=== PATIENT | male | born 1950 ===

== ENCOUNTER 2016-12-30 13:18 | Emergency (ER) | payer MEDICARE, MEDICAID ==
[2016-12-30 13:18] VITALS: BMI 26.6
[2016-12-30 13:24] VITALS: BP 136/63; PULSE 63; RESP 16; TEMP 98; O2SAT 99
--- NOTE | 2016-12-30 14:03 | ED PDOC ---
HPI: General Adult Time Seen by Provider: 12/30/16 13:32 Chief Complaint (Nursing): Abnormal Labs Chief Complaint (Provider): Elevated K History Per: Patient Additional Complaint(s): HPI: This is a 65 y/o male with MHx significant for DM2, HTN, ESRD on M/W/F ESRD , and PVD. Presents to ED without any physical complaints, reports that Dr. Erwin sent him to ED for elevated K ROS: 14 systems reviewed, negative other than HPI MHx: DM2, HTN, ESRD on HD, PVD SHx: R foot small toe amputation, R CEA, cholecystectomy Allergies: NKDA Medications: As per med rec Family Hx: No relevant findings Social Hx: Lives alone with a homemaker, no tobacco, no EtOH Surrogate: Daughters -- Magali [phone], Lisa [phone] Past Medical History Reviewed: Historical Data, Nursing Documentation, Vital Signs Vital Signs: Last Vital Signs Temp 98.0 F 12/30/16 13:23 Pulse 63 12/30/16 13:23 Resp 16 12/30/16 13:23 BP 136/63 12/30/16 13:23 Pulse Ox 99 12/30/16 14:09 - Medical History PMH: Anemia, CHF, Diabetes, HTN, Hypercholesterolemia, Pneumonia, End Stage Renal Disease (M/W/F dialysis), Chronic Kidney Disease (M/W/F dialysis) Denies: Arthritis, COPD, Hypothyroidism, Rheumatoid Arthritis - Surgical History Surgical History: Denies: Appendectomy - Family History Family History: States: Unknown Family Hx - Living Arrangements Living Arrangements: With Family - Social History Current smoker - smoking cessation education provided: No Alcohol: None Drugs: Denies - Home Medications Home Medications: Ambulatory Orders Medication Instructions Recorded Calcitriol [Rocaltrol] 0.25 mcg PO DAILY 12/30/16 Carvedilol [Coreg] 25 mg PO Q12H 12/30/16 Docusate Sodium [Colace] 100 mg PO HS 12/30/16 Folic Acid/Vit B Complex and C 1 tab PO HS 12/30/16 [Cheyenne-Angel Tablet] Glipizide [Glucotrol] 10 mg PO BID 12/30/16 Insulin Detemir [Levemir] 25 unit SC BID 12/30/16 Lactulose [Enulose] 30 ml PO DAILY PRN 12/30/16 Levocetirizine Dihydrochloride 5 mg PO DAILY PRN 12/30/16 [Xyzal] Lipase/Protease/Amylase [Creon Dr 1 cap PO TID 12/30/16 36,000 Units Capsule] Rosuvastatin Calcium [Crestor] 5 mg PO HS 12/30/16 Sevelamer Carbonate [Renvela] 1,600 mg PO TID 12/30/16 amLODIPine [Norvasc] 10 mg PO QPM 12/30/16 cloNIDine [Catapres (RENAL)] 0.2 mg PO TID 12/30/16 - Allergies Allergies/Adverse Reactions: Allergies Allergy/AdvReac Type Severity Reaction Status Date / Time No Known Allergies Allergy Verified 12/02/14 09:17 Review of Systems ROS Statement: Except As Marked, All Systems Reviewed And Found Negative Physical Exam - Reviewed Nursing Documentation Reviewed: Yes Vital Signs Reviewed: Yes - Physical Exam Appears: Positive for: Well, Non-toxic, No Acute Distress Head Exam: Positive for: ATRAUMATIC, NORMAL INSPECTION, NORMOCEPHALIC Skin: Positive for: Normal Color, Warm, DRY Eye Exam: Positive for: EOMI, Normal appearance, PERRL ENT: Positive for: Normal ENT Inspection Neck: Positive for: Normal, Painless ROM Cardiovascular/Chest: Positive for: Regular Rate, Rhythm Respiratory: Positive for: CNT, Normal Breath Sounds Gastrointestinal/Abdominal: Positive for: Normal Exam, Bowel Sounds, Soft Back: Positive for: Normal Inspection Extremity: Positive for: Normal ROM Neurologic/Psych: Positive for: Alert, Oriented - Laboratory Results Result Diagrams: 12/30/16 14:36 12/30/16 14:36 - ECG O2 Sat by Pulse Oximetry: 99 Medical Decision Making Medical Decision Making: IV access established and diagnostics ordered EKG interpreted and cleared by ED MD [place] resulted 5.[address] Erwin, who agreed Pt stable fro discharge at this time. Dialysis as scheduled tomorrow. Kayex to be administered before discharge Disposition - Clinical Impression Clinical Impression: ESRD (end stage renal disease) on dialysis, Hyperkalemia - Patient ED Disposition Is Patient to be Admitted: No - Disposition Disposition: Routine/Home Disposition Time: 17:49 Condition: STABLE Instructions: Hyperkalemia (ED) Forms: [employer] ([place]i)
[2016-12-30 14:42] LABS: BASO # 0.2 K/uL (0.0-0.2); BASO % 1.7 % (0.0-2.0); EOS # 0.2 K/uL (0.0-0.7); EOS % 1.7 % (0.0-4.0); HEMOGLOBIN 13.1 g/dL (12.0-18.0); LYMPH # 1.3 K/uL (1.0-4.3); MEAN CELL VOLUME 88.1 fl (80.0-94.0); MEAN CORPUSCULAR HGB CONC 31.7 g/dL (33.0-37.0); MEAN PLATELET VOLUME 9.9 fl (7.2-11.7); MONO # 0.9 K/uL (0.0-0.8); MONO % 9.5 % (0.0-10.0); NEUT % 73.1 % (50.0-75.0); NRBC % 0.1 % (0.0-0.0); RBC 4.69 Mil/uL (4.40-5.90); RED CELL DISTRIBUTION WIDTH 14.2 % (11.5-14.5); WHITE BLOOD COUNT 9.6 K/uL (4.8-10.8)
[2016-12-30 14:51] LABS: ALB/GLOB RATIO 1.4 (1.0-2.1); ALBUMIN 4.6 g/dL (3.5-5.0); CALCIUM 10.3 mg/dL (8.4-10.2)
[2016-12-30 15:02] LABS: TROPONIN I 0.021 ng/mL (0.00-0.120)
[2016-12-30 15:12] LABS: INR 1.1 (0.9-1.2); PARTIAL THROMBOPLASTIN TIME 31.5 Seconds (25.6-37.1); PROTHROMBIN TIME 11.3 Seconds (9.8-13.1)
--- NOTE | 2016-12-30 15:42 | RAD ---
PROCEDURE: CHEST RADIOGRAPH, 1 VIEW HISTORY: med screening COMPARISON: Chest radiographs 02/24/2016 FINDINGS: LUNGS: Clear. PLEURA: No pneumothorax or pleural fluid seen. CARDIOVASCULAR: Normal. OSSEOUS STRUCTURES: No significant abnormalities. VISUALIZED UPPER ABDOMEN: Normal. OTHER FINDINGS: None. IMPRESSION: No acute cardiopulmonary disease identified or significant interval change compared to 02/24/2016.
[2016-12-30] MEDS ORDERED: Sod Polystyrene Sulf 15 gm/60 ml Oral Susp PO ONE (16:02)
[2016-12-30] MEDS ORDERED: Sod Polystyrene Sulf 15 gm/60 ml Oral Susp ONE (16:29)
--- NOTE | 2016-12-31 07:26 | CARD ---
APPROVED REPORT EKG Measurement Heart [id number] ID [id number] <Conclusion> Sinus bradycardia with 1st degree AV block Otherwise normal ECG
== END 2016-12-30 17:08 | disposition home or self-care (01) ==
LOC: H.ER 13:18
DX: N18.6 End stage renal disease (principal); E87.5 Hyperkalemia; E11.22 Type 2 diabetes mellitus with diabetic chronic kidney disease; Z99.2 Dependence on renal dialysis; Z79.4 Long term (current) use of insulin; I13.2 Hypertensive heart and chronic kidney disease with heart failure and with stage 5 chronic kidney disease, or end stage renal disease

== ENCOUNTER 2017-04-17 22:30 | Inpatient (IN) | payer MEDICARE, MEDICAID ==
[2017-04-17] MEDS ORDERED: Sodium Chloride 0.9% 1,000 ML IV STA (22:39)
[2017-04-17 22:53] VITALS: BMI 22.8
[2017-04-17 22:55] LABS: ABG ALLEN TEST YES; ABG MECHANICAL RATE 12; ARTERIAL BLOOD GAS HCO3 8.9 mmol/L (21-28); ARTERIAL BLOOD GAS MODE A/C; ARTERIAL BLOOD GAS PH 6.82 (7.35-7.45); ARTERIAL BLOOD GAS PO2 109 mm/Hg (80-100); ATERIAL BLOOD GAS PEEP 5
--- NOTE | 2017-04-17 23:00 | ED PDOC ---
HPI: Cardiac Arrest Time Seen by Provider: 04/17/17 22:37 Chief Complaint (Nursing): Cardiac Arrest Chief Complaint (Provider): Cardiac Arrest History Per: Other (ACLS personnel, Friend) Reason For Code Blue: Full Arrest Circumstances: Brought To ED By EMS Arrest Witnessed By: Other (Friend) CPR Initiated Prior To MD Arrival?: Yes Down-Time Before ACLS: Mins (about 25 minutes) Treatment Initiated Prior To MD Arrival: CPR, Other (supraglottic airway, intraosseous line) Medications Given Prior To MD Arrival: Epinephrine (3), Other (Narcan 2 mg) Additional Complaint(s): Patient is a 66 male brought in by ALS for cardiac arrest, with ongoing resuscitation in progress. Patient was reportedly watching TV with a friend when he began complaining of chest pain. 911 was alerted and ACLS initially responded. Patient reportedly walked to the stretcher, but while on the stretcher became unresponsive and went into a cardiac arrest. ALS placed intraosseous line and supraglottic airway, and administered 3 epinephrines and 2 mg Narcan prior to arrival. Patient reported Asystolic in the field originally and went into PEA after ALS personnel initiated CPR. History and ROS unobtainable due to patient's clinical condition. PCP: - Initial Findings Mentation: Unresponsive Respirations: None (Assisted) Pulse: None Rhythm: PEA Past Medical History Reviewed: Historical Data, Nursing Documentation, Vital Signs Vital Signs: Last Vital Signs Temp 33.6 F L 04/18/17 01:27 Pulse 59 L 04/18/17 01:27 Resp 12 04/18/17 01:27 BP 169/127 H 04/18/17 01:27 Pulse Ox 94 L 04/18/17 01:00 - Medical History PMH: Anemia, CHF, Diabetes, HTN, Hypercholesterolemia, Pneumonia, End Stage Renal Disease (M/W/F dialysis), Chronic Kidney Disease (M/W/F dialysis) Denies: Arthritis, COPD, Hypothyroidism, Rheumatoid Arthritis - Surgical History Surgical History: Denies: Appendectomy - Family History Family History: States: Unknown Family Hx - Home Medications Home Medications: Ambulatory Orders Medication Instructions Recorded Calcitriol [Rocaltrol] 0.25 mcg PO DAILY 12/30/16 Carvedilol [Coreg] 25 mg PO Q12H 12/30/16 Docusate Sodium [Colace] 100 mg PO HS 12/30/16 Folic Acid/Vit B Complex and C 1 tab PO HS 12/30/16 [[place]yenne-Angel Tablet] Glipizide [Glucotrol] 10 mg PO BID 12/30/16 Insulin Detemir [Levemir] 25 unit SC BID 12/30/16 Lactulose [Enulose] 30 ml PO DAILY PRN 12/30/16 Levocetirizine Dihydrochloride 5 mg PO DAILY PRN 12/30/16 [Xyzal] Lipase/Protease/Amylase [Creon Dr 1 cap PO TID 12/30/16 36,000 Units Capsule] Rosuvastatin Calcium [Crestor] 5 mg PO HS 12/30/16 Sevelamer Carbonate [Renvela] 1,600 mg PO TID 12/30/16 amLODIPine [Norvasc] 10 mg PO QPM 12/30/16 cloNIDine [Catapres (RENAL)] 0.2 mg PO TID 12/30/16 - Allergies Allergies/Adverse Reactions: Allergies Allergy/AdvReac Type Severity Reaction Status Date / Time No Known Allergies Allergy Verified 04/17/17 22:33 Review of Systems Review Of Systems: ROS cannot be obtained secondary to pt's inabilty to answer questions. Physical Exam - Reviewed Nursing Documentation Reviewed: Yes Vital Signs Reviewed: Yes - Physical Exam Head Exam: Positive for: ATRAUMATIC, NORMOCEPHALIC Skin: Positive for: Dry, Pallor Eye Exam: Positive for: Other (pupils pinpoint and non reactive, no corneal reflexes) Cardiovascular/Chest: Positive for: Other (No audible cardiac or heart sounds). Negative for: Regular Rate, Rhythm Respiratory: Positive for: Other (Intubated, good air entry bilaterally with bag mask ventillation) Gastrointestinal/Abdominal: Positive for: Distended Extremity: Positive for: Other (right transmetatarsal amputation) Neurologic/Psych: Positive for: Other (Unresponsive). Negative for: Alert, Oriented - Laboratory Results Result Diagrams: 04/17/17 23:06 04/17/17 23:06 - Critical Care Total Time (In Min): 60 Medical Decision Making Medical Decision Making: Initial Impression: 66 y/o male with acute cardiac arrest Initial Plan: --ABG Shock Panel --EKG --Alcohol Serum --Labs --Troponin I --ED Urine Dipstick --PTT --Prothrombin Time --Chest X-Ray --Sodium Chloride 0.9% IV 1,000 mls/hr --Blood Culture --Heplock Insertion --Accucheck --Hypothermia Assessment QSHIFT --Mckee [Urinary Catheter Insertion] --Vetilator Settings --Urinalysis Patient given empiric treatment for acute hyperkalemia based on clinical presetation and history of End Stage Renal Disease 22:25 Pulse check, no pulse detected 22:27 Pulse check, no pulse detected Sodium Bicarbonate 44.6 meq IV given 22:31 Pulse check, patient recovered pulse after 2 epinephrine and 1 bicarbonate Accucheck - 147 22:34 Patient received insulin 10 units D50 calcium gluconate 1 amp 22:[address] derangement, case discussed with Dr. Leighton Napier per Dr. Manzanares, patient is not a candidate for code heart ST derangements are due to his significant LVH --Head CT W/O Contrast 23:02 Patient will be admitted to ICU, Dr. Vitale made aware Status post acute cardiopulmonary arrest and respiratory failure --Admit to Hospital Routine 23:12 Spoke with family member of patient, Kaya Aguilar, over the phone regarding the patient's condition She said she will communicate with his two daughters who do not live in the area regarding his condition 23:20 Dr. Schroeder, sider covering for Dr. Erwin, was consulted and will give dialysis orders for fluid removal but advised against any electrolyte arrangement given hypothermia protocol 00:25 Spoke with daughter and next of kin, Magali Lopez, who resides in [place], over the phone. She was updated on her father's critical condition. She provided telephone consent for emergent hemodialysis with Jaja Donaldson RN serving as witness. Scribe Attestation: Documented by Villa Young, acting as a scribe for Dr. Blake Mccrary MD. Provider Scribe Attestation: All medical record entries made by the Scribe were at my direction and personally dictated by me. I have reviewed the chart and agree that the record accurately reflects my personal performance of the history, physical exam, medical decision making, and the department course for this patient. I have also personally directed, reviewed, and agree with the discharge instructions and disposition. Procedures - Time-Out Type of Procedure: Intubation - Central Line Central Line Lumen: triple Central Line Procedure: betadine prep, sterile drapes applied, sterile dressing applied Central Line Postion: femoral (L) Complications: none Central Line Post Position: sutured, good blood return - Intubation Time of Intubation: 22:30 Intubation Method: orotracheal Tube Size (cm): 7.5 Breath Sounds after Intubation: equal Intubation Complications: no complications Post Intubation Xray: Yes Progress/Xray Impression: ET tip is above torsten Disposition - Clinical Impression Clinical Impression: Cardiac arrest, Hyperkalemia, ESRD (end stage renal disease) on dialysis, Flash pulmonary edema - Patient ED Disposition Is Patient to be Admitted: Yes Counseled Patient/Family Regarding: Studies Performed, Diagnosis - Disposition Disposition Time: 23:02 Condition: CRITICAL - Pt Status Changed To: Hospital Disposition Of: Inpatient - Admit Certification Admit to Inpatient:: After my assessment, the patient will require hospitalization for at least two midnights. This is because of the severity of symptoms shown, intensity of services needed, and/or the medical risk in this patient being treated as an outpatient.
[2017-04-17] MEDS ORDERED: Sodium Bicarbonate 7.5% (0.9 MEQ/ML) 50ML INJ IV ONE (23:03)
[2017-04-17 23:10] LABS: BASO # 0.1 K/uL (0.0-0.2); BASO % 1.2 % (0.0-2.0); EOS # 0.1 K/uL (0.0-0.7); EOS % 1.4 % (0.0-4.0); HEMATOCRIT 32.6 % (35.0-51.0); LYMPH # 2.4 K/uL (1.0-4.3); LYMPH % 23.8 % (20.0-40.0); MEAN CORPUSCULAR HEMOGLOBIN 27.5 pg (27.0-31.0); MEAN CORPUSCULAR HGB CONC 29.6 g/dL (33.0-37.0); MONO # 0.9 K/uL (0.0-0.8); NEUT # 6.4 K/uL (1.8-7.0); NEUT % 64.6 % (50.0-75.0); NRBC % 0.1 % (0.0-0.0); PLATELET COUNT 199 K/uL (130-400); RED CELL DISTRIBUTION WIDTH 16.1 % (11.5-14.5); WHITE BLOOD COUNT 9.9 K/uL (4.8-10.8)
[2017-04-17 23:21] LABS: BILIRUBIN,TOTAL 0.2 mg/dl (0.2-1.3); CALCIUM 8.3 mg/dL (8.4-10.2); POTASSIUM 4.1 MMOL/L (3.6-5.0); TOTAL PROTEIN 5.6 G/DL (6.3-8.2)
[2017-04-17 23:23] LABS: RBC URINE 11 /hpf (0-3); URINE BACTERIA MANY (<OCC); URINE BILIRUBIN NEGATIVE (NEGATIVE); URINE BLOOD NEGATIVE (NEGATIVE); URINE COLOR YELLOW (YELLOW); URINE GLUCOSE (UA) 50 mg/dL (Normal); URINE KETONE NEGATIVE (NEGATIVE); URINE LEUKOCYTE ESTERASE NEG Leu/uL (Negative); URINE PROTEIN >=500 mg/dL (NEGATIVE); URINE UROBILINOGEN 0.2-1.0 mg/dL (0.2-1.0); WBC URINE 12 /hpf (0-5)
[2017-04-17 23:24] LABS: ALB/GLOB RATIO 1.2 (1.0-2.1)
[2017-04-17 23:26] LABS: PARTIAL THROMBOPLASTIN TIME 30.7 Seconds (25.6-37.1)
[2017-04-17 23:31] LABS: TROPONIN I 0.037 ng/mL (0.00-0.120)
[2017-04-17] MEDS ORDERED: Glucagon Recombinant 1 mg Inj IM PRN (23:41)
[2017-04-17] MEDS ORDERED: Dextrose 50% SYRINGE Inj (50 ml) IV PRN (23:41)
[2017-04-17] MEDS ORDERED: Cisatracurium Besylate 200 MG in Sodium Chloride 0.9% 500 ML IV SCH ×2 (23:45→23:56)
[2017-04-17] MEDS ORDERED: Propofol 10 mg/ml Inj (100 ml) IV SCH ×2 (23:45)
--- NOTE | 2017-04-18 00:06 | CP.PCM.HP ---
History of Present Illness - History of Present Illness History of Present Illness: CC: Cardiac arrest Much of history from prior admission note or from ER. HPI: This is a 66 y/o male with MHx significant for DM2, HTN, ESRD on M/W/F ESRD , and PVD who is brought in by EMS with cardiac arrest. Patient was brought in with resuscitation in progress. Per report, patient had been watching TV with friend and c/o CP. They called 911, and when the ambulance arrived, [facility], but then became unresponsive and was found to be in cardiac arrest. CPR was initiated, patient received 3 epinephrines, 2 mg narcan. Supraglottic airway and IO line was placed. Here patient received bicarb injection and another epi and there was ROSC. EKG was reviewed by cardiology who indicated no code heart needed. Patient had L femoral central line placed. ROS: Cannot obtain, cardiac arrest MHx: DM2, HTN, ESRD on HD, PVD SHx: R foot small toe amputation, R CEA?, cholecystectomy Allergies: NKDA Medications: As per med rec Family Hx: Cannot obtain Social Hx: Current living situation unknown no tobacco, no EtOH Surrogate: Daughters -- Magali [phone], Lisa [phone] Present on Admission - Present on Admission Any Indicators Present on Admission: No Past Patient History - Past Medical History & Family History Past Medical History?: Yes - Past Social History Smoking Status: Former Smoker - CARDIAC Hx Congestive Heart Failure: Yes Hx Hypercholesterolemia: Yes Hx Hypertension: Yes - PULMONARY Hx Chronic Obstructive Pulmonary Disease (COPD): No Hx Pneumonia: Yes - NEUROLOGICAL Hx Neurological Disorder: No - HEENT Hx HEENT Problems: Yes - RENAL Hx Chronic Kidney Disease: Yes (M/W/F dialysis) Hx Dialysis: Yes - ENDOCRINE/METABOLIC Hx Diabetes Mellitus Type 2: Yes Hx Hypothyroidism: No - HEMATOLOGICAL/ONCOLOGICAL Hx Anemia: Yes - INTEGUMENTARY Hx Dermatological Problems: Yes - MUSCULOSKELETAL/RHEUMATOLOGICAL Hx Arthritis: No Hx Rheumatoid Arthritis: No - GASTROINTESTINAL Hx Gastrointestinal Disorders: No - GENITOURINARY/GYNECOLOGICAL Hx Genitourinary Disorders: Yes - PSYCHIATRIC Hx Substance Use: No - SURGICAL HISTORY Hx Appendectomy: No - ANESTHESIA Hx Anesthesia: Yes Hx Anesthesia Reactions: No Hx Malignant Hyperthermia: No Meds Allergies/Adverse Reactions: Allergies Allergy/AdvReac Type Severity Reaction Status Date / Time No Known Allergies Allergy Verified 04/17/17 22:33 Physical Exam - Constitutional Appears: Chronically Ill Additional comments: sedated - Head Exam Head Exam: ATRAUMATIC, NORMOCEPHALIC - ENT Exam ENT Exam: Mucous Membranes Moist - Respiratory Exam Additional comments: coarse BS on vent - Cardiovascular Exam Cardiovascular Exam: REGULAR RHYTHM, +S1, +S2 - GI/Abdominal Exam GI & Abdominal Exam: Normal Bowel Sounds, Soft Additional comments: distended - Extremities Exam Extremities exam: Positive for: pedal edema Additional comments: LLE intraosseus line - Neurological Exam Additional comments: intubated and sedated - Skin Skin Exam: Dry, Warm Results - Vital Signs Recent Vital Signs: Last Vital Signs Temp 96 F L 04/17/17 23:24 Pulse 64 04/17/17 23:24 Resp 23 04/17/17 23:24 BP 185/81 H 04/17/17 23:24 Pulse Ox 100 04/17/17 23:24 - Labs Result Diagrams: 04/17/17 23:06 04/17/17 23:06 Labs: Laboratory Results - last 24 hr 04/17/17 04/17/17 04/17/17 22:51 23:01 23:01 WBC RBC Hgb Hct MCV MCH MCHC RDW Plt Count MPV Neut % (Auto) Lymph % (Auto) [place] % (Auto) Eos % (Auto) Baso % (Auto) Neut # Lymph # [place] # Eos # Baso # PT INR APTT pCO2 95 H* pO2 109 H HCO3 8.9 L* ABG pH 6.82 L* ABG Total CO2 18.4 L ABG O2 Saturation 95.1 ABG Base Excess -20.3 L Scott Test Yes ABG Potassium 4.2 A-a O2 Difference 485.0 Sodium 142.0 Chloride 92.0 L Glucose 342 H Lactate 12.0 H* Vent Mode A/c Mechanical Rate 12 FiO2 100.0 Tidal Volume 500 PEEP 5 Crit Value Called To Blake reynolds md Crit Value Called By 6070 Crit Value Read Back Y Blood Gas Notified Time 2258 Potassium Carbon Dioxide Anion Gap BUN Creatinine Est GFR ( Amer) Est GFR (Non-Af Amer) Random Glucose Lactic Acid Calcium Total Bilirubin AST ALT Alkaline Phosphatase Troponin I Total Protein Albumin Globulin Albumin/Globulin Ratio Arterial Blood Potassium 4.2 Urine Color Yellow Urine Clarity Cloudy Urine pH 7.0 Ur Specific [place] 1.014 Urine Protein >=500 Urine Glucose (UA) 50 Urine Ketones Negative Urine Blood Negative Urine Nitrate Negative Urine Bilirubin Negative Urine Urobilinogen 0.2-1.0 Ur Leukocyte Esterase Neg Urine RBC (Auto) 11 H Urine Microscopic WBC 12 H Ur Squamous Epith Cells 5 Urine Bacteria Many H Hyaline Casts 6-10 H Urine Yeast (Budding) Rare H Urine Sperm (Auto) Occ Digoxin Urine Opiates Screen Negative Urine Methadone Screen Negative Ur Barbiturates Screen Negative Ur Phencyclidine Scrn Negative Ur Amphetamines Screen Negative U Benzodiazepines Scrn Negative U Oth Cocaine Metabols Negative U Cannabinoids Screen Negative Alcohol, Quantitative 04/17/17 04/17/17 04/17/17 23:06 23:06 23:06 WBC 9.9 RBC 3.51 L Hgb 9.7 L D Hct 32.6 L MCV 93.0 D MCH 27.5 MCHC 29.6 L RDW 16.1 H Plt Count 199 MPV 10.0 Neut % (Auto) 64.6 Lymph % (Auto) 23.8 [place] % (Auto) 9.0 Eos % (Auto) 1.4 Baso % (Auto) 1.2 Neut # 6.4 Lymph # 2.4 [place] # 0.9 H Eos # 0.1 Baso # 0.1 PT INR APTT pCO2 pO2 HCO3 ABG pH ABG Total CO2 ABG O2 Saturation ABG Base Excess Scott Test ABG Potassium A-a O2 Difference Sodium 140 Chloride 106 Glucose Lactate Vent Mode Mechanical Rate FiO2 Tidal Volume PEEP Crit Value Called To Crit Value Called By Crit Value Read Back Blood Gas Notified Time Potassium 4.1 Carbon Dioxide 17 L Anion Gap 21 H BUN 50 H Creatinine 6.7 H Est GFR ( Amer) 10 Est GFR (Non-Af Amer) 8 Random Glucose 241 H Lactic Acid Calcium 8.3 L Total Bilirubin 0.2 AST 28 ALT 41 Alkaline Phosphatase 35 L Troponin I 0.0370 Total Protein 5.6 L Albumin 3.0 L D Globulin 2.6 Albumin/Globulin Ratio 1.2 Arterial Blood Potassium Urine Color Urine Clarity Urine pH Ur Specific [place] Urine Protein Urine Glucose (UA) Urine Ketones Urine Blood Urine Nitrate Urine Bilirubin Urine Urobilinogen Ur Leukocyte Esterase Urine RBC (Auto) Urine Microscopic WBC Ur Squamous Epith Cells Urine Bacteria Hyaline Casts Urine Yeast (Budding) Urine Sperm (Auto) Digoxin < 0.4 L Urine Opiates Screen Urine Methadone Screen Ur Barbiturates Screen Ur Phencyclidine Scrn Ur Amphetamines Screen U Benzodiazepines Scrn U Oth Cocaine Metabols U Cannabinoids Screen Alcohol, Quantitative 12 H 04/17/17 04/17/17 23:06 23:06 WBC RBC Hgb Hct MCV MCH MCHC RDW Plt Count MPV Neut % (Auto) Lymph % (Auto) [place] % (Auto) Eos % (Auto) Baso % (Auto) Neut # Lymph # [place] # Eos # Baso # PT 11.6 INR 1.0 APTT 30.7 pCO2 pO2 HCO3 ABG pH ABG Total CO2 ABG O2 Saturation ABG Base Excess Scott Test ABG Potassium A-a O2 Difference Sodium Chloride Glucose Lactate Vent Mode Mechanical Rate FiO2 Tidal Volume PEEP Crit Value Called To Crit Value Called By Crit Value Read Back Blood Gas Notified Time Potassium Carbon Dioxide Anion Gap BUN Creatinine Est GFR ( Amer) Est GFR (Non-Af Amer) Random Glucose Lactic Acid 8.0 H* Calcium Total Bilirubin AST ALT Alkaline Phosphatase Troponin I Total Protein Albumin Globulin Albumin/Globulin Ratio Arterial Blood Potassium Urine Color Urine Clarity Urine pH Ur Specific [place] Urine Protein Urine Glucose (UA) Urine Ketones Urine Blood Urine Nitrate Urine Bilirubin Urine Urobilinogen Ur Leukocyte Esterase Urine RBC (Auto) Urine Microscopic WBC Ur Squamous Epith Cells Urine Bacteria Hyaline Casts Urine Yeast (Budding) Urine Sperm (Auto) Digoxin Urine Opiates Screen Urine Methadone Screen Ur Barbiturates Screen Ur Phencyclidine Scrn Ur Amphetamines Screen U Benzodiazepines Scrn U Oth Cocaine Metabols U Cannabinoids Screen Alcohol, Quantitative - Imaging and Cardiology Chest x-ray Status: Pending Assessment & Plan (1) Cardiac arrest Assessment and Plan: 66 y/o male with cardiac arrest in setting of ESRD and severe acidosis. -Admit to ICU -Continue vent, set to hyperventilation to improve acidosis, CXR, ABG in AM; Protonix for GI PPx -Continue therapeutic hypothermia per protocol; patient started on propofol for sedation, nimbex as needed for shivering, tylenol for fever, and insulin gtt for elevated ser glucose; if BP low, will start levophed -For ESRD/acidosis, nephrology consulted, plan for dialysis/vol removal; will start bicarb gtt for now for severe acidosis -Repeat CMP, CBC, Mg, Phos, Lact acid in AM -No obvious infection, so no abx at this time -SCDs only for DVT PPx Critical care time spent: 60 minutes Status: Acute
[2017-04-18] MEDS ORDERED: Propofol 10 mg/ml Inj (20 ML) IV ONE (00:33)
[2017-04-18] MEDS: Sodium Bicarbonate 8.4% 150 MEQ in Dextrose 5%/0.9% NS 1,000 ML IV SCH ×2 (00:34→15:00)
[2017-04-18 00:55] LABS: EOSINOPHIL 1 % (0-7); METAMYELOCYTE 2 % (0-0); MYELOCYTE 1 % (0-0); NEUTROPHIL 60 % (42-75); TOTAL CELLS COUNTED 100
[2017-04-18] MEDS ORDERED: Propofol 10 mg/ml 1,000 MG/100 ML VIAL IV ONE (01:00)
--- NOTE | 2017-04-18 01:50 | CT ---
EXAM: CT Head Without Intravenous Contrast CLINICAL HISTORY: 66 years old, male; Signs and symptoms; Coma or unconsciousness; Additional info: Cardiac arrest TECHNIQUE: Axial computed tomography images of the head/brain without intravenous contrast. All CT scans at this facility use one or more dose reduction techniques, viz.: automated exposure control; ma/kV adjustment per patient size (including targeted exams where dose is matched to indication; i.e. head); or iterative reconstruction technique. 316 images are submitted. Coronal and sagittal reformatted images were created and reviewed. COMPARISON: No relevant prior studies available. FINDINGS: Brain: The left eye lens is not well seen. Correlation with patient's ophthalmic history is recommended. Cerebral and cerebellar volume loss. Patchy hypodensity is seen in the periventricular and subcortical white matter. 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 No hemorrhage. Ventricles: Unremarkable. No ventriculomegaly. Bones/joints: Unremarkable. No acute fracture. Soft tissues: Unremarkable. Sinuses: Small air-fluid levels in the maxillary sinuses left more than right and sphenoid sinuses. Mastoid air cells: Unremarkable. No mastoid effusion. IMPRESSION: 1.No evidence of intracranial hemorrhage, midline shift or mass effect is noted.
[2017-04-18 04:27] LABS: ALB/GLOB RATIO 1.4 (1.0-2.1); ALKALINE PHOSPHATASE 65 U/L (38-126); ALT/SGPT 66 U/L (21-72); AST/SGOT 70 U/L (17-59); BILIRUBIN,TOTAL 0.5 mg/dl (0.2-1.3); BLOOD UREA NITROGEN 66 mg/dl (9-20); CALCIUM 10.3 mg/dL (8.4-10.2); CARBON DIOXIDE 24 mmol/L (22-30); CHLORIDE 101 mmol/L (98-107); GFR AFRICAN-AMERICAN 8; GLUCOSE,RANDOM 92 mg/dL (75-110); POTASSIUM 5.2 MMOL/L (3.6-5.0); SODIUM 142 mmol/l (132-148); TOTAL PROTEIN 8.3 G/DL (6.3-8.2)
[2017-04-18] MEDS ORDERED: Chlorhexidine Gluconate 1 APPL/PKT TP ONE (04:30)
[2017-04-18 05:40] LABS: ABG ALLEN TEST YES; ABG MECHANICAL RATE 22; ARTERIAL BLOOD GAS HCO3 26.7 mmol/L (21-28); ARTERIAL BLOOD GAS MODE PRVC/AC; ARTERIAL BLOOD GAS O2 CONTENT 19.1 ML/dL (15-23); ARTERIAL BLOOD GAS PH 7.51 (7.35-7.45); ARTERIAL BLOOD GAS PO2 101 mm/Hg (80-100); ARTERIAL BLOOD HGB O2 SAT 95.6 % (95.0-98.0); CARBOXYHEMOGLOBIN 0 % (0.5-1.5); HHB 4.3 % (0.0-5.0); METHEMOGLOBIN 0.1 % (0.0-3.0)
[2017-04-18] MEDS ORDERED: Enalaprilat 2.5 MG/2 ML IVP ONE (05:42)
[2017-04-18] MEDS ORDERED: Influenza Vaccine 18yr & older 0.5 ML/45 MCG SYR IM ONE (06:52)
[2017-04-18] MEDS ORDERED: Pneumococcal 23-Valent Vaccine IM ONE (06:53)
[2017-04-18 07:05] LABS: BASO % 0.1 % (0.0-2.0); HEMATOCRIT 44.8 % (35.0-51.0); LYMPH # 0.6 K/uL (1.0-4.3); LYMPH % 2.5 % (20.0-40.0); MEAN CORPUSCULAR HGB CONC 32.1 g/dL (33.0-37.0); MEAN PLATELET VOLUME 10.3 fl (7.2-11.7); MONO # 2.3 K/uL (0.0-0.8); MONO % 9.4 % (0.0-10.0); NEUT # 21.6 K/uL (1.8-7.0); RED CELL DISTRIBUTION WIDTH 15.6 % (11.5-14.5)
[2017-04-18 07:06] LABS: MEAN CELL VOLUME 87.1 fl (80.0-94.0); WHITE BLOOD COUNT 24.5 K/uL (4.8-10.8)
--- NOTE | 2017-04-18 07:32 | CARD ---
APPROVED REPORT EKG Measurement Heart [id number] <Conclusion> Sinus rhythm with 1st degree AV block Anterolateral infarct, age undetermined Abnormal ECG
--- NOTE | 2017-04-18 07:32 | CARD ---
APPROVED REPORT EKG Measurement Heart [id number] <Conclusion> Sinus rhythm with 1st degree AV block ST & T wave abnormality, consider inferolateral ischemia Abnormal ECG
[2017-04-18] MEDS ORDERED: Nicardipine HCl 40 MG/200 ML 40 MG/200 ML SOL IV SCH (08:15)
[2017-04-18] MEDS ORDERED: EnalaprilAT 1.25 mg/ml Inj IV ONE (08:45)
--- NOTE | 2017-04-18 08:50 | CP.PCM.CON ---
History of Present Illness - History of Present Illness History of Present Illness: This patient who is 66 years old who presented to the emergency room with gauze and rest and he required to be put on protocol of hyperthermia. And required emergency hemodialysis overnight completed and late in the morning. Patient with history of end stage renal disease and the history from the primary team as follow MHx significant for DM2, HTN, ESRD on M/W/F ESRD, and PVD who is brought in by EMS with cardiac arrest. Patient was brought in with resuscitation in progress. Per report, patient had been watching TV with friend and c/o CP. They called 911, and when the ambulance arrived, patient attempted to walk to [facility], but then became unresponsive and was found to be in cardiac arrest. CPR was initiated, patient received 3 epinephrines, 2 mg narcan. Supraglottic airway and IO line was placed. Here patient received bicarb injection and another epi and there was ROSC. EKG was reviewed by cardiology who indicated no code heart needed. Patient had L femoral central line placed. ROS: Cannot obtain, cardiac arrest MHx: DM2, HTN, ESRD on HD, PVD SHx: R foot small toe amputation, R CEA?, cholecystectomy Allergies: NKDA Medications: As per med rec Family Hx: Cannot obtain Social Hx: Current living situation unknown no tobacco, no EtOH Surrogate: Daughters -- Magali [phone], Lisa [phone] Review of Systems - Review of Systems Systems not reviewed;Unavailable: Intubated - Constitutional Constitutional: As Per HPI - Cardiovascular Cardiovascular: As Per HPI. absent: Leg Edema, Pedal Edema - Gastrointestinal Gastrointestinal: absent: Abdominal Pain, Coffee Ground Emesis - Reproductive: Male Reproductive:Male: As Per HPI - Musculoskeletal Additional comments: intubated - Neurological Neurological: As Per HPI - Endocrine Endocrine: As Per HPI Past Patient History - Past Medical History & Family History Past Medical History?: Yes - Past Social History Smoking Status: Never Smoked - CARDIAC Hx Congestive Heart Failure: Yes Hx Hypercholesterolemia: Yes Hx Hypertension: Yes - PULMONARY Hx Chronic Obstructive Pulmonary Disease (COPD): No Hx Pneumonia: Yes - NEUROLOGICAL Hx Neurological Disorder: No - HEENT Hx HEENT Problems: Yes Hx Cataracts: Yes - RENAL Hx Chronic Kidney Disease: Yes (M/W/F dialysis) - ENDOCRINE/METABOLIC Hx Hypothyroidism: No - HEMATOLOGICAL/ONCOLOGICAL Hx Anemia: Yes - INTEGUMENTARY Hx Dermatological Problems: Yes - MUSCULOSKELETAL/RHEUMATOLOGICAL Hx Arthritis: No Hx Rheumatoid Arthritis: No - GASTROINTESTINAL Hx Gastrointestinal Disorders: No - GENITOURINARY/GYNECOLOGICAL Hx Genitourinary Disorders: Yes - PSYCHIATRIC Hx Substance Use: No - SURGICAL HISTORY Hx Appendectomy: No - ANESTHESIA Hx Anesthesia: Yes Hx Anesthesia Reactions: No Hx Malignant Hyperthermia: No Has any member of the family had a problem w/ anesthesia?: No Meds Allergies/Adverse Reactions: Allergies Allergy/AdvReac Type Severity Reaction Status Date / Time No Known Allergies Allergy Verified 04/17/17 22:33 - Medications Medications: Current Medications Acetaminophen (Tylenol 650 Mg Supp) 650 mg [place] Q6H PRN PRN Reason: Fever >100.4 F Carvedilol (Coreg) 25 mg PO Q12 BARNEY Clonidine HCl (Catapres) 0.2 mg PO BID BARNEY Dextrose (Dextrose 50% Inj) 0 ml IV STAT PRN; Protocol PRN Reason: Hypoglycemia Protocol Dextrose (Glutose 15) 0 gm PO ONCE PRN; Protocol PRN Reason: Hypoglycemia Protocol Enalaprilat (Vasotec Iv) 2.5 mg IV ONCE ONE Stop: 04/18/17 08:46 Glucagon (Glucagen Diagnostic Kit) 0 mg IM STAT PRN; Protocol PRN Reason: Hypoglycemia Protocol Insulin Human Regular 100 (units/ Sodium Chloride) 101 mls @ 2.02 mls/hr IV .Q24H BARNEY; 2 UNITS/HR PRN Reason: Protocol Sodium Bicarbonate 150 meq/ (Dextrose/Sodium Chloride) 1,150 mls @ 75 mls/hr IV .[id number] BARNEY Stop: 04/18/17 23:47 Last Admin: 04/18/17 00:34 Dose: 75 mls/hr Cisatracurium Besylate 200 mg/ (Sodium Chloride) 520 mls @ 31.84 mls/hr IV .[id number] BARNEY PRN Reason: 3 MCG/KG/MIN Last Admin: 04/18/17 00:59 Dose: 31.84 mls/hr Propofol (Diprivan) 1,000 mg in 100 mls @ 2.041 mls/hr IV .Q24H ONE; 5 MCG/KG/ MIN PRN Reason: Protocol Stop: 04/19/17 00:59 Last Admin: 04/18/17 02:10 Dose: 5 mcg/kg/min, 2.041 mls/hr Nicardipine HCl (Cardene 40mg/200ml Premixed) 40 mg in 200 mls @ 25 mls/hr IV .Q8H BARNEY; 5 MG/HR PRN Reason: Protocol Pantoprazole Sodium (Protonix Inj) 40 mg IVP DAILY BARNEY Physical Exam - Constitutional Appears: No Acute Distress Additional comments: completely sedated and intubated - Neck Exam Neck exam: Negative for: Lymphadenopathy - Respiratory Exam Respiratory Exam: Rhonchi. absent: Chest Wall Tenderness - Cardiovascular Exam Cardiovascular Exam: absent: JVD, Rubs - GI/Abdominal Exam GI & Abdominal Exam: Normal Bowel Sounds. absent: Distended, Guarding - Extremities Exam Extremities exam: Negative for: calf tenderness - Back Exam Back exam: absent: CVA tenderness (L), CVA tenderness (R) - Neurological Exam Neurological exam: Altered - Skin Skin Exam: Pallor Results - Vital Signs Recent Vital Signs: Last Vital Signs Temp 88.2 F L 04/18/17 08:00 Pulse 64 04/18/17 08:00 Resp 16 04/18/17 08:00 BP 219/83 H 04/18/17 08:00 Pulse Ox 100 04/18/17 08:00 - Labs Result Diagrams: 04/18/17 04:20 04/18/17 03:46 Labs: Laboratory Results - last 24 hr 04/17/17 04/17/17 04/17/17 22:32 22:51 23:01 WBC RBC Hgb Hct MCV MCH MCHC RDW Plt Count MPV Neut % (Auto) Lymph % (Auto) [place] % (Auto) Eos % (Auto) Baso % (Auto) Neut # Lymph # [place] # Eos # Baso # Neutrophils % (Manual) Band Neutrophils % Lymphocytes % (Manual) Monocytes % (Manual) Eosinophils % (Manual) Metamyelocytes % Myelocytes % Platelet Estimate Anisocytosis (manual) PT INR APTT pCO2 95 H* pO2 109 H HCO3 8.9 L* ABG pH 6.82 L* ABG Total CO2 18.4 L ABG O2 Saturation 95.1 ABG O2 Content ABG Base Excess -20.3 L ABG Hemoglobin ABG Carboxyhemoglobin POC ABG HHb (Measured) ABG Methemoglobin ABG O2 Capacity Scott Test Yes ABG Potassium 4.2 A-a O2 Difference 485.0 Hgb O2 Saturation Sodium 142.0 Chloride 92.0 L Glucose 342 H Lactate 12.0 H* Vent Mode A/c Mechanical Rate 12 FiO2 100.0 Tidal Volume 500 PEEP 5 Crit Value Called To Blake reynolds md Crit Value Called By 6029 Crit Value Read Back Y Blood Gas Notified Time 2254 Potassium Carbon Dioxide Anion Gap BUN Creatinine Est GFR ( Amer) Est GFR (Non-Af Amer) POC Glucose (mg/dL) 147 H Random Glucose Lactic Acid Calcium Magnesium Total Bilirubin AST ALT Alkaline Phosphatase Troponin I Total Protein Albumin Globulin Albumin/Globulin Ratio Arterial Blood Potassium 4.2 Urine Color Urine Clarity Urine pH Ur Specific [place] Urine Protein Urine Glucose (UA) Urine Ketones Urine Blood Urine Nitrate Urine Bilirubin Urine Urobilinogen Ur Leukocyte Esterase Urine RBC (Auto) Urine Microscopic WBC Ur Squamous Epith Cells Urine Bacteria Hyaline Casts Urine Yeast (Budding) Urine Sperm (Auto) Digoxin Urine Opiates Screen Negative Urine Methadone Screen Negative Ur Barbiturates Screen Negative Ur Phencyclidine Scrn Negative Ur Amphetamines Screen Negative U Benzodiazepines Scrn Negative U Oth Cocaine Metabols Negative U Cannabinoids Screen Negative Alcohol, Quantitative 04/17/17 04/17/17 04/17/17 23:01 23:06 23:06 WBC 9.9 RBC 3.51 L Hgb 9.7 L D Hct 32.6 L MCV 93.0 D MCH 27.5 MCHC 29.6 L RDW 16.1 H Plt Count 199 MPV 10.0 Neut % (Auto) 64.6 Lymph % (Auto) 23.8 [place] % (Auto) 9.0 Eos % (Auto) 1.4 Baso % (Auto) 1.2 Neut # 6.4 Lymph # 2.4 [place] # 0.9 H Eos # 0.1 Baso # 0.1 Neutrophils % (Manual) 60 Band Neutrophils % 1 Lymphocytes % (Manual) 30 Monocytes % (Manual) 5 Eosinophils % (Manual) 1 Metamyelocytes % 2 H Myelocytes % 1 H Platelet Estimate Normal Anisocytosis (manual) Slight PT INR APTT pCO2 pO2 HCO3 ABG pH ABG Total CO2 ABG O2 Saturation ABG O2 Content ABG Base Excess ABG Hemoglobin ABG Carboxyhemoglobin POC ABG HHb (Measured) ABG Methemoglobin ABG O2 Capacity Scott Test ABG Potassium A-a O2 Difference Hgb O2 Saturation Sodium 140 Chloride 106 Glucose Lactate Vent Mode Mechanical Rate FiO2 Tidal Volume PEEP Crit Value Called To Crit Value Called By Crit Value Read Back Blood Gas Notified Time Potassium 4.1 Carbon Dioxide 17 L Anion Gap 21 H BUN 50 H Creatinine 6.7 H Est GFR ( Amer) 10 Est GFR (Non-Af Amer) 8 POC Glucose (mg/dL) Random Glucose 241 H Lactic Acid Calcium 8.3 L Magnesium Total Bilirubin 0.2 AST 28 ALT 41 Alkaline Phosphatase 35 L Troponin I 0.0370 Total Protein 5.6 L Albumin 3.0 L D Globulin 2.6 Albumin/Globulin Ratio 1.2 Arterial Blood Potassium Urine Color Yellow Urine Clarity Cloudy Urine pH 7.0 Ur Specific [place] 1.014 Urine Protein >=500 Urine Glucose (UA) 50 Urine Ketones Negative Urine Blood Negative Urine Nitrate Negative Urine Bilirubin Negative Urine Urobilinogen 0.2-1.0 Ur Leukocyte Esterase Neg Urine RBC (Auto) 11 H Urine Microscopic WBC 12 H Ur Squamous Epith Cells 5 Urine Bacteria Many H Hyaline Casts 6-10 H Urine Yeast (Budding) Rare H Urine Sperm (Auto) Occ Digoxin Urine Opiates Screen Urine Methadone Screen Ur Barbiturates Screen Ur Phencyclidine Scrn Ur Amphetamines Screen U Benzodiazepines Scrn U Oth Cocaine Metabols U Cannabinoids Screen Alcohol, Quantitative 12 H 04/17/17 04/17/17 04/17/17 23:06 23:06 23:06 WBC RBC Hgb Hct MCV MCH MCHC RDW Plt Count MPV Neut % (Auto) Lymph % (Auto) [place] % (Auto) Eos % (Auto) Baso % (Auto) Neut # Lymph # [place] # Eos # Baso # Neutrophils % (Manual) Band Neutrophils % Lymphocytes % (Manual) Monocytes % (Manual) Eosinophils % (Manual) Metamyelocytes % Myelocytes % Platelet Estimate Anisocytosis (manual) PT 11.6 INR 1.0 APTT 30.7 pCO2 pO2 HCO3 ABG pH ABG Total CO2 ABG O2 Saturation ABG O2 Content ABG Base Excess ABG Hemoglobin ABG Carboxyhemoglobin POC ABG HHb (Measured) ABG Methemoglobin ABG O2 Capacity Scott Test ABG Potassium A-a O2 Difference Hgb O2 Saturation Sodium Chloride Glucose Lactate Vent Mode Mechanical Rate FiO2 Tidal Volume PEEP Crit Value Called To Crit Value Called By Crit Value Read Back Blood Gas Notified Time Potassium Carbon Dioxide Anion Gap BUN Creatinine Est GFR ( Amer) Est GFR (Non-Af Amer) POC Glucose (mg/dL) Random Glucose Lactic Acid 8.0 H* Calcium Magnesium Total Bilirubin AST ALT Alkaline Phosphatase Troponin I Total Protein Albumin Globulin Albumin/Globulin Ratio Arterial Blood Potassium Urine Color Urine Clarity Urine pH Ur Specific [place] Urine Protein Urine Glucose (UA) Urine Ketones Urine Blood Urine Nitrate Urine Bilirubin Urine Urobilinogen Ur Leukocyte Esterase Urine RBC (Auto) Urine Microscopic WBC Ur Squamous Epith Cells Urine Bacteria Hyaline Casts Urine Yeast (Budding) Urine Sperm (Auto) Digoxin < 0.4 L Urine Opiates Screen Urine Methadone Screen Ur Barbiturates Screen Ur Phencyclidine Scrn Ur Amphetamines Screen U Benzodiazepines Scrn U Oth Cocaine Metabols U Cannabinoids Screen Alcohol, Quantitative 04/18/17 04/18/17 04/18/17 00:50 01:49 02:55 WBC RBC Hgb Hct MCV MCH MCHC RDW Plt Count MPV Neut % (Auto) Lymph % (Auto) [place] % (Auto) Eos % (Auto) Baso % (Auto) Neut # Lymph # [place] # Eos # Baso # Neutrophils % (Manual) Band Neutrophils % Lymphocytes % (Manual) Monocytes % (Manual) Eosinophils % (Manual) Metamyelocytes % Myelocytes % Platelet Estimate Anisocytosis (manual) PT INR APTT pCO2 pO2 HCO3 ABG pH ABG Total CO2 ABG O2 Saturation ABG O2 Content ABG Base Excess ABG Hemoglobin ABG Carboxyhemoglobin POC ABG HHb (Measured) ABG Methemoglobin ABG O2 Capacity Scott Test ABG Potassium A-a O2 Difference Hgb O2 Saturation Sodium Chloride Glucose Lactate Vent Mode Mechanical Rate FiO2 Tidal Volume PEEP Crit Value Called To Crit Value Called By Crit Value Read Back Blood Gas Notified Time Potassium Carbon Dioxide Anion Gap BUN Creatinine Est GFR ( Amer) Est GFR (Non-Af Amer) POC Glucose (mg/dL) 72 74 82 Random Glucose Lactic Acid Calcium Magnesium Total Bilirubin AST ALT Alkaline Phosphatase Troponin I Total Protein Albumin Globulin Albumin/Globulin Ratio Arterial Blood Potassium Urine Color Urine Clarity Urine pH Ur Specific [place] Urine Protein Urine Glucose (UA) Urine Ketones Urine Blood Urine Nitrate Urine Bilirubin Urine Urobilinogen Ur Leukocyte Esterase Urine RBC (Auto) Urine Microscopic WBC Ur Squamous Epith Cells Urine Bacteria Hyaline Casts Urine Yeast (Budding) Urine Sperm (Auto) Digoxin Urine Opiates Screen Urine Methadone Screen Ur Barbiturates Screen Ur Phencyclidine Scrn Ur Amphetamines Screen U Benzodiazepines Scrn U Oth Cocaine Metabols U Cannabinoids Screen Alcohol, Quantitative 04/18/17 04/18/17 04/18/17 03:46 04:05 04:20 WBC 24.5 H D RBC 5.15 Hgb 14.4 D Hct 44.8 MCV 87.1 D MCH 28.0 MCHC 32.1 L RDW 15.6 H Plt Count 186 MPV 10.3 Neut % (Auto) 88.0 H Lymph % (Auto) 2.5 L [place] % (Auto) 9.4 Eos % (Auto) 0.0 Baso % (Auto) 0.1 Neut # 21.6 H Lymph # 0.6 L [place] # 2.3 H Eos # 0.0 Baso # 0.0 Neutrophils % (Manual) Band Neutrophils % Lymphocytes % (Manual) Monocytes % (Manual) Eosinophils % (Manual) Metamyelocytes % Myelocytes % Platelet Estimate Anisocytosis (manual) PT INR APTT pCO2 pO2 HCO3 ABG pH ABG Total CO2 ABG O2 Saturation ABG O2 Content ABG Base Excess ABG Hemoglobin ABG Carboxyhemoglobin POC ABG HHb (Measured) ABG Methemoglobin ABG O2 Capacity Scott Test ABG Potassium A-a O2 Difference Hgb O2 Saturation Sodium 142 Chloride 101 Glucose Lactate Vent Mode Mechanical Rate FiO2 Tidal Volume PEEP Crit Value Called To Crit Value Called By Crit Value Read Back Blood Gas Notified Time Potassium 5.2 H Carbon Dioxide 24 Anion Gap 22 H BUN 66 H Creatinine 8.1 H* D Est GFR ( Amer) 8 Est GFR (Non-Af Amer) 7 POC Glucose (mg/dL) 93 Random Glucose 92 Lactic Acid Calcium 10.3 H Magnesium 2.0 Total Bilirubin 0.5 AST 70 H D ALT 66 Alkaline Phosphatase 65 Troponin I Total Protein 8.3 H Albumin 4.8 Globulin 3.5 Albumin/Globulin Ratio 1.4 Arterial Blood Potassium Urine Color Urine Clarity Urine pH Ur Specific [place] Urine Protein Urine Glucose (UA) Urine Ketones Urine Blood Urine Nitrate Urine Bilirubin Urine Urobilinogen Ur Leukocyte Esterase Urine RBC (Auto) Urine Microscopic WBC Ur Squamous Epith Cells Urine Bacteria Hyaline Casts Urine Yeast (Budding) Urine Sperm (Auto) Digoxin Urine Opiates Screen Urine Methadone Screen Ur Barbiturates Screen Ur Phencyclidine Scrn Ur Amphetamines Screen U Benzodiazepines Scrn U Oth Cocaine Metabols U Cannabinoids Screen Alcohol, Quantitative 04/18/17 04/18/17 04/18/17 05:00 05:06 05:32 WBC RBC Hgb Hct MCV MCH MCHC RDW Plt Count MPV Neut % (Auto) Lymph % (Auto) [place] % (Auto) Eos % (Auto) Baso % (Auto) Neut # Lymph # [place] # Eos # Baso # Neutrophils % (Manual) Band Neutrophils % Lymphocytes % (Manual) Monocytes % (Manual) Eosinophils % (Manual) Metamyelocytes % Myelocytes % Platelet Estimate Anisocytosis (manual) PT INR APTT pCO2 31 L pO2 101 H HCO3 26.7 ABG pH 7.51 H ABG Total CO2 25.7 ABG O2 Saturation 95.7 ABG O2 Content 19.1 ABG Base Excess 2.4 ABG Hemoglobin 14.1 ABG Carboxyhemoglobin 0 L POC ABG HHb (Measured) 4.3 ABG Methemoglobin 0.1 ABG O2 Capacity 20.0 Scott Test Yes ABG Potassium A-a O2 Difference 573.0 Hgb O2 Saturation 95.6 Sodium Chloride Glucose Lactate Vent Mode Prvc/ac Mechanical Rate 22 FiO2 100.0 Tidal Volume 500 PEEP Crit Value Called To Crit Value Called By Crit Value Read Back Blood Gas Notified Time Potassium Carbon Dioxide Anion Gap BUN Creatinine Est GFR ( Amer) Est GFR (Non-Af Amer) POC Glucose (mg/dL) 102 Random Glucose Lactic Acid 2.7 H Calcium Magnesium Total Bilirubin AST ALT Alkaline Phosphatase Troponin I Total Protein Albumin Globulin Albumin/Globulin Ratio Arterial Blood Potassium Urine Color Urine Clarity Urine pH Ur Specific [place] Urine Protein Urine Glucose (UA) Urine Ketones Urine Blood Urine Nitrate Urine Bilirubin Urine Urobilinogen Ur Leukocyte Esterase Urine RBC (Auto) Urine Microscopic WBC Ur Squamous Epith Cells Urine Bacteria Hyaline Casts Urine Yeast (Budding) Urine Sperm (Auto) Digoxin Urine Opiates Screen Urine Methadone Screen Ur Barbiturates Screen Ur Phencyclidine Scrn Ur Amphetamines Screen U Benzodiazepines Scrn U Oth Cocaine Metabols U Cannabinoids Screen Alcohol, Quantitative 04/18/17 04/18/17 06:06 07:01 WBC RBC Hgb Hct MCV MCH MCHC RDW Plt Count MPV Neut % (Auto) Lymph % (Auto) [place] % (Auto) Eos % (Auto) Baso % (Auto) Neut # Lymph # [place] # Eos # Baso # Neutrophils % (Manual) Band Neutrophils % Lymphocytes % (Manual) Monocytes % (Manual) Eosinophils % (Manual) Metamyelocytes % Myelocytes % Platelet Estimate Anisocytosis (manual) PT INR APTT pCO2 pO2 HCO3 ABG pH ABG Total CO2 ABG O2 Saturation ABG O2 Content ABG Base Excess ABG Hemoglobin ABG Carboxyhemoglobin POC ABG HHb (Measured) ABG Methemoglobin ABG O2 Capacity [place] Test ABG Potassium A-a O2 Difference Hgb O2 Saturation Sodium Chloride Glucose Lactate Vent Mode Mechanical Rate FiO2 Tidal Volume PEEP Crit Value Called To Crit Value Called By Crit Value Read Back Blood Gas Notified Time Potassium Carbon Dioxide Anion Gap BUN Creatinine Est GFR ( Amer) Est GFR (Non-Af Amer) POC Glucose (mg/dL) 120 H 121 H Random Glucose Lactic Acid Calcium Magnesium Total Bilirubin AST ALT Alkaline Phosphatase Troponin I Total Protein Albumin Globulin Albumin/Globulin Ratio Arterial Blood Potassium Urine Color Urine Clarity Urine pH Ur Specific [place] Urine Protein Urine Glucose (UA) Urine Ketones Urine Blood Urine Nitrate Urine Bilirubin Urine Urobilinogen Ur Leukocyte Esterase Urine RBC (Auto) Urine Microscopic WBC Ur Squamous Epith Cells Urine Bacteria Hyaline Casts Urine Yeast (Budding) Urine Sperm (Auto) Digoxin Urine Opiates Screen Urine Methadone Screen Ur Barbiturates Screen Ur Phencyclidine Scrn Ur Amphetamines Screen U Benzodiazepines Scrn U Oth Cocaine Metabols U Cannabinoids Screen Alcohol, Quantitative Assessment & Plan (1) Cardiac arrest Status: Acute (2) Flash pulmonary edema Status: Acute (3) ESRD (end stage renal disease) on dialysis Assessment and Plan: End stage renal disease on maintenance hemodialysis admitted with congestive heart failure and pulmonary edema and cardiac arrest patient has been resuscitated intubated and put on hypothermic Protocol. Hemodialysis completed a living the morning. Patient when he needs more dialysis for tomorrow. Blood pressure remained elevated. I ordered a stat Vasotec 2.5 mg IV. Continue monitoring Status: Chronic (4) Acute respiratory failure Status: Acute (5) CHF exacerbation Status: Acute
--- NOTE | 2017-04-18 08:55 | CP.PCM.PN ---
Subjective - Date & Time of Evaluation Date of Evaluation: 04/18/17 Time of Evaluation: 08:30 - Subjective Subjective: Patient seen and examined bedside. Intubated on MV PRVC/AC mode 14/0/500/100 % and sedated , on hypothermia protocol BP uncontrolled 220/77 ABG 31/101/26/7.5 trop 0.264 WBc trending up from 9 K -- 24 K , Hgb 13 lactate 8 BUn/Cr 70/8 CXR shows bilateral hilar infiltrates Objective - Vital Signs/Intake and Output Vital Signs (last 24 hours): Temp Pulse Resp BP Pulse Ox 88.2 F L 64 16 219/83 H 100 04/18/17 08:00 04/18/17 08:00 04/18/17 08:00 04/18/17 08:00 04/18/17 08:00 Intake and Output: 04/18/17 04/18/17 06:59 18:59 Intake Total 375 75 Output Total 150 5 Balance 225 70 - Medications Medications: Current Medications Acetaminophen (Tylenol 650 Mg Supp) 650 mg PA Q6H PRN PRN Reason: Fever >100.4 F Carvedilol (Coreg) 25 mg PO Q12 BARNEY Clonidine HCl (Catapres) 0.2 mg PO BID BARNEY Dextrose (Dextrose 50% Inj) 0 ml IV STAT PRN; Protocol PRN Reason: Hypoglycemia Protocol Dextrose (Glutose 15) 0 gm PO ONCE PRN; Protocol PRN Reason: Hypoglycemia Protocol Glucagon (Glucagen Diagnostic Kit) 0 mg IM STAT PRN; Protocol PRN Reason: Hypoglycemia Protocol Insulin Human Regular 100 (units/ Sodium Chloride) 101 mls @ 2.02 mls/hr IV .Q24H BARNEY; 2 UNITS/HR PRN Reason: Protocol Sodium Bicarbonate 150 meq/ (Dextrose/Sodium Chloride) 1,150 mls @ 75 mls/hr IV .[id number] BARNEY Stop: 04/18/17 23:47 Last Admin: 04/18/17 00:34 Dose: 75 mls/hr Cisatracurium Besylate 200 mg/ (Sodium Chloride) 520 mls @ 31.84 mls/hr IV .[id number] BARNEY PRN Reason: 3 MCG/KG/MIN Last Admin: 04/18/17 00:59 Dose: 31.84 mls/hr Propofol (Diprivan) 1,000 mg in 100 mls @ 2.041 mls/hr IV .Q24H ONE; 5 MCG/KG/ MIN PRN Reason: Protocol Stop: 04/19/17 00:59 Last Admin: 04/18/17 02:10 Dose: 5 mcg/kg/min, 2.041 mls/hr Nicardipine HCl (Cardene 40mg/200ml Premixed) 40 mg in 200 mls @ 25 mls/hr IV .Q8H BARNEY; 5 MG/HR PRN Reason: Protocol Vancomycin HCl 1 gm/ Sodium (Chloride) 250 mls @ 125 mls/hr IVPB TTS BARNEY PRN Reason: Protocol Piperacillin Sod/Tazobactam (Sod 2.25 gm/ Sodium Chloride) 100 mls @ 100 mls/ hr IVPB Q8 BARNEY PRN Reason: Protocol Pantoprazole Sodium (Protonix Inj) 40 mg IVP DAILY BARNEY - Labs Labs: 04/18/17 04:20 04/18/17 03:46 PT 11.6 Seconds (9.8-13.1) 04/17/17 23:06 INR 1.0 (0.9-1.2) 04/17/17 23:06 APTT 30.7 Seconds (25.6-37.1) 04/17/17 23:06 - Constitutional Appears: Other (intubated , sedated on hypothermai protocol) - Head Exam Head Exam: ATRAUMATIC, NORMOCEPHALIC - Eye Exam Eye Exam: PERRL - ENT Exam ENT Exam: Mucous Membranes Dry, Normal Exam - Neck Exam Neck Exam: Normal Inspection - Respiratory Exam Respiratory Exam: Clear to Ausculation Bilateral. absent: Rhonchi, Wheezes - Cardiovascular Exam Cardiovascular Exam: REGULAR RHYTHM, +S1, +S2. absent: JVD - GI/Abdominal Exam GI & Abdominal Exam: Soft, Normal Bowel Sounds. absent: Distended, Guarding, Rebound - Rectal Exam Rectal Exam: Deferred - Extremities Exam Extremities Exam: absent: Pedal Edema - Neurological Exam Additional comments: sedated - Skin Skin Exam: Dry, Warm Assessment and Plan - Assessment and Plan (Free Text) Assessment: 66 y/o male with PMHx significant for DM2, HTN, ESRD on M/W/F ESRD, and PVD brought in by EMS with cardiac arrest. Patient was brought in with resuscitation in progress. Per report, patient had been watching TV with friend and c/o CP. They called 911, and when the ambulance arrived, patient attempted to walk to stretcher, but then became unresponsive and was found to be in cardiac arrest. CPR was initiated, patient received 3 epinephrines, 2 mg narcan. Supraglottic airway and IO line was placed. Here patient received bicarb injection and another epi and there was ROSC. EKG was reviewed by cardiology who indicated no code heart needed. Patient had L femoral central line placed. 1. Cardiac arrest Patient intubated , sedated and on hypothermia protocol follow up hypothermia protocol Check and monitor electrolytes cardiology consulted Trop 0.26 2.ESRD on HD nephrology consulted for HD BVUn/Cr 70/8 3. HTN uncontrolled SBP 220 Started Cardene drip and titrate accordingly 4. DM continue accuchecks and insulin coverage D/c insulin drip since accvuchecks are on the lower side 5.Bilateral Pneumonia most likealy aspiration Started on vanco post HD and Zosyn renal dose Follow up cultures wbc trending up from 9 K -- 24 K 6.DVT prophylaxis SCD ]
[2017-04-18 10:27] LABS: HEMATOCRIT 41.1 % (35.0-51.0); MEAN CELL VOLUME 85.3 fl (80.0-94.0); MEAN CORPUSCULAR HEMOGLOBIN 27.5 pg (27.0-31.0); MEAN CORPUSCULAR HGB CONC 32.3 g/dL (33.0-37.0); RED CELL DISTRIBUTION WIDTH 15.5 % (11.5-14.5); WHITE BLOOD COUNT 24.3 K/uL (4.8-10.8)
[2017-04-18 10:55] LABS: ALB/GLOB RATIO 1.3 (1.0-2.1); BILIRUBIN,TOTAL 0.5 mg/dl (0.2-1.3); CALCIUM 9.8 mg/dL (8.4-10.2); POTASSIUM 4.1 MMOL/L (3.6-5.0); TOTAL PROTEIN 7.7 G/DL (6.3-8.2)
--- NOTE | 2017-04-18 11:40 | RAD ---
PROCEDURE: CHEST RADIOGRAPH, 1 VIEW HISTORY: intubated COMPARISON: 04/17/2017 FINDINGS: LUNGS: Extensive right perihilar infiltrate, slightly improved particularly in the upper lobe. Vague left upper lobe opacity persists unchanged. PLEURA: No pneumothorax or pleural fluid seen. CARDIOVASCULAR: Normal heart size. Endotracheal tube tip approximately 1.3 cm above the tracheal torsten. OSSEOUS STRUCTURES: No significant abnormalities. VISUALIZED UPPER ABDOMEN: Normal. OTHER FINDINGS: None. IMPRESSION: Moderate improvement in right-sided infiltrate. Persistent vague left perihilar infiltrate.
--- NOTE | 2017-04-18 12:49 | RAD ---
HISTORY: arrest COMPARISON: Chest x-ray performed 12/30/16 TECHNIQUE: Chest, one view. FINDINGS: Endotracheal tube terminates approximately 2.5 cm above the torsten. External defibrillator pad projects over the left lower chest/upper abdomen. LUNGS: Pulmonary edema like pattern, right greater than left. PLEURA: No significant pleural effusion identified. No definite pneumothorax . CARDIOVASCULAR: Cardiomegaly. OSSEOUS STRUCTURES: Degenerative changes. VISUALIZED UPPER ABDOMEN: Unremarkable. OTHER FINDINGS: None. IMPRESSION: Moderate pulmonary edema like pattern, right greater than left. Cardiomegaly. Endotracheal tube terminates approximately 2.5 cm above the torsten.
--- NOTE | 2017-04-18 16:51 | CP.PCM.CON ---
History of Present Illness - History of Present Illness History of Present Illness: This 66-year-old hypertensive diabetic man with chronic renal failure requiring hemodialysis for approximately 4 years was brought to the emergency room after collapsing at home. Few months back the patient has undergone extensive cardiac testing in preparation for possible renal transplant and the findings had indicated no critical cardiac disease. The patient had never complained of chest pain are had never suffered a myocardial infarction and there were no symptoms of congestive cardiac failure. He had complained of chest discomfort and by the time ambulance arrived patient had collapse requiring urgent resuscitative efforts. The patient arrived in the emergency room while cardiopulmonary resuscitation was underweight. The patient had received epinephrine but no defibrillated 3 shocks were used. The patient is intubated on a ventilator with 100% FiO2 and his pulse oximetry shows a oxygen saturation of 100%. The patient does not respond to painful stimuli. He has a heart rate of 70 bpm regular and a blood pressure of 170/80 mmHg. He is not on any pressors at this point. The patient urgently underwent hemodialysis immediately following his hospitalization and subsequently now he has been making approximately 30 mL of urine per hour. A Mckee catheter is in place. The patient is afebrile and does not respond to painful stimuli. 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 His pedal pulses were not palpable. His extremities were warm his nailbeds are pink no central or peripheral cyanosis was evident. The apex was not palpable the first heart sounds was normal. the second heart sound was muffled. There was a brief ejection systolic murmur in the aortic area. There were no rales. His electrocardiogram was noted it showed sinus rhythm with nonspecific ST-T changes. Review of his echocardiogram shows mild aortic stenosis with a peak aortic valve gradient of 18 mmHg and a hypertrophied left ventricle with preserved left ventricular systolic function and depressed diastolic compliance. His lab data was noted. Impression: Cardiorespiratory arrest in a patient with chronic renal failure secondary to diabetes and hypertension. Ischemic encephalopathy The patient at this juncture is hemodynamically stable. I will speak with the manager of case management carried out cardiac testing few months back as noted earlier. He is stable from cardiovascular point of view. His prognosis will depend on ischemic brain injury. Past Patient History - Past Medical History & Family History Past Medical History?: Yes - Past Social History Smoking Status: Never Smoked - CARDIAC Hx Congestive Heart Failure: Yes Hx Hypercholesterolemia: Yes Hx Hypertension: Yes - PULMONARY Hx Chronic Obstructive Pulmonary Disease (COPD): No Hx Pneumonia: Yes - NEUROLOGICAL Hx Neurological Disorder: No - HEENT Hx HEENT Problems: Yes Hx Cataracts: Yes - RENAL Hx Chronic Kidney Disease: Yes (M/W/F dialysis) - ENDOCRINE/METABOLIC Hx Hypothyroidism: No - HEMATOLOGICAL/ONCOLOGICAL Hx Anemia: Yes - INTEGUMENTARY Hx Dermatological Problems: Yes - MUSCULOSKELETAL/RHEUMATOLOGICAL Hx Arthritis: No Hx Rheumatoid Arthritis: No - GASTROINTESTINAL Hx Gastrointestinal Disorders: No - GENITOURINARY/GYNECOLOGICAL Hx Genitourinary Disorders: Yes - PSYCHIATRIC Hx Substance Use: No - SURGICAL HISTORY Hx Appendectomy: No - ANESTHESIA Hx Anesthesia: Yes Hx Anesthesia Reactions: No Hx Malignant Hyperthermia: No Has any member of the family had a problem w/ anesthesia?: No Meds Allergies/Adverse Reactions: Allergies Allergy/AdvReac Type Severity Reaction Status Date / Time No Known Allergies Allergy Verified 04/17/17 22:33 - Medications Medications: Current Medications Acetaminophen (Tylenol 650 Mg Supp) 650 mg WA Q6H PRN PRN Reason: Fever >100.4 F Carvedilol (Coreg) 25 mg PO Q12 [facility] Last Admin: 04/18/17 09:09 Dose: Not Given Clonidine HCl (Catapres) 0.2 mg PO BID [facility] Last Admin: 04/18/17 09:08 Dose: Not Given Dextrose (Dextrose 50% Inj) 0 ml IV STAT PRN; Protocol PRN Reason: Hypoglycemia Protocol Dextrose (Glutose 15) 0 gm PO ONCE PRN; Protocol PRN Reason: Hypoglycemia Protocol Glucagon (Glucagen Diagnostic Kit) 0 mg IM STAT PRN; Protocol PRN Reason: Hypoglycemia Protocol Sodium Bicarbonate 150 meq/ (Dextrose/Sodium Chloride) 1,150 mls @ 75 mls/hr IV .[id number] [facility] Stop: 04/18/17 23:47 Last Admin: 04/18/17 15:00 Dose: 75 mls/hr Cisatracurium Besylate 200 mg/ (Sodium Chloride) 520 mls @ 31.84 mls/hr IV .[id number] [facility] PRN Reason: 3 MCG/KG/MIN Last Admin: 04/18/17 00:59 Dose: 31.84 mls/hr Propofol (Diprivan) 1,000 mg in 100 mls @ 2.041 mls/hr IV .Q24H ONE; 5 MCG/KG/ MIN PRN Reason: Protocol Stop: 04/19/17 00:59 Last Admin: 04/18/17 02:10 Dose: 5 mcg/kg/min, 2.041 mls/hr Nicardipine HCl (Cardene 40mg/200ml Premixed) 40 mg in 200 mls @ 25 mls/hr IV .Q8H BARNEY; 5 MG/HR PRN Reason: Protocol Last Admin: 04/18/17 09:06 Dose: 5 mg/hr, 25 mls/hr Vancomycin HCl 1 gm/ Sodium (Chloride) 250 mls @ 125 mls/hr IVPB TTS [facility] PRN Reason: Protocol Piperacillin Sod/Tazobactam (Sod 2.25 gm/ Sodium Chloride) 100 mls @ 100 mls/ hr IVPB Q8 [facility] PRN Reason: Protocol Last Admin: 04/18/17 16:21 Dose: 100 mls/hr Pantoprazole Sodium (Protonix Inj) 40 mg IVP DAILY [facility] Last Admin: 04/18/17 16:13 Dose: Not Given Results - Vital Signs Recent Vital Signs: Last Vital Signs Temp 86.8 F L 04/18/17 16:00 Pulse 57 L 04/18/17 16:00 Resp 16 04/18/17 12:00 BP 154/64 H 04/18/17 16:00 Pulse Ox 100 04/18/17 16:00 - Labs Result Diagrams: 04/19/17 04:30 04/19/17 04:30 Labs: Laboratory Results - last 24 hr 04/17/17 04/17/17 04/17/17 22:32 22:51 23:01 WBC RBC Hgb Hct MCV MCH MCHC RDW Plt Count MPV Neut % (Auto) Lymph % (Auto) [place] % (Auto) Eos % (Auto) Baso % (Auto) Neut # Lymph # [place] # Eos # Baso # Neutrophils % (Manual) Band Neutrophils % Lymphocytes % (Manual) Monocytes % (Manual) Eosinophils % (Manual) Metamyelocytes % Myelocytes % Platelet Estimate Anisocytosis (manual) PT INR APTT pCO2 95 H* pO2 109 H HCO3 8.9 L* ABG pH 6.82 L* ABG Total CO2 18.4 L ABG O2 Saturation 95.1 ABG O2 Content ABG Base Excess -20.3 L ABG Hemoglobin ABG Carboxyhemoglobin POC ABG HHb (Measured) ABG Methemoglobin ABG O2 Capacity Scott Test Yes ABG Potassium 4.2 A-a O2 Difference 485.0 Hgb O2 Saturation Sodium 142.0 Chloride 92.0 L Glucose 342 H Lactate 12.0 H* Vent Mode A/c Mechanical Rate 12 FiO2 100.0 Tidal Volume 500 PEEP 5 Crit Value Called To Blake reynolds md Crit Value Called By 6075 Crit Value Read Back Y Blood Gas Notified Time 2254 Potassium Carbon Dioxide Anion Gap BUN Creatinine Est GFR ( Amer) Est GFR (Non-Af Amer) POC Glucose (mg/dL) 147 H Random Glucose Lactic Acid Calcium Magnesium Total Bilirubin AST ALT Alkaline Phosphatase Troponin I Total Protein Albumin Globulin Albumin/Globulin Ratio Arterial Blood Potassium 4.2 Urine Color Urine Clarity Urine pH Ur Specific [place] Urine Protein Urine Glucose (UA) Urine Ketones Urine Blood Urine Nitrate Urine Bilirubin Urine Urobilinogen Ur Leukocyte Esterase Urine RBC (Auto) Urine Microscopic WBC Ur Squamous Epith Cells Urine Bacteria Hyaline Casts Urine Yeast (Budding) Urine Sperm (Auto) Digoxin Urine Opiates Screen Negative Urine Methadone Screen Negative Ur Barbiturates Screen Negative Ur Phencyclidine Scrn Negative Ur Amphetamines Screen Negative U Benzodiazepines Scrn Negative U Oth Cocaine Metabols Negative U Cannabinoids Screen Negative Alcohol, Quantitative Hep Bs Antigen Hep Bs Antibody Hepatitis C Antibody 04/17/17 04/17/17 04/17/17 23:01 23:06 23:06 WBC 9.9 RBC 3.51 L Hgb 9.7 L D Hct 32.6 L MCV 93.0 D MCH 27.5 MCHC 29.6 L RDW 16.1 H Plt Count 199 MPV 10.0 Neut % (Auto) 64.6 Lymph % (Auto) 23.8 [place] % (Auto) 9.0 Eos % (Auto) 1.4 Baso % (Auto) 1.2 Neut # 6.4 Lymph # 2.4 [place] # 0.9 H Eos # 0.1 Baso # 0.1 Neutrophils % (Manual) 60 Band Neutrophils % 1 Lymphocytes % (Manual) 30 Monocytes % (Manual) 5 Eosinophils % (Manual) 1 Metamyelocytes % 2 H Myelocytes % 1 H Platelet Estimate Normal Anisocytosis (manual) Slight PT INR APTT pCO2 pO2 HCO3 ABG pH ABG Total CO2 ABG O2 Saturation ABG O2 Content ABG Base Excess ABG Hemoglobin ABG Carboxyhemoglobin POC ABG HHb (Measured) ABG Methemoglobin ABG O2 Capacity Scott Test ABG Potassium A-a O2 Difference Hgb O2 Saturation Sodium 140 Chloride 106 Glucose Lactate Vent Mode Mechanical Rate FiO2 Tidal Volume PEEP Crit Value Called To Crit Value Called By Crit Value Read Back Blood Gas Notified Time Potassium 4.1 Carbon Dioxide 17 L Anion Gap 21 H BUN 50 H Creatinine 6.7 H Est GFR ( Amer) 10 Est GFR (Non-Af Amer) 8 POC Glucose (mg/dL) Random Glucose 241 H Lactic Acid Calcium 8.3 L Magnesium Total Bilirubin 0.2 AST 28 ALT 41 Alkaline Phosphatase 35 L Troponin I 0.0370 Total Protein 5.6 L Albumin 3.0 L D Globulin 2.6 Albumin/Globulin Ratio 1.2 Arterial Blood Potassium Urine Color Yellow Urine Clarity Cloudy Urine pH 7.0 Ur Specific [place] 1.014 Urine Protein >=500 Urine Glucose (UA) 50 Urine Ketones Negative Urine Blood Negative Urine Nitrate Negative Urine Bilirubin Negative Urine Urobilinogen 0.2-1.0 Ur Leukocyte Esterase Neg Urine RBC (Auto) 11 H Urine Microscopic WBC 12 H Ur Squamous Epith Cells 5 Urine Bacteria Many H Hyaline Casts 6-10 H Urine Yeast (Budding) Rare H Urine Sperm (Auto) Occ Digoxin Urine Opiates Screen Urine Methadone Screen Ur Barbiturates Screen Ur Phencyclidine Scrn Ur Amphetamines Screen U Benzodiazepines Scrn U Oth Cocaine Metabols U Cannabinoids Screen Alcohol, Quantitative 12 H Hep Bs Antigen Hep Bs Antibody Hepatitis C Antibody 04/17/17 04/17/17 04/17/17 23:06 23:06 23:06 WBC RBC Hgb Hct MCV MCH MCHC RDW Plt Count MPV Neut % (Auto) Lymph % (Auto) [place] % (Auto) Eos % (Auto) Baso % (Auto) Neut # Lymph # [place] # Eos # Baso # Neutrophils % (Manual) Band Neutrophils % Lymphocytes % (Manual) Monocytes % (Manual) Eosinophils % (Manual) Metamyelocytes % Myelocytes % Platelet Estimate Anisocytosis (manual) PT 11.6 INR 1.0 APTT 30.7 pCO2 pO2 HCO3 ABG pH ABG Total CO2 ABG O2 Saturation ABG O2 Content ABG Base Excess ABG Hemoglobin ABG Carboxyhemoglobin POC ABG HHb (Measured) ABG Methemoglobin ABG O2 Capacity Scott Test ABG Potassium A-a O2 Difference Hgb O2 Saturation Sodium Chloride Glucose Lactate Vent Mode Mechanical Rate FiO2 Tidal Volume PEEP Crit Value Called To Crit Value Called By Crit Value Read Back Blood Gas Notified Time Potassium Carbon Dioxide Anion Gap BUN Creatinine Est GFR ( Amer) Est GFR (Non-Af Amer) POC Glucose (mg/dL) Random Glucose Lactic Acid 8.0 H* Calcium Magnesium Total Bilirubin AST ALT Alkaline Phosphatase Troponin I Total Protein Albumin Globulin Albumin/Globulin Ratio Arterial Blood Potassium Urine Color Urine Clarity Urine pH Ur Specific [place] Urine Protein Urine Glucose (UA) Urine Ketones Urine Blood Urine Nitrate Urine Bilirubin Urine Urobilinogen Ur Leukocyte Esterase Urine RBC (Auto) Urine Microscopic WBC Ur Squamous Epith Cells Urine Bacteria Hyaline Casts Urine Yeast (Budding) Urine Sperm (Auto) Digoxin < 0.4 L Urine Opiates Screen Urine Methadone Screen Ur Barbiturates Screen Ur Phencyclidine Scrn Ur Amphetamines Screen U Benzodiazepines Scrn U Oth Cocaine Metabols U Cannabinoids Screen Alcohol, Quantitative Hep Bs Antigen Hep Bs Antibody Hepatitis C Antibody 04/18/17 04/18/17 04/18/17 00:50 01:49 02:55 WBC RBC Hgb Hct MCV MCH MCHC RDW Plt Count MPV Neut % (Auto) Lymph % (Auto) [place] % (Auto) Eos % (Auto) Baso % (Auto) Neut # Lymph # [place] # Eos # Baso # Neutrophils % (Manual) Band Neutrophils % Lymphocytes % (Manual) Monocytes % (Manual) Eosinophils % (Manual) Metamyelocytes % Myelocytes % Platelet Estimate Anisocytosis (manual) PT INR APTT pCO2 pO2 HCO3 ABG pH ABG Total CO2 ABG O2 Saturation ABG O2 Content ABG Base Excess ABG Hemoglobin ABG Carboxyhemoglobin POC ABG HHb (Measured) ABG Methemoglobin ABG O2 Capacity Scott Test ABG Potassium A-a O2 Difference Hgb O2 Saturation Sodium Chloride Glucose Lactate Vent Mode Mechanical Rate FiO2 Tidal Volume PEEP Crit Value Called To Crit Value Called By Crit Value Read Back Blood Gas Notified Time Potassium Carbon Dioxide Anion Gap BUN Creatinine Est GFR ( Amer) Est GFR (Non-Af Amer) POC Glucose (mg/dL) 72 74 82 Random Glucose Lactic Acid Calcium Magnesium Total Bilirubin AST ALT Alkaline Phosphatase Troponin I Total Protein Albumin Globulin Albumin/Globulin Ratio Arterial Blood Potassium Urine Color Urine Clarity Urine pH Ur Specific [place] Urine Protein Urine Glucose (UA) Urine Ketones Urine Blood Urine Nitrate Urine Bilirubin Urine Urobilinogen Ur Leukocyte Esterase Urine RBC (Auto) Urine Microscopic WBC Ur Squamous Epith Cells Urine Bacteria Hyaline Casts Urine Yeast (Budding) Urine Sperm (Auto) Digoxin Urine Opiates Screen Urine Methadone Screen Ur Barbiturates Screen Ur Phencyclidine Scrn Ur Amphetamines Screen U Benzodiazepines Scrn U Oth Cocaine Metabols U Cannabinoids Screen Alcohol, Quantitative Hep Bs Antigen Hep Bs Antibody Hepatitis C Antibody 04/18/17 04/18/17 04/18/17 03:11 03:11 03:46 WBC RBC Hgb Hct MCV MCH MCHC RDW Plt Count MPV Neut % (Auto) Lymph % (Auto) [place] % (Auto) Eos % (Auto) Baso % (Auto) Neut # Lymph # [place] # Eos # Baso # Neutrophils % (Manual) Band Neutrophils % Lymphocytes % (Manual) Monocytes % (Manual) Eosinophils % (Manual) Metamyelocytes % Myelocytes % Platelet Estimate Anisocytosis (manual) PT INR APTT pCO2 pO2 HCO3 ABG pH ABG Total CO2 ABG O2 Saturation ABG O2 Content ABG Base Excess ABG Hemoglobin ABG Carboxyhemoglobin POC ABG HHb (Measured) ABG Methemoglobin ABG O2 Capacity Scott Test ABG Potassium A-a O2 Difference Hgb O2 Saturation Sodium 142 Chloride 101 Glucose Lactate Vent Mode Mechanical Rate FiO2 Tidal Volume PEEP Crit Value Called To Crit Value Called By Crit Value Read Back Blood Gas Notified Time Potassium 5.2 H Carbon Dioxide 24 Anion Gap 22 H BUN 66 H Creatinine 8.1 H* D Est GFR ( Amer) 8 Est GFR (Non-Af Amer) 7 POC Glucose (mg/dL) Random Glucose 92 Lactic Acid Calcium 10.3 H Magnesium 2.0 Total Bilirubin 0.5 AST 70 H D ALT 66 Alkaline Phosphatase 65 Troponin I Total Protein 8.3 H Albumin 4.8 Globulin 3.5 Albumin/Globulin Ratio 1.4 Arterial Blood Potassium Urine Color Urine Clarity Urine pH Ur Specific [place] Urine Protein Urine Glucose (UA) Urine Ketones Urine Blood Urine Nitrate Urine Bilirubin Urine Urobilinogen Ur Leukocyte Esterase Urine RBC (Auto) Urine Microscopic WBC Ur Squamous Epith Cells Urine Bacteria Hyaline Casts Urine Yeast (Budding) Urine Sperm (Auto) Digoxin Urine Opiates Screen Urine Methadone Screen Ur Barbiturates Screen Ur Phencyclidine Scrn Ur Amphetamines Screen U Benzodiazepines Scrn U Oth Cocaine Metabols U Cannabinoids Screen Alcohol, Quantitative Hep Bs Antigen Negative Hep Bs Antibody Positive Hepatitis C Antibody Negative 04/18/17 04/18/17 04/18/17 04:05 04:20 05:00 WBC 24.5 H D RBC 5.15 Hgb 14.4 D Hct 44.8 MCV 87.1 D MCH 28.0 MCHC 32.1 L RDW 15.6 H Plt Count 186 MPV 10.3 Neut % (Auto) 88.0 H Lymph % (Auto) 2.5 L [place] % (Auto) 9.4 Eos % (Auto) 0.0 Baso % (Auto) 0.1 Neut # 21.6 H Lymph # 0.6 L [place] # 2.3 H Eos # 0.0 Baso # 0.0 Neutrophils % (Manual) Band Neutrophils % Lymphocytes % (Manual) Monocytes % (Manual) Eosinophils % (Manual) Metamyelocytes % Myelocytes % Platelet Estimate Anisocytosis (manual) PT INR APTT pCO2 pO2 HCO3 ABG pH ABG Total CO2 ABG O2 Saturation ABG O2 Content ABG Base Excess ABG Hemoglobin ABG Carboxyhemoglobin POC ABG HHb (Measured) ABG Methemoglobin ABG O2 Capacity Scott Test ABG Potassium A-a O2 Difference Hgb O2 Saturation Sodium Chloride Glucose Lactate Vent Mode Mechanical Rate FiO2 Tidal Volume PEEP Crit Value Called To Crit Value Called By Crit Value Read Back Blood Gas Notified Time Potassium Carbon Dioxide Anion Gap BUN Creatinine Est GFR ( Amer) Est GFR (Non-Af Amer) POC Glucose (mg/dL) 93 Random Glucose Lactic Acid 2.7 H Calcium Magnesium Total Bilirubin AST ALT Alkaline Phosphatase Troponin I Total Protein Albumin Globulin Albumin/Globulin Ratio Arterial Blood Potassium Urine Color Urine Clarity Urine pH Ur Specific [place] Urine Protein Urine Glucose (UA) Urine Ketones Urine Blood Urine Nitrate Urine Bilirubin Urine Urobilinogen Ur Leukocyte Esterase Urine RBC (Auto) Urine Microscopic WBC Ur Squamous Epith Cells Urine Bacteria Hyaline Casts Urine Yeast (Budding) Urine Sperm (Auto) Digoxin Urine Opiates Screen Urine Methadone Screen Ur Barbiturates Screen Ur Phencyclidine Scrn Ur Amphetamines Screen U Benzodiazepines Scrn U Oth Cocaine Metabols U Cannabinoids Screen Alcohol, Quantitative Hep Bs Antigen Hep Bs Antibody Hepatitis C Antibody 04/18/17 04/18/17 04/18/17 05:06 05:32 06:06 WBC RBC Hgb Hct MCV MCH MCHC RDW Plt Count MPV Neut % (Auto) Lymph % (Auto) [place] % (Auto) Eos % (Auto) Baso % (Auto) Neut # Lymph # [place] # Eos # Baso # Neutrophils % (Manual) Band Neutrophils % Lymphocytes % (Manual) Monocytes % (Manual) Eosinophils % (Manual) Metamyelocytes % Myelocytes % Platelet Estimate Anisocytosis (manual) PT INR APTT pCO2 31 L pO2 101 H HCO3 26.7 ABG pH 7.51 H ABG Total CO2 25.7 ABG O2 Saturation 95.7 ABG O2 Content 19.1 ABG Base Excess 2.4 ABG Hemoglobin 14.1 ABG Carboxyhemoglobin 0 L POC ABG HHb (Measured) 4.3 ABG Methemoglobin 0.1 ABG O2 Capacity 20.0 Scott Test Yes ABG Potassium A-a O2 Difference 573.0 Hgb O2 Saturation 95.6 Sodium Chloride Glucose Lactate Vent Mode Prvc/ac Mechanical Rate 22 FiO2 100.0 Tidal Volume 500 PEEP Crit Value Called To Crit Value Called By Crit Value Read Back Blood Gas Notified Time Potassium Carbon Dioxide Anion Gap BUN Creatinine Est GFR ( Amer) Est GFR (Non-Af Amer) POC Glucose (mg/dL) 102 120 H Random Glucose Lactic Acid Calcium Magnesium Total Bilirubin AST ALT Alkaline Phosphatase Troponin I Total Protein Albumin Globulin Albumin/Globulin Ratio Arterial Blood Potassium Urine Color Urine Clarity Urine pH Ur Specific [place] Urine Protein Urine Glucose (UA) Urine Ketones Urine Blood Urine Nitrate Urine Bilirubin Urine Urobilinogen Ur Leukocyte Esterase Urine RBC (Auto) Urine Microscopic WBC Ur Squamous Epith Cells Urine Bacteria Hyaline Casts Urine Yeast (Budding) Urine Sperm (Auto) Digoxin Urine Opiates Screen Urine Methadone Screen Ur Barbiturates Screen Ur Phencyclidine Scrn Ur Amphetamines Screen U Benzodiazepines Scrn U Oth Cocaine Metabols U Cannabinoids Screen Alcohol, Quantitative Hep Bs Antigen Hep Bs Antibody Hepatitis C Antibody 04/18/17 04/18/17 04/18/17 07:01 08:15 08:28 WBC RBC Hgb Hct MCV MCH MCHC RDW Plt Count MPV Neut % (Auto) Lymph % (Auto) [place] % (Auto) Eos % (Auto) Baso % (Auto) Neut # Lymph # [place] # Eos # Baso # Neutrophils % (Manual) Band Neutrophils % Lymphocytes % (Manual) Monocytes % (Manual) Eosinophils % (Manual) Metamyelocytes % Myelocytes % Platelet Estimate Anisocytosis (manual) PT INR APTT pCO2 pO2 HCO3 ABG pH ABG Total CO2 ABG O2 Saturation ABG O2 Content ABG Base Excess ABG Hemoglobin ABG Carboxyhemoglobin POC ABG HHb (Measured) ABG Methemoglobin ABG O2 Capacity Scott Test ABG Potassium A-a O2 Difference Hgb O2 Saturation Sodium Chloride Glucose Lactate Vent Mode Mechanical Rate FiO2 Tidal Volume PEEP Crit Value Called To Crit Value Called By Crit Value Read Back Blood Gas Notified Time Potassium Carbon Dioxide Anion Gap BUN Creatinine Est GFR ( Amer) Est GFR (Non-Af Amer) POC Glucose (mg/dL) 121 H 155 H Random Glucose Lactic Acid Calcium Magnesium Total Bilirubin AST ALT Alkaline Phosphatase Troponin I 0.2640 H* Total Protein Albumin Globulin Albumin/Globulin Ratio Arterial Blood Potassium Urine Color Urine Clarity Urine pH Ur Specific [place] Urine Protein Urine Glucose (UA) Urine Ketones Urine Blood Urine Nitrate Urine Bilirubin Urine Urobilinogen Ur Leukocyte Esterase Urine RBC (Auto) Urine Microscopic WBC Ur Squamous Epith Cells Urine Bacteria Hyaline Casts Urine Yeast (Budding) Urine Sperm (Auto) Digoxin Urine Opiates Screen Urine Methadone Screen Ur Barbiturates Screen Ur Phencyclidine Scrn Ur Amphetamines Screen U Benzodiazepines Scrn U Oth Cocaine Metabols U Cannabinoids Screen Alcohol, Quantitative Hep Bs Antigen Hep Bs Antibody Hepatitis C Antibody 04/18/17 04/18/17 04/18/17 10:21 10:21 11:20 WBC 24.3 H RBC 4.82 Hgb 13.2 Hct 41.1 MCV 85.3 MCH 27.5 MCHC 32.3 L RDW 15.5 H Plt Count 242 MPV Neut % (Auto) Lymph % (Auto) [place] % (Auto) Eos % (Auto) Baso % (Auto) Neut # Lymph # [place] # Eos # Baso # Neutrophils % (Manual) Band Neutrophils % Lymphocytes % (Manual) Monocytes % (Manual) Eosinophils % (Manual) Metamyelocytes % Myelocytes % Platelet Estimate Anisocytosis (manual) PT INR APTT pCO2 pO2 HCO3 ABG pH ABG Total CO2 ABG O2 Saturation ABG O2 Content ABG Base Excess ABG Hemoglobin ABG Carboxyhemoglobin POC ABG HHb (Measured) ABG Methemoglobin ABG O2 Capacity Scott Test ABG Potassium A-a O2 Difference Hgb O2 Saturation Sodium 143 Chloride 100 Glucose Lactate Vent Mode Mechanical Rate FiO2 Tidal Volume PEEP Crit Value Called To Crit Value Called By Crit Value Read Back Blood Gas Notified Time Potassium 4.1 Carbon Dioxide 26 Anion Gap 21 H BUN 70 H Creatinine 8.0 H* Est GFR ( Amer) 8 Est GFR (Non-Af Amer) 7 POC Glucose (mg/dL) 196 H Random Glucose 186 H Lactic Acid Calcium 9.8 Magnesium Total Bilirubin 0.5 AST 58 ALT 65 Alkaline Phosphatase 60 Troponin I Total Protein 7.7 Albumin 4.4 Globulin 3.3 Albumin/Globulin Ratio 1.3 Arterial Blood Potassium Urine Color Urine Clarity Urine pH Ur Specific [place] Urine Protein Urine Glucose (UA) Urine Ketones Urine Blood Urine Nitrate Urine Bilirubin Urine Urobilinogen Ur Leukocyte Esterase Urine RBC (Auto) Urine Microscopic WBC Ur Squamous Epith Cells Urine Bacteria Hyaline Casts Urine Yeast (Budding) Urine Sperm (Auto) Digoxin Urine Opiates Screen Urine Methadone Screen Ur Barbiturates Screen Ur Phencyclidine Scrn Ur Amphetamines Screen U Benzodiazepines Scrn U Oth Cocaine Metabols U Cannabinoids Screen Alcohol, Quantitative Hep Bs Antigen Hep Bs Antibody Hepatitis C Antibody 04/18/17 15:55 WBC RBC Hgb Hct MCV MCH MCHC RDW Plt Count MPV Neut % (Auto) Lymph % (Auto) [place] % (Auto) Eos % (Auto) Baso % (Auto) Neut # Lymph # [place] # Eos # Baso # Neutrophils % (Manual) Band Neutrophils % Lymphocytes % (Manual) Monocytes % (Manual) Eosinophils % (Manual) Metamyelocytes % Myelocytes % Platelet Estimate Anisocytosis (manual) PT INR APTT pCO2 pO2 HCO3 ABG pH ABG Total CO2 ABG O2 Saturation ABG O2 Content ABG Base Excess ABG Hemoglobin ABG Carboxyhemoglobin POC ABG HHb (Measured) ABG Methemoglobin ABG O2 Capacity Scott Test ABG Potassium A-a O2 Difference Hgb O2 Saturation Sodium Chloride Glucose Lactate Vent Mode Mechanical Rate FiO2 Tidal Volume PEEP Crit Value Called To Crit Value Called By Crit Value Read Back Blood Gas Notified Time Potassium Carbon Dioxide Anion Gap BUN Creatinine Est GFR ( Amer) Est GFR (Non-Af Amer) POC Glucose (mg/dL) 319 H Random Glucose Lactic Acid Calcium Magnesium Total Bilirubin AST ALT Alkaline Phosphatase Troponin I Total Protein Albumin Globulin Albumin/Globulin Ratio Arterial Blood Potassium Urine Color Urine Clarity Urine pH Ur Specific [place] Urine Protein Urine Glucose (UA) Urine Ketones Urine Blood Urine Nitrate Urine Bilirubin Urine Urobilinogen Ur Leukocyte Esterase Urine RBC (Auto) Urine Microscopic WBC Ur Squamous Epith Cells Urine Bacteria Hyaline Casts Urine Yeast (Budding) Urine Sperm (Auto) Digoxin Urine Opiates Screen Urine Methadone Screen Ur Barbiturates Screen Ur Phencyclidine Scrn Ur Amphetamines Screen U Benzodiazepines Scrn U Oth Cocaine Metabols U Cannabinoids Screen Alcohol, Quantitative Hep Bs Antigen Hep Bs Antibody Hepatitis C Antibody
[2017-04-18 16:56] LABS: HEMATOCRIT 42.8 % (35.0-51.0); MEAN CELL VOLUME 86.3 fl (80.0-94.0); MEAN CORPUSCULAR HEMOGLOBIN 27.1 pg (27.0-31.0); MEAN CORPUSCULAR HGB CONC 31.4 g/dL (33.0-37.0); RED CELL DISTRIBUTION WIDTH 15.5 % (11.5-14.5); WHITE BLOOD COUNT 21.4 K/uL (4.8-10.8)
[2017-04-18] MEDS ORDERED: levETIRAcetam 1,000 MG in Sodium Chloride 0.9% 100 ML IVPB ONE (17:03)
[2017-04-18] MEDS ORDERED: Midazolam HCl 50 MG in Dextrose 5% In Water 90 ML IV ONE (17:30)
[2017-04-18 17:36] LABS: ALB/GLOB RATIO 1.3 (1.0-2.1); CALCIUM 9.4 mg/dL (8.4-10.2)
[2017-04-18 17:41] LABS: BILIRUBIN,TOTAL 0.8 mg/dl (0.2-1.3); POTASSIUM 4.8 MMOL/L (3.6-5.0); TOTAL PROTEIN 7.7 G/DL (6.3-8.2)
[2017-04-18] MEDS ORDERED: Glucagon Recombinant 1 mg Inj IM PRN (18:18)
[2017-04-18] MEDS ORDERED: Dextrose 50% SYRINGE Inj (50 ml) IV PRN (18:18)
[2017-04-18] MEDS ORDERED: Midazolam 50 MG in Dextrose 5% In Water 50 ML IV ONE (19:00)
[2017-04-18 23:10] LABS: HEMATOCRIT 39.6 % (35.0-51.0); MEAN CELL VOLUME 86.2 fl (80.0-94.0); MEAN CORPUSCULAR HEMOGLOBIN 27.1 pg (27.0-31.0); MEAN CORPUSCULAR HGB CONC 31.5 g/dL (33.0-37.0); RED CELL DISTRIBUTION WIDTH 15.5 % (11.5-14.5)
--- NOTE | 2017-04-18 23:11 | PN ---
DATE: 04/18/2017 CRITICAL CARE FOLLOWUP NOTE LOCATION: Patient in ICU, bed 430. TIME SPENT: 35 minutes. SUBJECTIVE: The patient is seen and evaluated at the bedside. Discussed with the family at the bedside. Events since ER noted. Past medical and surgical history noted. 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 head negative for acute event. Started on hypothermia protocol, admitted to ICU. Patient remains intubated on mechanical ventilation, on AC/PRVC, rate 16, tidal volume of 500, FiO2 of 100%, observed rate 16, observed tidal volume 490, saturating 100%, peak airway pressure 21, end-tidal CO2 of 10, sedated and paralyzed. On Nimbex and Diprivan, on hypothermia protocol to maintain temperature between 32 and 34. PHYSICAL EXAMINATION: VITAL SIGNS: Temperature 98.2, heart rate 60, blood pressure 147/60 to 154/64, mean arterial pressure 94, intake 375 mL, output 150, balance 225 mL, weight 150 pounds, status post hemodialysis early this morning, completed for 2 hours, ultrafiltration 2 L. HEAD, EYES, EARS, NOSE AND THROAT: Atraumatic, normocephalic. Mucous membrane moist. Pupils 2 to 3 mm, sluggishly reactive bilaterally. Oral mucosa moist. HEART: Rhythm regular. S1, S2 normal. CHEST: Coarse breath sounds bilaterally. ABDOMEN: Bowel sounds are present. Mildly distended. NG tube in place, connected to intermittent low wall suction. NEUROLOGICAL: Sedated and paralyzed. SKIN: Without rash. EXTREMITIES: Amputated toes, right foot. LABORATORY DATA: WBC 24.3, hemoglobin 13.2, hematocrit 41.1, platelet count 242. PT 11.6, INR 1, PTT 30.7. ABG: pH 7.51, pCO2 of 31, pO2 of 101, oxygen saturation 95.7% on AC/PRVC 22, 500, 100%. SMA-7: Sodium 143, potassium 4.1, chloride 100, CO2 of 26, blood urea nitrogen 70, creatinine 8, random glucose 196, calcium 9.8. Total bilirubin 0.5, AST 58, ALT 65, alkaline phosphatase 60. Troponin 0.2640_, total protein 7.7, albumin 4.4. Urinalysis: Bacteria many. Microscopic: Wbc 12, rbc 11, toxicology screen negative. Serology: Hepatitis B surface antigen negative, hepatitis B surface antibody positive, hepatitis C antibody negative. Microbiology: None reported. IMAGING: Chest x-ray: Post intubation, normal heart size, endotracheal tube approximately 1.3 cm above the torsten. No pneumothorax or pleural effusion. Extensive right perihilar infiltrate, slightly improved particularly in the upper lobe. Vague left upper lobe opacity, persists, unchanged. CT head: No evidence of intracranial hemorrhage, midline shift, or mass effect noted. ASSESSMENT AND PLAN: A 66-year-old male status post cardiac arrest in the setting of end-stage renal disease and severe acidosis. Remains intubated. Continue hyperventilation to improve acidosis. Continue dialysis for renal failure. Remains sedated and on neuromuscular blocking agents to prevent jerky movements. Continue Zosyn, renally adjusted, for suspected aspiration pneumonia. Cardiology evaluation to address the elevated troponin in the setting of cardiac arrest and to rule out ischemic heart disease.ngt to intermittent low wall suction. Npo now. HOB 40 degree up. Monitor urine output, walter in place.Maintain temperature between 32 to 34 degree centigrade. discussed with Jaycob Rae. suspected myoclonic jerks, load with keppra 1000 mg now, 500 mg after dialysis. versed drip to start 2 mg/ hour, titrate to 5 mg per hour as needed.EEG to follow. Prognosis remains guarded. Dani Payan MD [facility]
[2017-04-18 23:25] LABS: CALCIUM 9.2 mg/dL (8.4-10.2); PHOSPHOROUS 6.1 mg/dl (2.5-4.5)
[2017-04-18 23:26] LABS: POTASSIUM 5.3 MMOL/L (3.6-5.0)
[2017-04-18 23:27] LABS: CALCIUM 9.1 mg/dL (8.4-10.2); MAGNESIUM 1.9 MG/DL (1.6-2.3)
[2017-04-18 23:34] LABS: PARTIAL THROMBOPLASTIN TIME 29.2 Seconds (25.6-37.1)
[2017-04-18] MEDS ORDERED: Dextrose 50% SYRINGE Inj (50 ml) IVP ONE (23:38)
[2017-04-18 23:47] LABS: TROPONIN I 0.575 ng/mL (0.00-0.120)
[2017-04-19] MEDS ORDERED: Midazolam HCl 50 MG in Dextrose 5% In Water 90 ML IV ONE (02:51)
[2017-04-19] MEDS: Nicardipine HCl 40 MG/200 ML 40 MG/200 ML SOL IV SCH ×4 (03:42→22:02)
[2017-04-19] MEDS: Dextrose 5%/0.9% NS 1,000 ML IV SCH ×3 (04:09→20:54)
[2017-04-19 05:31] LABS: HEMATOCRIT 37.2 % (35.0-51.0); MEAN CELL VOLUME 86.4 fl (80.0-94.0); MEAN CORPUSCULAR HGB CONC 31.3 g/dL (33.0-37.0); RED CELL DISTRIBUTION WIDTH 15.7 % (11.5-14.5); WHITE BLOOD COUNT 26.2 K/uL (4.8-10.8)
[2017-04-19 05:39] LABS: ABG ALLEN TEST YES; ABG MECHANICAL RATE 16; ARTERIAL BLOOD GAS HCO3 32.2 mmol/L (21-28); ARTERIAL BLOOD GAS MODE A/C; ARTERIAL BLOOD GAS O2 CAPACITY 16.7 mL/dL (16-24); ARTERIAL BLOOD GAS O2 CONTENT 16.1 ML/dL (15-23); ARTERIAL BLOOD GAS PH 7.54 (7.35-7.45); ARTERIAL BLOOD GAS PO2 282 mm/Hg (80-100); ARTERIAL BLOOD HGB O2 SAT 95.7 % (95.0-98.0); ATERIAL BLOOD GAS PEEP 5; CARBOXYHEMOGLOBIN 0 % (0.5-1.5); HHB 3.7 % (0.0-5.0); METHEMOGLOBIN 0.6 % (0.0-3.0)
[2017-04-19 05:54] LABS: ALB/GLOB RATIO 1.2 (1.0-2.1); BILIRUBIN,TOTAL 0.6 mg/dl (0.2-1.3); CALCIUM 8.8 mg/dL (8.4-10.2); POTASSIUM 5.6 MMOL/L (3.6-5.0); TOTAL PROTEIN 6.8 G/DL (6.3-8.2)
[2017-04-19] MEDS ORDERED: Labetalol 5 mg/ml Inj 20ML IVP STA (06:38)
[2017-04-19] MEDS ORDERED: Labetalol 5mg/ml (4ml) ONE (06:52)
[2017-04-19] MEDS ORDERED: Labetalol 5mg/ml (4ml) IVP STA (06:58)
--- NOTE | 2017-04-19 09:53 | RAD ---
PROCEDURE: CHEST RADIOGRAPH, 1 VIEW HISTORY: pneumonia COMPARISON: Portable chest 04/18/2017. FINDINGS: Endotracheal tube is unchanged in position with nasogastric tube now placed coiled at the into the region of the gastric fundus. LUNGS: Diminishing bat wing opacities appreciated compatible with improved CHF. Underlying pneumonia is not excluded the medial lung zones bilaterally nevertheless. PLEURA: No pneumothorax or pleural fluid seen. CARDIOVASCULAR: Stable cardiac silhouette. OSSEOUS STRUCTURES: No significant abnormalities. VISUALIZED UPPER ABDOMEN: Normal. OTHER FINDINGS: None. IMPRESSION: Improved CHF with residual noted as per above. Underlying infiltrates are not excluded the bilateral medial lung zones.
[2017-04-19] MEDS ORDERED: levETIRAcetam 500 MG in Sodium Chloride 0.9% 100 ML IVPB ONE (10:04)
--- NOTE | 2017-04-19 10:59 | CP.PCM.PN ---
Subjective - Date & Time of Evaluation Date of Evaluation: 04/19/17 Time of Evaluation: 10:30 - Subjective Subjective: Pt is intubated, on Vent Febrile Undergoing hemodialysis at present on Versed drip - for myoclonic jerks noted mostly on the left NGT in place- dark brown gastric output Cardene drip running for BP elevation Pronix drip Objective - Vital Signs/Intake and Output Vital Signs (last 24 hours): Temp Pulse Resp BP Pulse Ox 98.3 F 77 13 182/73 H 100 04/19/17 08:00 04/19/17 08:00 04/19/17 08:00 04/19/17 08:00 04/19/17 08:00 Intake and Output: 04/19/17 04/19/17 06:59 18:59 Intake Total 601 75 Output Total 722 50 Balance -121 25 - Medications Medications: Current Medications Acetaminophen (Tylenol 650 Mg Supp) 650 mg OR Q6H PRN PRN Reason: Fever >100.4 F Carvedilol (Coreg) 25 mg PO Q12 BARNEY Last Admin: 04/18/17 21:49 Dose: Not Given Clonidine HCl (Catapres) 0.2 mg PO BID BARNEY Last Admin: 04/18/17 18:29 Dose: Not Given Dextrose (Dextrose 50% Inj) 0 ml IV STAT PRN; Protocol PRN Reason: Hypoglycemia Protocol Dextrose (Glutose 15) 0 gm PO ONCE PRN; Protocol PRN Reason: Hypoglycemia Protocol Dextrose (Dextrose 50% Inj) 0 ml IV STAT PRN; Protocol PRN Reason: Hypoglycemia Protocol Dextrose (Glutose 15) 0 gm PO ONCE PRN; Protocol PRN Reason: Hypoglycemia Protocol Glucagon (Glucagen Diagnostic Kit) 0 mg IM STAT PRN; Protocol PRN Reason: Hypoglycemia Protocol Glucagon (Glucagen Diagnostic Kit) 0 mg IM STAT PRN; Protocol PRN Reason: Hypoglycemia Protocol Cisatracurium Besylate 200 mg/ (Sodium Chloride) 520 mls @ 31.84 mls/hr IV .[id number] BARNEY PRN Reason: 3 MCG/KG/MIN Last Admin: 04/18/17 00:59 Dose: 31.84 mls/hr Nicardipine HCl (Cardene 40mg/200ml Premixed) 40 mg in 200 mls @ 25 mls/hr IV .Q8H BARNEY; 5 MG/HR PRN Reason: Protocol Last Admin: 04/18/17 09:06 Dose: 5 mg/hr, 25 mls/hr Vancomycin HCl 1 gm/ Sodium (Chloride) 250 mls @ 125 mls/hr IVPB TTS BARNEY PRN Reason: Protocol Piperacillin Sod/Tazobactam (Sod 2.25 gm/ Sodium Chloride) 100 mls @ 100 mls/ hr IVPB Q8 BARNEY PRN Reason: Protocol Last Admin: 04/19/17 01:30 Dose: 100 mls/hr Insulin Human Regular 100 (units/ Sodium Chloride) 101 mls @ 2.02 mls/hr IV .Q24H BARNEY; 2 UNITS/HR PRN Reason: Protocol Last Titration: 04/18/17 21:30 Dose: 0 units/hr, 0 mls/hr Nicardipine HCl (Cardene 40mg/200ml Premixed) 40 mg in 200 mls @ 25 mls/hr IV .Q8H BARNEY; 5 MG/HR PRN Reason: Protocol Last Admin: 04/19/17 03:42 Dose: Not Given Pantoprazole Sodium 80 mg/ (Sodium Chloride) 250 mls @ 25 mls/hr IVPB Q10H BARNEY PRN Reason: 8 MG/HR Stop: 04/19/17 19:44 Last Admin: 04/19/17 01:00 Dose: 25 mls/hr Dextrose/Sodium Chloride (Dextrose 5%/0.9% Ns 1000 Ml) 1,000 mls @ 75 mls/hr IV .[id number] BARNEY Stop: 04/20/17 02:18 Last Admin: 04/19/17 04:09 Dose: 75 mls/hr Midazolam HCl 50 mg/ Dextrose 100 mls @ 4 mls/hr IV .Q24H ONE; 2 MG/HR PRN Reason: Protocol Stop: 04/19/17 18:59 Last Titration: 04/19/17 06:22 Dose: 6 mg/hr, 12 mls/hr Levetiracetam 500 mg/ Sodium (Chloride) 105 mls @ 210 mls/hr IVPB ONCE ONE Stop: 04/19/17 10:33 Metoprolol Tartrate (Lopressor) 2.5 mg IVP Q12 BARNEY - Labs Labs: 04/19/17 04:30 04/19/17 04:30 PT 12.6 Seconds (9.8-13.1) 04/19/17 04:30 INR 1.1 (0.9-1.2) 04/19/17 04:30 APTT 29.2 Seconds (25.6-37.1) 04/18/17 23:07 - Constitutional Appears: Other (Pt is intubated on Vent) - Head Exam Head Exam: NORMOCEPHALIC - Eye Exam Pupil Exam: Miosis - ENT Exam ENT Exam: Mucous Membranes Dry, Normal External Ear Exam - Respiratory Exam Respiratory Exam: Rales, Rhonchi Additional comments: Pt is intubated on Vent - Cardiovascular Exam Cardiovascular Exam: REGULAR RHYTHM, +S1, +S2 - GI/Abdominal Exam GI & Abdominal Exam: Distended, Normal Bowel Sounds - Extremities Exam Extremities Exam: Pedal Edema - Neurological Exam Additional comments: unresponsive even to pain noted left sided myoclonic jerks - Skin Skin Exam: Dry, Normal Color, Warm Assessment and Plan - Assessment and Plan (Free Text) Assessment: 66 y/o male with PMHx significant for DM2, HTN, ESRD on M/W/F ESRD, and PVD brought in by EMS with cardiac arrest. Patient was brought in with resuscitation in progress. Per report, patient had been watching TV with friend and c/o CP. They called 911, and when the ambulance arrived, patient attempted to walk to [facility] ([facility]3], but then became unresponsive and was found to be in cardiac arrest. CPR was initiated, patient received 3 epinephrines, 2 mg narcan. Supraglottic airway and IO line placed. In the ED, patient received bicarb injection and another epi . EKG was reviewed by cardiology who indicated no code heart needed. Patient had L femoral central line placed. 1. Cardiac arrest unclear etiology Patient intubated , sedated and was placed on hypothermia protocol Check and monitor electrolytes Cardiology consulted - stable cardiac Neurology consulted: poor prognosis , CT showed watershed infarcts EEG 2. Troponin Elevation mild Trop elevation, unlikely VT prob related to CPR in pt with ESRD Cardio consulted 3.ESRD on HD nephrology consulted for HD 4. Myoclonic Jerks sign of poor prognosis Pt on Versed drip and Keprra Neuro consulted EEG 5. HTN uncontrolled Started Cardene drip now on prn Labetalol 6. DM type II on Insulin continue accuchecks and insulin coverage D/c insulin drip since accuchecks are on the lower side 7.Bilateral Pneumonia most likely aspiration Started on Vanco post HD and Zosyn renal dose Follow up cultures wbc trending up 8.DVT prophylaxis SCD
--- NOTE | 2017-04-19 11:06 | CARD ---
APPROVED REPORT EXAM: Two-dimensional and M-mode echocardiogram with Doppler and color Doppler. Other Information Quality : GoodRhythm : Bradycardia INDICATION ICD: S/P Cardiac Arrest 2D DIMENSIONS IVSd1.23 (0.7-1.1cm)LVDd3.99 (3.9-5.9cm) LVOT Diameter3.55 (1.8-2.4cm)PWd1.11 (0.7-1.1cm) IVSs1.84 (0.8-1.2cm)LVDs2.79 (2.5-4.0cm) FS (%) 29.9 %PWs1.77 (0.8-1.2cm) M-Mode DIMENSIONS Left Atrium (MM)3.68 (2.5-4.0cm)IVSd1.13 (0.7-1.1cm) Aortic Root2.81 (2.2-3.7cm)LVDd4.68 (4.0-5.6cm) Aortic Cusp Exc.1.16 (1.5-2.0cm)PWd1.18 (0.7-1.1cm) IVSs1.34 cmFS (%) 37 % LVDs2.96 (2.0-3.8cm)PWs1.57 cm Aortic Valve AoV Peak Ybtdacsm156.8cm/sAoV VTI54.8cmAO Peak GR.17mmHg LVOT Peak Mdpybdgg86.8cm/sLVOT VTI25.00cmAO Mean GR.10mmHg ASHVIN (VMAX)2.50jg6VXO (VTI)2.50cm2 Mitral Valve MV E Bnblhiql95.9cm/sMV DECEL YQOG732xsYM A Jtnrhqtb71.4cm/s MV LHO417htC/A ratio0.9MVA (PHT)1.97cm2 TDI Lateral E' Peak V4.24cm/sMedial E' Peak V3.83cm/sE/Lateral E'12.7 E/Medial E'14.1 Pulmonary Valve PV Peak Rzieioom899.6cm/s LEFT VENTRICLE The left ventricle is normal size. There is normal left ventricular wall thickness. The left ventricular function is normal. The left ventricular ejection fraction is within the normal range. The Ejection Fraction is 50-55%. There is normal LV segmental wall motion. The left ventricular diastolic function is normal. No left ventricle thrombus noted on this study. There is no mass noted in the left ventricle. RIGHT VENTRICLE The right ventricle is normal size. There is normal right ventricular wall thickness. The right ventricular systolic function is normal. ATRIA The left atrium size is normal. The right atrium size is normal. The interatrial septum is intact with no evidence for an atrial septal defect. AORTIC VALVE The aortic valve is normal in structure. No aortic regurgitation is present. There is mild to moderate valvular aortic stenosis. There is no aortic valvular vegetation. MITRAL VALVE The mitral valve is normal in structure. There is no evidence of mitral valve prolapse. There is no mitral valve stenosis. There is no mitral valve regurgitation noted. TRICUSPID VALVE The tricuspid valve is normal in structure. There is no tricuspid valve regurgitation noted. There is no tricuspid valve prolapse or vegetation. There is no tricuspid valve stenosis. PULMONIC VALVE The pulmonary valve is normal in structure. There is no pulmonic valvular regurgitation. There is no pulmonic valvular stenosis. GREAT VESSELS The aortic root is normal in size. The IVC is normal in size and collapses >50% with inspiration. PERICARDIAL EFFUSION The pericardium appears normal. There is no pleural effusion. <Conclusion> The left ventricle is normal size. The left ventricular function is normal. The left ventricular ejection fraction is within the normal range. The Ejection Fraction is 50-55%. There is mild to moderate valvular aortic stenosis.
[2017-04-19] MEDS: Metoprolol 1 mg/ml Inj IVP SCH ×2 (11:19→21:02)
--- NOTE | 2017-04-19 12:07 | CP.PCM.PN ---
Subjective - Date & Time of Evaluation Date of Evaluation: 04/19/17 Time of Evaluation: 12:05 - Subjective Subjective: Dialysis note He was seen on hemodialysis. Discussed with the spares scheduler on the bedside. Patient is an unresponsive. Intubated Family member at the bedside Objective - Vital Signs/Intake and Output Vital Signs (last 24 hours): Temp Pulse Resp BP Pulse Ox 98.3 F 87 13 185/78 H 100 04/19/17 08:00 04/19/17 11:19 04/19/17 08:00 04/19/17 11:19 04/19/17 08:00 Intake and Output: 04/19/17 04/19/17 06:59 18:59 Intake Total 601 75 Output Total 722 50 Balance -121 25 - Medications Medications: Current Medications Acetaminophen (Tylenol 650 Mg Supp) 650 mg NC Q6H PRN PRN Reason: Fever >100.4 F Carvedilol (Coreg) 25 mg PO Q12 BARNEY Last Admin: 04/19/17 11:31 Dose: Not Given Clonidine HCl (Catapres) 0.2 mg PO BID BARNEY Last Admin: 04/19/17 11:31 Dose: Not Given Dextrose (Dextrose 50% Inj) 0 ml IV STAT PRN; Protocol PRN Reason: Hypoglycemia Protocol Dextrose (Glutose 15) 0 gm PO ONCE PRN; Protocol PRN Reason: Hypoglycemia Protocol Dextrose (Dextrose 50% Inj) 0 ml IV STAT PRN; Protocol PRN Reason: Hypoglycemia Protocol Dextrose (Glutose 15) 0 gm PO ONCE PRN; Protocol PRN Reason: Hypoglycemia Protocol Glucagon (Glucagen Diagnostic Kit) 0 mg IM STAT PRN; Protocol PRN Reason: Hypoglycemia Protocol Glucagon (Glucagen Diagnostic Kit) 0 mg IM STAT PRN; Protocol PRN Reason: Hypoglycemia Protocol Cisatracurium Besylate 200 mg/ (Sodium Chloride) 520 mls @ 31.84 mls/hr IV .[id number] BARNEY PRN Reason: 3 MCG/KG/MIN Last Admin: 04/18/17 00:59 Dose: 31.84 mls/hr Nicardipine HCl (Cardene 40mg/200ml Premixed) 40 mg in 200 mls @ 25 mls/hr IV .Q8H BARNEY; 5 MG/HR PRN Reason: Protocol Last Admin: 04/18/17 09:06 Dose: 5 mg/hr, 25 mls/hr Vancomycin HCl 1 gm/ Sodium (Chloride) 250 mls @ 125 mls/hr IVPB TTS BARNEY PRN Reason: Protocol Last Admin: 04/19/17 10:32 Dose: 125 mls/hr Piperacillin Sod/Tazobactam (Sod 2.25 gm/ Sodium Chloride) 100 mls @ 100 mls/ hr IVPB Q8 BARNEY PRN Reason: Protocol Last Admin: 04/19/17 10:32 Dose: 100 mls/hr Insulin Human Regular 100 (units/ Sodium Chloride) 101 mls @ 2.02 mls/hr IV .Q24H BARNEY; 2 UNITS/HR PRN Reason: Protocol Last Titration: 04/18/17 21:30 Dose: 0 units/hr, 0 mls/hr Nicardipine HCl (Cardene 40mg/200ml Premixed) 40 mg in 200 mls @ 25 mls/hr IV .Q8H BARNEY; 5 MG/HR PRN Reason: Protocol Last Admin: 04/19/17 03:42 Dose: Not Given Pantoprazole Sodium 80 mg/ (Sodium Chloride) 250 mls @ 25 mls/hr IVPB Q10H BARNEY PRN Reason: 8 MG/HR Stop: 04/19/17 19:44 Last Admin: 04/19/17 11:42 Dose: 25 mls/hr Dextrose/Sodium Chloride (Dextrose 5%/0.9% Ns 1000 Ml) 1,000 mls @ 75 mls/hr IV .[id number] BARNEY Stop: 04/20/17 02:18 Last Admin: 04/19/17 04:09 Dose: 75 mls/hr Midazolam HCl 50 mg/ Dextrose 100 mls @ 4 mls/hr IV .Q24H ONE; 2 MG/HR PRN Reason: Protocol Stop: 04/19/17 18:59 Last Titration: 04/19/17 06:22 Dose: 6 mg/hr, 12 mls/hr Metoprolol Tartrate (Lopressor) 2.5 mg IVP Q12 BARNEY Last Admin: 04/19/17 11:19 Dose: 2.5 mg - Labs Labs: 04/19/17 04:30 04/19/17 04:30 PT 12.6 Seconds (9.8-13.1) 04/19/17 04:30 INR 1.1 (0.9-1.2) 04/19/17 04:30 APTT 29.2 Seconds (25.6-37.1) 04/18/17 23:07 - Constitutional Appears: In Acute Distress - Respiratory Exam Respiratory Exam: Rales, Rhonchi. absent: Chest Wall Tenderness - Cardiovascular Exam Cardiovascular Exam: absent: JVD, Rubs - GI/Abdominal Exam GI & Abdominal Exam: Soft, Normal Bowel Sounds - Extremities Exam Extremities Exam: absent: Calf Tenderness - Back Exam Back Exam: absent: CVA tenderness (L), CVA tenderness (R) - Psychiatric Exam Psychiatric exam: Flat Affect - Skin Skin Exam: absent: Cyanosis Assessment and Plan (1) Cardiac arrest Status: Acute (2) Flash pulmonary edema Status: Acute (3) ESRD (end stage renal disease) on dialysis Assessment & Plan: Hemodialysis in progress with ultrafiltration about 3500 mL. Using AV shunt. Sodium bath 138 Potassium bath 2 mEq Bicarbonate 34 Patient is comatose and respiratory failure. Status post cardiac arrest Congestive heart failure. Hypertension on medications. Vital sign noted Reviewed lab. Status: Chronic (4) Acute respiratory failure Status: Acute (5) CHF exacerbation Status: Acute
--- NOTE | 2017-04-19 12:26 | CP.PCM.CON ---
History of Present Illness - History of Present Illness History of Present Illness: Mr. Aguilar is a 66-year-old man with a past medical history of DM2, HTN, ESRD on M/W/F ESRD, and PVD who is brought in by EMS with cardiac arrest. CPR was initiated and the patient received 3 rounds of epinephrines, 2 mg Narcan, and bicarb. He achieved ROSC, but continues to be comatose with left upper extremity and face myoclonic jerking movements that are spontaneous and still unresolved despite Versed drip. Neurology was consulted to assist with the management, care and prognostication. Review of Systems - Review of Systems Systems not reviewed;Unavailable: Altered Mental Status, Intubated Past Patient History - Past Medical History & Family History Past Medical History?: Yes - Past Social History Smoking Status: Never Smoked - CARDIAC Hx Congestive Heart Failure: Yes Hx Hypercholesterolemia: Yes Hx Hypertension: Yes - PULMONARY Hx Chronic Obstructive Pulmonary Disease (COPD): No Hx Pneumonia: Yes - NEUROLOGICAL Hx Neurological Disorder: No - HEENT Hx HEENT Problems: Yes Hx Cataracts: Yes - RENAL Hx Chronic Kidney Disease: Yes (M/W/F dialysis) - ENDOCRINE/METABOLIC Hx Hypothyroidism: No - HEMATOLOGICAL/ONCOLOGICAL Hx Anemia: Yes - INTEGUMENTARY Hx Dermatological Problems: Yes - MUSCULOSKELETAL/RHEUMATOLOGICAL Hx Arthritis: No Hx Rheumatoid Arthritis: No - GASTROINTESTINAL Hx Gastrointestinal Disorders: No - GENITOURINARY/GYNECOLOGICAL Hx Genitourinary Disorders: Yes - PSYCHIATRIC Hx Substance Use: No - SURGICAL HISTORY Hx Appendectomy: No - ANESTHESIA Hx Anesthesia: Yes Hx Anesthesia Reactions: No Hx Malignant Hyperthermia: No Has any member of the family had a problem w/ anesthesia?: No Meds Allergies/Adverse Reactions: Allergies Allergy/AdvReac Type Severity Reaction Status Date / Time No Known Allergies Allergy Verified 04/17/17 22:33 - Medications Medications: Current Medications Acetaminophen (Tylenol 650 Mg Supp) 650 mg DC Q6H PRN PRN Reason: Fever >100.4 F Carvedilol (Coreg) 25 mg PO Q12 [facility] Last Admin: 04/19/17 11:31 Dose: Not Given Clonidine HCl (Catapres) 0.2 mg PO BID [facility] Last Admin: 04/19/17 11:31 Dose: Not Given Dextrose (Dextrose 50% Inj) 0 ml IV STAT PRN; Protocol PRN Reason: Hypoglycemia Protocol Dextrose (Glutose 15) 0 gm PO ONCE PRN; Protocol PRN Reason: Hypoglycemia Protocol Dextrose (Dextrose 50% Inj) 0 ml IV STAT PRN; Protocol PRN Reason: Hypoglycemia Protocol Dextrose (Glutose 15) 0 gm PO ONCE PRN; Protocol PRN Reason: Hypoglycemia Protocol Glucagon (Glucagen Diagnostic Kit) 0 mg IM STAT PRN; Protocol PRN Reason: Hypoglycemia Protocol Glucagon (Glucagen Diagnostic Kit) 0 mg IM STAT PRN; Protocol PRN Reason: Hypoglycemia Protocol Cisatracurium Besylate 200 mg/ (Sodium Chloride) 520 mls @ 31.84 mls/hr IV .[id number] [facility] PRN Reason: 3 MCG/KG/MIN Last Admin: 04/18/17 00:59 Dose: 31.84 mls/hr Nicardipine HCl (Cardene 40mg/200ml Premixed) 40 mg in 200 mls @ 25 mls/hr IV .Q8H [facility]; 5 MG/HR PRN Reason: Protocol Last Admin: 04/18/17 09:06 Dose: 5 mg/hr, 25 mls/hr Vancomycin HCl 1 gm/ Sodium (Chloride) 250 mls @ 125 mls/hr IVPB TTS [facility] PRN Reason: Protocol Last Admin: 04/19/17 10:32 Dose: 125 mls/hr Piperacillin Sod/Tazobactam (Sod 2.25 gm/ Sodium Chloride) 100 mls @ 100 mls/ hr IVPB Q8 [facility] PRN Reason: Protocol Last Admin: 04/19/17 10:32 Dose: 100 mls/hr Insulin Human Regular 100 (units/ Sodium Chloride) 101 mls @ 2.02 mls/hr IV .Q24H [facility]; 2 UNITS/HR PRN Reason: Protocol Last Titration: 04/18/17 21:30 Dose: 0 units/hr, 0 mls/hr Nicardipine HCl (Cardene 40mg/200ml Premixed) 40 mg in 200 mls @ 25 mls/hr IV .Q8H [facility]; 5 MG/HR PRN Reason: Protocol Last Admin: 04/19/17 12:07 Dose: Not Given Pantoprazole Sodium 80 mg/ (Sodium Chloride) 250 mls @ 25 mls/hr IVPB Q10H [facility] PRN Reason: 8 MG/HR Stop: 04/19/17 19:44 Last Admin: 04/19/17 11:42 Dose: 25 mls/hr Dextrose/Sodium Chloride (Dextrose 5%/0.9% Ns 1000 Ml) 1,000 mls @ 75 mls/hr IV .[id number] [facility] Stop: 04/20/17 02:18 Last Admin: 04/19/17 04:09 Dose: 75 mls/hr Midazolam HCl 50 mg/ Dextrose 100 mls @ 4 mls/hr IV .Q24H [facility]; 2 MG/HR PRN Reason: Protocol Stop: 04/19/17 18:59 Last Titration: 04/19/17 06:22 Dose: 6 mg/hr, 12 mls/hr Metoprolol Tartrate (Lopressor) 2.5 mg IVP Q12 [facility] Last Admin: 04/19/17 11:19 Dose: 2.5 mg Physical Exam - Constitutional Appears: Chronically Ill - Head Exam Head Exam: ATRAUMATIC, NORMAL INSPECTION, NORMOCEPHALIC - Eye Exam Pupil Exam: Miosis - ENT Exam ENT Exam: Mucous Membranes Moist, Normal Exam Additional comments: Intubated. - Neck Exam Neck exam: Positive for: Normal Inspection - Respiratory Exam Additional comments: Vent dependent respiratory failure - Cardiovascular Exam Cardiovascular Exam: +S1, +S2 - GI/Abdominal Exam Additional comments: Coffee ground emesis, NGT to suction. - Rectal Exam Rectal Exam: Deferred - Neurological Exam Additional comments: Intubated and sedated. Pupils are meiotic and minimally reactive. Corneal reflex is positive. Gag reflex present. VOR present. Breathing over the ventilator. GCS 4T. Results - Vital Signs Recent Vital Signs: Last Vital Signs Temp 98.3 F 04/19/17 08:00 Pulse 87 04/19/17 11:19 Resp 13 04/19/17 08:00 BP 185/78 H 04/19/17 11:19 Pulse Ox 100 04/19/17 08:00 - Labs Result Diagrams: 04/19/17 04:30 04/19/17 04:30 Labs: Laboratory Results - last 24 hr 04/18/17 04/18/17 04/18/17 03:11 03:11 03:46 WBC RBC Hgb Hct MCV MCH MCHC RDW Plt Count PT INR APTT pCO2 pO2 HCO3 ABG pH ABG Total CO2 ABG O2 Saturation ABG O2 Content ABG Base Excess ABG Hemoglobin ABG Carboxyhemoglobin POC ABG HHb (Measured) ABG Methemoglobin ABG O2 Capacity Scott Test A-a O2 Difference Hgb O2 Saturation Vent Mode Mechanical Rate FiO2 Tidal Volume PEEP Sodium Potassium Chloride Carbon Dioxide Anion Gap BUN Creatinine Est GFR ( Amer) Est GFR (Non-Af Amer) POC Glucose (mg/dL) Random Glucose Calcium Phosphorus Magnesium Total Bilirubin AST ALT Alkaline Phosphatase Troponin I Total Protein Albumin Globulin Albumin/Globulin Ratio Hep Bs Antigen Negative Hep Bs Antibody Positive Hepatitis C Antibody Negative 04/18/17 04/18/17 04/18/17 15:45 15:55 16:50 WBC 21.4 H RBC 4.96 Hgb 13.4 Hct 42.8 MCV 86.3 MCH 27.1 MCHC 31.4 L RDW 15.5 H Plt Count 237 PT INR APTT pCO2 pO2 HCO3 ABG pH ABG Total CO2 ABG O2 Saturation ABG O2 Content ABG Base Excess ABG Hemoglobin ABG Carboxyhemoglobin POC ABG HHb (Measured) ABG Methemoglobin ABG O2 Capacity Scott Test A-a O2 Difference Hgb O2 Saturation Vent Mode Mechanical Rate FiO2 Tidal Volume PEEP Sodium Potassium Chloride Carbon Dioxide Anion Gap BUN Creatinine Est GFR ( Amer) Est GFR (Non-Af Amer) POC Glucose (mg/dL) 319 H Random Glucose Calcium Phosphorus Magnesium Total Bilirubin AST ALT Alkaline Phosphatase Troponin I 0.3600 H* Total Protein Albumin Globulin Albumin/Globulin Ratio Hep Bs Antigen Hep Bs Antibody Hepatitis C Antibody 04/18/17 04/18/17 04/18/17 16:50 17:26 18:42 WBC RBC Hgb Hct MCV MCH MCHC RDW Plt Count PT INR APTT pCO2 pO2 HCO3 ABG pH ABG Total CO2 ABG O2 Saturation ABG O2 Content ABG Base Excess ABG Hemoglobin ABG Carboxyhemoglobin POC ABG HHb (Measured) ABG Methemoglobin ABG O2 Capacity Scott Test A-a O2 Difference Hgb O2 Saturation Vent Mode Mechanical Rate FiO2 Tidal Volume PEEP Sodium 142 Potassium 4.8 Chloride 100 Carbon Dioxide 26 Anion Gap 21 H BUN 74 H Creatinine 7.8 H* Est GFR ( Amer) 8 Est GFR (Non-Af Amer) 7 POC Glucose (mg/dL) 271 H 227 H Random Glucose 256 H Calcium 9.4 Phosphorus Magnesium Total Bilirubin 0.8 AST 67 H ALT 68 Alkaline Phosphatase 52 Troponin I Total Protein 7.7 Albumin 4.3 Globulin 3.4 Albumin/Globulin Ratio 1.3 Hep Bs Antigen Hep Bs Antibody Hepatitis C Antibody 04/18/17 04/18/17 04/18/17 19:44 20:46 21:24 WBC RBC Hgb Hct MCV MCH MCHC RDW Plt Count PT INR APTT pCO2 pO2 HCO3 ABG pH ABG Total CO2 ABG O2 Saturation ABG O2 Content ABG Base Excess ABG Hemoglobin ABG Carboxyhemoglobin POC ABG HHb (Measured) ABG Methemoglobin ABG O2 Capacity Scott Test A-a O2 Difference Hgb O2 Saturation Vent Mode Mechanical Rate FiO2 Tidal Volume PEEP Sodium Potassium Chloride Carbon Dioxide Anion Gap BUN Creatinine Est GFR ( Amer) Est GFR (Non-Af Amer) POC Glucose (mg/dL) 184 H 140 H 94 Random Glucose Calcium Phosphorus Magnesium Total Bilirubin AST ALT Alkaline Phosphatase Troponin I Total Protein Albumin Globulin Albumin/Globulin Ratio Hep Bs Antigen Hep Bs Antibody Hepatitis C Antibody 04/18/17 04/18/17 04/18/17 22:50 23:07 23:07 WBC RBC Hgb Hct MCV MCH MCHC RDW Plt Count PT 11.7 INR 1.0 APTT 29.2 pCO2 pO2 HCO3 ABG pH ABG Total CO2 ABG O2 Saturation ABG O2 Content ABG Base Excess ABG Hemoglobin ABG Carboxyhemoglobin POC ABG HHb (Measured) ABG Methemoglobin ABG O2 Capacity Scott Test A-a O2 Difference Hgb O2 Saturation Vent Mode Mechanical Rate FiO2 Tidal Volume PEEP Sodium 146 Potassium 5.3 H Chloride 101 Carbon Dioxide 30 Anion Gap 20 BUN 77 H Creatinine 8.1 H* Est GFR ( Amer) 8 Est GFR (Non-Af Amer) 7 POC Glucose (mg/dL) 90 Random Glucose 94 Calcium 9.1 Phosphorus Magnesium 1.9 Total Bilirubin AST ALT Alkaline Phosphatase Troponin I Total Protein Albumin Globulin Albumin/Globulin Ratio Hep Bs Antigen Hep Bs Antibody Hepatitis C Antibody 04/18/17 04/18/17 04/18/17 23:07 23:07 23:32 WBC 25.0 H RBC 4.59 Hgb 12.5 Hct 39.6 MCV 86.2 MCH 27.1 MCHC 31.5 L RDW 15.5 H Plt Count 220 PT INR APTT pCO2 pO2 HCO3 ABG pH ABG Total CO2 ABG O2 Saturation ABG O2 Content ABG Base Excess ABG Hemoglobin ABG Carboxyhemoglobin POC ABG HHb (Measured) ABG Methemoglobin ABG O2 Capacity Scott Test A-a O2 Difference Hgb O2 Saturation Vent Mode Mechanical Rate FiO2 Tidal Volume PEEP Sodium Potassium Chloride Carbon Dioxide Anion Gap BUN Creatinine Est GFR ( Amer) Est GFR (Non-Af Amer) POC Glucose (mg/dL) 71 Random Glucose Calcium 9.2 Phosphorus 6.1 H Magnesium Total Bilirubin AST ALT Alkaline Phosphatase Troponin I 0.5750 H* Total Protein Albumin Globulin Albumin/Globulin Ratio Hep Bs Antigen Hep Bs Antibody Hepatitis C Antibody 04/19/17 04/19/17 04/19/17 00:19 01:17 01:52 WBC RBC Hgb Hct MCV MCH MCHC RDW Plt Count PT INR APTT pCO2 pO2 HCO3 ABG pH ABG Total CO2 ABG O2 Saturation ABG O2 Content ABG Base Excess ABG Hemoglobin ABG Carboxyhemoglobin POC ABG HHb (Measured) ABG Methemoglobin ABG O2 Capacity Scott Test A-a O2 Difference Hgb O2 Saturation Vent Mode Mechanical Rate FiO2 Tidal Volume PEEP Sodium Potassium Chloride Carbon Dioxide Anion Gap BUN Creatinine Est GFR ( Amer) Est GFR (Non-Af Amer) POC Glucose (mg/dL) 172 H 143 H 118 H Random Glucose Calcium Phosphorus Magnesium Total Bilirubin AST ALT Alkaline Phosphatase Troponin I Total Protein Albumin Globulin Albumin/Globulin Ratio Hep Bs Antigen Hep Bs Antibody Hepatitis C Antibody 04/19/17 04/19/17 04/19/17 03:21 04:14 04:30 WBC 26.2 H RBC 4.30 L Hgb 11.6 L Hct 37.2 MCV 86.4 MCH 27.0 MCHC 31.3 L RDW 15.7 H Plt Count 199 PT INR APTT pCO2 pO2 HCO3 ABG pH ABG Total CO2 ABG O2 Saturation ABG O2 Content ABG Base Excess ABG Hemoglobin ABG Carboxyhemoglobin POC ABG HHb (Measured) ABG Methemoglobin ABG O2 Capacity Scott Test A-a O2 Difference Hgb O2 Saturation Vent Mode Mechanical Rate FiO2 Tidal Volume PEEP Sodium Potassium Chloride Carbon Dioxide Anion Gap BUN Creatinine Est GFR ( Amer) Est GFR (Non-Af Amer) POC Glucose (mg/dL) 108 106 Random Glucose Calcium Phosphorus Magnesium Total Bilirubin AST ALT Alkaline Phosphatase Troponin I Total Protein Albumin Globulin Albumin/Globulin Ratio Hep Bs Antigen Hep Bs Antibody Hepatitis C Antibody 04/19/17 04/19/17 04/19/17 04:30 04:30 04:52 WBC RBC Hgb Hct MCV MCH MCHC RDW Plt Count PT 12.6 INR 1.1 APTT pCO2 pO2 HCO3 ABG pH ABG Total CO2 ABG O2 Saturation ABG O2 Content ABG Base Excess ABG Hemoglobin ABG Carboxyhemoglobin POC ABG HHb (Measured) ABG Methemoglobin ABG O2 Capacity Scott Test A-a O2 Difference Hgb O2 Saturation Vent Mode Mechanical Rate FiO2 Tidal Volume PEEP Sodium 148 Potassium 5.6 H Chloride 101 Carbon Dioxide 31 H Anion Gap 22 H BUN 79 H Creatinine 8.1 H* Est GFR ( Amer) 8 Est GFR (Non-Af Amer) 7 POC Glucose (mg/dL) 95 Random Glucose 96 Calcium 8.8 Phosphorus Magnesium Total Bilirubin 0.6 AST 53 ALT 60 Alkaline Phosphatase 46 Troponin I Total Protein 6.8 Albumin 3.8 Globulin 3.1 Albumin/Globulin Ratio 1.2 Hep Bs Antigen Hep Bs Antibody Hepatitis C Antibody 04/19/17 04/19/17 04/19/17 05:25 06:11 08:20 WBC RBC Hgb Hct MCV MCH MCHC RDW Plt Count PT INR APTT pCO2 38 pO2 282 H HCO3 32.2 H ABG pH 7.54 H ABG Total CO2 33.7 H ABG O2 Saturation 96.3 ABG O2 Content 16.1 ABG Base Excess 9.3 H ABG Hemoglobin 11.4 L ABG Carboxyhemoglobin 0 L POC ABG HHb (Measured) 3.7 ABG Methemoglobin 0.6 ABG O2 Capacity 16.7 Scott Test Yes A-a O2 Difference 384.0 Hgb O2 Saturation 95.7 Vent Mode A/c Mechanical Rate 16 FiO2 100.0 Tidal Volume 500 PEEP 5 Sodium Potassium Chloride Carbon Dioxide Anion Gap BUN Creatinine Est GFR ( Amer) Est GFR (Non-Af Amer) POC Glucose (mg/dL) 111 H 123 H Random Glucose Calcium Phosphorus Magnesium Total Bilirubin AST ALT Alkaline Phosphatase Troponin I Total Protein Albumin Globulin Albumin/Globulin Ratio Hep Bs Antigen Hep Bs Antibody Hepatitis C Antibody 04/19/17 10:06 WBC RBC Hgb Hct MCV MCH MCHC RDW Plt Count PT INR APTT pCO2 pO2 HCO3 ABG pH ABG Total CO2 ABG O2 Saturation ABG O2 Content ABG Base Excess ABG Hemoglobin ABG Carboxyhemoglobin POC ABG HHb (Measured) ABG Methemoglobin ABG O2 Capacity Scott Test A-a O2 Difference Hgb O2 Saturation Vent Mode Mechanical Rate FiO2 Tidal Volume PEEP Sodium Potassium Chloride Carbon Dioxide Anion Gap BUN Creatinine Est GFR ( Amer) Est GFR (Non-Af Amer) POC Glucose (mg/dL) 128 H Random Glucose Calcium Phosphorus Magnesium Total Bilirubin AST ALT Alkaline Phosphatase Troponin I Total Protein Albumin Globulin Albumin/Globulin Ratio Hep Bs Antigen Hep Bs Antibody Hepatitis C Antibody Assessment & Plan (1) Hypoxic brain injury Assessment and Plan: Considering the history and clinical presentation, the patient has a very poor prognosis. The myoclonic jerks are a poor prognostic sign and he is not responding well to Versed. There are multiple areas of ischemic changes on the CT head consistent with hypoperfusion and watershed infarcts. Along with the multiple medical co-morbidities, the patient has limited treatment options. We can increase the Versed rate to 10 mg/hr, and will follow up on EEG. A repeat CT head is recommended to re-evaluate the degree of hypoperfusion injury. Continue Keppra at 500 mg Q12, or renal dosing per pharmacy. Continue conservative measures and discuss prognosis with family. Thank you for this consultation. Status: Acute Priority: High
--- NOTE | 2017-04-19 12:50 | CP.PCM.PN ---
Subjective - Date & Time of Evaluation Date of Evaluation: 04/19/17 Time of Evaluation: 08:30 - Subjective Subjective: Remains comatose, Vent dependent Sinus rhythm at 64 BPM reg BP 166/70 mm Hg No rales, no gallop Ejection syst murmur in AO area+ Urine out put 30-40 Ml/hr Labs noted Echocardiogram shows preserved LV syst function Mild with peak AV gradient of 18 mm Hg Stable from cardiac point of view ?? Prognosis with coma Objective - Vital Signs/Intake and Output Vital Signs (last 24 hours): Temp Pulse Resp BP Pulse Ox 99.8 F H 79 13 168/65 H 100 04/19/17 12:00 04/19/17 12:00 04/19/17 12:00 04/19/17 12:00 04/19/17 12:00 Intake and Output: 04/19/17 04/19/17 06:59 18:59 Intake Total 601 75 Output Total 722 50 Balance -121 25 - Medications Medications: Current Medications Acetaminophen (Tylenol 650 Mg Supp) 650 mg [place] Q6H PRN PRN Reason: Fever >100.4 F Carvedilol (Coreg) 25 mg PO Q12 [facility] Last Admin: 04/19/17 11:31 Dose: Not Given Clonidine HCl (Catapres) 0.2 mg PO BID [facility] Last Admin: 04/19/17 11:31 Dose: Not Given Dextrose (Dextrose 50% Inj) 0 ml IV STAT PRN; Protocol PRN Reason: Hypoglycemia Protocol Dextrose (Glutose 15) 0 gm PO ONCE PRN; Protocol PRN Reason: Hypoglycemia Protocol Dextrose (Dextrose 50% Inj) 0 ml IV STAT PRN; Protocol PRN Reason: Hypoglycemia Protocol Dextrose (Glutose 15) 0 gm PO ONCE PRN; Protocol PRN Reason: Hypoglycemia Protocol Glucagon (Glucagen Diagnostic Kit) 0 mg IM STAT PRN; Protocol PRN Reason: Hypoglycemia Protocol Glucagon (Glucagen Diagnostic Kit) 0 mg IM STAT PRN; Protocol PRN Reason: Hypoglycemia Protocol Cisatracurium Besylate 200 mg/ (Sodium Chloride) 520 mls @ 31.84 mls/hr IV .[id number] [facility] PRN Reason: 3 MCG/KG/MIN Last Admin: 04/18/17 00:59 Dose: 31.84 mls/hr Nicardipine HCl (Cardene 40mg/200ml Premixed) 40 mg in 200 mls @ 25 mls/hr IV .Q8H [facility]; 5 MG/HR PRN Reason: Protocol Last Admin: 04/18/17 09:06 Dose: 5 mg/hr, 25 mls/hr Vancomycin HCl 1 gm/ Sodium (Chloride) 250 mls @ 125 mls/hr IVPB TTS [facility] PRN Reason: Protocol Last Admin: 04/19/17 10:32 Dose: 125 mls/hr Piperacillin Sod/Tazobactam (Sod 2.25 gm/ Sodium Chloride) 100 mls @ 100 mls/ hr IVPB Q8 [facility] PRN Reason: Protocol Last Admin: 04/19/17 10:32 Dose: 100 mls/hr Insulin Human Regular 100 (units/ Sodium Chloride) 101 mls @ 2.02 mls/hr IV .Q24H [facility]; 2 UNITS/HR PRN Reason: Protocol Last Titration: 04/18/17 21:30 Dose: 0 units/hr, 0 mls/hr Nicardipine HCl (Cardene 40mg/200ml Premixed) 40 mg in 200 mls @ 25 mls/hr IV .Q8H [facility]; 5 MG/HR PRN Reason: Protocol Last Admin: 04/19/17 12:07 Dose: Not Given Pantoprazole Sodium 80 mg/ (Sodium Chloride) 250 mls @ 25 mls/hr IVPB Q10H [facility] PRN Reason: 8 MG/HR Stop: 04/19/17 19:44 Last Admin: 04/19/17 11:42 Dose: 25 mls/hr Dextrose/Sodium Chloride (Dextrose 5%/0.9% Ns 1000 Ml) 1,000 mls @ 75 mls/hr IV .[id number] [facility] Stop: 04/20/17 02:18 Last Admin: 04/19/17 04:09 Dose: 75 mls/hr Midazolam HCl 50 mg/ Dextrose 100 mls @ 4 mls/hr IV .Q24H [facility]; 2 MG/HR PRN Reason: Protocol Stop: 04/19/17 18:59 Last Titration: 04/19/17 06:22 Dose: 6 mg/hr, 12 mls/hr Metoprolol Tartrate (Lopressor) 2.5 mg IVP Q12 [facility] Last Admin: 04/19/17 11:19 Dose: 2.5 mg - Labs Labs: 04/19/17 04:30 04/19/17 04:30 PT 12.6 Seconds (9.8-13.1) 04/19/17 04:30 INR 1.1 (0.9-1.2) 04/19/17 04:30 APTT 29.2 Seconds (25.6-37.1) 04/18/17 23:07
[2017-04-19] MEDS ORDERED: levETIRAcetam 1,000 MG in Sodium Chloride 0.9% 100 ML IVPB ONE (13:40)
--- NOTE | 2017-04-19 14:00 | PQF GENQUE ---
This form is a permanent part of the medical record 04/19/17 Dr. Castañeda, After workup would you please clarify the possible etiology of the cardiac arrest if known. Clarification of your documentation is requested to better reflect the severity of illness and intensity of treatment of your patient. Indicators present [] Specify: [] [] Specify: [] [] Specify: [] [] Specify: [] Location in the medical record that reflects the above clinical findings: [] Treatment Provided: [] PHYSICIAN'S RESPONSE Cardiac Arrest , unclear etiology, to be determined.etiology Based on your medical judgment of the clinical indicators outlined above please clarify the following: [] Practitioner response [] If unable to determine, please check the box, sign and date. Present On Admission (POA) Indicator: [] Present at the time of admission [] Not present at the time of admission [] Clinically Undetermined In responding to this query, please exercise your independent professional judgment. The fact that a question is asked does not imply that any particular answer is desired or expected. Thank you for your clarification on this documentation. If you have any questions please call:[phone] * Thank you, Miri Madrigal RN CDMP MTDD
[2017-04-19] MEDS: Midazolam 5 MG/ML 50 MG in Dextrose 5% In Water 90 ML IV ONE (15:26)
--- NOTE | 2017-04-19 16:57 | CT ---
PROCEDURE: CT HEAD WITHOUT CONTRAST. HISTORY: hypoxic brain injury, watershed strokes COMPARISON: Unenhanced head CT 04/18/2017. TECHNIQUE: Axial computed tomography images were obtained through the head/brain without intravenous contrast. Radiation dose: Total exam DLP = 836.02 MGy-cm. This CT exam was performed using one or more of the following dose reduction techniques: Automated exposure control, adjustment of the mA and/or kV according to patient size, and/or use of iterative reconstruction technique. FINDINGS: HEMORRHAGE: No intracranial hemorrhage. BRAIN: Age-related neuro degenerative changes remain mild and are reiterated the current examination as well as a chronic infarct right parietal lobe. No suspicious interval lucency is appreciate including cortical lizama throughout the cerebrum. VENTRICLES: Unremarkable. No hydrocephalus. CALVARIUM: Unremarkable. PARANASAL SINUSES: Multifocal bilateral ethmoid and sphenoid sinus disease again evident. MASTOID AIR CELLS: Unremarkable as visualized. No inflammatory changes. OTHER FINDINGS: None. IMPRESSION: Age-related neuro degenerative changes are stable as well as small chronic lobar infarction right frontal lobe. No acute interval findings evident at this time. MRI may be useful for follow-up there is no contraindication and if clinically warranted. Otherwise, CT is available.
--- NOTE | 2017-04-19 22:41 | CP.PCM.PCO ---
Physician Communication Note - Physician Communication Note Physician Communication Note: Gm+ve cocci in clusters from Blood Culture of
--- NOTE | 2017-04-19 22:53 | PN ---
DATE: 04/19/2017 CRITICAL CARE PROGRESS NOTE LOCATION: The patient in room 430. TIME SPENT: 45 minutes. SUBJECTIVE: The patient is seen and evaluated at the bedside. Case discussed with neurologist as well as with family members, updated the poor prognosis, and the critical nature of the patient's condition. Patient's past medical, surgical, and social history noted. A 66-year-old male with a history significant for diabetes mellitus type 2; hypertension; peripheral vascular disease, status post amputation of toes, right foot; status post cholecystectomy; admitted status post cardiac arrest, resuscitated after three epinephrine, intubated, admitted to ICU; status post hypothermia protocol, remains on the ventilator. On AC/PRBC, rate 16, set at tidal volume of 560, PEEP of 5, and FiO2 of 60%, saturating 100%. Peak airway pressure at 23. End-tidal CO2 of 15, observed tidal volume 560, observed respiratory rate 16. Patient on Keppra and Versed drip to control myoclonic jerks. PHYSICAL EXAMINATION: HEAD, EYES, EARS, NOSE, AND THROAT: Pupils are reactive. Conjunctivae are pink. Sclerae are white. NECK: Supple. Trachea is central. CHEST: Bilateral breath sounds. Clear to auscultation anteriorly and laterally. HEART: Rhythm is regular. S1 and S2 are normal. No audible murmur. ABDOMEN: Bowel sounds are present. Soft. NEUROLOGIC: Sedated, on Versed drip. CURRENT MEDICATIONS: Include vancomycin 1 g at 125 mL per hour x1, Zosyn 2.25 g IV q. 8, Protonix drip at 80 mg in 250 mL at 25 mL per hour, nicardipine drip 40 mg in 200 mL at q. 8 hours, midazolam treatment 10 mg per hour, Lopressor 2.5 mg IV q. 12, Keppra 1000 mg post dialysis today, insulin drip as per schedule. LABORATORY DATA: WBC 26.2, hemoglobin 11.6, hematocrit 37.2, and platelet count 199. PT 12.6, INR 1.1. ABG - pH 7.54, pCO2 of 38, pO2 of 282, saturation 96.3%. SMA-7: Sodium 148, potassium 5.6, chloride 101, CO2 of 31, blood urea nitrogen 79, creatinine 8.1, random glucose 128. AST 53, ALT 60, alkaline phosphatase 46, total protein 6.8, and albumin 3.8. Urinalysis - wbc 12, rbc 11. Urine drug screen negative. Serology: Hepatitis B surface antigen negative, surface antibody positive, hepatitis C antibody negative. Microbiology: Blood culture, no growth reported. Chest x-ray: Improved CHF with residual, underlying infiltrates not excluded, and bilateral middle lung sounds. IMPRESSION: 1. Neurology: Myoclonic jerks secondary to anoxic encephalopathy. CT of head consistent with hypoperfusion and watershed infarcts, on Keppra and Versed for control of myoclonic jerks - EEG pending. Appreciate Neurology input. 2. Cardiac: History of hypertension, renovascular. Optimize control of blood pressure, added metoprolol, Vasotec, and nicardipine drip. Maintain systolic pressure at 140 to 160. 3. Pulmonary: Intubated for airway protection. Chest x-ray showed bilateral infiltrates, improved after dialysis. Not clear about the possible infiltrates and the middle lung sounds. Continue antibiotic to cover for possible aspiration pneumonia. 4. Gastrointestinal: Continue feeding on hold, n.p.o. Monitor blood sugar closely. 5. Endocrine: History of hyperglycemia, on insulin drip. Blood sugar, 111 to 128. 6. Renal. Chronic renal failure, on hemodialysis, status post dialysis today. Noted coffee-ground material through the nasogastric tube suction. Gastric ileus resolved. No anticoagulation due to coffee-ground nasogastric drainage. PLAN: Appreciate Cardiology followup. Echocardiogram showed mild aortic stenosis with peak aortic valve gradient of 18 mmHg. Continue deep venous thrombosis prophylaxis with mechanical device. No anticoagulation due to multiple areas of infarcts and coffee-ground nasogastric tube drainage. Prognosis remains guarded. Dani Payan MD
[2017-04-20] MEDS: Midazolam 5 MG/ML 50 MG in Dextrose 5% In Water 90 ML IV ONE (00:12)
[2017-04-20 05:11] LABS: BASO # 0.1 K/uL (0.0-0.2); BASO % 0.3 % (0.0-2.0); HEMATOCRIT 35.3 % (35.0-51.0); MEAN CORPUSCULAR HEMOGLOBIN 27.3 pg (27.0-31.0); MEAN CORPUSCULAR HGB CONC 31.3 g/dL (33.0-37.0); MEAN PLATELET VOLUME 10.2 fl (7.2-11.7); MONO # 2.1 K/uL (0.0-0.8); MONO % 10.7 % (0.0-10.0); NEUT # 16.9 K/uL (1.8-7.0); RED CELL DISTRIBUTION WIDTH 15.5 % (11.5-14.5); WHITE BLOOD COUNT 20.1 K/uL (4.8-10.8)
[2017-04-20] MEDS: Nicardipine HCl 40 MG/200 ML 40 MG/200 ML SOL IV SCH (05:53)
[2017-04-20 05:55] LABS: ALB/GLOB RATIO 1.3 (1.0-2.1); BILIRUBIN,TOTAL 0.6 mg/dl (0.2-1.3); CALCIUM 8.5 mg/dL (8.4-10.2); POTASSIUM 4.5 MMOL/L (3.6-5.0); TOTAL PROTEIN 6.9 G/DL (6.3-8.2)
[2017-04-20 05:56] LABS: ABG ALLEN TEST YES; ABG MECHANICAL RATE 16; ARTERIAL BLOOD GAS HCO3 29.1 mmol/L (21-28); ARTERIAL BLOOD GAS MODE A/C; ARTERIAL BLOOD GAS O2 CAPACITY 14.8 mL/dL (16-24); ARTERIAL BLOOD GAS O2 CONTENT 14.2 ML/dL (15-23); ARTERIAL BLOOD GAS PO2 162 mm/Hg (80-100); ARTERIAL BLOOD HGB O2 SAT 95.6 % (95.0-98.0); ATERIAL BLOOD GAS PEEP 5; CARBOXYHEMOGLOBIN 0 % (0.5-1.5); HHB 4.2 % (0.0-5.0); METHEMOGLOBIN 0.2 % (0.0-3.0)
--- NOTE | 2017-04-20 08:19 | CP.PCM.PN ---
Subjective - Date & Time of Evaluation Date of Evaluation: 04/20/17 Time of Evaluation: 08:15 - Subjective Subjective: Mr. Aguilar was seen and examined at the bedside in the ICU. He remains on mechanical ventilation with no vasopressors and sedation drip. He had an episode of febrile overnight and tylenol suppository was administered. At present, his T-max is 100.5. His pupils are fixed with no corneal reflex noted. The versed drip was on hold at 6 am today. He responsive to pain with a decelebrate posturing. He has minimal gag reflex when suctioning.He does not have any myclonic movements noted. Objective - Vital Signs/Intake and Output Vital Signs (last 24 hours): Temp Pulse Resp BP Pulse Ox 100.2 F H 80 16 141/60 100 04/20/17 06:00 04/20/17 06:33 04/20/17 06:33 04/20/17 06:33 04/20/17 06:33 Intake and Output: 04/20/17 04/20/17 06:59 18:59 Intake Total 1225 75 Output Total 500 Balance 725 75 - Medications Medications: Current Medications Acetaminophen (Tylenol 650 Mg Supp) 650 mg [place] Q6H PRN PRN Reason: Fever >100.4 F Last Admin: 04/20/17 05:16 Dose: 650 mg Carvedilol (Coreg) 25 mg PO Q12 [facility] Last Admin: 04/19/17 20:54 Dose: Not Given Clonidine HCl (Catapres) 0.2 mg PO BID [facility] Last Admin: 04/19/17 17:45 Dose: Not Given Dextrose (Dextrose 50% Inj) 0 ml IV STAT PRN; Protocol PRN Reason: Hypoglycemia Protocol Dextrose (Glutose 15) 0 gm PO ONCE PRN; Protocol PRN Reason: Hypoglycemia Protocol Glucagon (Glucagen Diagnostic Kit) 0 mg IM STAT PRN; Protocol PRN Reason: Hypoglycemia Protocol Cisatracurium Besylate 200 mg/ (Sodium Chloride) 520 mls @ 31.84 mls/hr IV .[id number] [facility] PRN Reason: 3 MCG/KG/MIN Last Admin: 04/18/17 00:59 Dose: 31.84 mls/hr Vancomycin HCl 1 gm/ Sodium (Chloride) 250 mls @ 125 mls/hr IVPB TTS [facility] PRN Reason: Protocol Last Admin: 04/19/17 10:32 Dose: 125 mls/hr Piperacillin Sod/Tazobactam (Sod 2.25 gm/ Sodium Chloride) 100 mls @ 100 mls/ hr IVPB Q8 [facility] PRN Reason: Protocol Last Admin: 04/20/17 00:14 Dose: 100 mls/hr Nicardipine HCl (Cardene 40mg/200ml Premixed) 40 mg in 200 mls @ 25 mls/hr IV .Q8H [facility]; 5 MG/HR PRN Reason: Protocol Last Admin: 04/20/17 05:53 Dose: Not Given Midazolam HCl 50 mg/ Dextrose 100 mls @ 4 mls/hr IV .Q24H [facility]; 2 MG/HR PRN Reason: Protocol Stop: 04/20/17 14:59 Last Titration: 04/20/17 06:15 Dose: 0 mg/hr, 0 mls/hr Pantoprazole Sodium 80 mg/ (Sodium Chloride) 250 mls @ 25 mls/hr IVPB Q10H [facility] Last Admin: 04/20/17 02:00 Dose: 25 mls/hr Metoprolol Tartrate (Lopressor) 2.5 mg IVP Q12 [facility] Last Admin: 04/19/17 21:02 Dose: 2.5 mg - Labs Labs: 04/20/17 04:10 04/20/17 04:10 PT 12.6 Seconds (9.8-13.1) 04/19/17 04:30 INR 1.1 (0.9-1.2) 04/19/17 04:30 APTT 29.2 Seconds (25.6-37.1) 04/18/17 23:07 - Constitutional Appears: No Acute Distress, Chronically Ill - Head Exam Head Exam: ATRAUMATIC - Eye Exam Additional comments: no corneal reflex noted - Respiratory Exam Additional comments: on mechanical ventilation. - Neurological Exam Additional comments: His GCS 4T Assessment and Plan (1) Hypoxic brain injury Assessment & Plan: Case discussed with Dr. Car, follow up with EEG today, continue all current medical management. Status: Acute
--- NOTE | 2017-04-20 09:17 | RAD ---
HISTORY: Ventilator patient. Portable study supine technique 04:36. COMPARISON: Multiple serial examinations preceding the most recent study: April 19, 2017. Time of the most recent examination: 04:40. FINDINGS: LUNGS: No active pulmonary disease. Improved aeration of the lungs compared to the prior study. PLEURA: No significant pleural effusion identified, no pneumothorax apparent. CARDIOVASCULAR: No radiographic findings to suggest acute or significant cardiovascular disease. OSSEOUS STRUCTURES: No significant abnormalities. VISUALIZED UPPER ABDOMEN: Normal. OTHER FINDINGS: Satisfactory position of endotracheal tube. IMPRESSION: No active pulmonary disease. Stable and satisfactory position of endotracheal tube.
--- NOTE | 2017-04-20 10:03 | CP.PCM.PN ---
Subjective - Date & Time of Evaluation Date of Evaluation: 04/20/17 Time of Evaluation: 09:00 - Subjective Subjective: Remains unresponsive to painful stimuli (decerebrate posturing +) Vent dependent Sinus rhythm at 78 BPM, reg BP 170/64 mm Hg Chest clear, heart sounds distant Excellent urine out put (> 40 ml/hr) Labs noted Prognosis remains poor Objective - Vital Signs/Intake and Output Vital Signs (last 24 hours): Temp Pulse Resp BP Pulse Ox 100.2 F H 90 16 176/70 H 100 04/20/17 08:00 04/20/17 09:00 04/20/17 09:00 04/20/17 09:00 04/20/17 09:00 Intake and Output: 04/20/17 04/20/17 06:59 18:59 Intake Total 1225 75 Output Total 500 Balance 725 75 - Medications Medications: Current Medications Acetaminophen (Tylenol 650 Mg Supp) 650 mg [place] Q6H PRN PRN Reason: Fever >100.4 F Last Admin: 04/20/17 05:16 Dose: 650 mg Carvedilol (Coreg) 25 mg PO Q12 [facility] Last Admin: 04/19/17 20:54 Dose: Not Given Clonidine HCl (Catapres) 0.2 mg PO BID [facility] Last Admin: 04/19/17 17:45 Dose: Not Given Dextrose (Dextrose 50% Inj) 0 ml IV STAT PRN; Protocol PRN Reason: Hypoglycemia Protocol Dextrose (Glutose 15) 0 gm PO ONCE PRN; Protocol PRN Reason: Hypoglycemia Protocol Glucagon (Glucagen Diagnostic Kit) 0 mg IM STAT PRN; Protocol PRN Reason: Hypoglycemia Protocol Cisatracurium Besylate 200 mg/ (Sodium Chloride) 520 mls @ 31.84 mls/hr IV .[id number] [facility] PRN Reason: 3 MCG/KG/MIN Last Admin: 04/18/17 00:59 Dose: 31.84 mls/hr Vancomycin HCl 1 gm/ Sodium (Chloride) 250 mls @ 125 mls/hr IVPB TTS [facility] PRN Reason: Protocol Last Admin: 04/19/17 10:32 Dose: 125 mls/hr Piperacillin Sod/Tazobactam (Sod 2.25 gm/ Sodium Chloride) 100 mls @ 100 mls/ hr IVPB Q8 [facility] PRN Reason: Protocol Last Admin: 04/20/17 08:48 Dose: 100 mls/hr Nicardipine HCl (Cardene 40mg/200ml Premixed) 40 mg in 200 mls @ 25 mls/hr IV .Q8H [facility]; 5 MG/HR PRN Reason: Protocol Last Admin: 04/20/17 05:53 Dose: Not Given Midazolam HCl 50 mg/ Dextrose 100 mls @ 4 mls/hr IV .Q24H [facility]; 2 MG/HR PRN Reason: Protocol Stop: 04/20/17 14:59 Last Titration: 04/20/17 06:15 Dose: 0 mg/hr, 0 mls/hr Pantoprazole Sodium 80 mg/ (Sodium Chloride) 250 mls @ 25 mls/hr IVPB Q10H [facility] Last Admin: 04/20/17 02:00 Dose: 25 mls/hr Metoprolol Tartrate (Lopressor) 2.5 mg IVP Q12 [facility] Last Admin: 04/19/17 21:02 Dose: 2.5 mg - Labs Labs: 04/20/17 04:10 04/20/17 04:10 PT 12.6 Seconds (9.8-13.1) 04/19/17 04:30 INR 1.1 (0.9-1.2) 04/19/17 04:30 APTT 29.2 Seconds (25.6-37.1) 04/18/17 23:07
[2017-04-20] MEDS: Dextrose 5%/0.9% NS 1,000 ML IV SCH (10:31)
[2017-04-20] MEDS: Metoprolol 1 mg/ml Inj IVP SCH ×2 (10:33→21:13)
--- NOTE | 2017-04-20 11:48 | CP.PCM.PN ---
Subjective - Date & Time of Evaluation Date of Evaluation: 04/20/17 Time of Evaluation: 11:46 - Subjective Subjective: Patient remain not responsive. On ventilator Vital sign noted blood pressure is still slightly elevated but better than yesterday. Patient completed hemodialysis yesterday Lab reviewed Objective - Vital Signs/Intake and Output Vital Signs (last 24 hours): Temp Pulse Resp BP Pulse Ox 100.2 F H 91 H 25 H 179/76 H 100 04/20/17 08:00 04/20/17 11:00 04/20/17 11:00 04/20/17 11:00 04/20/17 11:00 Intake and Output: 04/20/17 04/20/17 06:59 18:59 Intake Total 1225 225 Output Total 500 Balance 725 225 - Medications Medications: Current Medications Acetaminophen (Tylenol 650 Mg Supp) 650 mg [place] Q6H PRN PRN Reason: Fever >100.4 F Last Admin: 04/20/17 10:26 Dose: 650 mg Carvedilol (Coreg) 25 mg PO Q12 [facility] Last Admin: 04/19/17 20:54 Dose: Not Given Clonidine HCl (Catapres) 0.2 mg PO BID [facility] Last Admin: 04/19/17 17:45 Dose: Not Given Dextrose (Dextrose 50% Inj) 0 ml IV STAT PRN; Protocol PRN Reason: Hypoglycemia Protocol Dextrose (Glutose 15) 0 gm PO ONCE PRN; Protocol PRN Reason: Hypoglycemia Protocol Glucagon (Glucagen Diagnostic Kit) 0 mg IM STAT PRN; Protocol PRN Reason: Hypoglycemia Protocol Cisatracurium Besylate 200 mg/ (Sodium Chloride) 520 mls @ 31.84 mls/hr IV .[id number] [facility] PRN Reason: 3 MCG/KG/MIN Last Admin: 04/18/17 00:59 Dose: 31.84 mls/hr Vancomycin HCl 1 gm/ Sodium (Chloride) 250 mls @ 125 mls/hr IVPB TTS [facility] PRN Reason: Protocol Last Admin: 04/19/17 10:32 Dose: 125 mls/hr Piperacillin Sod/Tazobactam (Sod 2.25 gm/ Sodium Chloride) 100 mls @ 100 mls/ hr IVPB Q8 [facility] PRN Reason: Protocol Last Admin: 04/20/17 08:48 Dose: 100 mls/hr Nicardipine HCl (Cardene 40mg/200ml Premixed) 40 mg in 200 mls @ 25 mls/hr IV .Q8H [facility]; 5 MG/HR PRN Reason: Protocol Last Admin: 04/20/17 05:53 Dose: Not Given Midazolam HCl 50 mg/ Dextrose 100 mls @ 4 mls/hr IV .Q24H [facility]; 2 MG/HR PRN Reason: Protocol Stop: 04/20/17 14:59 Last Titration: 04/20/17 06:15 Dose: 0 mg/hr, 0 mls/hr Pantoprazole Sodium 80 mg/ (Sodium Chloride) 250 mls @ 25 mls/hr IVPB Q10H [facility] Last Admin: 04/20/17 02:00 Dose: 25 mls/hr Metoprolol Tartrate (Lopressor) 2.5 mg IVP Q12 [facility] Last Admin: 04/20/17 10:33 Dose: 2.5 mg - Labs Labs: 04/20/17 04:10 04/20/17 04:10 PT 12.6 Seconds (9.8-13.1) 04/19/17 04:30 INR 1.1 (0.9-1.2) 04/19/17 04:30 APTT 29.2 Seconds (25.6-37.1) 04/18/17 23:07 - ENT Exam ENT Exam: Mucous Membranes Moist - Neck Exam Neck Exam: absent: Lymphadenopathy - Respiratory Exam Respiratory Exam: absent: Chest Wall Tenderness - Cardiovascular Exam Cardiovascular Exam: absent: JVD, Rubs - GI/Abdominal Exam GI & Abdominal Exam: Soft, Normal Bowel Sounds - Extremities Exam Extremities Exam: absent: Calf Tenderness - Back Exam Back Exam: absent: CVA tenderness (L), CVA tenderness (R) - Neurological Exam Neurological Exam: Altered - Psychiatric Exam Psychiatric exam: Flat Affect - Skin Skin Exam: absent: Cyanosis Assessment and Plan (1) Cardiac arrest Status: Acute (2) Flash pulmonary edema Status: Acute (3) ESRD (end stage renal disease) on dialysis Assessment & Plan: End stage renal disease on maintenance hemodialysis completed hemodialysis yesterday and scheduled for tomorrow TTS. Respiratory failure on ventilator. Leukocytosis patient receiving vancomycin and Zosyn. Status post cardiac arrest. Blood test reviewed. Prognosis remained guarded. Dialysis orders given for tomorrow. Status: Chronic (4) Acute respiratory failure Status: Acute (5) CHF exacerbation Status: Acute
--- NOTE | 2017-04-20 12:49 | CP.PCM.PN ---
Subjective - Date & Time of Evaluation Date of Evaluation: 04/20/17 Time of Evaluation: 12:00 - Subjective Subjective: febrile remains intubated on Vent Unresponsive to pain + gag reflex myoclonic jerks improved Daughter at bedside , discussed diagnoses , prognosis a nd treatment plan Objective - Vital Signs/Intake and Output Vital Signs (last 24 hours): Temp Pulse Resp BP Pulse Ox 99.3 F 90 18 165/71 H 100 04/20/17 12:00 04/20/17 12:00 04/20/17 12:00 04/20/17 12:00 04/20/17 12:00 Intake and Output: 04/20/17 04/20/17 06:59 18:59 Intake Total 1225 225 Output Total 500 Balance 725 225 - Medications Medications: Current Medications Acetaminophen (Tylenol 650 Mg Supp) 650 mg [place] Q6H PRN PRN Reason: Fever >100.4 F Last Admin: 04/20/17 10:26 Dose: 650 mg Carvedilol (Coreg) 25 mg PO Q12 [facility] Last Admin: 04/19/17 20:54 Dose: Not Given Clonidine HCl (Catapres) 0.2 mg PO BID [facility] Last Admin: 04/19/17 17:45 Dose: Not Given Dextrose (Dextrose 50% Inj) 0 ml IV STAT PRN; Protocol PRN Reason: Hypoglycemia Protocol Dextrose (Glutose 15) 0 gm PO ONCE PRN; Protocol PRN Reason: Hypoglycemia Protocol Glucagon (Glucagen Diagnostic Kit) 0 mg IM STAT PRN; Protocol PRN Reason: Hypoglycemia Protocol Cisatracurium Besylate 200 mg/ (Sodium Chloride) 520 mls @ 31.84 mls/hr IV .[id number] [facility] PRN Reason: 3 MCG/KG/MIN Last Admin: 04/18/17 00:59 Dose: 31.84 mls/hr Vancomycin HCl 1 gm/ Sodium (Chloride) 250 mls @ 125 mls/hr IVPB TTS [facility] PRN Reason: Protocol Last Admin: 04/19/17 10:32 Dose: 125 mls/hr Piperacillin Sod/Tazobactam (Sod 2.25 gm/ Sodium Chloride) 100 mls @ 100 mls/ hr IVPB Q8 [facility] PRN Reason: Protocol Last Admin: 04/20/17 08:48 Dose: 100 mls/hr Nicardipine HCl (Cardene 40mg/200ml Premixed) 40 mg in 200 mls @ 25 mls/hr IV .Q8H [facility]; 5 MG/HR PRN Reason: Protocol Last Admin: 04/20/17 05:53 Dose: Not Given Midazolam HCl 50 mg/ Dextrose 100 mls @ 4 mls/hr IV .Q24H [facility]; 2 MG/HR PRN Reason: Protocol Stop: 04/20/17 14:59 Last Titration: 04/20/17 06:15 Dose: 0 mg/hr, 0 mls/hr Pantoprazole Sodium 80 mg/ (Sodium Chloride) 250 mls @ 25 mls/hr IVPB Q10H [facility] Last Admin: 04/20/17 12:20 Dose: 25 mls/hr Metoprolol Tartrate (Lopressor) 2.5 mg IVP Q12 [facility] Last Admin: 04/20/17 10:33 Dose: 2.5 mg - Labs Labs: 04/20/17 04:10 04/20/17 04:10 PT 12.6 Seconds (9.8-13.1) 04/19/17 04:30 INR 1.1 (0.9-1.2) 04/19/17 04:30 APTT 29.2 Seconds (25.6-37.1) 04/18/17 23:07 - Constitutional Appears: Other (Pt is intubated on Vent) - Head Exam Head Exam: NORMOCEPHALIC - Eye Exam Pupil Exam: Miosis - ENT Exam ENT Exam: Mucous Membranes Dry, Normal External Ear Exam - Respiratory Exam Respiratory Exam: Rales, Rhonchi Additional comments: Pt is intubated on Vent - Cardiovascular Exam Cardiovascular Exam: REGULAR RHYTHM, +S1, +S2 - GI/Abdominal Exam GI & Abdominal Exam: Distended, Normal Bowel Sounds - Extremities Exam Extremities Exam: Pedal Edema - Neurological Exam Additional comments: unresponsive even to pain - Skin Skin Exam: Dry, Normal Color, Warm Assessment and Plan - Assessment and Plan (Free Text) Assessment: 66 y/o male with PMHx significant for DM2, HTN, ESRD on M/W/F ESRD, and PVD brought in by EMS with cardiac arrest. Patient was brought in with resuscitation in progress. Per report, patient had been watching TV with friend and c/o CP. They called 911, and when the ambulance arrived, patient attempted to walk to stretcher, but then became unresponsive and was found to be in cardiac arrest. CPR was initiated, patient received 3 epinephrines, 2 mg narcan. Supraglottic airway and IO line placed. In the ED, patient received bicarb injection and another epi . EKG was reviewed by cardiology who indicated no code heart needed. Patient had L femoral central line placed. 1. Cardiac arrest unclear etiology Patient intubated , sedated and was placed on hypothermia protocol Check and monitor electrolytes Cardiology consulted - stable cardiac Neurology consulted: poor prognosis , CT showed watershed infarcts EEG: slowing and some epileptiform spikes noted - Neuro rec adding Depakote and cont Keppra 2. Troponin Elevation mild Trop elevation, unlikely [place] prob related to CPR in pt with ESRD Cardio consulted 3.ESRD on HD nephrology consulted for HD - TTS 4. Myoclonic Jerks sign of poor prognosis Pt was on Versed drip initially now on Keppra and Depakote Neuro consulted EEG: epileptiform spikes noted 5. HTN uncontrolled Started Cardene drip initially prn IV anti hypertensives 6. DM type II on Insulin continue accuchecks and insulin coverage D/c insulin drip since accuchecks are on the lower side 7.Bilateral Pneumonia most likely aspiration Started on Vanco post HD and Zosyn renal dose Follow up cultures wbc better today 20k from 26k 8.DVT prophylaxis SCD
--- NOTE | 2017-04-20 13:54 | PCM.EEG ---
Electroencephalogram Report - Electroencephalogram Report Procedure Date: 04/20/17 Interpretation: Indication: Anoxic brain injury. Medications were reviewed. Technical: This is a digitally recorded electroencephalogram. The international 10-20 electrode placement system is used for scalp electrode placement. Eighteen channels of scalp EEG are recorded Another channel was used for for ECG. The data are stored digitally and reviewed in reformatted montages for optimal display. Diffuse Abnormality: No well formed alpha activity was seen. Increased beta activity was seen intermittently. Focal abnormality: Intermittent focal slowing was seen. Periodic lateralized discharge was seen. This is seen over the Left hemisphere. Impression: This EEG is abnormal. Epileptiform discharge was seen. This can represent a potential seizure focus. Clinical correlation is needed. Recommendation: Resume anti-seizure medications. I recommend adding depakote with 1000 mg IV load and continue 500 mg Q12 hours. Repeat EEG tomorrow to see if the epileptiform discharges are improving.
--- NOTE | 2017-04-20 16:56 | CP.CCUPN ---
CCU Subjective - Physician Review Subjective (Free Text): Still appears comatose and has been off anxiolytics since this early AM. Bedside EEG performed and new findings noted and initiation of Depakote AED noted. Breathing 24 on AC 16, TV 500ml, 60% and PEEP 5; SPo2 100%. No gross seizure activity noted now, but myoclonic activity has stopped. Other vitals and I/O's reviewed. T max to 102F over last 24H; Urine output approx 700 ml overnight. ROS: Unobtainable due to coma on the vent. No other pertinent negs or positives on 10+ system review. PMSFH: All other Nursing and physician documentation reviewed to date; no new pertinent info noted relevant to current medical problems. CXR: visible distal tip of ETT low but above torsten, low lung volumes bilaterally (my interp). IMPRESSION / MAJOR PROBLEMS NOW: 1. Cardiac Arrest, on MV support; s/p Therapeutic Hypothermia 2. Post Arrest Anoxic Encephalopathy, with new onset Seizure Disorder 3. Uncontrolled / Accelerated Hypertension 4. ESRD on HD 5. ETOH Intoxication on Hospital Admission PLAN: 1. No MV weans due to coma. Will decrease Fio2 to 50% as tolerated. 2. Cardene on hold, try to taper Clonidine to avoid any central-acting effects. Increase Metoprolol. 3. Hgb stable, convert PPi drip to q12h PPIs. 4. Repeat two more Blood Cultures. Continue Zosyn / Vanco. 5. Repeat EEG in AM as per Neurology, check Valproate levels. 6. Thiamine / Folate CCU Objective - Vital Signs / Intake & Output Vital Signs (Last 4 hours): Vital Signs Temp Pulse Resp BP Pulse Ox 04/20/17 16:22 92 H 178/81 H 04/20/17 16:00 99.0 F 93 H 177/85 H 100 04/20/17 15:00 92 H 22 166/75 H 100 04/20/17 14:00 91 H 21 166/90 H 100 04/20/17 13:00 91 H 25 H 163/85 H 98 Intake and Output (Last 8hrs): Intake & Output 04/20/17 04/20/17 04/20/17 06:59 14:59 22:59 Intake Total 800 775 200 Output Total 500 Balance 300 775 200 Weight 171 lb 3.2 oz 172 lb 14.4 oz Intake: IV 700 475 150 Intake, Piggyback 100 300 50 Output: Gastric Amount 200 Stomach 200 Urine 300 Urethral (Mckee) 300 - Physical Exam Physical Exam Limitations: Positive for: Altered Mental Status Head: Positive for: Atraumatic, Normocephalic Pupils: Positive for: PERRL, Sluggish, Pinpoint Extroacular Muscles: Positive for: EOMI. Negative for: Gaze Palsy Conjunctiva: Positive for: Normal. Negative for: Icteric Mouth: Positive for: Moist Mucous Membranes Neck: Positive for: Normal Range of Motion. Negative for: JVD Respiratory/Chest: Positive for: Clear to Auscultation, Decreased Breath Sounds. Negative for: Accessory Muscle Use, Wheezes Cardiovascular: Positive for: Regular Rate and Rhythm, Tachycardic. Negative for: Murmurs, Rub Abdomen: Positive for: Normal Bowel Sounds. Negative for: Tenderness, Distention, Mass/Organomegaly Lower Extremity: Positive for: NORMAL PULSES. Negative for: CALF TENDERNESS, Cyanosis Neurological: Positive for: Other (GCS= 4T (E1V1M2)) Skin: Positive for: Warm, Dry. Negative for: Rashes Psychiatric: Positive for: Lethargic - Medications Active Medications: Active Medications Generic Name Dose Route Start Last Admin Trade Name Freq PRN Reason Stop Dose Admin Acetaminophen 650 mg 04/17/17 23:50 04/20/17 10:26 Tylenol 650 Mg Supp SD 650 mg Q6H PRN Administration Fever >100.4 F Carvedilol 25 mg 04/18/17 09:00 04/20/17 16:05 Coreg PO Not Given Q12 BARNEY Clonidine HCl 0.1 mg 04/20/17 17:00 Catapres PO BID [facility]NEY Dextrose 0 ml 04/17/17 23:41 Dextrose 50% Inj IV STAT PRN Hypoglycemia Protocol Protocol Dextrose 0 gm 04/17/17 23:41 Glutose 15 PO ONCE PRN Hypoglycemia Protocol Protocol Glucagon 0 mg 04/17/17 23:41 Glucagen Diagnostic Kit IM STAT PRN Hypoglycemia Protocol Protocol Vancomycin HCl 1 gm/ Sodium 250 mls @ 125 mls/hr 04/19/17 09:00 04/19/17 10: 32 Chloride IVPB 125 mls/hr TTS BARNEY Administration Protocol Piperacillin Sod/Tazobactam 100 mls @ 100 mls/hr 04/18/17 09:00 04/20/17 16: 21 Sod 2.25 gm/ Sodium Chloride IVPB 100 mls/hr Q8 [facility] Administration Protocol Valproate Sodium 500 mg/ 55 mls @ 55 mls/hr 04/20/17 21:00 Sodium Chloride IVPB Q12 [facility]NEY Per Protocol Metoprolol Tartrate 5 mg 04/20/17 22:00 Lopressor IVP Q6 [facility] Pantoprazole Sodium 40 mg 04/20/17 21:00 Protonix Inj IVP Q12 [facility] - Patient Studies Lab Studies: Microbiology Studies 04/18/17 16:50 Blood Culture - Preliminary Blood NO GROWTH AFTER 48 HOURS 04/18/17 16:50 Blood Culture - Preliminary Blood NO GROWTH AFTER 48 HOURS 04/17/17 22:58 S.aureus & Coag-Neg Staph PNA FISH - Final Blood Blood Culture - Preliminary Coagulase Neg Staphylococcus Gram Stain - Final 04/17/17 23:28 Blood Culture - Preliminary Blood NO GROWTH AFTER 48 HOURS 04/18/17 13:26 MRSA Culture (Admit) - Final Naris MRSA NOT DETECTED Lab Studies 04/20/17 04/20/17 04/20/17 Range/Units 11:42 05:12 04:17 WBC (4.8-10.8) K/uL RBC (4.40-5.90) Mil/uL Hgb (12.0-18.0) g/dL Hct (35.0-51.0) % MCV (80.0-94.0) fl MCH (27.0-31.0) pg MCHC (33.0-37.0) g/dL RDW (11.5-14.5) % Plt Count (130-400) K/uL MPV (7.2-11.7) fl Neut % (Auto) (50.0-75.0) % Lymph % (Auto) (20.0-40.0) % [place] % (Auto) (0.0-10.0) % Eos % (Auto) (0.0-4.0) % Baso % (Auto) (0.0-2.0) % Neut # (1.8-7.0) K/uL Lymph # (1.0-4.3) K/uL [place] # (0.0-0.8) K/uL Eos # (0.0-0.7) K/uL Baso # (0.0-0.2) K/uL pCO2 37 (35-45) mm/Hg pO2 162 H (80-100) mm/Hg HCO3 29.1 H (21-28) mmol/L ABG pH 7.50 H (7.35-7.45) ABG Total CO2 30.0 H (22-28) mmol/L ABG O2 Saturation 95.8 (95-98) % ABG O2 Content 14.2 L (15-23) ML/dL ABG Base Excess 5.4 H (-2.0-3.0) mmol/L ABG Hemoglobin 10.3 L (11.7-17.4) g/dL ABG Carboxyhemoglobin 0 L (0.5-1.5) % POC ABG HHb (Measured) 4.2 (0.0-5.0) % ABG Methemoglobin 0.2 (0.0-3.0) % ABG O2 Capacity 14.8 L (16-24) mL/dL Scott Test Yes A-a O2 Difference 220.0 mm/Hg Hgb O2 Saturation 95.6 (95.0-98.0) % Vent Mode A/c Mechanical Rate 16 FiO2 60.0 % Tidal Volume 500 PEEP 5 Sodium (132-148) mmol/l Potassium (3.6-5.0) MMOL/L Chloride (98-107) mmol/L Carbon Dioxide (22-30) mmol/L Anion Gap (10-20) BUN (9-20) mg/dl Creatinine (0.8-1.5) mg/dl Est GFR ( Amer) Est GFR (Non-Af Amer) POC Glucose (mg/dL) 242 H 252 H (65-110) mg/dL Random Glucose (75-110) mg/dL Calcium (8.4-10.2) mg/dL Total Bilirubin (0.2-1.3) mg/dl AST (17-59) U/L ALT (21-72) U/L Alkaline Phosphatase (38-126) U/L Total Protein (6.3-8.2) G/DL Albumin (3.5-5.0) g/dL Globulin (2.2-3.9) gm/dL Albumin/Globulin Ratio (1.0-2.1) 04/20/17 04/20/17 04/19/17 Range/Units 04:10 04:10 21:32 WBC 20.1 H (4.8-10.8) K/uL RBC 4.06 L (4.40-5.90) Mil/uL Hgb 11.1 L (12.0-18.0) g/dL Hct 35.3 (35.0-51.0) % MCV 87.0 (80.0-94.0) fl MCH 27.3 (27.0-31.0) pg MCHC 31.3 L (33.0-37.0) g/dL RDW 15.5 H (11.5-14.5) % Plt Count 200 (130-400) K/uL MPV 10.2 (7.2-11.7) fl Neut % (Auto) 84.0 H (50.0-75.0) % Lymph % (Auto) 5.0 L (20.0-40.0) % [place] % (Auto) 10.7 H (0.0-10.0) % Eos % (Auto) 0.0 (0.0-4.0) % Baso % (Auto) 0.3 (0.0-2.0) % Neut # 16.9 H (1.8-7.0) K/uL Lymph # 1.0 (1.0-4.3) K/uL [place] # 2.1 H (0.0-0.8) K/uL Eos # 0.0 (0.0-0.7) K/uL Baso # 0.1 (0.0-0.2) K/uL pCO2 (35-45) mm/Hg pO2 (80-100) mm/Hg HCO3 (21-28) mmol/L ABG pH (7.35-7.45) ABG Total CO2 (22-28) mmol/L ABG O2 Saturation (95-98) % ABG O2 Content (15-23) ML/dL ABG Base Excess (-2.0-3.0) mmol/L ABG Hemoglobin (11.7-17.4) g/dL ABG Carboxyhemoglobin (0.5-1.5) % POC ABG HHb (Measured) (0.0-5.0) % ABG Methemoglobin (0.0-3.0) % ABG O2 Capacity (16-24) mL/dL Scott Test A-a O2 Difference mm/Hg Hgb O2 Saturation (95.0-98.0) % Vent Mode Mechanical Rate FiO2 % Tidal Volume PEEP Sodium 143 (132-148) mmol/l Potassium 4.5 (3.6-5.0) MMOL/L Chloride 101 (98-107) mmol/L Carbon Dioxide 28 (22-30) mmol/L Anion Gap 19 (10-20) BUN 43 H (9-20) mg/dl Creatinine 5.6 H (0.8-1.5) mg/dl Est GFR ( Amer) 12 Est GFR (Non-Af Amer) 10 POC Glucose (mg/dL) 192 H (65-110) mg/dL Random Glucose 221 H (75-110) mg/dL Calcium 8.5 (8.4-10.2) mg/dL Total Bilirubin 0.6 (0.2-1.3) mg/dl AST 51 (17-59) U/L ALT 48 (21-72) U/L Alkaline Phosphatase 54 (38-126) U/L Total Protein 6.9 (6.3-8.2) G/DL Albumin 3.9 (3.5-5.0) g/dL Globulin 3.0 (2.2-3.9) gm/dL Albumin/Globulin Ratio 1.3 (1.0-2.1) 04/19/17 Range/Units 14:06 WBC (4.8-10.8) K/uL RBC (4.40-5.90) Mil/uL Hgb (12.0-18.0) g/dL Hct (35.0-51.0) % MCV (80.0-94.0) fl MCH (27.0-31.0) pg MCHC (33.0-37.0) g/dL RDW (11.5-14.5) % Plt Count (130-400) K/uL MPV (7.2-11.7) fl Neut % (Auto) (50.0-75.0) % Lymph % (Auto) (20.0-40.0) % [place] % (Auto) (0.0-10.0) % Eos % (Auto) (0.0-4.0) % Baso % (Auto) (0.0-2.0) % Neut # (1.8-7.0) K/uL Lymph # (1.0-4.3) K/uL [place] # (0.0-0.8) K/uL Eos # (0.0-0.7) K/uL Baso # (0.0-0.2) K/uL pCO2 (35-45) mm/Hg pO2 (80-100) mm/Hg HCO3 (21-28) mmol/L ABG pH (7.35-7.45) ABG Total CO2 (22-28) mmol/L ABG O2 Saturation (95-98) % ABG O2 Content (15-23) ML/dL ABG Base Excess (-2.0-3.0) mmol/L ABG Hemoglobin (11.7-17.4) g/dL ABG Carboxyhemoglobin (0.5-1.5) % POC ABG HHb (Measured) (0.0-5.0) % ABG Methemoglobin (0.0-3.0) % ABG O2 Capacity (16-24) mL/dL Scott Test A-a O2 Difference mm/Hg Hgb O2 Saturation (95.0-98.0) % Vent Mode Mechanical Rate FiO2 % Tidal Volume PEEP Sodium (132-148) mmol/l Potassium (3.6-5.0) MMOL/L Chloride (98-107) mmol/L Carbon Dioxide (22-30) mmol/L Anion Gap (10-20) BUN (9-20) mg/dl Creatinine (0.8-1.5) mg/dl Est GFR ( Amer) Est GFR (Non-Af Amer) POC Glucose (mg/dL) 141 H (65-110) mg/dL Random Glucose (75-110) mg/dL Calcium (8.4-10.2) mg/dL Total Bilirubin (0.2-1.3) mg/dl AST (17-59) U/L ALT (21-72) U/L Alkaline Phosphatase (38-126) U/L Total Protein (6.3-8.2) G/DL Albumin (3.5-5.0) g/dL Globulin (2.2-3.9) gm/dL Albumin/Globulin Ratio (1.0-2.1) Laboratory Results - last 24 hr 04/19/17 04/19/17 04/20/17 14:06 21:32 04:10 WBC 20.1 H RBC 4.06 L Hgb 11.1 L Hct 35.3 MCV 87.0 MCH 27.3 MCHC 31.3 L RDW 15.5 H Plt Count 200 MPV 10.2 Neut % (Auto) 84.0 H Lymph % (Auto) 5.0 L [place] % (Auto) 10.7 H Eos % (Auto) 0.0 Baso % (Auto) 0.3 Neut # 16.9 H Lymph # 1.0 [place] # 2.1 H Eos # 0.0 Baso # 0.1 pCO2 pO2 HCO3 ABG pH ABG Total CO2 ABG O2 Saturation ABG O2 Content ABG Base Excess ABG Hemoglobin ABG Carboxyhemoglobin POC ABG HHb (Measured) ABG Methemoglobin ABG O2 Capacity Scott Test A-a O2 Difference Hgb O2 Saturation Vent Mode Mechanical Rate FiO2 Tidal Volume PEEP Sodium Potassium Chloride Carbon Dioxide Anion Gap BUN Creatinine Est GFR ( Amer) Est GFR (Non-Af Amer) POC Glucose (mg/dL) 141 H 192 H Random Glucose Calcium Total Bilirubin AST ALT Alkaline Phosphatase Total Protein Albumin Globulin Albumin/Globulin Ratio 04/20/17 04/20/17 04/20/17 04:10 04:17 05:12 WBC RBC Hgb Hct MCV MCH MCHC RDW Plt Count MPV Neut % (Auto) Lymph % (Auto) [place] % (Auto) Eos % (Auto) Baso % (Auto) Neut # Lymph # [place] # Eos # Baso # pCO2 37 pO2 162 H HCO3 29.1 H ABG pH 7.50 H ABG Total CO2 30.0 H ABG O2 Saturation 95.8 ABG O2 Content 14.2 L ABG Base Excess 5.4 H ABG Hemoglobin 10.3 L ABG Carboxyhemoglobin 0 L POC ABG HHb (Measured) 4.2 ABG Methemoglobin 0.2 ABG O2 Capacity 14.8 L Scott Test Yes A-a O2 Difference 220.0 Hgb O2 Saturation 95.6 Vent Mode A/c Mechanical Rate 16 FiO2 60.0 Tidal Volume 500 PEEP 5 Sodium 143 Potassium 4.5 Chloride 101 Carbon Dioxide 28 Anion Gap 19 BUN 43 H Creatinine 5.6 H Est GFR ( Amer) 12 Est GFR (Non-Af Amer) 10 POC Glucose (mg/dL) 252 H Random Glucose 221 H Calcium 8.5 Total Bilirubin 0.6 AST 51 ALT 48 Alkaline Phosphatase 54 Total Protein 6.9 Albumin 3.9 Globulin 3.0 Albumin/Globulin Ratio 1.3 04/20/17 11:42 WBC RBC Hgb Hct MCV MCH MCHC RDW Plt Count MPV Neut % (Auto) Lymph % (Auto) [place] % (Auto) Eos % (Auto) Baso % (Auto) Neut # Lymph # [place] # Eos # Baso # pCO2 pO2 HCO3 ABG pH ABG Total CO2 ABG O2 Saturation ABG O2 Content ABG Base Excess ABG Hemoglobin ABG Carboxyhemoglobin POC ABG HHb (Measured) ABG Methemoglobin ABG O2 Capacity Scott Test A-a O2 Difference Hgb O2 Saturation Vent Mode Mechanical Rate FiO2 Tidal Volume PEEP Sodium Potassium Chloride Carbon Dioxide Anion Gap BUN Creatinine Est GFR ( Amer) Est GFR (Non-Af Amer) POC Glucose (mg/dL) 242 H Random Glucose Calcium Total Bilirubin AST ALT Alkaline Phosphatase Total Protein Albumin Globulin Albumin/Globulin Ratio Radiology Interpretations (Free Text): see above Fingerstick Blood Sugar Results: 242 Review of Systems - Review of Systems Systems not reviewed;Unavailable: Intubated Critical Care Progress Note - Ventilator Checklist Head of Bed 30 Degrees: Yes Daily Sedation Vacation: Yes Daily Assessment of Readiness to Wean: Yes Daily Spontaneous Breathing Trial: Yes PUD Prophalyxis: Yes DVT Prophylaxis: Yes Oral Care with Chlorhexidine Gluconate {CHG}: Yes - Vent Settings MODE:: ASSIST CONTROL TIDAL VOLUME:: 500 RESP RATE:: 16 FIO2:: 50 PEEP:: 5 - Extremities/Vascular Does the Patient have a Central Venous Catheter?: Yes Insertion Site: Femoral Vein Does the Patient need a Central Venous Catheter?: Yes Does the Patient have a Mckee Catheter?: Yes Does the Patient need a Mckee Catheter?: Yes Catheter Insertion Criteria: Need for accurate measurement of output in critically ill patient - Prophylaxis GI Prophylaxis GI: PPI - Prophylaxis DVT Prophylaxis DVT: SCDs - Nutrition Nutrition: Nutrition Category Date Time Status NPO Diet [DIET] Diets 04/17/17 Breakfast Active
[2017-04-21 05:02] LABS: ABG ALLEN TEST YES; ABG MECHANICAL RATE 16; ARTERIAL BLOOD GAS HCO3 26.9 mmol/L (21-28); ARTERIAL BLOOD GAS MODE A/C; ARTERIAL BLOOD GAS O2 CONTENT 13.5 ML/dL (15-23); ARTERIAL BLOOD GAS PH 7.48 (7.35-7.45); ARTERIAL BLOOD GAS PO2 142 mm/Hg (80-100); ARTERIAL BLOOD HGB O2 SAT 95.8 % (95.0-98.0); ATERIAL BLOOD GAS PEEP 5; CARBOXYHEMOGLOBIN 0 % (0.5-1.5); HHB 3.7 % (0.0-5.0); METHEMOGLOBIN 0.5 % (0.0-3.0)
[2017-04-21 06:25] LABS: BASO # 0.1 K/uL (0.0-0.2); BASO % 0.5 % (0.0-2.0); EOS % 0.2 % (0.0-4.0); HEMATOCRIT 30.3 % (35.0-51.0); LYMPH % 5.5 % (20.0-40.0); MEAN CELL VOLUME 87.7 fl (80.0-94.0); MEAN CORPUSCULAR HEMOGLOBIN 27.2 pg (27.0-31.0); MEAN CORPUSCULAR HGB CONC 31.1 g/dL (33.0-37.0); MEAN PLATELET VOLUME 10.4 fl (7.2-11.7); MONO # 1.5 K/uL (0.0-0.8); MONO % 8.6 % (0.0-10.0); NEUT # 15.3 K/uL (1.8-7.0); NEUT % 85.2 % (50.0-75.0); NRBC % 0.1 % (0.0-0.0); PLATELET COUNT 177 K/uL (130-400); RED CELL DISTRIBUTION WIDTH 15.4 % (11.5-14.5)
[2017-04-21 06:35] LABS: POTASSIUM 4.7 MMOL/L (3.6-5.0)
[2017-04-21 08:29] LABS: PHOSPHOROUS 5.2 mg/dl (2.5-4.5)
[2017-04-21 08:33] LABS: EOSINOPHIL 1 % (0-7); NEUTROPHIL 91 % (42-75); TOTAL CELLS COUNTED 100
--- NOTE | 2017-04-21 08:35 | CP.PCM.PN ---
Subjective - Date & Time of Evaluation Date of Evaluation: 04/21/17 Time of Evaluation: 08:31 - Subjective Subjective: Patient remained comatose. On respiratory . Not responding. Scheduled for hemodialysis shortly. Objective - Vital Signs/Intake and Output Vital Signs (last 24 hours): Temp Pulse Resp BP Pulse Ox 100.9 F H 87 11 L 191/91 H 100 04/21/17 08:00 04/21/17 08:00 04/21/17 08:00 04/21/17 08:00 04/21/17 08:00 Intake and Output: 04/21/17 04/21/17 06:59 18:59 Intake Total 875 Output Total 300 Balance 575 - Medications Medications: Current Medications Acetaminophen (Tylenol 650mg/20.3ml Solution Ud) 650 mg PO Q6 PRN PRN Reason: Temperature Carvedilol (Coreg) 25 mg PO Q12 [facility] Last Admin: 04/20/17 21:12 Dose: 25 mg Clonidine HCl (Catapres) 0.1 mg PO BID [facility] Last Admin: 04/20/17 17:01 Dose: Not Given Dextrose (Dextrose 50% Inj) 0 ml IV STAT PRN; Protocol PRN Reason: Hypoglycemia Protocol Dextrose (Glutose 15) 0 gm PO ONCE PRN; Protocol PRN Reason: Hypoglycemia Protocol Epoetin Ba (Procrit) 10,000 unit IV TTS ONE Stop: 04/21/17 08:27 Folic Acid (Folic Acid) 1 mg PO DAILY [facility] Glucagon (Glucagen Diagnostic Kit) 0 mg IM STAT PRN; Protocol PRN Reason: Hypoglycemia Protocol Vancomycin HCl 1 gm/ Sodium (Chloride) 250 mls @ 125 mls/hr IVPB TTS BARNEY PRN Reason: Protocol Last Admin: 04/19/17 10:32 Dose: 125 mls/hr Piperacillin Sod/Tazobactam (Sod 2.25 gm/ Sodium Chloride) 100 mls @ 100 mls/ hr IVPB Q8 [facility] PRN Reason: Protocol Last Admin: 04/21/17 00:02 Dose: 100 mls/hr Valproate Sodium 500 mg/ (Sodium Chloride) 55 mls @ 55 mls/hr IVPB Q12 [facility] PRN Reason: Per Protocol Last Admin: 04/20/17 21:11 Dose: 55 mls/hr Metoprolol Tartrate (Lopressor) 5 mg IVP Q6 [facility] Last Admin: 04/20/17 21:13 Dose: 5 mg Pantoprazole Sodium (Protonix Inj) 40 mg IVP Q12 [facility] Last Admin: 04/20/17 21:13 Dose: 40 mg Thiamine HCl (Vitamin B1 Tab) 100 mg PO DAILY [facility] - Labs Labs: 04/21/17 05:00 04/21/17 05:00 PT 12.6 Seconds (9.8-13.1) 04/19/17 04:30 INR 1.1 (0.9-1.2) 04/19/17 04:30 APTT 29.2 Seconds (25.6-37.1) 04/18/17 23:07 - Constitutional Appears: No Acute Distress - ENT Exam ENT Exam: Mucous Membranes Moist - Neck Exam Neck Exam: absent: Lymphadenopathy - Respiratory Exam Respiratory Exam: Rhonchi. absent: Chest Wall Tenderness - Cardiovascular Exam Cardiovascular Exam: REGULAR RHYTHM. absent: JVD, Rubs - GI/Abdominal Exam GI & Abdominal Exam: Soft, Normal Bowel Sounds - Extremities Exam Extremities Exam: absent: Calf Tenderness - Back Exam Back Exam: absent: CVA tenderness (L), CVA tenderness (R) - Neurological Exam Neurological Exam: Altered - Psychiatric Exam Psychiatric exam: Flat Affect - Skin Skin Exam: absent: Cyanosis Assessment and Plan (1) Cardiac arrest Status: Acute (2) Flash pulmonary edema Status: Acute (3) ESRD (end stage renal disease) on dialysis Assessment & Plan: #1 Patient with end stage renal disease on maintenance hemodialysis scheduled to have dialysis shortly arrangement has been made. Order was given to ultrafiltrate approximately 2500 mL as tolerated, sodium bath 138 Potassium bath 2 mEq given and Bicarbonate bath 34 #2 status post cardiac arrest. #3 respiratory failure on ventilator. #4 anoxic encephalopathy. #5 alcohol intoxication on admission #6 hypertension which has been controlled with difficulties. On multiple medication and dialysis. #7 hyperphosphatemia and secondary hyperparathyroidism. Patient receiving hypothermic therapeutic for cardiac arrest. And also as per the primary team management. Dialysis to continue. Prognosis very poor. #8 anemia . EPO 10,000 units IV to be given on each hemodialysis #9 leukocytosis patient receiving antibiotics. Status: Chronic (4) Acute respiratory failure Status: Acute (5) CHF exacerbation Status: Acute
--- NOTE | 2017-04-21 09:18 | RAD ---
HISTORY: ETT placement COMPARISON: Chest radiograph dated 04/20/2017 FINDINGS: LUNGS: No active pulmonary disease. PLEURA: No significant pleural effusion identified, no pneumothorax apparent. CARDIOVASCULAR: Atherosclerotic aortic calcifications. . OSSEOUS STRUCTURES: No significant abnormalities. VISUALIZED UPPER ABDOMEN: Normal. OTHER FINDINGS: Endotracheal and orogastric tubes in satisfactory position. Right upper quadrant surgical clips redemonstrated. IMPRESSION: No significant interval changed.
[2017-04-21] MEDS: Metoprolol 1 mg/ml Inj IVP SCH ×3 (09:22→21:04)
[2017-04-21] MEDS ORDERED: EPOETIN ALFA 10,000 UNIT/ML ML IV ONE (09:30)
--- NOTE | 2017-04-21 09:38 | CP.PCM.PN ---
Subjective - Date & Time of Evaluation Date of Evaluation: 04/21/17 Time of Evaluation: 09:00 - Subjective Subjective: Remains deeply comatose, vent dependent Sinus rhythm at 70 BPM , reg BP 164/60 mm Hg Stable urine out put EEG report noted Anoxic brain injury ++ Prognosis poor Will sign off the case , Call me as needed. Objective - Vital Signs/Intake and Output Vital Signs (last 24 hours): Temp Pulse Resp BP Pulse Ox 100.9 F H 70 11 L 175/74 H 100 04/21/17 08:00 04/21/17 09:22 04/21/17 08:00 04/21/17 09:22 04/21/17 08:00 Intake and Output: 04/21/17 04/21/17 06:59 18:59 Intake Total 875 Output Total 300 Balance 575 - Medications Medications: Current Medications Acetaminophen (Tylenol 650mg/20.3ml Solution Ud) 650 mg PO Q6 PRN PRN Reason: Temperature Carvedilol (Coreg) 25 mg PO Q12 [facility] Last Admin: 04/21/17 08:45 Dose: 25 mg Clonidine HCl (Catapres) 0.1 mg PO BID [facility] Last Admin: 04/21/17 09:21 Dose: 0.1 mg Dextrose (Dextrose 50% Inj) 0 ml IV STAT PRN; Protocol PRN Reason: Hypoglycemia Protocol Dextrose (Glutose 15) 0 gm PO ONCE PRN; Protocol PRN Reason: Hypoglycemia Protocol Folic Acid (Folic Acid) 1 mg PO DAILY [facility] Last Admin: 04/21/17 08:45 Dose: 1 mg Glucagon (Glucagen Diagnostic Kit) 0 mg IM STAT PRN; Protocol PRN Reason: Hypoglycemia Protocol Vancomycin HCl 1 gm/ Sodium (Chloride) 250 mls @ 125 mls/hr IVPB TTS [facility] PRN Reason: Protocol Last Admin: 04/19/17 10:32 Dose: 125 mls/hr Piperacillin Sod/Tazobactam (Sod 2.25 gm/ Sodium Chloride) 100 mls @ 100 mls/ hr IVPB Q8 [facility] PRN Reason: Protocol Last Admin: 04/21/17 00:02 Dose: 100 mls/hr Valproate Sodium 500 mg/ (Sodium Chloride) 55 mls @ 55 mls/hr IVPB Q12 [facility] PRN Reason: Per Protocol Last Admin: 04/21/17 08:46 Dose: 55 mls/hr Metoprolol Tartrate (Lopressor) 5 mg IVP Q6 [facility] Last Admin: 04/21/17 09:22 Dose: 5 mg Pantoprazole Sodium (Protonix Inj) 40 mg IVP Q12 [facility] Last Admin: 04/21/17 08:44 Dose: 40 mg Thiamine HCl (Vitamin B1 Tab) 100 mg PO DAILY [facility] Last Admin: 04/21/17 08:45 Dose: 100 mg - Labs Labs: 04/21/17 05:00 04/21/17 05:00 PT 12.6 Seconds (9.8-13.1) 04/19/17 04:30 INR 1.1 (0.9-1.2) 04/19/17 04:30 APTT 29.2 Seconds (25.6-37.1) 04/18/17 23:07
--- NOTE | 2017-04-21 11:15 | CP.PCM.PN ---
Subjective - Date & Time of Evaluation Date of Evaluation: 04/21/17 Time of Evaluation: 10:45 - Subjective Subjective: Pt remains intubated on Vent Unresponsive even to painful stimuli scheduled for Demodialysis today He is febrile- cooling in progress Family at bedside, discussed test results and treatment plan ( son and daughter ) Objective - Vital Signs/Intake and Output Vital Signs (last 24 hours): Temp Pulse Resp BP Pulse Ox 100.9 F H 60 16 142/49 L 100 04/21/17 08:00 04/21/17 10:00 04/21/17 10:00 04/21/17 10:00 04/21/17 10:00 Intake and Output: 04/21/17 04/21/17 06:59 18:59 Intake Total 875 230 Output Total 300 Balance 575 230 - Medications Medications: Current Medications Acetaminophen (Tylenol 650mg/20.3ml Solution Ud) 650 mg PO Q6 PRN PRN Reason: Temperature Carvedilol (Coreg) 25 mg PO Q12 [facility] Last Admin: 04/21/17 08:45 Dose: 25 mg Clonidine HCl (Catapres) 0.1 mg PO BID [facility] Last Admin: 04/21/17 09:21 Dose: 0.1 mg Dextrose (Dextrose 50% Inj) 0 ml IV STAT PRN; Protocol PRN Reason: Hypoglycemia Protocol Dextrose (Glutose 15) 0 gm PO ONCE PRN; Protocol PRN Reason: Hypoglycemia Protocol Folic Acid (Folic Acid) 1 mg PO DAILY [facility] Last Admin: 04/21/17 08:45 Dose: 1 mg Glucagon (Glucagen Diagnostic Kit) 0 mg IM STAT PRN; Protocol PRN Reason: Hypoglycemia Protocol Vancomycin HCl 1 gm/ Sodium (Chloride) 250 mls @ 125 mls/hr IVPB TTS [facility] PRN Reason: Protocol Last Admin: 04/19/17 10:32 Dose: 125 mls/hr Piperacillin Sod/Tazobactam (Sod 2.25 gm/ Sodium Chloride) 100 mls @ 100 mls/ hr IVPB Q8 [facility] PRN Reason: Protocol Last Admin: 04/21/17 10:39 Dose: 100 mls/hr Valproate Sodium 500 mg/ (Sodium Chloride) 55 mls @ 55 mls/hr IVPB Q12 [facility] PRN Reason: Per Protocol Last Admin: 04/21/17 08:46 Dose: 55 mls/hr Metoprolol Tartrate (Lopressor) 5 mg IVP Q6 [facility] Last Admin: 04/21/17 09:22 Dose: 5 mg Pantoprazole Sodium (Protonix Inj) 40 mg IVP Q12 [facility] Last Admin: 04/21/17 08:44 Dose: 40 mg Thiamine HCl (Vitamin B1 Tab) 100 mg PO DAILY [facility] Last Admin: 04/21/17 08:45 Dose: 100 mg - Labs Labs: 04/21/17 05:00 04/21/17 05:00 PT 12.6 Seconds (9.8-13.1) 04/19/17 04:30 INR 1.1 (0.9-1.2) 04/19/17 04:30 APTT 29.2 Seconds (25.6-37.1) 04/18/17 23:07 - Constitutional Appears: Other (Pt is intubated on Vent) unresponsive - Head Exam Head Exam: NORMOCEPHALIC - Eye Exam Pupil Exam: Miosis - ENT Exam ENT Exam: Mucous Membranes Dry, Normal External Ear Exam - Respiratory Exam Respiratory Exam: Rales, Rhonchi Additional comments: Pt is intubated on Vent - Cardiovascular Exam Cardiovascular Exam: REGULAR RHYTHM, +S1, +S2 - GI/Abdominal Exam GI & Abdominal Exam: Distended, Normal Bowel Sounds - Extremities Exam Extremities Exam: Pedal Edema - Neurological Exam Additional comments: unresponsive even to pain - Skin Skin Exam: Dry, Normal Color, Warm Assessment and Plan - Assessment and Plan (Free Text) Assessment: 66 y/o male with PMHx significant for DM2, HTN, ESRD on M/W/F ESRD, and PVD brought in by EMS with cardiac arrest. Patient was brought in with resuscitation in progress. Per report, patient had been watching TV with friend and c/o CP. They called 911, and when the ambulance arrived, patient attempted to walk to [facility], but then became unresponsive and was found to be in cardiac arrest. CPR was initiated, patient received 3 epinephrines, 2 mg narcan. Supraglottic airway and IO line placed. In the ED, patient received bicarb injection and another epi . EKG was reviewed by cardiology who indicated no code heart needed. L femoral central line placed. 1. Cardiac arrest unclear etiology Patient intubated , sedated and was placed on hypothermia protocol Pt remains on the Vent, unresponsive Cardiology consulted - stable cardiac Neurology consulted: poor prognosis , CT showed watershed infarcts EEG: slowing and some epileptiform spikes noted - Neuro rec adding Depakote 2. Anoxic Brain Injury poor prognosis Neurology consulted cont Depakote for seizure 3. Troponin Elevation mild Trop elevation, unlikely NE prob related to CPR in pt with ESRD Cardio consulted 4.ESRD on HD nephrology consulted for HD - TTS 5. Myoclonic Jerks sign of poor prognosis Pt was on Versed drip initially now on Depakote Neuro consulted EEG: epileptiform spikes noted 6. HTN uncontrolled Started Cardene drip initially cont Coerg and Clonidine , add Norvasc 7. DM type II on Insulin continue accuchecks and insulin coverage D/c insulin drip since accuchecks are on the lower side 8.Bilateral Pneumonia most likely aspiration Started on Vanco post HD and Zosyn renal dose Blood cultures : 1 out of 6 blood + for Staph coag neg wbc better today 20k from 26k DVT prophylaxis SCD
--- NOTE | 2017-04-21 11:33 | CP.PCM.PN ---
Subjective - Date & Time of Evaluation Date of Evaluation: 04/21/17 Time of Evaluation: 11:25 - Subjective Subjective: Mr. Aguilar was seen and examined at the bedside in ICU. He remains on mechanical ventilation with GCS-4T. His pupils are reactive, but sluggish. He response to pain stimuli. He also has gag and corneal reflex. Family at the bedside spoke with patient diagnostic test results. All concern were clarified. There was no untoward events overnight. Objective - Vital Signs/Intake and Output Vital Signs (last 24 hours): Temp Pulse Resp BP Pulse Ox 100.9 F H 60 16 142/49 L 100 04/21/17 08:00 04/21/17 10:00 04/21/17 10:00 04/21/17 10:00 04/21/17 10:00 Intake and Output: 04/21/17 04/21/17 06:59 18:59 Intake Total 875 230 Output Total 300 Balance 575 230 - Medications Medications: Current Medications Acetaminophen (Tylenol 650mg/20.3ml Solution Ud) 650 mg PO Q6 PRN PRN Reason: Temperature Carvedilol (Coreg) 25 mg PO Q12 [facility] Last Admin: 04/21/17 08:45 Dose: 25 mg Clonidine HCl (Catapres) 0.1 mg PO BID [facility] Last Admin: 04/21/17 09:21 Dose: 0.1 mg Dextrose (Dextrose 50% Inj) 0 ml IV STAT PRN; Protocol PRN Reason: Hypoglycemia Protocol Dextrose (Glutose 15) 0 gm PO ONCE PRN; Protocol PRN Reason: Hypoglycemia Protocol Folic Acid (Folic Acid) 1 mg PO DAILY [facility] Last Admin: 04/21/17 08:45 Dose: 1 mg Glucagon (Glucagen Diagnostic Kit) 0 mg IM STAT PRN; Protocol PRN Reason: Hypoglycemia Protocol Vancomycin HCl 1 gm/ Sodium (Chloride) 250 mls @ 125 mls/hr IVPB TTS [facility] PRN Reason: Protocol Last Admin: 04/19/17 10:32 Dose: 125 mls/hr Piperacillin Sod/Tazobactam (Sod 2.25 gm/ Sodium Chloride) 100 mls @ 100 mls/ hr IVPB Q8 [facility] PRN Reason: Protocol Last Admin: 04/21/17 10:39 Dose: 100 mls/hr Valproate Sodium 500 mg/ (Sodium Chloride) 55 mls @ 55 mls/hr IVPB Q12 [facility] PRN Reason: Per Protocol Last Admin: 04/21/17 08:46 Dose: 55 mls/hr Metoprolol Tartrate (Lopressor) 5 mg IVP Q6 [facility] Last Admin: 04/21/17 09:22 Dose: 5 mg Pantoprazole Sodium (Protonix Inj) 40 mg IVP Q12 [facility] Last Admin: 04/21/17 08:44 Dose: 40 mg Thiamine HCl (Vitamin B1 Tab) 100 mg PO DAILY [facility] Last Admin: 04/21/17 08:45 Dose: 100 mg - Labs Labs: 04/21/17 05:00 04/21/17 05:00 PT 12.6 Seconds (9.8-13.1) 04/19/17 04:30 INR 1.1 (0.9-1.2) 04/19/17 04:30 APTT 29.2 Seconds (25.6-37.1) 04/18/17 23:07 - Constitutional Appears: No Acute Distress - Head Exam Head Exam: ATRAUMATIC - Neurological Exam Neuro motor strength exam: Left Upper Extremity: 2/1, Right Upper Extremity: 2/1 , Left Lower Extremity: 2/1, Right Lower Extremity: 2/1 Additional comments: GCS-4T. Assessment and Plan (1) Hypoxic brain injury Assessment & Plan: Case discussed with Leena Ames was added secondary to EEG result of seizures. Will repeat EEG today. Continue all current medical regimen. Status: Acute
--- NOTE | 2017-04-21 14:01 | PCM.EEG ---
Electroencephalogram Report - Electroencephalogram Report Procedure Date: 04/21/17 Interpretation: Indication: Anoxic brain injury, seizure. Medications were reviewed. Technical: This is a digitally recorded electroencephalogram. Eighteen channels of scalp EEG are recorded Another channel was used for for ECG. The data are stored digitally and reviewed in reformatted montages for optimal display. Background: 9 to 10 hertz alpha activity was seen. Small amount of beta activities are seen. These activities were attenuated on the right hemisphere. There was significant mechanical artifact noted, making it difficult to fully appreciate the background rhythm. Focal abnormality: Intermittent focal slowing was seen. Periodic lateralized discharge was seen. This activity is seen over bilateral hemisphere. Impression: This EEG is abnormal. Epileptiform discharge was seen. This can represent a potential seizure focus. Some focal slowing was seen, suggestive of a focal abnormality. Clinical correlation is needed.
--- NOTE | 2017-04-21 15:17 | CP.CCUPN ---
CCU Subjective - Physician Review Subjective (Free Text): Remains deeply comatose and has been off anxiolytics x 36H. Bedside EEG performed and new findings noted and initiation of Depakote AED noted. Breathing 20 on AC 16, TV 500ml, 50% and PEEP 5; SPo2 100%. No gross seizure activity nor myoclonic activity. Other vitals and I/O's reviewed. T max to 100.9F over last 24H; Urine output approx 650 ml overnight. ROS: Unobtainable due to coma on the vent. No other pertinent negs or positives on 10+ system review. PMSFH: All other Nursing and physician documentation reviewed to date; no new pertinent info noted relevant to current medical problems. CXR: visible distal tip of ETT low but above torsten, low lung volumes bilaterally (my interp). IMPRESSION / MAJOR PROBLEMS NOW: 1. Cardiac Arrest, on MV support; s/p Therapeutic Hypothermia 2. Post Arrest Anoxic Encephalopathy, with new onset Seizure Disorder 3. Uncontrolled / Accelerated Hypertension 4. ESRD on HD 5. ETOH Intoxication on Hospital Admission PLAN: 1. No MV weans due to coma. Will decrease Fio2 to 40% as tolerated. 2. Norvasc to be added. Cardene on hold, try to taper Clonidine to avoid any central-acting effects. Increased Metoprolol. 3. Hgb stable, converted PPi drip to q12h PPIs. 4. Repeated Blood Cultures. Continue Zosyn / Vanco. 5. Repeat EEG in AM as per Neurology, check Valproate levels. 6. Thiamine / Folate CCU Objective - Vital Signs / Intake & Output Vital Signs (Last 4 hours): Vital Signs Temp Pulse Resp BP Pulse Ox 04/21/17 15:02 83 22 139/79 100 04/21/17 13:57 73 22 124/69 100 04/21/17 13:40 70 19 147/66 100 04/21/17 12:00 92.4 F L 54 L 11 L 156/57 H 100 Intake and Output (Last 8hrs): Intake & Output 04/21/17 04/21/17 04/21/17 06:59 14:59 22:59 Intake Total 500 490 80 Output Total 300 Balance 200 490 80 Weight 177 lb Intake: IV 300 100 Tube Feeding 190 80 Free Water Flush 200 200 Output: Urine 300 Urethral (Mckee) 300 Other: # Bowel Movements 1 - Physical Exam Head: Positive for: Atraumatic, Normocephalic Pupils: Positive for: PERRL, Sluggish, Pinpoint Extroacular Muscles: Positive for: EOMI. Negative for: Gaze Palsy Conjunctiva: Positive for: Normal. Negative for: Icteric Mouth: Positive for: Moist Mucous Membranes Neck: Positive for: Normal Range of Motion. Negative for: JVD Respiratory/Chest: Positive for: Clear to Auscultation, Decreased Breath Sounds. Negative for: Accessory Muscle Use, Wheezes Cardiovascular: Positive for: Regular Rate and Rhythm, Tachycardic. Negative for: Murmurs, Rub Abdomen: Positive for: Normal Bowel Sounds. Negative for: Tenderness, Distention, Mass/Organomegaly Lower Extremity: Positive for: NORMAL PULSES. Negative for: CALF TENDERNESS, Cyanosis Neurological: Positive for: Other (GCS= 4T (E1V1M2)) Skin: Positive for: Warm, Dry. Negative for: Rashes Psychiatric: Positive for: Lethargic - Medications Active Medications: Active Medications Generic Name Dose Route Start Last Admin Trade Name Freq PRN Reason Stop Dose Admin Acetaminophen 650 mg 04/21/17 08:04 Tylenol 650mg/20.3ml Solution Ud PO Q6 PRN Temperature Amlodipine Besylate 5 mg 04/22/17 09:00 Norvasc PO DAILY [facility] Carvedilol 25 mg 04/18/17 09:00 04/21/17 08:45 Coreg PO 25 mg Q12 [facility] Administration Clonidine HCl 0.1 mg 04/20/17 17:00 04/21/17 09:21 Catapres PO 0.1 mg BID [facility] Administration Dextrose 0 ml 04/17/17 23:41 Dextrose 50% Inj IV STAT PRN Hypoglycemia Protocol Protocol Dextrose 0 gm 04/17/17 23:41 Glutose 15 PO ONCE PRN Hypoglycemia Protocol Protocol Folic Acid 1 mg 04/21/17 09:00 04/21/17 08:45 Folic Acid PO 1 mg DAILY [facility] Administration Glucagon 0 mg 04/17/17 23:41 Glucagen Diagnostic Kit IM STAT PRN Hypoglycemia Protocol Protocol Vancomycin HCl 1 gm/ Sodium 250 mls @ 125 mls/hr 04/19/17 09:00 04/19/17 10: 32 Chloride IVPB 125 mls/hr TTS [facility] Administration Protocol Piperacillin Sod/Tazobactam 100 mls @ 100 mls/hr 04/18/17 09:00 04/21/17 10: 39 Sod 2.25 gm/ Sodium Chloride IVPB 100 mls/hr Q8 [facility] Administration Protocol Valproate Sodium 500 mg/ 55 mls @ 55 mls/hr 04/20/17 21:00 04/21/17 08:46 Sodium Chloride IVPB 55 mls/hr Q12 [facility] Administration Per Protocol Metoprolol Tartrate 5 mg 04/20/17 22:00 04/21/17 09:22 Lopressor IVP 5 mg Q6 [facility] Administration Pantoprazole Sodium 40 mg 04/20/17 21:00 04/21/17 08:44 Protonix Inj IVP 40 mg Q12 [facility] Administration Thiamine HCl 100 mg 04/21/17 09:00 04/21/17 08:45 Vitamin B1 Tab PO 100 mg DAILY [facility] Administration - Patient Studies Lab Studies: Microbiology Studies 04/17/17 23:28 Blood Culture - Preliminary Blood NO GROWTH AFTER 3 DAYS 04/17/17 22:58 S.aureus & Coag-Neg Staph PNA FISH - Final Blood Blood Culture - Final Coagulase Neg Staphylococcus Gram Stain - Final 04/20/17 04:10 Blood Culture - Preliminary Blood-Venous NO GROWTH AFTER 24 HOURS 04/20/17 04:10 Blood Culture - Preliminary Blood-Venous NO GROWTH AFTER 24 HOURS 04/18/17 16:50 Blood Culture - Preliminary Blood NO GROWTH AFTER 48 HOURS 04/18/17 16:50 Blood Culture - Preliminary Blood NO GROWTH AFTER 48 HOURS Lab Studies 04/21/17 04/21/17 04/21/17 Range/Units 11:16 06:10 05:00 WBC (4.8-10.8) K/uL RBC (4.40-5.90) Mil/uL Hgb (12.0-18.0) g/dL Hct (35.0-51.0) % MCV (80.0-94.0) fl MCH (27.0-31.0) pg MCHC (33.0-37.0) g/dL RDW (11.5-14.5) % Plt Count (130-400) K/uL MPV (7.2-11.7) fl Neut % (Auto) (50.0-75.0) % Lymph % (Auto) (20.0-40.0) % [place] % (Auto) (0.0-10.0) % Eos % (Auto) (0.0-4.0) % Baso % (Auto) (0.0-2.0) % Neut # (1.8-7.0) K/uL Lymph # (1.0-4.3) K/uL [place] # (0.0-0.8) K/uL Eos # (0.0-0.7) K/uL Baso # (0.0-0.2) K/uL Neutrophils % (Manual) (42-75) % Lymphocytes % (Manual) (20-50) % Monocytes % (Manual) (0-10) % Eosinophils % (Manual) (0-7) % Toxic Granulation Platelet Estimate (NORMAL) Hypochromasia (manual) Anisocytosis (manual) pCO2 (35-45) mm/Hg pO2 (80-100) mm/Hg HCO3 (21-28) mmol/L ABG pH (7.35-7.45) ABG Total CO2 (22-28) mmol/L ABG O2 Saturation (95-98) % ABG O2 Content (15-23) ML/dL ABG Base Excess (-2.0-3.0) mmol/L ABG Hemoglobin (11.7-17.4) g/dL ABG Carboxyhemoglobin (0.5-1.5) % POC ABG HHb (Measured) (0.0-5.0) % ABG Methemoglobin (0.0-3.0) % ABG O2 Capacity (16-24) mL/dL Scott Test A-a O2 Difference mm/Hg Hgb O2 Saturation (95.0-98.0) % Vent Mode Mechanical Rate FiO2 % Tidal Volume PEEP Sodium 144 (132-148) mmol/l Potassium 4.7 (3.6-5.0) MMOL/L Chloride 105 (98-107) mmol/L Carbon Dioxide 26 (22-30) mmol/L Anion Gap 18 (10-20) BUN 67 H (9-20) mg/dl Creatinine 7.0 H (0.8-1.5) mg/dl Est GFR ( Amer) 10 Est GFR (Non-Af Amer) 8 POC Glucose (mg/dL) 157 H 159 H (65-110) mg/dL Random Glucose 139 H (75-110) mg/dL Calcium 8.0 L (8.4-10.2) mg/dL Phosphorus 5.2 H (2.5-4.5) mg/dl 04/21/17 04/21/17 04/20/17 Range/Units 05:00 04:59 21:44 WBC 18.0 H (4.8-10.8) K/uL RBC 3.46 L (4.40-5.90) Mil/uL Hgb 9.4 L (12.0-18.0) g/dL Hct 30.3 L (35.0-51.0) % MCV 87.7 (80.0-94.0) fl MCH 27.2 (27.0-31.0) pg MCHC 31.1 L (33.0-37.0) g/dL RDW 15.4 H (11.5-14.5) % Plt Count 177 (130-400) K/uL MPV 10.4 (7.2-11.7) fl Neut % (Auto) 85.2 H (50.0-75.0) % Lymph % (Auto) 5.5 L (20.0-40.0) % [place] % (Auto) 8.6 (0.0-10.0) % Eos % (Auto) 0.2 (0.0-4.0) % Baso % (Auto) 0.5 (0.0-2.0) % Neut # 15.3 H (1.8-7.0) K/uL Lymph # 1.0 (1.0-4.3) K/uL [place] # 1.5 H (0.0-0.8) K/uL Eos # 0.0 (0.0-0.7) K/uL Baso # 0.1 (0.0-0.2) K/uL Neutrophils % (Manual) 91 H (42-75) % Lymphocytes % (Manual) 3 L (20-50) % Monocytes % (Manual) 5 (0-10) % Eosinophils % (Manual) 1 (0-7) % Toxic Granulation Present Platelet Estimate Normal (NORMAL) Hypochromasia (manual) Slight Anisocytosis (manual) Slight pCO2 35 (35-45) mm/Hg pO2 142 H (80-100) mm/Hg HCO3 26.9 (21-28) mmol/L ABG pH 7.48 H (7.35-7.45) ABG Total CO2 27.2 (22-28) mmol/L ABG O2 Saturation 96.3 (95-98) % ABG O2 Content 13.5 L (15-23) ML/dL ABG Base Excess 2.6 (-2.0-3.0) mmol/L ABG Hemoglobin 9.8 L (11.7-17.4) g/dL ABG Carboxyhemoglobin 0 L (0.5-1.5) % POC ABG HHb (Measured) 3.7 (0.0-5.0) % ABG Methemoglobin 0.5 (0.0-3.0) % ABG O2 Capacity 14.0 L (16-24) mL/dL Scott Test Yes A-a O2 Difference 171.0 mm/Hg Hgb O2 Saturation 95.8 (95.0-98.0) % Vent Mode A/c Mechanical Rate 16 FiO2 50.0 % Tidal Volume 500 PEEP 5 Sodium (132-148) mmol/l Potassium (3.6-5.0) MMOL/L Chloride (98-107) mmol/L Carbon Dioxide (22-30) mmol/L Anion Gap (10-20) BUN (9-20) mg/dl Creatinine (0.8-1.5) mg/dl Est GFR ( Amer) Est GFR (Non-Af Amer) POC Glucose (mg/dL) 152 H (65-110) mg/dL Random Glucose (75-110) mg/dL Calcium (8.4-10.2) mg/dL Phosphorus (2.5-4.5) mg/dl 04/20/17 Range/Units 17:02 WBC (4.8-10.8) K/uL RBC (4.40-5.90) Mil/uL Hgb (12.0-18.0) g/dL Hct (35.0-51.0) % MCV (80.0-94.0) fl MCH (27.0-31.0) pg MCHC (33.0-37.0) g/dL RDW (11.5-14.5) % Plt Count (130-400) K/uL MPV (7.2-11.7) fl Neut % (Auto) (50.0-75.0) % Lymph % (Auto) (20.0-40.0) % [place] % (Auto) (0.0-10.0) % Eos % (Auto) (0.0-4.0) % Baso % (Auto) (0.0-2.0) % Neut # (1.8-7.0) K/uL Lymph # (1.0-4.3) K/uL [place] # (0.0-0.8) K/uL Eos # (0.0-0.7) K/uL Baso # (0.0-0.2) K/uL Neutrophils % (Manual) (42-75) % Lymphocytes % (Manual) (20-50) % Monocytes % (Manual) (0-10) % Eosinophils % (Manual) (0-7) % Toxic Granulation Platelet Estimate (NORMAL) Hypochromasia (manual) Anisocytosis (manual) pCO2 (35-45) mm/Hg pO2 (80-100) mm/Hg HCO3 (21-28) mmol/L ABG pH (7.35-7.45) ABG Total CO2 (22-28) mmol/L ABG O2 Saturation (95-98) % ABG O2 Content (15-23) ML/dL ABG Base Excess (-2.0-3.0) mmol/L ABG Hemoglobin (11.7-17.4) g/dL ABG Carboxyhemoglobin (0.5-1.5) % POC ABG HHb (Measured) (0.0-5.0) % ABG Methemoglobin (0.0-3.0) % ABG O2 Capacity (16-24) mL/dL Scott Test A-a O2 Difference mm/Hg Hgb O2 Saturation (95.0-98.0) % Vent Mode Mechanical Rate FiO2 % Tidal Volume PEEP Sodium (132-148) mmol/l Potassium (3.6-5.0) MMOL/L Chloride (98-107) mmol/L Carbon Dioxide (22-30) mmol/L Anion Gap (10-20) BUN (9-20) mg/dl Creatinine (0.8-1.5) mg/dl Est GFR ( Amer) Est GFR (Non-Af Amer) POC Glucose (mg/dL) 151 H (65-110) mg/dL Random Glucose (75-110) mg/dL Calcium (8.4-10.2) mg/dL Phosphorus (2.5-4.5) mg/dl Laboratory Results - last 24 hr 04/20/17 04/20/17 04/21/17 17:02 21:44 04:59 WBC RBC Hgb Hct MCV MCH MCHC RDW Plt Count MPV Neut % (Auto) Lymph % (Auto) [place] % (Auto) Eos % (Auto) Baso % (Auto) Neut # Lymph # [place] # Eos # Baso # Neutrophils % (Manual) Lymphocytes % (Manual) Monocytes % (Manual) Eosinophils % (Manual) Toxic Granulation Platelet Estimate Hypochromasia (manual) Anisocytosis (manual) pCO2 35 pO2 142 H HCO3 26.9 ABG pH 7.48 H ABG Total CO2 27.2 ABG O2 Saturation 96.3 ABG O2 Content 13.5 L ABG Base Excess 2.6 ABG Hemoglobin 9.8 L ABG Carboxyhemoglobin 0 L POC ABG HHb (Measured) 3.7 ABG Methemoglobin 0.5 ABG O2 Capacity 14.0 L Scott Test Yes A-a O2 Difference 171.0 Hgb O2 Saturation 95.8 Vent Mode A/c Mechanical Rate 16 FiO2 50.0 Tidal Volume 500 PEEP 5 Sodium Potassium Chloride Carbon Dioxide Anion Gap BUN Creatinine Est GFR ( Amer) Est GFR (Non-Af Amer) POC Glucose (mg/dL) 151 H 152 H Random Glucose Calcium Phosphorus 04/21/17 04/21/17 04/21/17 05:00 05:00 06:10 WBC 18.0 H RBC 3.46 L Hgb 9.4 L Hct 30.3 L MCV 87.7 MCH 27.2 MCHC 31.1 L RDW 15.4 H Plt Count 177 MPV 10.4 Neut % (Auto) 85.2 H Lymph % (Auto) 5.5 L [place] % (Auto) 8.6 Eos % (Auto) 0.2 Baso % (Auto) 0.5 Neut # 15.3 H Lymph # 1.0 [place] # 1.5 H Eos # 0.0 Baso # 0.1 Neutrophils % (Manual) 91 H Lymphocytes % (Manual) 3 L Monocytes % (Manual) 5 Eosinophils % (Manual) 1 Toxic Granulation Present Platelet Estimate Normal Hypochromasia (manual) Slight Anisocytosis (manual) Slight pCO2 pO2 HCO3 ABG pH ABG Total CO2 ABG O2 Saturation ABG O2 Content ABG Base Excess ABG Hemoglobin ABG Carboxyhemoglobin POC ABG HHb (Measured) ABG Methemoglobin ABG O2 Capacity Scott Test A-a O2 Difference Hgb O2 Saturation Vent Mode Mechanical Rate FiO2 Tidal Volume PEEP Sodium 144 Potassium 4.7 Chloride 105 Carbon Dioxide 26 Anion Gap 18 BUN 67 H Creatinine 7.0 H Est GFR ( Amer) 10 Est GFR (Non-Af Amer) 8 POC Glucose (mg/dL) 159 H Random Glucose 139 H Calcium 8.0 L Phosphorus 5.2 H 04/21/17 11:16 WBC RBC Hgb Hct MCV MCH MCHC RDW Plt Count MPV Neut % (Auto) Lymph % (Auto) [place] % (Auto) Eos % (Auto) Baso % (Auto) Neut # Lymph # [place] # Eos # Baso # Neutrophils % (Manual) Lymphocytes % (Manual) Monocytes % (Manual) Eosinophils % (Manual) Toxic Granulation Platelet Estimate Hypochromasia (manual) Anisocytosis (manual) pCO2 pO2 HCO3 ABG pH ABG Total CO2 ABG O2 Saturation ABG O2 Content ABG Base Excess ABG Hemoglobin ABG Carboxyhemoglobin POC ABG HHb (Measured) ABG Methemoglobin ABG O2 Capacity Scott Test A-a O2 Difference Hgb O2 Saturation Vent Mode Mechanical Rate FiO2 Tidal Volume PEEP Sodium Potassium Chloride Carbon Dioxide Anion Gap BUN Creatinine Est GFR ( Amer) Est GFR (Non-Af Amer) POC Glucose (mg/dL) 157 H Random Glucose Calcium Phosphorus Fingerstick Blood Sugar Results: 157 Review of Systems - Review of Systems Systems not reviewed;Unavailable: Altered Mental Status Critical Care Progress Note - Ventilator Checklist Head of Bed 30 Degrees: Yes Daily Sedation Vacation: No (comatose) Daily Assessment of Readiness to Wean: No (comatose) Daily Spontaneous Breathing Trial: No (comatose) PUD Prophalyxis: Yes DVT Prophylaxis: Yes Oral Care with Chlorhexidine Gluconate {CHG}: Yes - Vent Settings MODE:: ASSIST CONTROL TIDAL VOLUME:: 500 RESP RATE:: 16 FIO2:: 50 PEEP:: 5 - Extremities/Vascular Does the Patient have a Central Venous Catheter?: Yes Insertion Site: Femoral Vein Does the Patient need a Central Venous Catheter?: Yes Does the Patient have a Mckee Catheter?: Yes Does the Patient need a Mckee Catheter?: Yes Catheter Insertion Criteria: Need for accurate measurement of output in critically ill patient - Prophylaxis GI Prophylaxis GI: PPI - Prophylaxis DVT Prophylaxis DVT: SCDs
[2017-04-21] MEDS: Acetaminophen 650mg/20.3ml solution UD PO PRN (17:26)
[2017-04-22] MEDS: Acetaminophen 650mg/20.3ml solution UD PO PRN (01:20)
[2017-04-22] MEDS: Metoprolol 1 mg/ml Inj IVP SCH ×4 (03:26→22:41)
[2017-04-22] MEDS ORDERED: Labetalol 5 mg/ml Inj 20ML IVP PRN (04:56)
[2017-04-22] MEDS: Insulin Lispro (humaLOG) 100 Units/ml Inj SC SCH ×4 (05:27→22:52)
[2017-04-22 05:49] LABS: HEMATOCRIT 31.2 % (35.0-51.0); MEAN CELL VOLUME 86.4 fl (80.0-94.0); MEAN CORPUSCULAR HEMOGLOBIN 27.3 pg (27.0-31.0); MEAN CORPUSCULAR HGB CONC 31.6 g/dL (33.0-37.0); RED CELL DISTRIBUTION WIDTH 15.2 % (11.5-14.5); WHITE BLOOD COUNT 16.1 K/uL (4.8-10.8)
[2017-04-22 05:55] LABS: ABG ALLEN TEST YES; ABG MECHANICAL RATE 16; ARTERIAL BLOOD GAS HCO3 27.6 mmol/L (21-28); ARTERIAL BLOOD GAS MODE PRVC AC; ARTERIAL BLOOD GAS O2 CAPACITY 15.5 mL/dL (16-24); ARTERIAL BLOOD GAS O2 CONTENT 14.9 ML/dL (15-23); ARTERIAL BLOOD GAS PO2 164 mm/Hg (80-100); ARTERIAL BLOOD HGB O2 SAT 95.9 % (95.0-98.0); ATERIAL BLOOD GAS PEEP 5; CARBOXYHEMOGLOBIN 0 % (0.5-1.5); HHB 3.6 % (0.0-5.0); METHEMOGLOBIN 0.5 % (0.0-3.0)
[2017-04-22 06:01] LABS: CALCIUM 8.2 mg/dL (8.4-10.2); POTASSIUM 3.8 MMOL/L (3.6-5.0)
--- NOTE | 2017-04-22 08:30 | CP.PCM.PN ---
Subjective - Date & Time of Evaluation Date of Evaluation: 04/22/17 Time of Evaluation: 08:27 - Subjective Subjective: Mr. Aguilar was seen and examined in the ICU. He remains on mechanical ventilation with GCS-4T. He remains responsive to pain stimuli. He still has gag and corneal reflexes. Dr. Car spoke to the family (spouse, daughter, and son) yesterday the prognosis of the patient. They verbalize understanding.There was no untoward events overnight. Objective - Vital Signs/Intake and Output Vital Signs (last 24 hours): Temp Pulse Resp BP Pulse Ox 100.1 F H 74 25 H 178/66 H 100 04/22/17 06:00 04/22/17 06:00 04/22/17 06:00 04/22/17 06:00 04/22/17 06:00 Intake and Output: 04/22/17 04/22/17 06:59 18:59 Intake Total 969 Output Total 150 Balance 819 - Medications Medications: Current Medications Acetaminophen (Tylenol 650mg/20.3ml Solution Ud) 650 mg PO Q6 PRN PRN Reason: Temperature Last Admin: 04/22/17 01:20 Dose: 650 mg Amlodipine Besylate (Norvasc) 5 mg PO DAILY [facility] Carvedilol (Coreg) 25 mg PO Q12 [facility] Last Admin: 04/21/17 20:53 Dose: 25 mg Clonidine HCl (Catapres) 0.1 mg PO BID [facility] Last Admin: 04/21/17 17:18 Dose: 0.1 mg Dextrose (Dextrose 50% Inj) 0 ml IV STAT PRN; Protocol PRN Reason: Hypoglycemia Protocol Dextrose (Glutose 15) 0 gm PO ONCE PRN; Protocol PRN Reason: Hypoglycemia Protocol Folic Acid (Folic Acid) 1 mg PO DAILY [facility] Last Admin: 04/21/17 08:45 Dose: 1 mg Glucagon (Glucagen Diagnostic Kit) 0 mg IM STAT PRN; Protocol PRN Reason: Hypoglycemia Protocol Vancomycin HCl 1 gm/ Sodium (Chloride) 250 mls @ 125 mls/hr IVPB TTS [facility] PRN Reason: Protocol Last Admin: 04/21/17 15:31 Dose: 125 mls/hr Piperacillin Sod/Tazobactam (Sod 2.25 gm/ Sodium Chloride) 100 mls @ 100 mls/ hr IVPB Q8 [facility] PRN Reason: Protocol Last Admin: 04/22/17 01:21 Dose: 100 mls/hr Valproate Sodium 750 mg/ (Sodium Chloride) 57.5 mls @ 0 mls/hr IVPB Q12 [facility] PRN Reason: As Directed Insulin Human Lispro (Humalog) 0 units SC Q6H [facility] PRN Reason: Protocol Last Admin: 04/22/17 05:27 Dose: 6 u Labetalol HCl (Trandate) 20 mg IVP Q6H PRN PRN Reason: for SBP > 180 Last Admin: 04/22/17 05:27 Dose: 20 mg Metoprolol Tartrate (Lopressor) 5 mg IVP Q6 [facility] Last Admin: 04/22/17 03:26 Dose: 5 mg Pantoprazole Sodium (Protonix Inj) 40 mg IVP Q12 [facility] Last Admin: 04/21/17 20:53 Dose: 40 mg Thiamine HCl (Vitamin B1 Tab) 100 mg PO DAILY [facility] Last Admin: 04/21/17 08:45 Dose: 100 mg - Labs Labs: 04/22/17 04:20 04/22/17 04:20 PT 12.6 Seconds (9.8-13.1) 04/19/17 04:30 INR 1.1 (0.9-1.2) 04/19/17 04:30 APTT 29.2 Seconds (25.6-37.1) 04/18/17 23:07 - Constitutional Appears: No Acute Distress - Head Exam Head Exam: NORMAL INSPECTION - Eye Exam Pupil Exam: Miosis, PERRL Additional comments: pinpoint and sluggish to light accommodation. - Neurological Exam Neuro motor strength exam: Left Upper Extremity: 2/1, Right Upper Extremity: 2/1 , Left Lower Extremity: 2/1, Right Lower Extremity: 2/1 Additional comments: GCS-4T. Assessment and Plan (1) Hypoxic brain injury Assessment & Plan: Case discussed with Dr. Car, with valproic level -26, will increase Valproate from 500 mg to 750 mg IVPB Q 12. Continue all current medical regimen. D Status: Acute
--- NOTE | 2017-04-22 10:07 | RAD ---
HISTORY: vented COMPARISON: Chest radiograph dated 04/21/2017 FINDINGS: LUNGS: No active pulmonary disease. PLEURA: No significant pleural effusion identified, no pneumothorax apparent. CARDIOVASCULAR: Atherosclerotic aortic calcifications. Cardiomediastinal silhouette stably enlarged. OSSEOUS STRUCTURES: No significant abnormalities. VISUALIZED UPPER ABDOMEN: Right upper quadrant surgical clips redemonstrated. OTHER FINDINGS: Endotracheal tube, unchanged. Enteric tube, unchanged. IMPRESSION: No significant interval change.
[2017-04-22] MEDS: VALPROATE IVPB SCH ×2 (10:19→19:59)
[2017-04-22] MEDS: SODIUM CHLORIDE 0.9% IVPB SCH ×2 (10:19→19:59)
--- NOTE | 2017-04-22 10:38 | CP.PCM.PN ---
Subjective - Date & Time of Evaluation Date of Evaluation: 04/22/17 Time of Evaluation: 09:30 - Subjective Subjective: Patient seen and examined bedside. Intubated on MV PRVC AC mode 16/500/5/50 % with ABG 34/164/27/7.5 Patient not sedated but unresponsive to verbal stimuli . Withdraws to painful stimuli, corneal reflex present, pupils pin point non reactive. BP 169/61 Tmax 101.7 HR 65 WBC 16 k Hgb 9.9 plt 188 K BUN/cr 46/4.[address] I/O 1819/[address] with Nepro @ 45cc/hr Objective - Vital Signs/Intake and Output Vital Signs (last 24 hours): Temp Pulse Resp BP Pulse Ox 98.9 F 65 16 169/61 H 100 04/22/17 08:00 04/22/17 08:00 04/22/17 08:00 04/22/17 08:00 04/22/17 08:00 Intake and Output: 04/22/17 04/22/17 06:59 18:59 Intake Total 969 Output Total 150 Balance 819 - Medications Medications: Current Medications Acetaminophen (Tylenol 650mg/20.3ml Solution Ud) 650 mg PO Q6 PRN PRN Reason: Temperature Last Admin: 04/22/17 01:20 Dose: 650 mg Amlodipine Besylate (Norvasc) 5 mg PO DAILY [facility] Last Admin: 04/22/17 09:18 Dose: 5 mg Carvedilol (Coreg) 25 mg PO Q12 [facility] Last Admin: 04/22/17 09:17 Dose: 25 mg Clonidine HCl (Catapres) 0.1 mg PO BID [facility] Last Admin: 04/22/17 09:17 Dose: 0.1 mg Dextrose (Dextrose 50% Inj) 0 ml IV STAT PRN; Protocol PRN Reason: Hypoglycemia Protocol Dextrose (Glutose 15) 0 gm PO ONCE PRN; Protocol PRN Reason: Hypoglycemia Protocol Folic Acid (Folic Acid) 1 mg PO DAILY [facility] Last Admin: 04/22/17 09:18 Dose: 1 mg Glucagon (Glucagen Diagnostic Kit) 0 mg IM STAT PRN; Protocol PRN Reason: Hypoglycemia Protocol Vancomycin HCl 1 gm/ Sodium (Chloride) 250 mls @ 125 mls/hr IVPB TTS [facility] PRN Reason: Protocol Last Admin: 04/21/17 15:31 Dose: 125 mls/hr Piperacillin Sod/Tazobactam (Sod 2.25 gm/ Sodium Chloride) 100 mls @ 100 mls/ hr IVPB Q8 [facility] PRN Reason: Protocol Last Admin: 04/22/17 09:19 Dose: 100 mls/hr Valproate Sodium 750 mg/ (Sodium Chloride) 57.5 mls @ 0 mls/hr IVPB Q12 [facility] PRN Reason: As Directed Last Admin: 04/22/17 10:19 Dose: 57.5 mls/hr Insulin Human Lispro (Humalog) 0 units SC Q6H [facility] PRN Reason: Protocol Last Admin: 04/22/17 05:27 Dose: 6 u Labetalol HCl (Trandate) 20 mg IVP Q6H PRN PRN Reason: for SBP > 180 Last Admin: 04/22/17 05:27 Dose: 20 mg Metoprolol Tartrate (Lopressor) 5 mg IVP Q6 [facility] Last Admin: 04/22/17 03:26 Dose: 5 mg Pantoprazole Sodium (Protonix Inj) 40 mg IVP Q12 [facility] Last Admin: 04/22/17 09:17 Dose: 40 mg Thiamine HCl (Vitamin B1 Tab) 100 mg PO DAILY [facility] Last Admin: 04/22/17 09:17 Dose: 100 mg - Labs Labs: 04/22/17 04:20 04/22/17 04:20 PT 12.6 Seconds (9.8-13.1) 04/19/17 04:30 INR 1.1 (0.9-1.2) 04/19/17 04:30 APTT 29.2 Seconds (25.6-37.1) 04/18/17 23:07 - Constitutional Appears: Other (intubated on MV PRVC/ AC mode noin responsive to verbal stimuli , not sedated ) - Head Exam Head Exam: ATRAUMATIC, NORMOCEPHALIC - Eye Exam Additional comments: pupils bilateral pinpoint non reactive to light reflex corneal reflex present - ENT Exam ENT Exam: Mucous Membranes Dry, Normal Exam - Respiratory Exam Respiratory Exam: Clear to Ausculation Bilateral, NORMAL BREATHING PATTERN. absent: Rales, Rhonchi, Wheezes - Cardiovascular Exam Cardiovascular Exam: REGULAR RHYTHM, +S1, +S2. absent: JVD, RRR - GI/Abdominal Exam GI & Abdominal Exam: Soft. absent: Distended, Guarding, Rebound - Extremities Exam Extremities Exam: Normal Inspection. absent: Pedal Edema Additional comments: right foot TMA - Neurological Exam Additional comments: not responding to verbal command withdraws to painful stimuli pupils pin point non reactive to light corneal reflex present - Skin Skin Exam: Dry, Warm Assessment and Plan - Assessment and Plan (Free Text) Assessment: 66 y/o male with PMHx significant for DM2, HTN, ESRD on M/W/F ESRD, and PVD brought in by EMS with cardiac arrest. Patient was brought in with resuscitation in progress. Per report, patient had been watching TV with friend and c/o CP. They called 911, and when the ambulance arrived, patient attempted to walk to stretcher, but then became unresponsive and was found to be in cardiac arrest. CPR was initiated, patient received 3 epinephrines, 2 mg narcan. Supraglottic airway and IO line placed. In the ED, patient received bicarb injection and another epi . EKG was reviewed by cardiology who indicated no code heart needed. L femoral central line placed. Patient was admitted to ICU and hypothermia protocol was initiated . At present off hypothermia protocol, intubated on MV PRVC / AC mode not sedated but unresponsive, with seizure episodes .Neurology on consult. Repeat EEG showed seizure activity .As per neuro patient has anoxic brain injury and poor prognosis 1. Cardiac arrest unclear etiology Patient was intubated , sedated and was placed on hypothermia protocol initially . Remains on the Vent, unresponsive, not on pressors, BP stable Tmax 101.7 Cardiology consulted - stable cardiac Neurology consulted: poor prognosis , CT showed watershed infarcts EEG: slowing and some epileptiform spikes noted increased Depakote to 750 mg po Q12 today 2. Anoxic Brain Injury poor prognosis Neurology consulted Increase depakote to 750 mg PO Q12 today 3. Troponin Elevation mild Trop elevation, unlikely SD prob related to CPR in pt with ESRD Cardio consulted Stable from the cardiology 4.ESRD on HD nephrology consulted continue HD - TTS 5. Myoclonic Jerks sign of poor prognosis Pt was on Versed drip initially now on Depakote Neuro consulted EEG: epileptiform spikes noted 6. HTN uncontrolled Started Cardene drip initially cont Coreg and Clonidine , Norvasc 7. DM type II on Insulin continue accuchecks and insulin coverage D/c insulin drip since accuchecks are on the lower side 8.Bilateral Pneumonia most likely aspiration Started on Vanco post HD and Zosyn renal dose Blood cultures : 1 out of 6 blood + for Staph coag neg wbc 16 k Tmax 101.7 CXR today showed no infiltrate 9. Anemia most likely anemia of acute illness with some upper GI bleed patient had coffee ground that resolved Hgb 9.9 today discontinued anticoagulation Continue protonix 40 mg IV q12 10.DVT prophylaxis SCD
--- NOTE | 2017-04-22 10:52 | CP.CCUPN ---
CCU Subjective - Physician Review Subjective (Free Text): Remains deeply comatose and has been off anxiolytics x 48H. Bedside EEG performed and new findings noted and initiation of Depakote AED noted, dosage increased due to low therapeutic levels. Breathing 23 on AC 16, TV 500ml, 50% and PEEP 5; SPo2 100%. Recurrent facial chin twitching and RUE twitching, focal seizure activity noted. Underwent HD yesterday, 2.5 liters removed. Still hypertensive at times, getting prn Labetalol. Other vitals and I/O's reviewed. T max to 101.7 F over last 24H; Urine output approx 500 ml overnight. ROS: Unobtainable due to coma on the vent. No other pertinent negs or positives on 10+ system review. PMSFH: All other Nursing and physician documentation reviewed to date; no new pertinent info noted relevant to current medical problems. CXR: visible distal tip of ETT low but above torsten, low lung volumes bilaterally (my interp). IMPRESSION / MAJOR PROBLEMS NOW: 1. Cardiac Arrest, on MV support; s/p Therapeutic Hypothermia 2. Post Arrest Anoxic Encephalopathy, with new onset Seizure Disorder 3. Uncontrolled / Accelerated Hypertension 4. ESRD on HD 5. ETOH Intoxication on Hospital Admission PLAN: 1. No MV weans due to coma. Decreased Fio2 to 40% as tolerated. 2. Norvasc added, will increase to 10 mg qd. Cardene on hold, try to taper Clonidine to avoid any central-acting effects. Increased Metoprolol. 3. Hgb stable, converted PPi drip to q12h PPIs. 4. Repeated Blood Cultures. Continue Zosyn / Vanco. 5. Check repeat Valproate levels. 6. No decision yet from family regarding need for early tracheostomy as he approaches Day # 6 MV. No feasibility for weans with obtundation / coma, unless family decides for terminal withdrawal from ventilator. CCU Objective - Vital Signs / Intake & Output Vital Signs (Last 4 hours): Vital Signs Temp Pulse Resp BP Pulse Ox 04/22/17 08:00 98.9 F 65 16 169/61 H 100 Intake and Output (Last 8hrs): Intake & Output 04/21/17 04/22/17 04/22/17 22:59 06:59 14:59 Intake Total 645 684 Output Total 2850 150 Balance -2205 534 Weight 169 lb Intake: IV 24 Intake, Piggyback 150 100 Tube Feeding 295 360 Free Water Flush 200 200 Output: Urine 350 150 Urethral (Mckee) 350 150 Ultrafiltrate 2500 Other: # Bowel Movements 1 1 - Physical Exam Head: Positive for: Atraumatic, Normocephalic Pupils: Positive for: PERRL, Sluggish, Pinpoint Extroacular Muscles: Positive for: EOMI. Negative for: Gaze Palsy Conjunctiva: Positive for: Normal. Negative for: Icteric Mouth: Positive for: Moist Mucous Membranes Neck: Positive for: Normal Range of Motion. Negative for: JVD Respiratory/Chest: Positive for: Clear to Auscultation, Decreased Breath Sounds. Negative for: Accessory Muscle Use, Wheezes Cardiovascular: Positive for: Regular Rate and Rhythm, Tachycardic. Negative for: Murmurs, Rub Abdomen: Positive for: Normal Bowel Sounds. Negative for: Tenderness, Distention, Mass/Organomegaly Lower Extremity: Positive for: NORMAL PULSES. Negative for: CALF TENDERNESS, Cyanosis Neurological: Positive for: Other (GCS= 4T (E1V1M2)) Skin: Positive for: Warm, Dry. Negative for: Rashes Psychiatric: Positive for: Lethargic - Medications Active Medications: Active Medications Generic Name Dose Route Start Last Admin Trade Name Freq PRN Reason Stop Dose Admin Acetaminophen 650 mg 04/21/17 08:04 04/22/17 01:20 Tylenol 650mg/20.3ml Solution Ud PO 650 mg Q6 PRN Administration Temperature Amlodipine Besylate 5 mg 04/22/17 09:00 04/22/17 09:18 Norvasc PO 5 mg DAILY [facility] Administration Carvedilol 25 mg 04/18/17 09:00 04/22/17 09:17 Coreg PO 25 mg Q12 [facility] Administration Clonidine HCl 0.1 mg 04/20/17 17:00 04/22/17 09:17 Catapres PO 0.1 mg BID [facility] Administration Dextrose 0 ml 04/17/17 23:41 Dextrose 50% Inj IV STAT PRN Hypoglycemia Protocol Protocol Dextrose 0 gm 04/17/17 23:41 Glutose 15 PO ONCE PRN Hypoglycemia Protocol Protocol Folic Acid 1 mg 04/21/17 09:00 04/22/17 09:18 Folic Acid PO 1 mg DAILY [facility] Administration Glucagon 0 mg 04/17/17 23:41 Glucagen Diagnostic Kit IM STAT PRN Hypoglycemia Protocol Protocol Vancomycin HCl 1 gm/ Sodium 250 mls @ 125 mls/hr 04/19/17 09:00 04/21/17 15: 31 Chloride IVPB 125 mls/hr TTS [facility] Administration Protocol Piperacillin Sod/Tazobactam 100 mls @ 100 mls/hr 04/18/17 09:00 04/22/17 09: 19 Sod 2.25 gm/ Sodium Chloride IVPB 100 mls/hr Q8 [facility] Administration Protocol Valproate Sodium 750 mg/ 57.5 mls @ 0 mls/hr 04/22/17 09:00 04/22/17 10:19 Sodium Chloride IVPB 57.5 mls/hr Q12 [facility] Administration As Directed Insulin Human Lispro 0 units 04/22/17 05:00 04/22/17 05:27 Humalog SC 6 u Q6H [facility] Administration Protocol Labetalol HCl 20 mg 04/22/17 04:56 04/22/17 05:27 Trandate IVP 20 mg Q6H PRN Administration for SBP > 180 Metoprolol Tartrate 5 mg 04/20/17 22:00 04/22/17 03:26 Lopressor IVP 5 mg Q6 [facility] Administration Pantoprazole Sodium 40 mg 04/20/17 21:00 04/22/17 09:17 Protonix Inj IVP 40 mg Q12 [facility] Administration Thiamine HCl 100 mg 04/21/17 09:00 04/22/17 09:17 Vitamin B1 Tab PO 100 mg DAILY [facility] Administration - Patient Studies Lab Studies: Microbiology Studies 04/17/17 23:28 Blood Culture - Preliminary Blood NO GROWTH AFTER 4 DAYS 04/20/17 04:10 Blood Culture - Preliminary Blood-Venous NO GROWTH AFTER 48 HOURS 04/20/17 04:10 Blood Culture - Preliminary Blood-Venous NO GROWTH AFTER 48 HOURS 04/18/17 16:50 Blood Culture - Preliminary Blood NO GROWTH AFTER 3 DAYS 04/18/17 16:50 Blood Culture - Preliminary Blood NO GROWTH AFTER 3 DAYS 04/17/17 22:58 S.aureus & Coag-Neg Staph PNA FISH - Final Blood Blood Culture - Final Coagulase Neg Staphylococcus Gram Stain - Final Lab Studies 04/22/17 04/22/17 04/22/17 Range/Units 05:33 04:38 04:20 WBC (4.8-10.8) K/uL RBC (4.40-5.90) Mil/uL Hgb (12.0-18.0) g/dL Hct (35.0-51.0) % MCV (80.0-94.0) fl MCH (27.0-31.0) pg MCHC (33.0-37.0) g/dL RDW (11.5-14.5) % Plt Count (130-400) K/uL pCO2 34 L (35-45) mm/Hg pO2 164 H (80-100) mm/Hg HCO3 27.6 (21-28) mmol/L ABG pH 7.50 H (7.35-7.45) ABG Total CO2 27.5 (22-28) mmol/L ABG O2 Saturation 96.4 (95-98) % ABG O2 Content 14.9 L (15-23) ML/dL ABG Base Excess 3.4 H (-2.0-3.0) mmol/L ABG Hemoglobin 10.8 L (11.7-17.4) g/dL ABG Carboxyhemoglobin 0 L (0.5-1.5) % POC ABG HHb (Measured) 3.6 (0.0-5.0) % ABG Methemoglobin 0.5 (0.0-3.0) % ABG O2 Capacity 15.5 L (16-24) mL/dL Scott Test Yes A-a O2 Difference 150.0 mm/Hg Hgb O2 Saturation 95.9 (95.0-98.0) % Vent Mode Prvc ac Mechanical Rate 16 FiO2 50.0 % Tidal Volume 500 PEEP 5 Sodium 139 (132-148) mmol/l Potassium 3.8 (3.6-5.0) MMOL/L Chloride 98 (98-107) mmol/L Carbon Dioxide 26 (22-30) mmol/L Anion Gap 19 (10-20) BUN 46 H (9-20) mg/dl Creatinine 4.4 H (0.8-1.5) mg/dl Est GFR ( Amer) 16 Est GFR (Non-Af Amer) 13 POC Glucose (mg/dL) 326 H (65-110) mg/dL Random Glucose 290 H (75-110) mg/dL Calcium 8.2 L (8.4-10.2) mg/dL Valproic Acid (50.0-100.0) ug/mL 04/22/17 04/21/17 04/21/17 Range/Units 04:20 21:34 17:06 WBC 16.1 H (4.8-10.8) K/uL RBC 3.61 L (4.40-5.90) Mil/uL Hgb 9.9 L (12.0-18.0) g/dL Hct 31.2 L (35.0-51.0) % MCV 86.4 (80.0-94.0) fl MCH 27.3 (27.0-31.0) pg MCHC 31.6 L (33.0-37.0) g/dL RDW 15.2 H (11.5-14.5) % Plt Count 188 (130-400) K/uL pCO2 (35-45) mm/Hg pO2 (80-100) mm/Hg HCO3 (21-28) mmol/L ABG pH (7.35-7.45) ABG Total CO2 (22-28) mmol/L ABG O2 Saturation (95-98) % ABG O2 Content (15-23) ML/dL ABG Base Excess (-2.0-3.0) mmol/L ABG Hemoglobin (11.7-17.4) g/dL ABG Carboxyhemoglobin (0.5-1.5) % POC ABG HHb (Measured) (0.0-5.0) % ABG Methemoglobin (0.0-3.0) % ABG O2 Capacity (16-24) mL/dL Scott Test A-a O2 Difference mm/Hg Hgb O2 Saturation (95.0-98.0) % Vent Mode Mechanical Rate FiO2 % Tidal Volume PEEP Sodium (132-148) mmol/l Potassium (3.6-5.0) MMOL/L Chloride (98-107) mmol/L Carbon Dioxide (22-30) mmol/L Anion Gap (10-20) BUN (9-20) mg/dl Creatinine (0.8-1.5) mg/dl Est GFR ( Amer) Est GFR (Non-Af Amer) POC Glucose (mg/dL) 200 H 122 H (65-110) mg/dL Random Glucose (75-110) mg/dL Calcium (8.4-10.2) mg/dL Valproic Acid (50.0-100.0) ug/mL 04/21/17 04/21/17 Range/Units 16:09 11:16 WBC (4.8-10.8) K/uL RBC (4.40-5.90) Mil/uL Hgb (12.0-18.0) g/dL Hct (35.0-51.0) % MCV (80.0-94.0) fl MCH (27.0-31.0) pg MCHC (33.0-37.0) g/dL RDW (11.5-14.5) % Plt Count (130-400) K/uL pCO2 (35-45) mm/Hg pO2 (80-100) mm/Hg HCO3 (21-28) mmol/L ABG pH (7.35-7.45) ABG Total CO2 (22-28) mmol/L ABG O2 Saturation (95-98) % ABG O2 Content (15-23) ML/dL ABG Base Excess (-2.0-3.0) mmol/L ABG Hemoglobin (11.7-17.4) g/dL ABG Carboxyhemoglobin (0.5-1.5) % POC ABG HHb (Measured) (0.0-5.0) % ABG Methemoglobin (0.0-3.0) % ABG O2 Capacity (16-24) mL/dL Scott Test A-a O2 Difference mm/Hg Hgb O2 Saturation (95.0-98.0) % Vent Mode Mechanical Rate FiO2 % Tidal Volume PEEP Sodium (132-148) mmol/l Potassium (3.6-5.0) MMOL/L Chloride (98-107) mmol/L Carbon Dioxide (22-30) mmol/L Anion Gap (10-20) BUN (9-20) mg/dl Creatinine (0.8-1.5) mg/dl Est GFR ( Amer) Est GFR (Non-Af Amer) POC Glucose (mg/dL) 157 H (65-110) mg/dL Random Glucose (75-110) mg/dL Calcium (8.4-10.2) mg/dL Valproic Acid 26.0 L (50.0-100.0) ug/mL Laboratory Results - last 24 hr 11/04/21/17 04/21/17 11:16 16:09 17:06 WBC RBC Hgb Hct MCV MCH MCHC RDW Plt Count pCO2 pO2 HCO3 ABG pH ABG Total CO2 ABG O2 Saturation ABG O2 Content ABG Base Excess ABG Hemoglobin ABG Carboxyhemoglobin POC ABG HHb (Measured) ABG Methemoglobin ABG O2 Capacity Scott Test A-a O2 Difference Hgb O2 Saturation Vent Mode Mechanical Rate FiO2 Tidal Volume PEEP Sodium Potassium Chloride Carbon Dioxide Anion Gap BUN Creatinine Est GFR ( Amer) Est GFR (Non-Af Amer) POC Glucose (mg/dL) 157 H 122 H Random Glucose Calcium Valproic Acid 26.0 L 04/21/17 04/22/17 04/22/17 21:34 04:20 04:20 WBC 16.1 H RBC 3.61 L Hgb 9.9 L Hct 31.2 L MCV 86.4 MCH 27.3 MCHC 31.6 L RDW 15.2 H Plt Count 188 pCO2 pO2 HCO3 ABG pH ABG Total CO2 ABG O2 Saturation ABG O2 Content ABG Base Excess ABG Hemoglobin ABG Carboxyhemoglobin POC ABG HHb (Measured) ABG Methemoglobin ABG O2 Capacity Scott Test A-a O2 Difference Hgb O2 Saturation Vent Mode Mechanical Rate FiO2 Tidal Volume PEEP Sodium 139 Potassium 3.8 Chloride 98 Carbon Dioxide 26 Anion Gap 19 BUN 46 H Creatinine 4.4 H Est GFR ( Amer) 16 Est GFR (Non-Af Amer) 13 POC Glucose (mg/dL) 200 H Random Glucose 290 H Calcium 8.2 L Valproic Acid 04/22/17 04/22/17 04:38 05:33 WBC RBC Hgb Hct MCV MCH MCHC RDW Plt Count pCO2 34 L pO2 164 H HCO3 27.6 ABG pH 7.50 H ABG Total CO2 27.5 ABG O2 Saturation 96.4 ABG O2 Content 14.9 L ABG Base Excess 3.4 H ABG Hemoglobin 10.8 L ABG Carboxyhemoglobin 0 L POC ABG HHb (Measured) 3.6 ABG Methemoglobin 0.5 ABG O2 Capacity 15.5 L Scott Test Yes A-a O2 Difference 150.0 Hgb O2 Saturation 95.9 Vent Mode Prvc ac Mechanical Rate 16 FiO2 50.0 Tidal Volume 500 PEEP 5 Sodium Potassium Chloride Carbon Dioxide Anion Gap BUN Creatinine Est GFR ( Amer) Est GFR (Non-Af Amer) POC Glucose (mg/dL) 326 H Random Glucose Calcium Valproic Acid Fingerstick Blood Sugar Results: 326 Review of Systems - Review of Systems Systems not reviewed;Unavailable: Altered Mental Status Critical Care Progress Note - Ventilator Checklist Head of Bed 30 Degrees: Yes Daily Sedation Vacation: No (lethargic) Daily Assessment of Readiness to Wean: No (lethargic) Daily Spontaneous Breathing Trial: No (lethargic) PUD Prophalyxis: Yes DVT Prophylaxis: Yes Oral Care with Chlorhexidine Gluconate {CHG}: Yes - Vent Settings MODE:: ASSIST CONTROL TIDAL VOLUME:: 500 RESP RATE:: 16 FIO2:: 50 PEEP:: 5 - Extremities/Vascular Does the Patient have a Central Venous Catheter?: Yes Insertion Site: Femoral Vein Does the Patient need a Central Venous Catheter?: Yes Does the Patient have a Mckee Catheter?: Yes Does the Patient need a Mckee Catheter?: Yes Catheter Insertion Criteria: Need for accurate measurement of output in critically ill patient - Prophylaxis GI Prophylaxis GI: PPI - Prophylaxis DVT Prophylaxis DVT: SCDs
--- NOTE | 2017-04-22 12:38 | CP.PCM.PN ---
Subjective - Date & Time of Evaluation Date of Evaluation: 04/22/17 Time of Evaluation: 12:36 - Subjective Subjective: Patient remained comatose and unresponsive. Family member at the bedside. Vital sign noted to be okay with improving blood pressure. Patient on ventilator. Objective - Vital Signs/Intake and Output Vital Signs (last 24 hours): Temp Pulse Resp BP Pulse Ox 98.9 F 65 16 169/61 H 100 04/22/17 08:00 04/22/17 08:00 04/22/17 08:00 04/22/17 08:00 04/22/17 08:00 Intake and Output: 04/22/17 04/22/17 06:59 18:59 Intake Total 969 Output Total 150 Balance 819 - Medications Medications: Current Medications Acetaminophen (Tylenol 650mg/20.3ml Solution Ud) 650 mg PO Q6 PRN PRN Reason: Temperature Last Admin: 04/22/17 01:20 Dose: 650 mg Amlodipine Besylate (Norvasc) 5 mg PO DAILY [facility] Last Admin: 04/22/17 09:18 Dose: 5 mg Carvedilol (Coreg) 25 mg PO Q12 [facility] Last Admin: 04/22/17 09:17 Dose: 25 mg Clonidine HCl (Catapres) 0.1 mg PO BID [facility] Last Admin: 04/22/17 09:17 Dose: 0.1 mg Dextrose (Dextrose 50% Inj) 0 ml IV STAT PRN; Protocol PRN Reason: Hypoglycemia Protocol Dextrose (Glutose 15) 0 gm PO ONCE PRN; Protocol PRN Reason: Hypoglycemia Protocol Folic Acid (Folic Acid) 1 mg PO DAILY [facility] Last Admin: 04/22/17 09:18 Dose: 1 mg Glucagon (Glucagen Diagnostic Kit) 0 mg IM STAT PRN; Protocol PRN Reason: Hypoglycemia Protocol Vancomycin HCl 1 gm/ Sodium (Chloride) 250 mls @ 125 mls/hr IVPB TTS [facility] PRN Reason: Protocol Last Admin: 04/21/17 15:31 Dose: 125 mls/hr Piperacillin Sod/Tazobactam (Sod 2.25 gm/ Sodium Chloride) 100 mls @ 100 mls/ hr IVPB Q8 [facility] PRN Reason: Protocol Last Admin: 04/22/17 09:19 Dose: 100 mls/hr Valproate Sodium 750 mg/ (Sodium Chloride) 57.5 mls @ 0 mls/hr IVPB Q12 [facility] PRN Reason: As Directed Last Admin: 04/22/17 10:19 Dose: 57.5 mls/hr Insulin Human Lispro (Humalog) 0 units SC Q6H [facility] PRN Reason: Protocol Last Admin: 04/22/17 05:27 Dose: 6 u Labetalol HCl (Trandate) 20 mg IVP Q6H PRN PRN Reason: for SBP > 180 Last Admin: 04/22/17 05:27 Dose: 20 mg Metoprolol Tartrate (Lopressor) 5 mg IVP Q6 [facility] Last Admin: 04/22/17 03:26 Dose: 5 mg Pantoprazole Sodium (Protonix Inj) 40 mg IVP Q12 [facility] Last Admin: 04/22/17 09:17 Dose: 40 mg Thiamine HCl (Vitamin B1 Tab) 100 mg PO DAILY [facility] Last Admin: 04/22/17 09:17 Dose: 100 mg - Labs Labs: 04/22/17 04:20 04/22/17 04:20 PT 12.6 Seconds (9.8-13.1) 04/19/17 04:30 INR 1.1 (0.9-1.2) 04/19/17 04:30 APTT 29.2 Seconds (25.6-37.1) 04/18/17 23:07 - Constitutional Appears: No Acute Distress - ENT Exam ENT Exam: Mucous Membranes Moist - Respiratory Exam Respiratory Exam: absent: Chest Wall Tenderness - Cardiovascular Exam Cardiovascular Exam: absent: JVD, Rubs - GI/Abdominal Exam GI & Abdominal Exam: Soft, Normal Bowel Sounds - Extremities Exam Extremities Exam: absent: Calf Tenderness - Back Exam Back Exam: absent: CVA tenderness (L), CVA tenderness (R) - Neurological Exam Neurological Exam: Altered - Psychiatric Exam Psychiatric exam: Flat Affect - Skin Skin Exam: absent: Cyanosis Assessment and Plan (1) Cardiac arrest Status: Acute (2) Flash pulmonary edema Status: Acute (3) ESRD (end stage renal disease) on dialysis Assessment & Plan: Patient with end stage renal disease on maintenance hemodialysis TTS. He has been tolerating very well. The rest of the medical problem as as stated before #2 status post cardiac arrest. #3 respiratory failure on ventilator. #4 anoxic encephalopathy. #5 alcohol intoxication on admission #6 hypertension which has been controlled with difficulties. On multiple medication and dialysis. #7 hyperphosphatemia and secondary hyperparathyroidism. Patient receiving hypothermic therapeutic for cardiac arrest. And also as per the primary team management. Dialysis to continue. Prognosis very poor. #8 anemia . EPO 10,000 units IV to be given on each hemodialysis #9 leukocytosis patient receiving antibiotics. Status: Chronic (4) Acute respiratory failure Status: Acute (5) CHF exacerbation Status: Acute
[2017-04-22] MEDS: Labetalol 5mg/ml (4ml) IVP PRN (13:34)
[2017-04-22] MEDS ORDERED: Labetalol 5mg/ml (4ml) ONE (13:35)
[2017-04-23] MEDS: Metoprolol 1 mg/ml Inj IVP SCH ×4 (03:38→21:48)
[2017-04-23 05:52] LABS: ABG ALLEN TEST YES; ABG MECHANICAL RATE 16; ARTERIAL BLOOD GAS MODE A/C; ARTERIAL BLOOD GAS O2 CAPACITY 15.2 mL/dL (16-24); ARTERIAL BLOOD GAS O2 CONTENT 14.7 ML/dL (15-23); ARTERIAL BLOOD GAS PH 7.48 (7.35-7.45); ARTERIAL BLOOD GAS PO2 223 mm/Hg (80-100); ARTERIAL BLOOD HGB O2 SAT 96.7 % (95.0-98.0); ATERIAL BLOOD GAS PEEP 5; CARBOXYHEMOGLOBIN 0 % (0.5-1.5); HHB 3.1 % (0.0-5.0); METHEMOGLOBIN 0.2 % (0.0-3.0)
[2017-04-23] MEDS ORDERED: levETIRAcetam 500 MG in Sodium Chloride 0.9% 100 ML IVPB STA (06:09)
[2017-04-23] MEDS: Insulin Lispro (humaLOG) 100 Units/ml Inj SC SCH ×4 (06:15→22:00)
[2017-04-23] MEDS ORDERED: Labetalol 5mg/ml (4ml) ONE ×2 (06:23→09:19)
[2017-04-23] MEDS: Labetalol 5mg/ml (4ml) IVP PRN (06:25)
[2017-04-23 07:40] LABS: MEAN CORPUSCULAR HEMOGLOBIN 27.7 pg (27.0-31.0); MEAN CORPUSCULAR HGB CONC 32.2 g/dL (33.0-37.0); RED CELL DISTRIBUTION WIDTH 15.4 % (11.5-14.5); WHITE BLOOD COUNT 12.7 K/uL (4.8-10.8)
--- NOTE | 2017-04-23 07:59 | CP.PCM.PN ---
Subjective - Date & Time of Evaluation Date of Evaluation: 04/23/17 Time of Evaluation: 09:00 - Subjective Subjective: Patient seen and examined bedside. Intubated on MV 16/500/5/FIo2 50 % with ABG 33/223/26/7.48 Not sedated, unresponsive with GCS score 4, with continuos seizure activity overnight and at present despite Depakote 750 mg po daily, keppra and ativan . BP elevated 201/76 166/60 , afebrile WBC 12.7 HGb 10 Plt 108 BUN/Cr 69/6.3 daughter bedside updated on patient's condition. Objective - Vital Signs/Intake and Output Vital Signs (last 24 hours): Temp Pulse Resp BP Pulse Ox 97.5 F L 72 16 201/76 H 100 04/23/17 06:00 04/23/17 06:00 04/23/17 06:00 04/23/17 06:00 04/23/17 06:00 Intake and Output: 04/23/17 04/23/17 06:59 18:59 Intake Total 1058 Output Total 505 Balance 553 - Medications Medications: Current Medications Acetaminophen (Tylenol 650mg/20.3ml Solution Ud) 650 mg PO Q6 PRN PRN Reason: Temperature Last Admin: 04/22/17 01:20 Dose: 650 mg Amlodipine Besylate (Norvasc) 5 mg PO DAILY [facility] Last Admin: 04/22/17 09:18 Dose: 5 mg Carvedilol (Coreg) 25 mg PO Q12 [facility] Last Admin: 04/23/17 01:05 Dose: 25 mg Clonidine HCl (Catapres) 0.1 mg PO BID [facility] Last Admin: 04/22/17 16:58 Dose: 0.1 mg Dextrose (Dextrose 50% Inj) 0 ml IV STAT PRN; Protocol PRN Reason: Hypoglycemia Protocol Dextrose (Glutose 15) 0 gm PO ONCE PRN; Protocol PRN Reason: Hypoglycemia Protocol Folic Acid (Folic Acid) 1 mg PO DAILY [facility] Last Admin: 04/22/17 09:18 Dose: 1 mg Glucagon (Glucagen Diagnostic Kit) 0 mg IM STAT PRN; Protocol PRN Reason: Hypoglycemia Protocol Vancomycin HCl 1 gm/ Sodium (Chloride) 250 mls @ 125 mls/hr IVPB TTS [facility] PRN Reason: Protocol Last Admin: 04/21/17 15:31 Dose: 125 mls/hr Piperacillin Sod/Tazobactam (Sod 2.25 gm/ Sodium Chloride) 100 mls @ 100 mls/ hr IVPB Q8 [facility] PRN Reason: Protocol Last Admin: 04/23/17 00:40 Dose: 100 mls/hr Valproate Sodium 750 mg/ (Sodium Chloride) 57.5 mls @ 0 mls/hr IVPB Q12 [facility] PRN Reason: As Directed Last Admin: 04/22/17 19:59 Dose: 57.5 mls/hr Insulin Human Lispro (Humalog) 0 units SC Q6H [facility] PRN Reason: Protocol Last Admin: 04/23/17 06:15 Dose: 6 u Labetalol HCl (Trandate) 20 mg IVP Q6H PRN PRN Reason: for SBP > 180 Last Admin: 04/23/17 06:25 Dose: 20 mg Lorazepam (Ativan) 2 mg IVP Q6 [facility] Metoprolol Tartrate (Lopressor) 5 mg IVP Q6 [facility] Last Admin: 04/23/17 03:38 Dose: 5 mg Pantoprazole Sodium (Protonix Inj) 40 mg IVP Q12 [facility] Last Admin: 04/22/17 20:02 Dose: 40 mg Thiamine HCl (Vitamin B1 Tab) 100 mg PO DAILY [facility] Last Admin: 04/22/17 09:17 Dose: 100 mg - Labs Labs: 04/22/17 04:20 04/22/17 04:20 PT 12.6 Seconds (9.8-13.1) 04/19/17 04:30 INR 1.1 (0.9-1.2) 04/19/17 04:30 APTT 29.2 Seconds (25.6-37.1) 04/18/17 23:07 - Constitutional Appears: Other (intubated on MBV comatose ) - Head Exam Head Exam: ATRAUMATIC, NORMAL INSPECTION, NORMOCEPHALIC - Eye Exam Additional comments: corneal reflex present pupils non responsive - ENT Exam ENT Exam: Mucous Membranes Dry - Neck Exam Neck Exam: Full ROM, Normal Inspection - Respiratory Exam Respiratory Exam: Clear to Ausculation Bilateral, NORMAL BREATHING PATTERN. absent: Rhonchi, Wheezes, Respiratory Distress - Cardiovascular Exam Cardiovascular Exam: REGULAR RHYTHM, RRR, +S1, +S2. absent: JVD - GI/Abdominal Exam GI & Abdominal Exam: Soft, Normal Bowel Sounds. absent: Distended, Guarding, Rebound - Rectal Exam Rectal Exam: Deferred - Extremities Exam Extremities Exam: Normal Capillary Refill, Normal Inspection. absent: Pedal Edema - Neurological Exam Additional comments: comatose GCS 4 not with drawing to painful stimuli , not responding to verbal command still with seizure active pupils not responsive corneal reflex present - Skin Skin Exam: Dry, Warm Assessment and Plan - Assessment and Plan (Free Text) Assessment: 66 y/o male with PMHx significant for DM2, HTN, ESRD on M/W/F ESRD, and PVD brought in by EMS with cardiac arrest. Patient was brought in with resuscitation in progress. Per report, patient had been watching TV with friend and c/o CP. They called 911, and when the ambulance arrived, patient attempted to walk to stretcher, but then became unresponsive and was found to be in cardiac arrest. CPR was initiated, patient received 3 epinephrines, 2 mg narcan. Supraglottic airway and IO line placed. In the ED, patient received bicarb injection and another epi . EKG was reviewed by cardiology who indicated no code heart needed. L femoral central line placed. Patient was admitted to ICU and hypothermia protocol was initiated . At present off hypothermia protocol, intubated on MV PRVC / AC mode not sedated but unresponsive, with seizure episodes .Neurology on consult. Repeat EEG showed seizure activity .As per neuro patient has anoxic brain injury and poor prognosis 1. Cardiac arrest unclear etiology Patient was intubated , sedated and was placed on hypothermia protocol initially . Remains on the Vent, unresponsive, comatose, not on pressors, BP elevated Tmax 100.7 last 24 hours with continuous seizure activity Cardiology consulted - stable cardiac Neurology consulted: poor prognosis , CT showed watershed infarcts and EEG showed slowing and some epileptiform spikes noted increased Depakote to 750 mg po Q12 yesterday 04/22 , started on Keppra and Vimpat today 2. Anoxic Brain Injury poor prognosis Neurology consulted Continue Depakpote, Keppra , Vimpat and ativan PRN 3. Troponin Elevation mild Trop elevation, unlikely [place] prob related to CPR in pt with ESRD Cardio consulted Stable from the cardiology 4.ESRD on HD nephrology consulted continue HD - TTS 5. Myoclonic Jerks sign of poor prognosis Pt was on Versed drip initially now on Depakote. Started Keppra and Vimpat today Neuro consulted EEG: epileptiform spikes noted 6. HTN uncontrolled Started Cardene drip initially and now off cont Coreg , Clonidine ,Norvasc, labetaolol PRN 7. DM type II on Insulin continue accuchecks and insulin coverage D/c insulin drip since accuchecks are on the lower side 8.Bilateral Pneumonia most likely aspiration Started on Vanco post HD and Zosyn renal dose Blood cultures : 1 out of 6 blood + for Staph coag neg wbc 12 k Tmax 100.7 CXR today showed no infiltrate 9. Anemia most likely anemia of acute illness with some upper GI bleed patient had coffee ground that resolved Hgb 10 today discontinued anticoagulation Continue protonix 40 mg IV q12 10.DVT prophylaxis SCD
[2017-04-23 08:10] LABS: CALCIUM 8.7 mg/dL (8.4-10.2); POTASSIUM 3.8 MMOL/L (3.6-5.0)
[2017-04-23] MEDS: SODIUM CHLORIDE 0.9% IVPB SCH ×2 (08:22→20:40)
[2017-04-23] MEDS: VALPROATE IVPB SCH ×2 (08:22→20:40)
--- NOTE | 2017-04-23 08:51 | CP.CCUPN ---
CCU Subjective - Physician Review Subjective (Free Text): Remains deeply comatose and has been off anxiolytics x 72H. Recurrent and more pronounced siezure activity noted overnight involving LUE, then RUE and involving both upper arms; thee is a brief post-ictal state, but resumes again repeatedly. keppra loading dose dis aort this activity briefly. Breathing 23 on AC 16, TV 500ml, 50% and PEEP 5; SPo2 100%. Still hypertensive at times, getting prn Labetalol. SBP npw 200 with HR 71. Other vitals and I/O's reviewed. ROS: Unobtainable due to coma on the vent. No other pertinent negs or positives on 10+ system review. PMSFH: All other Nursing and physician documentation reviewed to date; no new pertinent info noted relevant to current medical problems. CXR: visible distal tip of ETT low but above torsten, low lung volumes bilaterally (my interp). IMPRESSION / MAJOR PROBLEMS NOW: 1. Cardiac Arrest, on MV support; s/p Therapeutic Hypothermia 2. Post Arrest Anoxic Encephalopathy, with new onset Seizure Disorder 3. Uncontrolled / Accelerated Hypertension 4. ESRD on HD 5. ETOH Intoxication on Hospital Admission PLAN: 1. Discussed with Neurology: AED regimen now for status epileptitcus. Start Vimpat, continue with Depakote and Keppra. 2. Additional Norvasc and Labetalol now for BP control. 3. Repeat Blood Cultures negeative. Continue Zosyn / Vanco. 4. No MV weans due to coma. Decreased Fio2 to 40% as tolerated. 5. No decision yet from family regarding need for early tracheostomy, now Day # 7 MV. No feasibility for weans with obtundation / coma, unless family decides for terminal withdrawal from ventilator. CCU Objective - Vital Signs / Intake & Output Vital Signs (Last 4 hours): Vital Signs Temp Pulse Resp BP Pulse Ox 04/23/17 08:26 74 195/77 H 04/23/17 08:25 75 195/77 H 04/23/17 08:00 97.9 F 72 175/60 H 100 04/23/17 06:00 97.5 F L 72 16 201/76 H 100 Intake and Output (Last 8hrs): Intake & Output 04/22/17 04/23/17 04/23/17 22:59 06:59 14:59 Intake Total 674 764 145 Output Total 200 505 Balance 474 259 145 Weight 171 lb 6.4 oz Intake: IV 2 4 Intake, Piggyback 157 200 Tube Feeding 315 360 45 Free Water Flush 200 200 100 Output: Urine 200 125 Urethral (Mckee) 200 125 Stool 380 - Physical Exam Head: Positive for: Atraumatic, Normocephalic Pupils: Positive for: PERRL, Sluggish, Pinpoint Extroacular Muscles: Positive for: EOMI. Negative for: Gaze Palsy Conjunctiva: Positive for: Normal. Negative for: Icteric Mouth: Positive for: Moist Mucous Membranes Neck: Positive for: Normal Range of Motion. Negative for: JVD Respiratory/Chest: Positive for: Clear to Auscultation, Decreased Breath Sounds. Negative for: Accessory Muscle Use, Wheezes Cardiovascular: Positive for: Regular Rate and Rhythm, Tachycardic. Negative for: Murmurs, Rub Abdomen: Positive for: Normal Bowel Sounds. Negative for: Tenderness, Distention, Mass/Organomegaly Lower Extremity: Positive for: NORMAL PULSES. Negative for: CALF TENDERNESS, Cyanosis Neurological: Positive for: Other (GCS= 4T (E1V1M2)) Skin: Positive for: Warm, Dry. Negative for: Rashes Psychiatric: Positive for: Lethargic - Medications Active Medications: Active Medications Generic Name Dose Route Start Last Admin Trade Name Freq PRN Reason Stop Dose Admin Acetaminophen 650 mg 04/21/17 08:04 04/22/17 01:20 Tylenol 650mg/20.3ml Solution Ud PO 650 mg Q6 PRN Administration Temperature Amlodipine Besylate 5 mg 04/22/17 09:00 04/23/17 08:26 Norvasc PO 5 mg DAILY [facility] Administration Carvedilol 25 mg 04/18/17 09:00 04/23/17 08:25 Coreg PO 25 mg Q12 [facility] Administration Clonidine HCl 0.1 mg 04/20/17 17:00 04/22/17 16:58 Catapres PO 0.1 mg BID [facility] Administration Dextrose 0 ml 04/17/17 23:41 Dextrose 50% Inj IV STAT PRN Hypoglycemia Protocol Protocol Dextrose 0 gm 04/17/17 23:41 Glutose 15 PO ONCE PRN Hypoglycemia Protocol Protocol Folic Acid 1 mg 04/21/17 09:00 04/23/17 08:25 Folic Acid PO 1 mg DAILY [facility] Administration Glucagon 0 mg 04/17/17 23:41 Glucagen Diagnostic Kit IM STAT PRN Hypoglycemia Protocol Protocol Vancomycin HCl 1 gm/ Sodium 250 mls @ 125 mls/hr 04/19/17 09:00 04/21/17 15: 31 Chloride IVPB 125 mls/hr TTS [facility] Administration Protocol Piperacillin Sod/Tazobactam 100 mls @ 100 mls/hr 04/18/17 09:00 04/23/17 00: 40 Sod 2.25 gm/ Sodium Chloride IVPB 100 mls/hr Q8 [facility] Administration Protocol Valproate Sodium 750 mg/ 57.5 mls @ 0 mls/hr 04/22/17 09:00 04/23/17 08:22 Sodium Chloride IVPB 750 mls/hr Q12 [facility] Administration As Directed Insulin Human Lispro 0 units 04/22/17 05:00 04/23/17 06:15 Humalog SC 6 u Q6H [facility] Administration Protocol Labetalol HCl 20 mg 04/22/17 13:45 04/23/17 06:25 Trandate IVP 20 mg Q6H PRN Administration for SBP > 180 Lorazepam 2 mg 04/23/17 10:00 Ativan IVP Q6 [facility] Metoprolol Tartrate 5 mg 04/20/17 22:00 04/23/17 03:38 Lopressor IVP 5 mg Q6 [facility] Administration Pantoprazole Sodium 40 mg 04/20/17 21:00 04/23/17 08:25 Protonix Inj IVP 40 mg Q12 [facility] Administration Thiamine HCl 100 mg 04/21/17 09:00 04/23/17 08:25 Vitamin B1 Tab PO 100 mg DAILY [facility] Administration - Patient Studies Lab Studies: Microbiology Studies 04/20/17 04:10 Blood Culture - Preliminary Blood-Venous NO GROWTH AFTER 3 DAYS 04/20/17 04:10 Blood Culture - Preliminary Blood-Venous NO GROWTH AFTER 3 DAYS 04/18/17 16:50 Blood Culture - Preliminary Blood NO GROWTH AFTER 4 DAYS 04/18/17 16:50 Blood Culture - Preliminary Blood NO GROWTH AFTER 4 DAYS 04/17/17 23:28 Blood Culture - Preliminary Blood NO GROWTH AFTER 4 DAYS Lab Studies 04/23/17 04/23/17 04/23/17 Range/Units 05:38 05:23 05:20 WBC (4.8-10.8) K/uL RBC (4.40-5.90) Mil/uL Hgb (12.0-18.0) g/dL Hct (35.0-51.0) % MCV (80.0-94.0) fl MCH (27.0-31.0) pg MCHC (33.0-37.0) g/dL RDW (11.5-14.5) % Plt Count (130-400) K/uL pCO2 33 L (35-45) mm/Hg pO2 223 H (80-100) mm/Hg HCO3 26.0 (21-28) mmol/L ABG pH 7.48 H (7.35-7.45) ABG Total CO2 25.6 (22-28) mmol/L ABG O2 Saturation 96.9 (95-98) % ABG O2 Content 14.7 L (15-23) ML/dL ABG Base Excess 1.4 (-2.0-3.0) mmol/L ABG Hemoglobin 10.4 L (11.7-17.4) g/dL ABG Carboxyhemoglobin 0 L (0.5-1.5) % POC ABG HHb (Measured) 3.1 (0.0-5.0) % ABG Methemoglobin 0.2 (0.0-3.0) % ABG O2 Capacity 15.2 L (16-24) mL/dL Scott Test Yes A-a O2 Difference 92.0 mm/Hg Hgb O2 Saturation 96.7 (95.0-98.0) % Vent Mode A/c Mechanical Rate 16 FiO2 50.0 % Tidal Volume 500 PEEP 5 Sodium 139 (132-148) mmol/l Potassium 3.8 (3.6-5.0) MMOL/L Chloride 99 (98-107) mmol/L Carbon Dioxide 25 (22-30) mmol/L Anion Gap 19 (10-20) BUN 69 H (9-20) mg/dl Creatinine 6.3 H (0.8-1.5) mg/dl Est GFR ( Amer) 11 Est GFR (Non-Af Amer) 9 POC Glucose (mg/dL) 301 H (65-110) mg/dL Random Glucose 240 H (75-110) mg/dL Calcium 8.7 (8.4-10.2) mg/dL 04/23/17 04/22/17 04/22/17 Range/Units 05:20 21:37 16:15 WBC 12.7 H (4.8-10.8) K/uL RBC 3.60 L (4.40-5.90) Mil/uL Hgb 10.0 L (12.0-18.0) g/dL Hct 31.0 L (35.0-51.0) % MCV 86.0 (80.0-94.0) fl MCH 27.7 (27.0-31.0) pg MCHC 32.2 L (33.0-37.0) g/dL RDW 15.4 H (11.5-14.5) % Plt Count 208 (130-400) K/uL pCO2 (35-45) mm/Hg pO2 (80-100) mm/Hg HCO3 (21-28) mmol/L ABG pH (7.35-7.45) ABG Total CO2 (22-28) mmol/L ABG O2 Saturation (95-98) % ABG O2 Content (15-23) ML/dL ABG Base Excess (-2.0-3.0) mmol/L ABG Hemoglobin (11.7-17.4) g/dL ABG Carboxyhemoglobin (0.5-1.5) % POC ABG HHb (Measured) (0.0-5.0) % ABG Methemoglobin (0.0-3.0) % ABG O2 Capacity (16-24) mL/dL Scott Test A-a O2 Difference mm/Hg Hgb O2 Saturation (95.0-98.0) % Vent Mode Mechanical Rate FiO2 % Tidal Volume PEEP Sodium (132-148) mmol/l Potassium (3.6-5.0) MMOL/L Chloride (98-107) mmol/L Carbon Dioxide (22-30) mmol/L Anion Gap (10-20) BUN (9-20) mg/dl Creatinine (0.8-1.5) mg/dl Est GFR ( Amer) Est GFR (Non-Af Amer) POC Glucose (mg/dL) 132 H 258 H (65-110) mg/dL Random Glucose (75-110) mg/dL Calcium (8.4-10.2) mg/dL 04/22/17 Range/Units 11:30 WBC (4.8-10.8) K/uL RBC (4.40-5.90) Mil/uL Hgb (12.0-18.0) g/dL Hct (35.0-51.0) % MCV (80.0-94.0) fl MCH (27.0-31.0) pg MCHC (33.0-37.0) g/dL RDW (11.5-14.5) % Plt Count (130-400) K/uL pCO2 (35-45) mm/Hg pO2 (80-100) mm/Hg HCO3 (21-28) mmol/L ABG pH (7.35-7.45) ABG Total CO2 (22-28) mmol/L ABG O2 Saturation (95-98) % ABG O2 Content (15-23) ML/dL ABG Base Excess (-2.0-3.0) mmol/L ABG Hemoglobin (11.7-17.4) g/dL ABG Carboxyhemoglobin (0.5-1.5) % POC ABG HHb (Measured) (0.0-5.0) % ABG Methemoglobin (0.0-3.0) % ABG O2 Capacity (16-24) mL/dL Scott Test A-a O2 Difference mm/Hg Hgb O2 Saturation (95.0-98.0) % Vent Mode Mechanical Rate FiO2 % Tidal Volume PEEP Sodium (132-148) mmol/l Potassium (3.6-5.0) MMOL/L Chloride (98-107) mmol/L Carbon Dioxide (22-30) mmol/L Anion Gap (10-20) BUN (9-20) mg/dl Creatinine (0.8-1.5) mg/dl Est GFR ( Amer) Est GFR (Non-Af Amer) POC Glucose (mg/dL) 193 H (65-110) mg/dL Random Glucose (75-110) mg/dL Calcium (8.4-10.2) mg/dL Laboratory Results - last 24 hr 04/22/17 04/22/17 04/22/17 11:30 16:15 21:37 WBC RBC Hgb Hct MCV MCH MCHC RDW Plt Count pCO2 pO2 HCO3 ABG pH ABG Total CO2 ABG O2 Saturation ABG O2 Content ABG Base Excess ABG Hemoglobin ABG Carboxyhemoglobin POC ABG HHb (Measured) ABG Methemoglobin ABG O2 Capacity Scott Test A-a O2 Difference Hgb O2 Saturation Vent Mode Mechanical Rate FiO2 Tidal Volume PEEP Sodium Potassium Chloride Carbon Dioxide Anion Gap BUN Creatinine Est GFR ( Amer) Est GFR (Non-Af Amer) POC Glucose (mg/dL) 193 H 258 H 132 H Random Glucose Calcium 04/23/17 04/23/17 04/23/17 05:20 05:20 05:23 WBC 12.7 H RBC 3.60 L Hgb 10.0 L Hct 31.0 L MCV 86.0 MCH 27.7 MCHC 32.2 L RDW 15.4 H Plt Count 208 pCO2 pO2 HCO3 ABG pH ABG Total CO2 ABG O2 Saturation ABG O2 Content ABG Base Excess ABG Hemoglobin ABG Carboxyhemoglobin POC ABG HHb (Measured) ABG Methemoglobin ABG O2 Capacity Scott Test A-a O2 Difference Hgb O2 Saturation Vent Mode Mechanical Rate FiO2 Tidal Volume PEEP Sodium 139 Potassium 3.8 Chloride 99 Carbon Dioxide 25 Anion Gap 19 BUN 69 H Creatinine 6.3 H Est GFR ( Amer) 11 Est GFR (Non-Af Amer) 9 POC Glucose (mg/dL) 301 H Random Glucose 240 H Calcium 8.7 04/23/17 05:38 WBC RBC Hgb Hct MCV MCH MCHC RDW Plt Count pCO2 33 L pO2 223 H HCO3 26.0 ABG pH 7.48 H ABG Total CO2 25.6 ABG O2 Saturation 96.9 ABG O2 Content 14.7 L ABG Base Excess 1.4 ABG Hemoglobin 10.4 L ABG Carboxyhemoglobin 0 L POC ABG HHb (Measured) 3.1 ABG Methemoglobin 0.2 ABG O2 Capacity 15.2 L Scott Test Yes A-a O2 Difference 92.0 Hgb O2 Saturation 96.7 Vent Mode A/c Mechanical Rate 16 FiO2 50.0 Tidal Volume 500 PEEP 5 Sodium Potassium Chloride Carbon Dioxide Anion Gap BUN Creatinine Est GFR ( Amer) Est GFR (Non-Af Amer) POC Glucose (mg/dL) Random Glucose Calcium Fingerstick Blood Sugar Results: 301 Review of Systems - Review of Systems Systems not reviewed;Unavailable: Altered Mental Status Critical Care Progress Note - Ventilator Checklist Head of Bed 30 Degrees: Yes Daily Sedation Vacation: No (comatose) Daily Assessment of Readiness to Wean: No (comatose) Daily Spontaneous Breathing Trial: No (comatose) PUD Prophalyxis: Yes DVT Prophylaxis: Yes Oral Care with Chlorhexidine Gluconate {CHG}: Yes - Vent Settings MODE:: ASSIST CONTROL TIDAL VOLUME:: 500 RESP RATE:: 16 FIO2:: 50 PEEP:: 5 - Extremities/Vascular Does the Patient have a Central Venous Catheter?: Yes Insertion Site: Femoral Vein Does the Patient need a Central Venous Catheter?: Yes Does the Patient have a Mckee Catheter?: Yes Does the Patient need a Mckee Catheter?: Yes Catheter Insertion Criteria: Need for accurate measurement of output in critically ill patient - Prophylaxis GI Prophylaxis GI: PPI - Prophylaxis DVT Prophylaxis DVT: SCDs
[2017-04-23] MEDS ORDERED: Labetalol 5mg/ml (4ml) IVP STA (09:21)
[2017-04-23] MEDS: Lacosamide 200mg/20ml 200 MG in Sodium Chloride 0.9% 100 ML IVPB SCH ×2 (10:32→17:54)
--- NOTE | 2017-04-23 12:07 | RAD ---
HISTORY: intubated COMPARISON: No prior. FINDINGS: In situ ETT, the tip of which lies approximately 4.5 cm above torsten. NGT is present, the tip of which appears to lie left parasagittal new on upper/mid abdomen LUNGS: Low lung volumes with mild crowded bronchovascular markings and mild bibasilar atelectasis. PLEURA: No significant pleural effusion identified, no pneumothorax apparent. CARDIOVASCULAR: Normal. OSSEOUS STRUCTURES: No significant abnormalities. VISUALIZED UPPER ABDOMEN: Normal. OTHER FINDINGS: None. IMPRESSION: ETT and NGT as above. Low lung volumes with mild crowded bronchovascular markings and mild bibasilar atelectasis.
[2017-04-23] MEDS: Acetaminophen 650mg/20.3ml solution UD PO PRN (13:40)
--- NOTE | 2017-04-23 16:56 | CP.PCM.PN ---
Subjective - Date & Time of Evaluation Date of Evaluation: 04/23/17 Time of Evaluation: 16:56 - Subjective Subjective: renal follow up note please call us at [phone] if any qs. no events overnight family bedside PE:vitals reviewed intubated NAD s1s2 present vent dependent, bilateral aur entry equal abd soft skin normal no edema ao times 0 PLAN: ESRD/acute resp failure/chf/seizures/anoxic brain encephalopathy/htn hd today per schedule lytes reviewed anemia stable, epo as needed htn continue current meds monitor phos levels Objective - Vital Signs/Intake and Output Vital Signs (last 24 hours): Temp Pulse Resp BP Pulse Ox 98.0 F 62 16 158/67 H 100 04/23/17 16:00 04/23/17 16:20 04/23/17 15:39 04/23/17 16:20 04/23/17 16:00 Intake and Output: 04/23/17 04/23/17 06:59 18:59 Intake Total 1058 765 Output Total 505 Balance 553 765 - Medications Medications: Current Medications Acetaminophen (Tylenol 650mg/20.3ml Solution Ud) 650 mg PO Q6 PRN PRN Reason: Temperature Last Admin: 04/23/17 13:40 Dose: 650 mg Amlodipine Besylate (Norvasc) 10 mg PO DAILY [facility] Carvedilol (Coreg) 25 mg PO Q12 [facility] Last Admin: 04/23/17 08:25 Dose: 25 mg Clonidine HCl (Catapres) 0.1 mg PO BID [facility] Last Admin: 04/23/17 16:20 Dose: 0.1 mg Dextrose (Dextrose 50% Inj) 0 ml IV STAT PRN; Protocol PRN Reason: Hypoglycemia Protocol Dextrose (Glutose 15) 0 gm PO ONCE PRN; Protocol PRN Reason: Hypoglycemia Protocol Folic Acid (Folic Acid) 1 mg PO DAILY [facility] Last Admin: 04/23/17 08:25 Dose: 1 mg Glucagon (Glucagen Diagnostic Kit) 0 mg IM STAT PRN; Protocol PRN Reason: Hypoglycemia Protocol Vancomycin HCl 1 gm/ Sodium (Chloride) 250 mls @ 125 mls/hr IVPB TTS [facility] PRN Reason: Protocol Last Admin: 04/21/17 15:31 Dose: 125 mls/hr Piperacillin Sod/Tazobactam (Sod 2.25 gm/ Sodium Chloride) 100 mls @ 100 mls/ hr IVPB Q8 [facility] PRN Reason: Protocol Last Admin: 04/23/17 16:17 Dose: 100 mls/hr Valproate Sodium 750 mg/ (Sodium Chloride) 57.5 mls @ 0 mls/hr IVPB Q12 [facility] PRN Reason: As Directed Last Admin: 04/23/17 08:22 Dose: 750 mls/hr Lacosamide 200 mg/ Sodium (Chloride) 120 mls @ 120 mls/hr IVPB BID [facility] Last Admin: 04/23/17 10:32 Dose: 120 mls/hr Insulin Human Lispro (Humalog) 0 units SC Q6H [facility] PRN Reason: Protocol Last Admin: 04/23/17 16:38 Dose: 4 u Labetalol HCl (Trandate) 20 mg IVP Q6H PRN PRN Reason: for SBP > 180 Last Admin: 04/23/17 06:25 Dose: 20 mg Lorazepam (Ativan) 2 mg IVP Q6 [facility] Last Admin: 04/23/17 16:09 Dose: Not Given Metoprolol Tartrate (Lopressor) 5 mg IVP Q6 [facility] Last Admin: 04/23/17 15:55 Dose: 5 mg Pantoprazole Sodium (Protonix Inj) 40 mg IVP Q12 [facility] Last Admin: 04/23/17 08:25 Dose: 40 mg Thiamine HCl (Vitamin B1 Tab) 100 mg PO DAILY [facility] Last Admin: 04/23/17 08:25 Dose: 100 mg - Labs Labs: 04/23/17 05:20 04/23/17 05:20 PT 12.6 Seconds (9.8-13.1) 04/19/17 04:30 INR 1.1 (0.9-1.2) 04/19/17 04:30 APTT 29.2 Seconds (25.6-37.1) 04/18/17 23:07
[2017-04-23] MEDS ORDERED: Lacosamide 200mg/20ml 100 MG in Sodium Chloride 0.9% 100 ML IVPB SCH (17:00)
[2017-04-23] MEDS: levETIRAcetam 500 MG in Sodium Chloride 0.9% 100 ML IVPB SCH (20:43)
[2017-04-23] MEDS: LACOSAMIDE PO SCH (20:48)
[2017-04-24] MEDS: Metoprolol 1 mg/ml Inj IVP SCH ×5 (04:00→21:38)
[2017-04-24 06:11] LABS: ABG ALLEN TEST YES; ABG MECHANICAL RATE 16; ARTERIAL BLOOD GAS HCO3 27.7 mmol/L (21-28); ARTERIAL BLOOD GAS MODE A/C; ARTERIAL BLOOD GAS O2 CAPACITY 15.4 mL/dL (16-24); ARTERIAL BLOOD GAS O2 CONTENT 14.9 ML/dL (15-23); ARTERIAL BLOOD GAS PH 7.52 (7.35-7.45); ARTERIAL BLOOD GAS PO2 180 mm/Hg (80-100); ARTERIAL BLOOD HGB O2 SAT 96.5 % (95.0-98.0); ATERIAL BLOOD GAS PEEP 5; CARBOXYHEMOGLOBIN 0 % (0.5-1.5); METHEMOGLOBIN 0.5 % (0.0-3.0)
[2017-04-24 06:39] LABS: MEAN CELL VOLUME 86.5 fl (80.0-94.0); MEAN CORPUSCULAR HEMOGLOBIN 27.8 pg (27.0-31.0); MEAN CORPUSCULAR HGB CONC 32.1 g/dL (33.0-37.0); RED CELL DISTRIBUTION WIDTH 15.2 % (11.5-14.5); WHITE BLOOD COUNT 16.4 K/uL (4.8-10.8)
[2017-04-24] MEDS ORDERED: Labetalol 5mg/ml (4ml) ONE (06:46)
[2017-04-24] MEDS: Labetalol 5mg/ml (4ml) IVP PRN (06:51)
[2017-04-24 06:54] LABS: CALCIUM 8.4 mg/dL (8.4-10.2); POTASSIUM 3.2 MMOL/L (3.6-5.0)
[2017-04-24] MEDS: Insulin Lispro (humaLOG) 100 Units/ml Inj SC SCH ×4 (07:16→23:00)
--- NOTE | 2017-04-24 08:20 | CP.PCM.PN ---
Subjective - Date & Time of Evaluation Date of Evaluation: 04/24/17 Time of Evaluation: 08:30 - Subjective Subjective: Patient seen and examined bedside. Intubated on MV 16/500/5/FIo2 40 % with ABG 32/180/27/7.5 Not sedated, unresponsive with GCS score 4. No more obvious seizure activity overnight once started on Kepra and depakote. BP still not well controlled BP 197/68 , afebrile WBC 16 HGb 10 Plt 213 daughter bedside updated on patient's condition. Objective - Vital Signs/Intake and Output Vital Signs (last 24 hours): Temp Pulse Resp BP Pulse Ox 99.3 F 75 16 197/68 H 100 04/24/17 06:00 04/24/17 06:17 04/24/17 06:00 04/24/17 06:17 04/24/17 06:00 Intake and Output: 04/24/17 04/24/17 06:59 18:59 Intake Total 1325 Output Total 125 Balance 1200 - Medications Medications: Current Medications Acetaminophen (Tylenol 650mg/20.3ml Solution Ud) 650 mg PO Q6 PRN PRN Reason: Temperature Last Admin: 04/23/17 13:40 Dose: 650 mg Amlodipine Besylate (Norvasc) 10 mg PO DAILY [facility] Carvedilol (Coreg) 25 mg PO Q12 [facility] Last Admin: 04/23/17 20:39 Dose: 25 mg Clonidine HCl (Catapres) 0.1 mg PO BID [facility] Last Admin: 04/23/17 16:20 Dose: 0.1 mg Dextrose (Dextrose 50% Inj) 0 ml IV STAT PRN; Protocol PRN Reason: Hypoglycemia Protocol Dextrose (Glutose 15) 0 gm PO ONCE PRN; Protocol PRN Reason: Hypoglycemia Protocol Folic Acid (Folic Acid) 1 mg PO DAILY [facility] Last Admin: 04/23/17 08:25 Dose: 1 mg Glucagon (Glucagen Diagnostic Kit) 0 mg IM STAT PRN; Protocol PRN Reason: Hypoglycemia Protocol Vancomycin HCl 1 gm/ Sodium (Chloride) 250 mls @ 125 mls/hr IVPB TTS [facility] PRN Reason: Protocol Last Admin: 04/24/17 03:02 Dose: 125 mls/hr Piperacillin Sod/Tazobactam (Sod 2.25 gm/ Sodium Chloride) 100 mls @ 100 mls/ hr IVPB Q8 [facility] PRN Reason: Protocol Last Admin: 04/24/17 02:00 Dose: 100 mls/hr Valproate Sodium 750 mg/ (Sodium Chloride) 57.5 mls @ 0 mls/hr IVPB Q12 [facility] PRN Reason: As Directed Last Admin: 04/23/17 20:40 Dose: 50 mls/hr Levetiracetam 500 mg/ Sodium (Chloride) 105 mls @ 210 mls/hr IVPB Q12 [facility] Last Admin: 04/23/17 20:43 Dose: 210 mls/hr Potassium Chloride (Potassium Cl 10meq/50ml Sterile Water) 50 mls @ 50 mls/hr IVPB Q1 [facility] Stop: 04/24/17 09:59 Insulin Human Lispro (Humalog) 0 units SC Q6H [facility] PRN Reason: Protocol Last Admin: 04/24/17 07:16 Dose: 4 u Labetalol HCl (Trandate) 20 mg IVP Q6H PRN PRN Reason: for SBP > 180 Last Admin: 04/24/17 06:51 Dose: 20 mg Lacosamide (Vimpat) 100 mg PO BID [facility] Last Admin: 04/23/17 20:48 Dose: 100 mg Lorazepam (Ativan) 2 mg IVP Q6 [facility] Last Admin: 04/24/17 04:22 Dose: Not Given Metoprolol Tartrate (Lopressor) 5 mg IVP Q6 [facility] Last Admin: 04/24/17 06:17 Dose: 5 mg Pantoprazole Sodium (Protonix Inj) 40 mg IVP Q12 [facility] Last Admin: 04/23/17 21:49 Dose: 40 mg Thiamine HCl (Vitamin B1 Tab) 100 mg PO DAILY [facility] Last Admin: 04/23/17 08:25 Dose: 100 mg - Labs Labs: 04/24/17 05:40 04/24/17 05:40 PT 12.6 Seconds (9.8-13.1) 04/19/17 04:30 INR 1.1 (0.9-1.2) 04/19/17 04:30 APTT 29.2 Seconds (25.6-37.1) 04/18/17 23:07 - Constitutional Appears: Other (intubated on MV not sedated , unresponsive , in coma) - Head Exam Head Exam: ATRAUMATIC, NORMAL INSPECTION, NORMOCEPHALIC - Eye Exam Additional comments: pupils sluggish reactive to light gag reflex present Corneal reflex present - ENT Exam ENT Exam: Mucous Membranes Dry, Normal Exam - Neck Exam Neck Exam: Full ROM, Normal Inspection - Respiratory Exam Respiratory Exam: Clear to Ausculation Bilateral, NORMAL BREATHING PATTERN. absent: Rhonchi, Wheezes - Cardiovascular Exam Cardiovascular Exam: REGULAR RHYTHM, RRR, +S1, +S2. absent: JVD - GI/Abdominal Exam GI & Abdominal Exam: Soft, Normal Bowel Sounds. absent: Distended, Guarding, Tenderness, Rebound - Rectal Exam Rectal Exam: Deferred - Extremities Exam Extremities Exam: Normal Capillary Refill, Normal Inspection. absent: Pedal Edema - Neurological Exam Additional comments: not responsive GCS coma scale 4 - Skin Skin Exam: Dry, Pallor, Warm. absent: Intact Assessment and Plan - Assessment and Plan (Free Text) Assessment: 66 y/o male with PMHx significant for DM2, HTN, ESRD on M/W/F ESRD, and PVD brought in by EMS with cardiac arrest. Patient was brought in with resuscitation in progress. Per report, patient had been watching TV with friend and c/o CP. They called 911, and when the ambulance arrived, patient attempted to walk to stretcher, but then became unresponsive and was found to be in cardiac arrest. CPR was initiated, patient received 3 epinephrines, 2 mg narcan. Supraglottic airway and IO line placed. In the ED, patient received bicarb injection and another epi . EKG was reviewed by cardiology who indicated no code heart needed. L femoral central line placed. Patient was admitted to ICU and hypothermia protocol was initiated . At present off hypothermia protocol, intubated on MV PRVC / AC mode not sedated but unresponsive, with seizure episodes .Neurology on consult. Repeat EEG showed seizure activity .As per neuro patient has anoxic brain injury and poor prognosis 1. Cardiac arrest unclear etiology Patient was intubated , sedated and was placed on hypothermia protocol initially . Remains on the Vent, unresponsive, comatose, not on pressors, BP elevated .No seizure activity noted last night At present on depakote,Keppra and Vimpat Cardiology consult appreciated Neurology consulted: poor prognosis , CT showed watershed infarcts and EEG showed slowing and some epileptiform spikes noted increased Depakote to 750 mg po Q12 and , started on Keppra and Vimpat family would like to have discussion with neuro again about prognosis 2. Anoxic Brain Injury poor prognosis Neurology consulted Continue Depakpote, Keppra , Vimpat and ativan PRN 3. Troponin Elevation mild Trop elevation, unlikely RI prob related to CPR in pt with ESRD Cardio consulted Stable from the cardiology 4.ESRD on HD nephrology consulted continue HD - TTS 5. Myoclonic Jerks sign of poor prognosis Pt was on Versed drip initially now on Depakote, Keppra and Vimpat Neuro consulted EEG: epileptiform spikes noted 6. HTN uncontrolled Started Cardene drip initially and now off cont Coreg , Norvasc, labetaolol PRN increase Clonidine to 0.2 mg PO BID 7. DM type II on Insulin continue accuchecks and insulin coverage D/c insulin drip since accuchecks are on the lower side Nepro via OGT 8.Bilateral Pneumonia most likely aspiration Started on Vanco post HD and Zosyn renal dose Blood cultures : 1 out of 6 blood + for Staph coag neg wbc 16 k Repeat CXR showed no infiltrate 9. Anemia most likely anemia of acute illness with some upper GI bleed patient had coffee ground that resolved Hgb 10 today discontinued anticoagulation Continue protonix 40 mg IV q12 10.DVT prophylaxis SCD
[2017-04-24] MEDS: Potassium CL 10 MEQ/50 ML 50 ML IVPB SCH ×2 (09:58→11:20)
[2017-04-24] MEDS: LACOSAMIDE PO SCH ×2 (10:02→16:41)
--- NOTE | 2017-04-24 10:37 | RAD ---
HISTORY: intubated COMPARISON: No prior. FINDINGS: In situ ETT, the tip of which lies approximately 3.8 cm above torsten. NGT is present, tip which appears to overlie the right parasagittal upper/ mid abdomen. LUNGS: No active pulmonary disease. PLEURA: No significant pleural effusion identified, no pneumothorax apparent. CARDIOVASCULAR: Normal. OSSEOUS STRUCTURES: No significant abnormalities. VISUALIZED UPPER ABDOMEN: Normal. OTHER FINDINGS: None. IMPRESSION: ETT and NGT as above. No acute infiltrates.
[2017-04-24] MEDS: SODIUM CHLORIDE 0.9% IVPB SCH ×2 (12:57→20:01)
[2017-04-24] MEDS: VALPROATE IVPB SCH ×2 (12:57→20:01)
[2017-04-24] MEDS: levETIRAcetam 500 MG in Sodium Chloride 0.9% 100 ML IVPB SCH ×2 (13:51→20:02)
[2017-04-24] MEDS: Piperacillin/Tazobact 2.25 GM in Sodium Chloride 0.9% 50 ML IVPB SCH (16:07)
--- NOTE | 2017-04-24 17:11 | CP.PCM.PN ---
Subjective - Date & Time of Evaluation Date of Evaluation: 04/24/17 Time of Evaluation: 17:05 - Subjective Subjective: Mr. Aguilar was seen and examined today in the ICU. He continues to be unresponsive. He did not have any notable left sided myoclonus when I saw him. No acute events overnight or reported seizures. Objective - Vital Signs/Intake and Output Vital Signs (last 24 hours): Temp Pulse Resp BP Pulse Ox 99.9 F H 68 15 166/62 H 100 04/24/17 16:00 04/24/17 16:40 04/24/17 16:00 04/24/17 16:40 04/24/17 16:00 Intake and Output: 04/24/17 04/24/17 06:59 18:59 Intake Total 1325 1520 Output Total 125 Balance 1200 1520 - Medications Medications: Current Medications Acetaminophen (Tylenol 650mg/20.3ml Solution Ud) 650 mg PO Q6 PRN PRN Reason: Temperature Last Admin: 04/23/17 13:40 Dose: 650 mg Amlodipine Besylate (Norvasc) 10 mg PO DAILY [facility] Last Admin: 04/24/17 09:56 Dose: 10 mg Carvedilol (Coreg) 25 mg PO Q12 [facility] Last Admin: 04/24/17 09:54 Dose: 25 mg Clonidine HCl (Catapres) 0.2 mg PO BID [facility] Last Admin: 04/24/17 16:40 Dose: 0.2 mg Dextrose (Dextrose 50% Inj) 0 ml IV STAT PRN; Protocol PRN Reason: Hypoglycemia Protocol Dextrose (Glutose 15) 0 gm PO ONCE PRN; Protocol PRN Reason: Hypoglycemia Protocol Folic Acid (Folic Acid) 1 mg PO DAILY [facility] Last Admin: 04/24/17 09:55 Dose: 1 mg Glucagon (Glucagen Diagnostic Kit) 0 mg IM STAT PRN; Protocol PRN Reason: Hypoglycemia Protocol Vancomycin HCl 1 gm/ Sodium (Chloride) 250 mls @ 125 mls/hr IVPB TTS [facility] PRN Reason: Protocol Last Admin: 04/24/17 03:02 Dose: 125 mls/hr Valproate Sodium 750 mg/ (Sodium Chloride) 57.5 mls @ 0 mls/hr IVPB Q12 [facility] PRN Reason: As Directed Last Admin: 04/24/17 12:57 Dose: 50 mls/hr Levetiracetam 500 mg/ Sodium (Chloride) 105 mls @ 210 mls/hr IVPB Q12 [facility] Last Admin: 04/24/17 13:51 Dose: 210 mls/hr Piperacillin Sod/Tazobactam (Sod 2.25 gm/ Sodium Chloride) 50 mls @ 50 mls/hr IVPB Q8 [facility] PRN Reason: Protocol Last Admin: 04/24/17 16:07 Dose: 50 mls/hr Insulin Human Lispro (Humalog) 0 units SC Q6H [facility] PRN Reason: Protocol Last Admin: 04/24/17 16:31 Dose: 6 u Labetalol HCl (Trandate) 20 mg IVP Q6H PRN PRN Reason: for SBP > 180 Last Admin: 04/24/17 06:51 Dose: 20 mg Lacosamide (Vimpat) 100 mg PO BID [facility] Last Admin: 04/24/17 16:41 Dose: 100 mg Lorazepam (Ativan) 2 mg IVP Q6 [facility] Last Admin: 04/24/17 16:04 Dose: Not Given Metoprolol Tartrate (Lopressor) 5 mg IVP Q6 [facility] Last Admin: 04/24/17 16:01 Dose: 5 mg Pantoprazole Sodium (Protonix Inj) 40 mg IVP Q12 [facility] Last Admin: 04/24/17 09:49 Dose: 40 mg Thiamine HCl (Vitamin B1 Tab) 100 mg PO DAILY [facility] Last Admin: 04/24/17 09:56 Dose: 100 mg - Labs Labs: 04/24/17 05:40 04/24/17 05:40 PT 12.6 Seconds (9.8-13.1) 04/19/17 04:30 INR 1.1 (0.9-1.2) 04/19/17 04:30 APTT 29.2 Seconds (25.6-37.1) 04/18/17 23:07 - Neurological Exam Additional comments: Neurologically unchanged compared with previous examination. Assessment and Plan (1) Hypoxic brain injury Assessment & Plan: Continue conservative management and current anti-seizure medications. Will repeat EEG tomorrow and discuss with family the current prognosis. At this point, the patient has a very poor prognosis and we will have to manage expectations with the family. Status: Acute
[2017-04-25] MEDS: Piperacillin/Tazobact 2.25 GM in Sodium Chloride 0.9% 50 ML IVPB SCH ×3 (00:20→18:00)
[2017-04-25 04:10] LABS: ABG ALLEN TEST YES; ABG MECHANICAL RATE 16; ARTERIAL BLOOD GAS HCO3 26.4 mmol/L (21-28); ARTERIAL BLOOD GAS MODE A/C; ARTERIAL BLOOD GAS O2 CAPACITY 13.5 mL/dL (16-24); ARTERIAL BLOOD GAS O2 CONTENT 13.1 ML/dL (15-23); ARTERIAL BLOOD GAS PH 7.53 (7.35-7.45); ARTERIAL BLOOD GAS PO2 145 mm/Hg (80-100); ARTERIAL BLOOD HGB O2 SAT 96.7 % (95.0-98.0); ATERIAL BLOOD GAS PEEP 5; CARBOXYHEMOGLOBIN 0 % (0.5-1.5); METHEMOGLOBIN 0.2 % (0.0-3.0)
[2017-04-25 05:05] LABS: HEMATOCRIT 30.4 % (35.0-51.0); MEAN CELL VOLUME 86.7 fl (80.0-94.0); MEAN CORPUSCULAR HGB CONC 31.2 g/dL (33.0-37.0); RED CELL DISTRIBUTION WIDTH 14.8 % (11.5-14.5); WHITE BLOOD COUNT 16.3 K/uL (4.8-10.8)
[2017-04-25 05:16] LABS: POTASSIUM 3.4 MMOL/L (3.6-5.0)
[2017-04-25 05:19] LABS: CALCIUM 8.4 mg/dL (8.4-10.2)
[2017-04-25] MEDS: Insulin Lispro (humaLOG) 100 Units/ml Inj SC SCH ×4 (05:21→22:42)
[2017-04-25] MEDS: Metoprolol 1 mg/ml Inj IVP SCH ×6 (05:22→21:21)
--- NOTE | 2017-04-25 08:30 | PN ---
DATE: 04/24/2017 CRITICAL CARE PROGRESS NOTE LOCATION: The patient in ICU, bed 430. SUBJECTIVE: The patient is seen and examined at the bedside, remains intubated on AC, 16, 500, FiO2 of 40%, PEEP 5, not sedated. Remains unresponsive. Jennifer Coma Scale score of 4. No visible seizure activity noted. Currently, on Keppra and Depakote. PHYSICAL EXAMINATION: VITAL SIGNS: Temperature 99.9, heart rate 68, respiratory rate 15, blood pressure 166/62. Intake 2570, output 325. Positive balance 2245. Weight 169 pounds. HEAD, EYES, EARS, NOSE AND THROAT: Pupils sluggishly reactive. No corneal reflex. ET suction with positive response. CHEST: Bilateral breath sounds. Clear to auscultation anteriorly and laterally. HEART: Rhythm regular. S1, S2 normal. No audible murmur. ABDOMEN: Bowel sounds present. Soft. NEUROLOGIC: No sedation. Remains lethargic. MEDICATIONS: Current medications include Tylenol 650 q. 6 p.r.n., Norvasc 10 mg p.o. daily, Coreg 25 mg p.o. q. 12, clonidine 0.2 mg b.i.d., folic acid 1 mg p.o. daily, insulin based on a sliding scale, folic acid 1 mg daily, labetalol 20 mg IV q. 6 p.r.n. for systolic pressure more than 180, Vimpat 100 mg p.o. b.i.d., Keppra 500 mg q. 12, lorazepam 2 mg IV q. 6 p.r.n., metoprolol 5 mg IV q. 6, Protonix 40 IV q. 12, thiamine 100 mg daily, valproic acid 750 mg IV q. 12, vancomycin 1 g IV with hemodialysis. IMPRESSION: 1. Neurology: Anoxic encephalopathy, status post cardiac arrest. Electroencephalogram with seizure. Currently, no obvious seizure. On Depakote, Keppra, Vimpat and Ativan p.r.n. Myoclonic jerks with poor prognosis. 2. Cardiac: Elevated troponin in the setting of cardiac arrest and end-stage renal disease. Cardiology on board. No further recommendation noted. 3. Pulmonary: On ventilator for airway protection. Hypertension controlled on current medications. 4. Endocrine: Diabetes mellitus type 2, on insulin based on Accu-Chek and coverage to maintain blood sugar less than 180. 5. Infectious disease: Bilateral suspected aspiration pneumonia, currently on vancomycin and Zosyn, renally adjusted. 6. Anemia: Most likely anemia of acute secondary to acquired gastrointestinal bleed and also chronic related to renal failure. Anticoagulation on hold due to the coffee ground. Prognosis remains guarded. Discussed with family members. Dani Payan MD
[2017-04-25] MEDS: LACOSAMIDE PO SCH ×2 (08:55→17:00)
[2017-04-25] MEDS: VALPROATE IVPB SCH ×2 (08:56→21:14)
[2017-04-25] MEDS: SODIUM CHLORIDE 0.9% IVPB SCH ×2 (08:56→21:14)
[2017-04-25] MEDS: levETIRAcetam 500 MG in Sodium Chloride 0.9% 100 ML IVPB SCH ×2 (08:57→21:11)
--- NOTE | 2017-04-25 09:21 | CP.PCM.PN ---
Subjective - Date & Time of Evaluation Date of Evaluation: 04/25/17 Time of Evaluation: 09:19 - Subjective Subjective: Mr. Aguilar was seen and examined at the bedside in ICU. He remains on mechanical ventilation with GCS-4T. He response to pain stimuli with pinpoint pupils. There is no untoward events overnight. Objective - Vital Signs/Intake and Output Vital Signs (last 24 hours): Temp Pulse Resp BP Pulse Ox 98.9 F 60 14 185/57 H 100 04/25/17 08:00 04/25/17 09:13 04/25/17 08:00 04/25/17 09:13 04/25/17 08:00 Intake and Output: 04/25/17 04/25/17 06:59 18:59 Intake Total 1112 Output Total 350 Balance 762 - Medications Medications: Current Medications Acetaminophen (Tylenol 650mg/20.3ml Solution Ud) 650 mg PO Q6 PRN PRN Reason: Temperature Last Admin: 04/23/17 13:40 Dose: 650 mg Amlodipine Besylate (Norvasc) 10 mg PO DAILY [facility] Last Admin: 04/25/17 08:54 Dose: 10 mg Carvedilol (Coreg) 25 mg PO Q12 [facility] Last Admin: 04/25/17 08:52 Dose: 25 mg Clonidine HCl (Catapres) 0.2 mg PO BID [facility] Last Admin: 04/25/17 08:51 Dose: 0.2 mg Dextrose (Dextrose 50% Inj) 0 ml IV STAT PRN; Protocol PRN Reason: Hypoglycemia Protocol Dextrose (Glutose 15) 0 gm PO ONCE PRN; Protocol PRN Reason: Hypoglycemia Protocol Folic Acid (Folic Acid) 1 mg PO DAILY [facility] Last Admin: 04/25/17 08:53 Dose: 1 mg Glucagon (Glucagen Diagnostic Kit) 0 mg IM STAT PRN; Protocol PRN Reason: Hypoglycemia Protocol Vancomycin HCl 1 gm/ Sodium (Chloride) 250 mls @ 125 mls/hr IVPB TTS [facility] PRN Reason: Protocol Last Admin: 04/24/17 03:02 Dose: 125 mls/hr Valproate Sodium 750 mg/ (Sodium Chloride) 57.5 mls @ 0 mls/hr IVPB Q12 [facility] PRN Reason: As Directed Last Admin: 04/25/17 08:56 Dose: 57 mls/hr Levetiracetam 500 mg/ Sodium (Chloride) 105 mls @ 210 mls/hr IVPB Q12 [facility] Last Admin: 04/25/17 08:57 Dose: 210 mls/hr Piperacillin Sod/Tazobactam (Sod 2.25 gm/ Sodium Chloride) 50 mls @ 50 mls/hr IVPB Q8 [facility] PRN Reason: Protocol Last Admin: 04/25/17 09:00 Dose: 50 mls/hr Insulin Human Lispro (Humalog) 0 units SC Q6H [facility] PRN Reason: Protocol Last Admin: 04/25/17 05:21 Dose: 8 u Labetalol HCl (Trandate) 20 mg IVP Q6H PRN PRN Reason: for SBP > 180 Last Admin: 04/24/17 06:51 Dose: 20 mg Lacosamide (Vimpat) 100 mg PO BID [facility] Last Admin: 04/25/17 08:55 Dose: 100 mg Lorazepam (Ativan) 2 mg IVP Q6 [facility] Last Admin: 04/25/17 04:00 Dose: Not Given Metoprolol Tartrate (Lopressor) 5 mg IVP Q6 [facility] Last Admin: 04/25/17 09:13 Dose: 5 mg Pantoprazole Sodium (Protonix Inj) 40 mg IVP Q12 [facility] Last Admin: 04/25/17 08:54 Dose: 40 mg Thiamine HCl (Vitamin B1 Tab) 100 mg PO DAILY [facility] Last Admin: 04/25/17 08:56 Dose: 100 mg - Labs Labs: 04/25/17 04:20 04/25/17 04:20 PT 12.6 Seconds (9.8-13.1) 04/19/17 04:30 INR 1.1 (0.9-1.2) 04/19/17 04:30 APTT 29.2 Seconds (25.6-37.1) 04/18/17 23:07 - Constitutional Appears: No Acute Distress - Head Exam Head Exam: ATRAUMATIC - Neurological Exam Additional comments: GCS-4T Assessment and Plan (1) Hypoxic brain injury Assessment & Plan: Case discussed with Dr. Car, continue all current medical regimen, Repeat EEG today. Status: Acute
--- NOTE | 2017-04-25 09:28 | CP.PCM.PN ---
Subjective - Date & Time of Evaluation Date of Evaluation: 04/25/17 Time of Evaluation: 09:26 - Subjective Subjective: Patient remain on respiratory therapy. Not responsive, comatose. Vital signs noted Review of lab. Objective - Vital Signs/Intake and Output Vital Signs (last 24 hours): Temp Pulse Resp BP Pulse Ox 98.9 F 60 14 185/57 H 100 04/25/17 08:00 04/25/17 09:13 04/25/17 08:00 04/25/17 09:13 04/25/17 08:00 Intake and Output: 04/25/17 04/25/17 06:59 18:59 Intake Total 1112 Output Total 350 Balance 762 - Medications Medications: Current Medications Acetaminophen (Tylenol 650mg/20.3ml Solution Ud) 650 mg PO Q6 PRN PRN Reason: Temperature Last Admin: 04/23/17 13:40 Dose: 650 mg Amlodipine Besylate (Norvasc) 10 mg PO DAILY [facility] Last Admin: 04/25/17 08:54 Dose: 10 mg Carvedilol (Coreg) 25 mg PO Q12 [facility] Last Admin: 04/25/17 08:52 Dose: 25 mg Clonidine HCl (Catapres) 0.2 mg PO BID [facility] Last Admin: 04/25/17 08:51 Dose: 0.2 mg Dextrose (Dextrose 50% Inj) 0 ml IV STAT PRN; Protocol PRN Reason: Hypoglycemia Protocol Dextrose (Glutose 15) 0 gm PO ONCE PRN; Protocol PRN Reason: Hypoglycemia Protocol Folic Acid (Folic Acid) 1 mg PO DAILY [facility] Last Admin: 04/25/17 08:53 Dose: 1 mg Glucagon (Glucagen Diagnostic Kit) 0 mg IM STAT PRN; Protocol PRN Reason: Hypoglycemia Protocol Vancomycin HCl 1 gm/ Sodium (Chloride) 250 mls @ 125 mls/hr IVPB TTS [facility] PRN Reason: Protocol Last Admin: 04/24/17 03:02 Dose: 125 mls/hr Valproate Sodium 750 mg/ (Sodium Chloride) 57.5 mls @ 0 mls/hr IVPB Q12 [facility] PRN Reason: As Directed Last Admin: 04/25/17 08:56 Dose: 57 mls/hr Levetiracetam 500 mg/ Sodium (Chloride) 105 mls @ 210 mls/hr IVPB Q12 [facility] Last Admin: 04/25/17 08:57 Dose: 210 mls/hr Piperacillin Sod/Tazobactam (Sod 2.25 gm/ Sodium Chloride) 50 mls @ 50 mls/hr IVPB Q8 [facility] PRN Reason: Protocol Last Admin: 04/25/17 09:00 Dose: 50 mls/hr Insulin Human Lispro (Humalog) 0 units SC Q6H [facility] PRN Reason: Protocol Last Admin: 04/25/17 05:21 Dose: 8 u Labetalol HCl (Trandate) 20 mg IVP Q6H PRN PRN Reason: for SBP > 180 Last Admin: 04/24/17 06:51 Dose: 20 mg Lacosamide (Vimpat) 100 mg PO BID [facility] Last Admin: 04/25/17 08:55 Dose: 100 mg Lorazepam (Ativan) 2 mg IVP Q6 [facility] Last Admin: 04/25/17 04:00 Dose: Not Given Metoprolol Tartrate (Lopressor) 5 mg IVP Q6 [facility] Last Admin: 04/25/17 09:13 Dose: 5 mg Pantoprazole Sodium (Protonix Inj) 40 mg IVP Q12 [facility] Last Admin: 04/25/17 08:54 Dose: 40 mg Thiamine HCl (Vitamin B1 Tab) 100 mg PO DAILY [facility] Last Admin: 04/25/17 08:56 Dose: 100 mg - Labs Labs: 04/25/17 04:20 04/25/17 04:20 PT 12.6 Seconds (9.8-13.1) 04/19/17 04:30 INR 1.1 (0.9-1.2) 04/19/17 04:30 APTT 29.2 Seconds (25.6-37.1) 04/18/17 23:07 - Constitutional Appears: In Acute Distress - Respiratory Exam Respiratory Exam: absent: Chest Wall Tenderness - Cardiovascular Exam Cardiovascular Exam: absent: JVD, Rubs - GI/Abdominal Exam GI & Abdominal Exam: Soft - Extremities Exam Extremities Exam: absent: Calf Tenderness - Back Exam Back Exam: absent: CVA tenderness (L), CVA tenderness (R) - Psychiatric Exam Psychiatric exam: Flat Affect - Skin Skin Exam: absent: Cyanosis Assessment and Plan (1) Cardiac arrest Status: Acute (2) Flash pulmonary edema Status: Acute (3) ESRD (end stage renal disease) on dialysis Assessment & Plan: End stage renal disease on maintenance hemodialysis. Scheduled for hemodialysis for tomorrow and TTS. The rest of the problem as noted #2 status post cardiac arrest. #3 respiratory failure on ventilator. #4 anoxic encephalopathy. #5 alcohol intoxication on admission #6 hypertension which has been controlled with difficulties. On multiple medication and dialysis. #7 hyperphosphatemia and secondary hyperparathyroidism. Patient receiving hypothermic therapeutic for cardiac arrest. And also as per the primary team management. Dialysis to continue. Prognosis very poor. #8 anemia . EPO 10,000 units IV to be given on each hemodialysis #9 leukocytosis patient receiving antibiotics. Status: Chronic Status: Chronic (4) Acute respiratory failure Status: Acute (5) CHF exacerbation Status: Acute
[2017-04-25] MEDS ORDERED: Insulin Detemir 100 Units/ml Inj SC ONE (09:55)
--- NOTE | 2017-04-25 11:21 | CP.PCM.PN ---
Subjective - Date & Time of Evaluation Date of Evaluation: 04/25/17 Time of Evaluation: 11:15 - Subjective Subjective: Pt remains intubated on Vent Unresponsive Had low grade fever overnight no further seizure like activity this am tolerating tube feed Objective - Vital Signs/Intake and Output Vital Signs (last 24 hours): Temp Pulse Resp BP Pulse Ox 98.9 F 60 14 185/57 H 100 04/25/17 08:00 04/25/17 09:13 04/25/17 08:00 04/25/17 09:13 04/25/17 08:00 Intake and Output: 04/25/17 04/25/17 06:59 18:59 Intake Total 1112 Output Total 350 Balance 762 - Medications Medications: Current Medications Acetaminophen (Tylenol 650mg/20.3ml Solution Ud) 650 mg PO Q6 PRN PRN Reason: Temperature Last Admin: 04/23/17 13:40 Dose: 650 mg Amlodipine Besylate (Norvasc) 10 mg PO DAILY [facility] Last Admin: 04/25/17 08:54 Dose: 10 mg Carvedilol (Coreg) 25 mg PO Q12 [facility] Last Admin: 04/25/17 08:52 Dose: 25 mg Clonidine HCl (Catapres) 0.2 mg PO BID [facility] Last Admin: 04/25/17 08:51 Dose: 0.2 mg Dextrose (Dextrose 50% Inj) 0 ml IV STAT PRN; Protocol PRN Reason: Hypoglycemia Protocol Dextrose (Glutose 15) 0 gm PO ONCE PRN; Protocol PRN Reason: Hypoglycemia Protocol Folic Acid (Folic Acid) 1 mg PO DAILY [facility] Last Admin: 04/25/17 08:53 Dose: 1 mg Glucagon (Glucagen Diagnostic Kit) 0 mg IM STAT PRN; Protocol PRN Reason: Hypoglycemia Protocol Vancomycin HCl 1 gm/ Sodium (Chloride) 250 mls @ 125 mls/hr IVPB TTS [facility] PRN Reason: Protocol Last Admin: 04/24/17 03:02 Dose: 125 mls/hr Valproate Sodium 750 mg/ (Sodium Chloride) 57.5 mls @ 0 mls/hr IVPB Q12 [facility] PRN Reason: As Directed Last Admin: 04/25/17 08:56 Dose: 57 mls/hr Levetiracetam 500 mg/ Sodium (Chloride) 105 mls @ 210 mls/hr IVPB Q12 [facility] Last Admin: 04/25/17 08:57 Dose: 210 mls/hr Piperacillin Sod/Tazobactam (Sod 2.25 gm/ Sodium Chloride) 50 mls @ 50 mls/hr IVPB Q8 [facility] PRN Reason: Protocol Last Admin: 04/25/17 09:00 Dose: 50 mls/hr Potassium Chloride (Potassium Cl 10meq/50ml Sterile Water) 50 mls @ 50 mls/hr IVPB Q1 [facility] Stop: 04/25/17 11:59 Insulin Detemir (Levemir) 10 units SC HS [facility] Insulin Human Lispro (Humalog) 0 units SC Q6H [facility] PRN Reason: Protocol Last Admin: 04/25/17 05:21 Dose: 8 u Labetalol HCl (Trandate) 20 mg IVP Q6H PRN PRN Reason: for SBP > 180 Last Admin: 04/24/17 06:51 Dose: 20 mg Lacosamide (Vimpat) 100 mg PO BID [facility] Last Admin: 04/25/17 08:55 Dose: 100 mg Lorazepam (Ativan) 2 mg IVP Q6 [facility] Last Admin: 04/25/17 04:00 Dose: Not Given Metoprolol Tartrate (Lopressor) 5 mg IVP Q6 [facility] Last Admin: 04/25/17 09:13 Dose: 5 mg Pantoprazole Sodium (Protonix Inj) 40 mg IVP Q12 [facility] Last Admin: 04/25/17 08:54 Dose: 40 mg Thiamine HCl (Vitamin B1 Tab) 100 mg PO DAILY [facility] Last Admin: 04/25/17 08:56 Dose: 100 mg - Labs Labs: 04/25/17 04:20 04/25/17 04:20 PT 12.6 Seconds (9.8-13.1) 04/19/17 04:30 INR 1.1 (0.9-1.2) 04/19/17 04:30 APTT 29.2 Seconds (25.6-37.1) 04/18/17 23:07 - Constitutional Appears: Other (Pt is intubated on Vent) unresponsive - Head Exam Head Exam: NORMOCEPHALIC - Eye Exam Pupil Exam: Miosis - ENT Exam ENT Exam: Mucous Membranes Dry, Normal External Ear Exam - Respiratory Exam Respiratory Exam: Rales, Rhonchi Additional comments: Pt is intubated on Vent - Cardiovascular Exam Cardiovascular Exam: REGULAR RHYTHM, +S1, +S2 - GI/Abdominal Exam GI & Abdominal Exam: Distended, Normal Bowel Sounds - Extremities Exam Extremities Exam: Pedal Edema - Neurological Exam Additional comments: unresponsive even to pain - Skin Skin Exam: Dry, Normal Color, Warm Assessment and Plan - Assessment and Plan (Free Text) Assessment: 66 y/o male with PMHx significant for DM2, HTN, ESRD on M/W/F ESRD, and PVD brought in by EMS with cardiac arrest. Patient was brought in with resuscitation in progress. Per report, patient had been watching TV with friend and c/o CP. They called 911, and when the ambulance arrived, patient attempted to walk to [facility], but then became unresponsive and was found to be in cardiac arrest. CPR was initiated, patient received 3 epinephrines, 2 mg narcan. Supraglottic airway and IO line placed. In the ED, patient received bicarb injection and another epi . EKG was reviewed by cardiology who indicated no code heart needed. L femoral central line placed. Patient was admitted to ICU and hypothermia protocol was initiated . At present off hypothermia protocol, intubated on MV PRVC / AC mode not sedated but unresponsive, with seizure episodes .Neurology on consult. Repeat EEG showed seizure activity .As per neuro patient has anoxic brain injury and poor prognosis 1. Cardiac arrest unclear etiology Patient was intubated , sedated and was placed on hypothermia protocol initially . Remains on the Vent, unresponsive, comatose, not on pressors, BP elevated .No seizure activity noted last night At present on depakote,Keppra and Vimpat Cardiology consult appreciated Neurology consulted: poor prognosis , CT showed watershed infarcts and EEG showed slowing and some epileptiform spikes noted increased Depakote to 750 mg po Q12 and , started on Keppra and Vimpat 2. Anoxic Brain Injury poor prognosis Neurology consulted Continue Depakpote, Keppra , Vimpat and ativan PRN 3. Troponin Elevation mild Trop elevation, unlikely [place] prob related to CPR in pt with ESRD Cardio consulted Stable from the cardiology 4.ESRD on HD nephrology consulted continue HD - TTS 5. Myoclonic Jerks sign of poor prognosis Pt was on Versed drip initially now on Depakote, Keppra and Vimpat Neuro consulted EEG: epileptiform spikes noted 6. HTN uncontrolled Started Cardene drip initially and now off cont Coreg , Norvasc, labetaolol PRN increase Clonidine to 0.2 mg PO BID 7. DM type II on Insulin uncontrolled continue accuchecks and insulin coverage Nepro via OGT start Levemir 10 units q hs 8.Bilateral Pneumonia most likely aspiration Started on Vanco post HD and Zosyn renal dose Blood cultures : 1 out of 6 blood + for Staph coag neg wbc 16 k Repeat CXR showed no infiltrate 9. Anemia most likely anemia of acute illness with some upper GI bleed patient had coffee ground that resolved Hgb 9.5 today discontinued anticoagulation Continue protonix 40 mg IV q12 10.DVT prophylaxis SCD
--- NOTE | 2017-04-25 11:53 | RAD ---
PROCEDURE: CHEST RADIOGRAPH, 1 VIEW HISTORY: intubated COMPARISON: Multiple serial examinations preceding the most recent study: April 24, 2017. Time of the most recent examination: 05:09 FINDINGS: LUNGS: Clear. PLEURA: No pneumothorax or pleural fluid seen. CARDIOVASCULAR: No radiographic findings to suggest acute or significant cardiovascular disease. OSSEOUS STRUCTURES: No significant abnormalities. VISUALIZED UPPER ABDOMEN: Normal. OTHER FINDINGS: Stable satisfactory position of endotracheal tube, the tip within 3 cm of the torsten. Stable position of nasogastric tube in a decompressed stomach. IMPRESSION: No active pulmonary disease. Stable position of support apparatus. Overall, no interval change.
[2017-04-25] MEDS: Potassium CL 10 MEQ/50 ML 50 ML IVPB SCH ×2 (14:00→15:00)
--- NOTE | 2017-04-25 21:13 | PN ---
DATE: 04/25/2017 CRITICAL CARE PROGRESS NOTE LOCATION: The patient in ICU, bed 430. TIME SPENT: 35 minutes. SUBJECTIVE: Patient is seen and examined at the bedside. Remains intubated on AC 16, tidal volume of 500, FiO2 of 40%, PEEP of 5, not sedated. Remains unresponsive. Minimal grimace to painful stimuli. [place] Coma Scale around 4. No visible seizure activity noted currently. On Keppra and Depakote. PHYSICAL EXAMINATION: VITAL SIGNS: Temperature 99.1; heart rate 58, regular; blood pressure 128/53; mean arterial pressure 78; respiratory rate 16. HEAD, EYES, EARS, NOSE, AND THROAT: Pupils 2 to 3 mm, minimally reactive. No conjunctival reflex. No corneal reflex. Minimal gag reflex on deep suction and stimulation of the endotracheal tube. CURRENT MEDICATIONS: Tylenol 650 q. 6 p.r.n., Norvasc 10 mg NGT daily, Coreg 25 mg p.o./NGT q. 12, Catapres 0.2 mg p.o. twice daily, folic acid 1 mg daily, Levemir 10 units subcu bedtime, folic acid 1 mg daily, labetalol 20 mg IV q. 6, Vimpat 100 mg p.o. twice daily, Keppra 500 mg q. 12, Ativan 2 mg IV q. 6 p.r.n., Lopressor 5 mg IV q. 6, Zosyn 2.25 g IV q. 8, thiamin 100 mg daily, vancomycin 1 g three times a week with dialysis. IMPRESSION: 1. Neurological: Anoxic encephalopathy, myoclonic jerks status post cardiac arrest. Electroencephalogram consistent with seizure activity. Currently, no obvious seizure. On Depakote, Keppra, Vimpat, Ativan p.r.n. 2. Cardiac: Elevated troponin in the setting of cardiac arrest and end-stage renal disease. Cardiology on board. No further recommendation noted. 2. Pulmonary: Respiratory failure, on airway protection, on ventilator. 3. Hypertension: Controlled on current medications. 4. Endocrine: Diabetes mellitus type 2, on insulin based on Accu-Chek, regular plus basal insulin. 5. Infectious Disease: Bilateral suspected aspiration pneumonia, currently on vancomycin, Zosyn, dose adjusted for renal failure. 6. Hematology: Anemia, most likely secondary to chronic disease, noted to have recent coffee-ground emesis and guaiac-positive stool, this may suggest gastrointestinal loss. Anticoagulation on hold due to the coffee-ground emesis. PROGNOSIS: Remains guarded. Discussed with family members. Awaiting for further decision by family for terminal extubation and for hospice care. Dani Payan MD MTDD
[2017-04-25] MEDS ORDERED: Insulin Detemir 100 Units/ml Inj SC SCH (22:00)
[2017-04-25] MEDS: Labetalol 5mg/ml (4ml) IVP PRN (22:40)
[2017-04-26] MEDS: Piperacillin/Tazobact 2.25 GM in Sodium Chloride 0.9% 50 ML IVPB SCH ×3 (01:38→16:05)
[2017-04-26] MEDS: Metoprolol 1 mg/ml Inj IVP SCH ×4 (04:16→23:21)
[2017-04-26 05:11] LABS: ABG ALLEN TEST YES; ABG MECHANICAL RATE 16; ARTERIAL BLOOD GAS MODE A/C; ARTERIAL BLOOD GAS O2 CAPACITY 14.7 mL/dL (16-24); ARTERIAL BLOOD GAS O2 CONTENT 14.2 ML/dL (15-23); ARTERIAL BLOOD GAS PH 7.47 (7.35-7.45); ARTERIAL BLOOD GAS PO2 133 mm/Hg (80-100); ARTERIAL BLOOD HGB O2 SAT 96.1 % (95.0-98.0); ATERIAL BLOOD GAS PEEP 5; CARBOXYHEMOGLOBIN 0 % (0.5-1.5); HHB 3.4 % (0.0-5.0); METHEMOGLOBIN 0.5 % (0.0-3.0)
[2017-04-26 05:33] LABS: BASO % 0.3 % (0.0-2.0); EOS # 0.2 K/uL (0.0-0.7); HEMATOCRIT 32.1 % (35.0-51.0); LYMPH # 0.7 K/uL (1.0-4.3); LYMPH % 4.1 % (20.0-40.0); MEAN CELL VOLUME 86.8 fl (80.0-94.0); MEAN CORPUSCULAR HGB CONC 31.1 g/dL (33.0-37.0); MEAN PLATELET VOLUME 10.3 fl (7.2-11.7); MONO # 1.5 K/uL (0.0-0.8); MONO % 9.3 % (0.0-10.0); NEUT # 14.2 K/uL (1.8-7.0); NEUT % 85.3 % (50.0-75.0); PLATELET COUNT 304 K/uL (130-400); RED CELL DISTRIBUTION WIDTH 15.1 % (11.5-14.5); WHITE BLOOD COUNT 16.7 K/uL (4.8-10.8)
[2017-04-26 05:43] LABS: ALB/GLOB RATIO 1.1 (1.0-2.1); BILIRUBIN,TOTAL 0.4 mg/dl (0.2-1.3); CALCIUM 8.7 mg/dL (8.4-10.2); POTASSIUM 3.9 MMOL/L (3.6-5.0); TOTAL PROTEIN 6.7 G/DL (6.3-8.2)
[2017-04-26] MEDS: Insulin Lispro (humaLOG) 100 Units/ml Inj SC SCH ×4 (06:30→22:00)
[2017-04-26] MEDS: Labetalol 5mg/ml (4ml) IVP PRN (06:30)
--- NOTE | 2017-04-26 07:27 | RAD ---
HISTORY: intubated. COMPARISON: Frontal chest 04/25/2017. FINDINGS: Endotracheal tube and nasogastric tube are unchanged in position. LUNGS: No active pulmonary disease. PLEURA: No significant pleural effusion identified, no pneumothorax apparent. CARDIOVASCULAR: Normal. OSSEOUS STRUCTURES: No significant abnormalities. VISUALIZED UPPER ABDOMEN: Normal. OTHER FINDINGS: None. IMPRESSION: No interval acute cardiopulmonary disease appreciated.
[2017-04-26] MEDS: SODIUM CHLORIDE 0.9% IVPB SCH ×2 (08:23→20:07)
[2017-04-26] MEDS: VALPROATE IVPB SCH ×2 (08:23→20:07)
[2017-04-26] MEDS: levETIRAcetam 500 MG in Sodium Chloride 0.9% 100 ML IVPB SCH ×2 (08:25→20:09)
[2017-04-26] MEDS ORDERED: Insulin Detemir 100 Units/ml Inj SC SCH (08:34)
[2017-04-26] MEDS: LACOSAMIDE PO SCH (10:41)
--- NOTE | 2017-04-26 11:08 | CP.PCM.PN ---
Subjective - Date & Time of Evaluation Date of Evaluation: 04/26/17 Time of Evaluation: 09:45 - Subjective Subjective: Pt remains comatose Intubated on Vent Febrile - low grad fever pupils nonreactive Family at bedside , discussed poor prognosis Objective - Vital Signs/Intake and Output Vital Signs (last 24 hours): Temp Pulse Resp BP Pulse Ox 99.8 F H 61 16 112/42 L 100 04/26/17 08:00 04/26/17 10:00 04/26/17 10:00 04/26/17 10:00 04/26/17 10:00 Intake and Output: 04/26/17 04/26/17 06:59 18:59 Intake Total 540 435 Output Total 150 40 Balance 390 395 - Medications Medications: Current Medications Acetaminophen (Tylenol 650mg/20.3ml Solution Ud) 650 mg PO Q6 PRN PRN Reason: Temperature Last Admin: 04/23/17 13:40 Dose: 650 mg Amlodipine Besylate (Norvasc) 10 mg PO DAILY [facility] Last Admin: 04/26/17 08:26 Dose: 10 mg Carvedilol (Coreg) 25 mg PO Q12 [facility] Last Admin: 04/26/17 08:22 Dose: 25 mg Clonidine HCl (Catapres) 0.2 mg PO BID [facility] Last Admin: 04/26/17 08:22 Dose: 0.2 mg Dextrose (Dextrose 50% Inj) 0 ml IV STAT PRN; Protocol PRN Reason: Hypoglycemia Protocol Dextrose (Glutose 15) 0 gm PO ONCE PRN; Protocol PRN Reason: Hypoglycemia Protocol Folic Acid (Folic Acid) 1 mg PO DAILY [facility] Last Admin: 04/26/17 08:25 Dose: 1 mg Glucagon (Glucagen Diagnostic Kit) 0 mg IM STAT PRN; Protocol PRN Reason: Hypoglycemia Protocol Vancomycin HCl 1 gm/ Sodium (Chloride) 250 mls @ 125 mls/hr IVPB TTS [facility] PRN Reason: Protocol Last Admin: 04/24/17 03:02 Dose: 125 mls/hr Valproate Sodium 750 mg/ (Sodium Chloride) 57.5 mls @ 0 mls/hr IVPB Q12 [facility] PRN Reason: As Directed Last Admin: 04/26/17 08:23 Dose: 50 mls/hr Levetiracetam 500 mg/ Sodium (Chloride) 105 mls @ 210 mls/hr IVPB Q12 [facility] Last Admin: 04/26/17 08:25 Dose: 210 mls/hr Piperacillin Sod/Tazobactam (Sod 2.25 gm/ Sodium Chloride) 50 mls @ 50 mls/hr IVPB Q8 [facility] PRN Reason: Protocol Last Admin: 04/26/17 08:28 Dose: 50 mls/hr Insulin Detemir (Levemir) 18 units SC HS [facility] Insulin Human Lispro (Humalog) 0 units SC Q6H [facility] PRN Reason: Protocol Last Admin: 04/26/17 06:30 Dose: 8 u Labetalol HCl (Trandate) 20 mg IVP Q6H PRN PRN Reason: for SBP > 180 Last Admin: 04/26/17 06:30 Dose: 20 mg Lacosamide (Vimpat) 100 mg PO BID [facility] Last Admin: 04/26/17 10:41 Dose: 100 mg Metoprolol Tartrate (Lopressor) 5 mg IVP Q6 [facility] Last Admin: 04/26/17 09:05 Dose: 5 mg Pantoprazole Sodium (Protonix Inj) 40 mg IVP Q12 [facility] Last Admin: 04/26/17 08:26 Dose: 40 mg Thiamine HCl (Vitamin B1 Tab) 100 mg PO DAILY [facility] Last Admin: 04/26/17 08:26 Dose: 100 mg - Labs Labs: 04/26/17 04:20 04/26/17 04:20 PT 12.6 Seconds (9.8-13.1) 04/19/17 04:30 INR 1.1 (0.9-1.2) 04/19/17 04:30 APTT 29.2 Seconds (25.6-37.1) 04/18/17 23:07 - Constitutional Appears: Other (Pt is intubated on Vent) unresponsive , comatose - Head Exam Head Exam: NORMOCEPHALIC - Eye Exam Pupil Exam: Miosis, not reactive to light - ENT Exam ENT Exam: Mucous Membranes Dry, Normal External Ear Exam - Respiratory Exam Respiratory Exam: Rales, Rhonchi Additional comments: Pt is intubated on Vent - Cardiovascular Exam Cardiovascular Exam: REGULAR RHYTHM, +S1, +S2 - GI/Abdominal Exam GI & Abdominal Exam: Distended, Normal Bowel Sounds - Extremities Exam Extremities Exam: Pedal Edema - Neurological Exam Additional comments: unresponsive even to pain - Skin Skin Exam: Dry, Normal Color, Warm Assessment and Plan - Assessment and Plan (Free Text) Assessment: 66 y/o male with PMHx significant for DM2, HTN, ESRD on M/W/F ESRD, and PVD brought in by EMS with cardiac arrest. Patient was brought in with resuscitation in progress. Per report, patient had been watching TV with friend and c/o CP. They called 911, and when the ambulance arrived, patient attempted to walk to stretcher, but then became unresponsive and was found to be in cardiac arrest. CPR was initiated, patient received 3 epinephrines, 2 mg narcan. Supraglottic airway and IO line placed. In the ED, patient received Bicarb and another epi . EKG was reviewed by cardiology who indicated no code heart needed. L femoral central line placed. Patient was admitted to ICU and hypothermia protocol was initiated . At present off hypothermia protocol, intubated on MV PRVC / AC mode not sedated but unresponsive, with seizure episodes .Neurology on consult. Repeat EEG showed seizure activity .As per neuro patient has anoxic brain injury and poor prognosis 1. Cardiac arrest unclear etiology Patient was intubated , sedated and was placed on hypothermia protocol initially . Remains on the Vent, unresponsive, comatose, not on pressors, BP elevated .No seizure activity noted last night At present on depakote,Keppra and Vimpat Cardiology consult appreciated Neurology consulted: poor prognosis , CT showed watershed infarcts and EEG showed slowing and some epileptiform spikes noted increased Depakote to 750 mg po Q12 and , started on Keppra and Vimpat 2. Anoxic Brain Injury poor prognosis Neurology consulted Continue Depakpote, Keppra , Vimpat and ativan PRN 3. Troponin Elevation mild Trop elevation, unlikely [place] prob related to CPR in pt with ESRD Cardio consulted Stable from the cardiology 4.ESRD on HD nephrology consulted continue HD - TTS 5. Myoclonic Jerks/Seizure sign of poor prognosis Pt was on Versed drip initially now on Depakote, Keppra and Vimpat Neuro consulted EEG: epileptiform spikes noted 6. HTN uncontrolled Started Cardene drip initially and now off cont Coreg , Norvasc, labetaolol PRN increase Clonidine to 0.2 mg PO BID 7. DM type II on Insulin uncontrolled continue accuchecks and insulin coverage Nepro via OGT Increase Levemir 18 units q hs 8.Bilateral Pneumonia most likely aspiration Started on Vanco post HD and Zosyn renal dose Blood cultures : 1 out of 6 blood + for Staph coag neg Repeat CXR showed no infiltrate 9. Anemia most likely anemia of acute illness with some upper GI bleed patient had coffee ground that resolved Hgb 9.5 today discontinued anticoagulation Continue protonix 40 mg IV q12 10.DVT prophylaxis [facility]
[2017-04-26 11:46] LABS: EOSINOPHIL 1 % (0-7); METAMYELOCYTE 1 % (0-0); MYELOCYTE 2 % (0-0); NEUTROPHIL 81 % (42-75); TOTAL CELLS COUNTED 100
[2017-04-26 11:50] LABS: LARGE PLATELETS PRESENT; PLATELET CLUMPS PRESENT
--- NOTE | 2017-04-26 12:23 | CP.PCM.PN ---
Subjective - Date & Time of Evaluation Date of Evaluation: 04/26/17 Time of Evaluation: 12:19 - Subjective Subjective: Patient remain intubated and comatose. Family member at the bedside tube feeding. Vital sign noted. Objective - Vital Signs/Intake and Output Vital Signs (last 24 hours): Temp Pulse Resp BP Pulse Ox 99.8 F H 61 16 112/42 L 100 04/26/17 08:00 04/26/17 10:00 04/26/17 10:00 04/26/17 10:00 04/26/17 10:00 Intake and Output: 04/26/17 04/26/17 06:59 18:59 Intake Total 540 525 Output Total 150 60 Balance 390 465 - Medications Medications: Current Medications Acetaminophen (Tylenol 650mg/20.3ml Solution Ud) 650 mg PO Q6 PRN PRN Reason: Temperature Last Admin: 04/23/17 13:40 Dose: 650 mg Amlodipine Besylate (Norvasc) 10 mg PO DAILY [facility] Last Admin: 04/26/17 08:26 Dose: 10 mg Carvedilol (Coreg) 25 mg PO Q12 [facility] Last Admin: 04/26/17 08:22 Dose: 25 mg Clonidine HCl (Catapres) 0.2 mg PO BID [facility] Last Admin: 04/26/17 08:22 Dose: 0.2 mg Dextrose (Dextrose 50% Inj) 0 ml IV STAT PRN; Protocol PRN Reason: Hypoglycemia Protocol Dextrose (Glutose 15) 0 gm PO ONCE PRN; Protocol PRN Reason: Hypoglycemia Protocol Folic Acid (Folic Acid) 1 mg PO DAILY [facility] Last Admin: 04/26/17 08:25 Dose: 1 mg Glucagon (Glucagen Diagnostic Kit) 0 mg IM STAT PRN; Protocol PRN Reason: Hypoglycemia Protocol Vancomycin HCl 1 gm/ Sodium (Chloride) 250 mls @ 125 mls/hr IVPB TTS [facility] PRN Reason: Protocol Last Admin: 04/24/17 03:02 Dose: 125 mls/hr Valproate Sodium 750 mg/ (Sodium Chloride) 57.5 mls @ 0 mls/hr IVPB Q12 [facility] PRN Reason: As Directed Last Admin: 04/26/17 08:23 Dose: 50 mls/hr Levetiracetam 500 mg/ Sodium (Chloride) 105 mls @ 210 mls/hr IVPB Q12 [facility] Last Admin: 04/26/17 08:25 Dose: 210 mls/hr Piperacillin Sod/Tazobactam (Sod 2.25 gm/ Sodium Chloride) 50 mls @ 50 mls/hr IVPB Q8 [facility] PRN Reason: Protocol Last Admin: 04/26/17 08:28 Dose: 50 mls/hr Insulin Detemir (Levemir) 18 units SC HS [facility] Insulin Human Lispro (Humalog) 0 units SC Q6H [facility] PRN Reason: Protocol Last Admin: 04/26/17 11:56 Dose: 8 u Labetalol HCl (Trandate) 20 mg IVP Q6H PRN PRN Reason: for SBP > 180 Last Admin: 04/26/17 06:30 Dose: 20 mg Lacosamide (Vimpat) 100 mg PO BID [facility] Last Admin: 04/26/17 10:41 Dose: 100 mg Metoprolol Tartrate (Lopressor) 5 mg IVP Q6 [facility] Last Admin: 04/26/17 09:05 Dose: 5 mg Pantoprazole Sodium (Protonix Inj) 40 mg IVP Q12 [facility] Last Admin: 04/26/17 08:26 Dose: 40 mg Thiamine HCl (Vitamin B1 Tab) 100 mg PO DAILY [facility] Last Admin: 04/26/17 08:26 Dose: 100 mg - Labs Labs: 04/26/17 04:20 04/26/17 04:20 PT 12.6 Seconds (9.8-13.1) 04/19/17 04:30 INR 1.1 (0.9-1.2) 04/19/17 04:30 APTT 29.2 Seconds (25.6-37.1) 04/18/17 23:07 - Constitutional Appears: No Acute Distress - Eye Exam Eye Exam: Conjunctival injection - ENT Exam ENT Exam: Mucous Membranes Moist - Neck Exam Neck Exam: absent: Lymphadenopathy - Respiratory Exam Respiratory Exam: NORMAL BREATHING PATTERN. absent: Chest Wall Tenderness - Cardiovascular Exam Cardiovascular Exam: absent: JVD, Rubs - GI/Abdominal Exam GI & Abdominal Exam: Soft, Normal Bowel Sounds - Extremities Exam Extremities Exam: absent: Calf Tenderness - Back Exam Back Exam: absent: CVA tenderness (L), CVA tenderness (R) - Psychiatric Exam Psychiatric exam: Flat Affect - Skin Skin Exam: absent: Cyanosis Assessment and Plan (1) Cardiac arrest Status: Acute (2) Flash pulmonary edema Status: Acute (3) ESRD (end stage renal disease) on dialysis Assessment & Plan: End stage renal disease with a status post cardiac arrest. And comatose. Hemodialysis about to start I discussed the odor with the dialysis. Sodium bath 138 Potassium bath 2 mEq Bicarbonate bath 34 Ultrafiltration 2500 mL Prognosis poor. The rest of the problem as noted #2 status post cardiac arrest. #3 respiratory failure on ventilator. #4 anoxic encephalopathy. #5 alcohol intoxication on admission #6 hypertension which has been controlled with difficulties. On multiple medication and dialysis. #7 hyperphosphatemia and secondary hyperparathyroidism. Patient receiving hypothermic therapeutic for cardiac arrest. And also as per the primary team management. Dialysis to continue. Prognosis very poor. #8 anemia . EPO 10,000 units IV to be given on each hemodialysis #9 leukocytosis patient receiving antibiotics. Status: Chronic (4) Acute respiratory failure Status: Acute (5) CHF exacerbation Status: Acute
--- NOTE | 2017-04-26 12:41 | CP.PCM.PN ---
Subjective - Date & Time of Evaluation Date of Evaluation: 04/26/17 Time of Evaluation: 12:39 - Subjective Subjective: Mr. Aguilar was seen and examined today at bedside in the ICU. He continues to be unresponsive, with a condition best described as coma. There were no reported seizure-like movements overnight or this morning. Objective - Vital Signs/Intake and Output Vital Signs (last 24 hours): Temp Pulse Resp BP Pulse Ox 99.2 F 63 12 128/47 L 100 04/26/17 12:00 04/26/17 12:00 04/26/17 12:00 04/26/17 12:00 04/26/17 12:00 Intake and Output: 04/26/17 04/26/17 06:59 18:59 Intake Total 540 525 Output Total 150 60 Balance 390 465 - Medications Medications: Current Medications Acetaminophen (Tylenol 650mg/20.3ml Solution Ud) 650 mg PO Q6 PRN PRN Reason: Temperature Last Admin: 04/23/17 13:40 Dose: 650 mg Amlodipine Besylate (Norvasc) 10 mg PO DAILY [facility] Last Admin: 04/26/17 08:26 Dose: 10 mg Carvedilol (Coreg) 25 mg PO Q12 [facility] Last Admin: 04/26/17 08:22 Dose: 25 mg Clonidine HCl (Catapres) 0.2 mg PO BID [facility] Last Admin: 04/26/17 08:22 Dose: 0.2 mg Dextrose (Dextrose 50% Inj) 0 ml IV STAT PRN; Protocol PRN Reason: Hypoglycemia Protocol Dextrose (Glutose 15) 0 gm PO ONCE PRN; Protocol PRN Reason: Hypoglycemia Protocol Folic Acid (Folic Acid) 1 mg PO DAILY [facility] Last Admin: 04/26/17 08:25 Dose: 1 mg Glucagon (Glucagen Diagnostic Kit) 0 mg IM STAT PRN; Protocol PRN Reason: Hypoglycemia Protocol Vancomycin HCl 1 gm/ Sodium (Chloride) 250 mls @ 125 mls/hr IVPB TTS [facility] PRN Reason: Protocol Last Admin: 04/24/17 03:02 Dose: 125 mls/hr Valproate Sodium 750 mg/ (Sodium Chloride) 57.5 mls @ 0 mls/hr IVPB Q12 [facility] PRN Reason: As Directed Last Admin: 04/26/17 08:23 Dose: 50 mls/hr Levetiracetam 500 mg/ Sodium (Chloride) 105 mls @ 210 mls/hr IVPB Q12 [facility] Last Admin: 04/26/17 08:25 Dose: 210 mls/hr Piperacillin Sod/Tazobactam (Sod 2.25 gm/ Sodium Chloride) 50 mls @ 50 mls/hr IVPB Q8 [facility] PRN Reason: Protocol Last Admin: 04/26/17 08:28 Dose: 50 mls/hr Lacosamide 100 mg/ Sodium (Chloride) 110 mls @ 110 mls/hr IVPB BID [facility] Insulin Detemir (Levemir) 18 units SC HS [facility] Insulin Human Lispro (Humalog) 0 units SC Q6H [facility] PRN Reason: Protocol Last Admin: 04/26/17 11:56 Dose: 8 u Labetalol HCl (Trandate) 20 mg IVP Q6H PRN PRN Reason: for SBP > 180 Last Admin: 04/26/17 06:30 Dose: 20 mg Metoprolol Tartrate (Lopressor) 5 mg IVP Q6 [facility] Last Admin: 04/26/17 09:05 Dose: 5 mg Pantoprazole Sodium (Protonix Inj) 40 mg IVP Q12 [facility] Last Admin: 04/26/17 08:26 Dose: 40 mg Thiamine HCl (Vitamin B1 Tab) 100 mg PO DAILY [facility] Last Admin: 04/26/17 08:26 Dose: 100 mg - Labs Labs: 04/26/17 04:20 04/26/17 04:20 PT 12.6 Seconds (9.8-13.1) 04/19/17 04:30 INR 1.1 (0.9-1.2) 04/19/17 04:30 APTT 29.2 Seconds (25.6-37.1) 04/18/17 23:07 - Neurological Exam Additional comments: Neurologically unchanged compared with previous examination. Assessment and Plan (1) Hypoxic brain injury Assessment & Plan: At this point, the patient is not having seizures and he is off sedation with no meaningful response. I discussed the prognosis with the patient's daughter and informed the family that there is little hope of the patient recovering from this and having a meaningful life. Status: Acute
--- NOTE | 2017-04-26 14:38 | PCM.EEG ---
Electroencephalogram Report - Electroencephalogram Report Procedure Date: 04/25/17 Interpretation: Indication: Anoxic brain injury. Medications were reviewed. Technical: This is a digitally recorded electroencephalogram. The international 10-20 electrode placement system is used for scalp electrode placement. Eighteen channels of scalp EEG are recorded Another channel was used for for ECG. The data are stored digitally and reviewed in reformatted montages for optimal display. Diffuse Abnormality: No well formed alpha activity was seen. Mixed diffuse theta and delta activity was seen. Markedly suppressed EEG activity was observed. MInimal EEG activity was observed throughtout the recording. Focal abnormality: Periodic lateralized discharge was seen. This is seen over the Right hemisphere. Impression: This EEG is abnormal. Diffuse slowing is seen, suggestive of a diffuse abnormality of the brain. This finding is nonspecific, and can be seen in a diffuse or multifocal abnormality of the brain. Epileptiform discharge was seen. This can represent a potential seizure focus. Some focal slowing was seen , suggestive of a focal abnormality.
[2017-04-26] MEDS: Lacosamide 200mg/20ml 100 MG in Sodium Chloride 0.9% 100 ML IVPB SCH (16:05)
[2017-04-26] MEDS: Acetaminophen 650mg/20.3ml solution UD PO PRN (20:32)
--- NOTE | 2017-04-27 01:15 | PN ---
DATE: 04/26/2017 CRITICAL CARE PROGRESS NOTE LOCATION: The patient in ICU bed 430. TIME SPENT: 35 minutes. SUBJECTIVE: The patient is seen and evaluated at the bedside. Events since admission reviewed. Past medical, surgical and social history noted. Overnight, intubated on mechanically assisted ventilation, AC 16, tidal volume of 500, FiO2 of 40%, PEEP of 5. Remains unresponsive with no meaningful response to verbal or painful stimuli. Minimal grimace noted on the face. On AC/PRVC, rate 16, tidal volume of 500, FiO2 of 40%, PEEP 5, observed rate 16, observed tidal volume 480, minute ventilation 7.7 L, peak airway pressure 20. No visible seizure activity noted. PHYSICAL EXAMINATION: VITAL SIGNS: Temperature 99.2, heart rate 62, blood pressure 164/8, mean arterial pressure 93, respiratory rate 16, saturating 100%. Intake 540, output 150, positive balance 390, status post hemodialysis. HEAD, EYES, EARS, NOSE AND THROAT: Pupils midpoint reaction to light very poor, sluggish. No conjunctival reflex. No corneal reflex. No gag reflex. Questionable grimacing to pain. HEART: Rhythm regular. S1, S2 normal intensity. ABDOMEN: Bowel sounds are present. Soft. Liver and spleen not palpable. EXTREMITIES: Trace edema. NEUROLOGIC: No response to verbal stimuli. Questionable grimaces to pain. No visible jerks. No myoclonic jerks. Flaccid extremities. LABORATORY DATA: WBC 16.7, hemoglobin 10, hematocrit 32.1, platelet count of 304. ABG, pH 7.47, pCO2 of 32, pO2 of 133, oxygen saturation 96.6; on AC, 16, 500, 40, PEEP 5. SMA-7, sodium 139, potassium 3.9, chloride 99, CO2 of 23, blood urea nitrogen 84, creatinine 8, random glucose 374, calcium 8.7, total bilirubin 0.4, AST 55, ALT 47, alkaline phosphatase 55, total protein 6.7, albumin 3.5. EEG done on 04/25/2017, diffuse slowing is seen suggesting diffuse abnormality of the brain, diffuse multifocal abnormality of the brain, epileptiform discharge, questionable potential seizure focus, some focal slowing was seen suggestive for focal abnormality. CURRENT MEDICATIONS: Include Norvasc 10 mg p.o. daily, Tylenol 650 q.6h. p.r.n., Coreg 25 mg p.o. q.12h., Catapres 0.2 mg b.i.d., folic acid 1 mg daily, insulin Levemir 18 units subcu at bedtime, Humalog lispro based on sliding scale q.6h., labetalol 20 mg IV q.6h. p.r.n., Vimpat 100 mg twice daily, Keppra 500 mg twice daily, Lopressor 5 mg IV q.6h., Protonix 40 IV q.12h., Zosyn 2.25 g IV q.8h., thiamine 100 mg daily, valproate 750 mg q.12h., vancomycin 1 g 3 times a week with dialysis. IMPRESSION: 1. Neurological: Anoxic encephalopathy, comatose state, with no pupillary, corneal or conjunctivae reflex. No gag reflex on deep suction. Questionable grimaces to pain. Seen by Neurology consult. Appreciate recommendation. EEG nonspecific. 2. Cardiac: Elevated troponin the setting of cardiac arrest. End-stage renal disease. 3. Pulmonary. Respiratory failure, on mechanical ventilation for airway protection, suspected aspiration pneumonia, fluid overload secondary to renal failure; hypertension, improved control on current antihypertensive medications. 4. Endocrine. Diabetes mellitus type 2. Optimize control of blood sugar, maintain less than 180. On Levemir and regular insulin, based on Accu-Chek a.c. and at bedtime. 5. Infection: Bilateral suspected aspiration pneumonia, currently on vancomycin and Zosyn. 6. Hematology: Anemia of chronic disease secondary to chronic renal failure. Prognosis remains guarded. Aware of family discussion with neurologist, continue supportive care, hemodialysis. Dani Payan MD
[2017-04-27] MEDS: Piperacillin/Tazobact 2.25 GM in Sodium Chloride 0.9% 50 ML IVPB SCH ×3 (03:02→16:01)
[2017-04-27] MEDS: Metoprolol 1 mg/ml Inj IVP SCH ×4 (04:33→22:44)
[2017-04-27] MEDS: Insulin Lispro (humaLOG) 100 Units/ml Inj SC SCH ×4 (04:33→22:39)
[2017-04-27 05:04] LABS: ABG ALLEN TEST YES; ABG MECHANICAL RATE 16; ARTERIAL BLOOD GAS HCO3 29.6 mmol/L (21-28); ARTERIAL BLOOD GAS MODE A/C; ARTERIAL BLOOD GAS O2 CAPACITY 15.4 mL/dL (16-24); ARTERIAL BLOOD GAS O2 CONTENT 14.9 ML/dL (15-23); ARTERIAL BLOOD GAS PH 7.66 (7.35-7.45); ARTERIAL BLOOD GAS PO2 138 mm/Hg (80-100); ARTERIAL BLOOD HGB O2 SAT 96.4 % (95.0-98.0); ATERIAL BLOOD GAS PEEP 5; CARBOXYHEMOGLOBIN 0 % (0.5-1.5); HHB 3.3 % (0.0-5.0); METHEMOGLOBIN 0.3 % (0.0-3.0)
[2017-04-27 06:11] LABS: HEMATOCRIT 32.6 % (35.0-51.0); MEAN CELL VOLUME 86.2 fl (80.0-94.0); MEAN CORPUSCULAR HEMOGLOBIN 27.1 pg (27.0-31.0); MEAN CORPUSCULAR HGB CONC 31.5 g/dL (33.0-37.0); RED CELL DISTRIBUTION WIDTH 15.4 % (11.5-14.5); WHITE BLOOD COUNT 19.3 K/uL (4.8-10.8)
--- NOTE | 2017-04-27 06:13 | RAD ---
HISTORY: Intubated. COMPARISON: Multiple serial examinations preceding the most recent study: April 26, 2017. FINDINGS: LUNGS: No active pulmonary disease. PLEURA: No significant pleural effusion identified, no pneumothorax apparent. CARDIOVASCULAR: No radiographic findings to suggest acute or significant cardiovascular disease. OSSEOUS STRUCTURES: No significant abnormalities. VISUALIZED UPPER ABDOMEN: Normal. OTHER FINDINGS: Stable position of support apparatus including endotracheal tube and nasogastric tube. IMPRESSION: No active disease. No significant interval change compared to the prior examination(s).
[2017-04-27 06:25] LABS: CALCIUM 8.7 mg/dL (8.4-10.2); POTASSIUM 3.5 MMOL/L (3.6-5.0)
--- NOTE | 2017-04-27 07:28 | CP.PCM.PN ---
Subjective - Date & Time of Evaluation Date of Evaluation: 04/27/17 Time of Evaluation: 07:24 - Subjective Subjective: Mr. Aguilar was seen and examined at the bedside in ICU. He remains on mechanical ventilation, unresponsive to tactile stimuli.GCS-3T. According to the staff, the patient had a seizure-like activity last night. It started in his abdomen and upper extremities. At present, he does not have any myclonic/ jerky movements. Objective - Vital Signs/Intake and Output Vital Signs (last 24 hours): Temp Pulse Resp BP Pulse Ox 98.9 F 62 12 155/57 H 100 04/27/17 04:00 04/27/17 06:00 04/27/17 06:00 04/27/17 06:00 04/27/17 06:00 Intake and Output: 04/27/17 04/27/17 06:59 18:59 Intake Total 800 Output Total 100 Balance 700 - Medications Medications: Current Medications Acetaminophen (Tylenol 650mg/20.3ml Solution Ud) 650 mg PO Q6 PRN PRN Reason: Temperature Last Admin: 04/26/17 20:32 Dose: 650 mg Amlodipine Besylate (Norvasc) 10 mg PO DAILY [facility] Last Admin: 04/26/17 08:26 Dose: 10 mg Carvedilol (Coreg) 25 mg PO Q12 [facility] Last Admin: 04/27/17 01:11 Dose: 25 mg Clonidine HCl (Catapres) 0.2 mg PO BID [facility] Last Admin: 04/26/17 16:04 Dose: 0.2 mg Dextrose (Dextrose 50% Inj) 0 ml IV STAT PRN; Protocol PRN Reason: Hypoglycemia Protocol Dextrose (Glutose 15) 0 gm PO ONCE PRN; Protocol PRN Reason: Hypoglycemia Protocol Folic Acid (Folic Acid) 1 mg PO DAILY [facility] Last Admin: 04/26/17 08:25 Dose: 1 mg Glucagon (Glucagen Diagnostic Kit) 0 mg IM STAT PRN; Protocol PRN Reason: Hypoglycemia Protocol Hydralazine HCl (Apresoline) 25 mg NG TID [facility] Last Admin: 04/27/17 01:12 Dose: 25 mg Vancomycin HCl 1 gm/ Sodium (Chloride) 250 mls @ 125 mls/hr IVPB TTS [facility] PRN Reason: Protocol Last Admin: 04/27/17 01:14 Dose: 125 mls/hr Valproate Sodium 750 mg/ (Sodium Chloride) 57.5 mls @ 0 mls/hr IVPB Q12 [facility] PRN Reason: As Directed Last Admin: 04/26/17 20:07 Dose: 50 mls/hr Levetiracetam 500 mg/ Sodium (Chloride) 105 mls @ 210 mls/hr IVPB Q12 [facility] Last Admin: 04/26/17 20:09 Dose: 210 mls/hr Piperacillin Sod/Tazobactam (Sod 2.25 gm/ Sodium Chloride) 50 mls @ 50 mls/hr IVPB Q8 [facility] PRN Reason: Protocol Last Admin: 04/27/17 03:02 Dose: 50 mls/hr Lacosamide 100 mg/ Sodium (Chloride) 110 mls @ 110 mls/hr IVPB BID [facility] Last Admin: 04/26/17 16:05 Dose: 110 mls/hr Insulin Detemir (Levemir) 18 units SC HS [facility] Last Admin: 04/26/17 21:41 Dose: 18 units Insulin Human Lispro (Humalog) 0 units SC Q6H [facility] PRN Reason: Protocol Last Admin: 04/27/17 04:33 Dose: 4 units Labetalol HCl (Trandate) 20 mg IVP Q6H PRN PRN Reason: for SBP > 180 Last Admin: 04/26/17 06:30 Dose: 20 mg Metoprolol Tartrate (Lopressor) 5 mg IVP Q6 [facility] Last Admin: 04/27/17 04:33 Dose: 5 mg Pantoprazole Sodium (Protonix Inj) 40 mg IVP Q12 [facility] Last Admin: 04/26/17 20:15 Dose: 40 mg Thiamine HCl (Vitamin B1 Tab) 100 mg PO DAILY [facility] Last Admin: 04/26/17 08:26 Dose: 100 mg - Labs Labs: 04/27/17 05:40 04/27/17 05:40 PT 12.6 Seconds (9.8-13.1) 04/19/17 04:30 INR 1.1 (0.9-1.2) 04/19/17 04:30 APTT 29.2 Seconds (25.6-37.1) 04/18/17 23:07 - Constitutional Appears: No Acute Distress - Head Exam Head Exam: ATRAUMATIC - Eye Exam Pupil Exam: Miosis Additional comments: non reactive - Neurological Exam Additional comments: GCS-3T Assessment and Plan (1) Hypoxic brain injury Assessment & Plan: Case discussed with Dr. Car, previous EEG still showed seizure activity.Will do valproic level today and Ativan 1 mg IVP Q 6 PRN for seizures. Status: Acute
[2017-04-27] MEDS: VALPROATE IVPB SCH ×2 (08:34→20:10)
[2017-04-27] MEDS: SODIUM CHLORIDE 0.9% IVPB SCH ×2 (08:34→20:10)
[2017-04-27] MEDS: levETIRAcetam 500 MG in Sodium Chloride 0.9% 100 ML IVPB SCH ×2 (08:35→20:10)
[2017-04-27] MEDS ORDERED: Insulin Detemir 100 Units/ml Inj SC SCH (09:04)
[2017-04-27] MEDS: Lacosamide 200mg/20ml 100 MG in Sodium Chloride 0.9% 100 ML IVPB SCH ×2 (10:10→16:29)
[2017-04-27] MEDS ORDERED: Albumin Human 5% (12.5 gm/250 ml) IV ONE (11:11)
--- NOTE | 2017-04-27 11:35 | CP.PCM.PN ---
Subjective - Date & Time of Evaluation Date of Evaluation: 04/27/17 Time of Evaluation: 11:33 - Subjective Subjective: Patient remained comatose on the ventilator Blood pressure noted to be low suggest to hold all antihypertensive medication. Objective - Vital Signs/Intake and Output Vital Signs (last 24 hours): Temp Pulse Resp BP Pulse Ox 98.4 F 58 L 12 119/50 L 100 04/27/17 08:00 04/27/17 10:00 04/27/17 10:00 04/27/17 10:00 04/27/17 10:00 Intake and Output: 04/27/17 04/27/17 06:59 18:59 Intake Total 800 535 Output Total 100 10 Balance 700 525 - Medications Medications: Current Medications Acetaminophen (Tylenol 650mg/20.3ml Solution Ud) 650 mg PO Q6 PRN PRN Reason: Temperature Last Admin: 04/26/17 20:32 Dose: 650 mg Amlodipine Besylate (Norvasc) 10 mg PO DAILY [facility] Last Admin: 04/27/17 08:36 Dose: 10 mg Carvedilol (Coreg) 25 mg PO Q12 [facility] Last Admin: 04/27/17 08:34 Dose: 25 mg Dextrose (Dextrose 50% Inj) 0 ml IV STAT PRN; Protocol PRN Reason: Hypoglycemia Protocol Dextrose (Glutose 15) 0 gm PO ONCE PRN; Protocol PRN Reason: Hypoglycemia Protocol Folic Acid (Folic Acid) 1 mg PO DAILY [facility] [place] Last Admin: 04/27/17 08:35 Dose: 1 mg Glucagon (Glucagen Diagnostic Kit) 0 mg IM STAT PRN; Protocol PRN Reason: Hypoglycemia Protocol Hydralazine HCl (Apresoline) 25 mg NG TID [facility] [place] Last Admin: 04/27/17 08:33 Dose: 25 mg Vancomycin HCl 1 gm/ Sodium (Chloride) 250 mls @ 125 mls/hr IVPB TTS [facility] PRN Reason: Protocol Last Admin: 04/27/17 01:14 Dose: 125 mls/hr Valproate Sodium 750 mg/ (Sodium Chloride) 57.5 mls @ 0 mls/hr IVPB Q12 [facility] PRN Reason: As Directed Last Admin: 04/27/17 08:34 Dose: 50 mls/hr Levetiracetam 500 mg/ Sodium (Chloride) 105 mls @ 210 mls/hr IVPB Q12 [facility] Last Admin: 04/27/17 08:35 Dose: 210 mls/hr Piperacillin Sod/Tazobactam (Sod 2.25 gm/ Sodium Chloride) 50 mls @ 50 mls/hr IVPB Q8 [facility] [place] PRN Reason: Protocol Last Admin: 04/27/17 08:38 Dose: 50 mls/hr Lacosamide 100 mg/ Sodium (Chloride) 110 mls @ 110 mls/hr IVPB BID [facility] [place] Last Admin: 04/27/17 10:10 Dose: 110 mls/hr Insulin Detemir (Levemir) 22 units SC HS [facility] [place] Insulin Human Lispro (Humalog) 0 units SC Q6H [facility] PRN Reason: Protocol Last Admin: 04/27/17 04:33 Dose: 4 units Labetalol HCl (Trandate) 20 mg IVP Q6H PRN PRN Reason: for SBP > 180 Last Admin: 04/26/17 06:30 Dose: 20 mg Lorazepam (Ativan) 1 mg IVP Q6 PRN PRN Reason: Seizure activity Metoprolol Tartrate (Lopressor) 5 mg IVP Q6 [facility] [place] Last Admin: 04/27/17 09:00 Dose: 5 mg Pantoprazole Sodium (Protonix Inj) 40 mg IVP Q12 [facility] [place] Last Admin: 04/27/17 08:36 Dose: 40 mg Thiamine HCl (Vitamin B1 Tab) 100 mg PO DAILY [facility] [place] Last Admin: 04/27/17 08:36 Dose: 100 mg - Labs Labs: 04/27/17 05:40 04/27/17 05:40 PT 12.6 Seconds (9.8-13.1) 04/19/17 04:30 INR 1.1 (0.9-1.2) 04/19/17 04:30 APTT 29.2 Seconds (25.6-37.1) 04/18/17 23:07 - Constitutional Appears: No Acute Distress - ENT Exam ENT Exam: Mucous Membranes Moist - Neck Exam Neck Exam: absent: Lymphadenopathy - Respiratory Exam Respiratory Exam: absent: Chest Wall Tenderness - GI/Abdominal Exam GI & Abdominal Exam: Soft, Normal Bowel Sounds. absent: Guarding - Extremities Exam Extremities Exam: absent: Calf Tenderness - Back Exam Back Exam: absent: CVA tenderness (L), CVA tenderness (R) - Neurological Exam Neurological Exam: Altered Assessment and Plan (1) Cardiac arrest Status: Acute (2) Flash pulmonary edema Status: Acute (3) ESRD (end stage renal disease) on dialysis Assessment & Plan: END stage renal disease patient on dialysis he completed treatment yesterday. Heart both tension noted to hold antihypertensive medication and monitor. Prognosis poor. The rest of the problem as noted #2 status post cardiac arrest. #3 respiratory failure on ventilator. #4 anoxic encephalopathy. #5 alcohol intoxication on admission #6 hypertension which has been controlled with difficulties. On multiple medication and dialysis. #7 hyperphosphatemia and secondary hyperparathyroidism. Patient receiving hypothermic therapeutic for cardiac arrest. And also as per the primary team management. Dialysis to continue. Prognosis very poor. #8 anemia . EPO 10,000 units IV to be given on each hemodialysis #9 leukocytosis patient receiving antibiotics. Status: Chronic (4) Acute respiratory failure Status: Acute (5) CHF exacerbation Status: Acute
--- NOTE | 2017-04-27 12:26 | CP.PCM.PN ---
Subjective - Date & Time of Evaluation Date of Evaluation: 04/27/17 Time of Evaluation: 11:00 - Subjective Subjective: Febrile last night remains comatose, intubated on Vent no further seizure episode overnight tolerating tube feeding Objective - Vital Signs/Intake and Output Vital Signs (last 24 hours): Temp Pulse Resp BP Pulse Ox 98.2 F 56 L 13 101/46 L 100 04/27/17 12:00 04/27/17 12:00 04/27/17 12:00 04/27/17 12:00 04/27/17 12:00 Intake and Output: 04/27/17 04/27/17 06:59 18:59 Intake Total 800 625 Output Total 100 20 Balance 700 605 - Medications Medications: Current Medications Acetaminophen (Tylenol 650mg/20.3ml Solution Ud) 650 mg PO Q6 PRN PRN Reason: Temperature Last Admin: 04/26/17 20:32 Dose: 650 mg Amlodipine Besylate (Norvasc) 10 mg PO DAILY [facility] Last Admin: 04/27/17 08:36 Dose: 10 mg Carvedilol (Coreg) 25 mg PO Q12 [facility] Last Admin: 04/27/17 08:34 Dose: 25 mg Dextrose (Dextrose 50% Inj) 0 ml IV STAT PRN; Protocol PRN Reason: Hypoglycemia Protocol Dextrose (Glutose 15) 0 gm PO ONCE PRN; Protocol PRN Reason: Hypoglycemia Protocol Folic Acid (Folic Acid) 1 mg PO DAILY [facility] Last Admin: 04/27/17 08:35 Dose: 1 mg Glucagon (Glucagen Diagnostic Kit) 0 mg IM STAT PRN; Protocol PRN Reason: Hypoglycemia Protocol Hydralazine HCl (Apresoline) 25 mg NG TID [facility] Last Admin: 04/27/17 12:07 Dose: Not Given Valproate Sodium 750 mg/ (Sodium Chloride) 57.5 mls @ 0 mls/hr IVPB Q12 [facility] PRN Reason: As Directed Last Admin: 04/27/17 08:34 Dose: 50 mls/hr Levetiracetam 500 mg/ Sodium (Chloride) 105 mls @ 210 mls/hr IVPB Q12 [facility] Last Admin: 04/27/17 08:35 Dose: 210 mls/hr Piperacillin Sod/Tazobactam (Sod 2.25 gm/ Sodium Chloride) 50 mls @ 50 mls/hr IVPB Q8 [facility] PRN Reason: Protocol Last Admin: 04/27/17 08:38 Dose: 50 mls/hr Lacosamide 100 mg/ Sodium (Chloride) 110 mls @ 110 mls/hr IVPB BID [facility] Last Admin: 04/27/17 10:10 Dose: 110 mls/hr Vancomycin HCl 1 gm/ Dextrose 250 mls @ 125 mls/hr IVPB TTS [facility] PRN Reason: Protocol Insulin Detemir (Levemir) 22 units SC HS [facility] Insulin Human Lispro (Humalog) 0 units SC Q6H [facility] PRN Reason: Protocol Last Admin: 04/27/17 12:07 Dose: 6 units Labetalol HCl (Trandate) 20 mg IVP Q6H PRN PRN Reason: for SBP > 180 Last Admin: 04/26/17 06:30 Dose: 20 mg Lorazepam (Ativan) 1 mg IVP Q6 PRN PRN Reason: Seizure activity Metoprolol Tartrate (Lopressor) 5 mg IVP Q6 [facility] Last Admin: 04/27/17 09:00 Dose: 5 mg Pantoprazole Sodium (Protonix Inj) 40 mg IVP Q12 [facility] Last Admin: 04/27/17 08:36 Dose: 40 mg Thiamine HCl (Vitamin B1 Tab) 100 mg PO DAILY [facility] Last Admin: 04/27/17 08:36 Dose: 100 mg - Labs Labs: 04/27/17 05:40 04/27/17 05:40 PT 12.6 Seconds (9.8-13.1) 04/19/17 04:30 INR 1.1 (0.9-1.2) 04/19/17 04:30 APTT 29.2 Seconds (25.6-37.1) 04/18/17 23:07 - Constitutional Appears: Other (Pt is intubated on Vent) unresponsive , comatose - Head Exam Head Exam: NORMOCEPHALIC - Eye Exam Pupil Exam: Miosis, not reactive to light - ENT Exam ENT Exam: Mucous Membranes Dry, Normal External Ear Exam - Respiratory Exam Respiratory Exam: Rales, Rhonchi Additional comments: Pt is intubated on Vent - Cardiovascular Exam Cardiovascular Exam: REGULAR RHYTHM, +S1, +S2 - GI/Abdominal Exam GI & Abdominal Exam: Distended, Normal Bowel Sounds - Extremities Exam Extremities Exam: Pedal Edema - Neurological Exam Additional comments: unresponsive even to pain - Skin Skin Exam: Dry, Normal Color, Warm Assessment and Plan - Assessment and Plan (Free Text) Assessment: 66 y/o male with PMHx significant for DM2, HTN, ESRD on M/W/F ESRD, and PVD brought in by EMS with cardiac arrest. Patient was brought in with resuscitation in progress. Per report, patient had been watching TV with friend and c/o CP. They called 911, and when the ambulance arrived, patient attempted to walk to [facility], but then became unresponsive and was found to be in cardiac arrest. CPR was initiated, patient received 3 epinephrines, 2 mg narcan. Supraglottic airway and IO line placed. In the ED, patient received Bicarb and another epi . EKG was reviewed by cardiology who indicated no code heart needed. L femoral central line placed. Patient was admitted to ICU and hypothermia protocol was initiated . At present off hypothermia protocol, intubated on MV PRVC / AC mode not sedated but unresponsive, with seizure episodes .Neurology on consult. Repeat EEG showed seizure activity .As per neuro patient has anoxic brain injury and poor prognosis 1. Cardiac arrest unclear etiology Patient was intubated , sedated and was placed on hypothermia protocol initially . Remains on the Vent, unresponsive, comatose, not on pressors, BP elevated .No seizure activity noted last night At present on depakote,Keppra and Vimpat Cardiology consult appreciated Neurology consulted: poor prognosis , CT showed watershed infarcts and EEG showed slowing and some epileptiform spikes noted increased Depakote to 750 mg po Q12 and , started on Keppra and Vimpat 2. Anoxic Brain Injury poor prognosis Neurology consulted Continue Depakpote, Keppra , Vimpat and ativan PRN 3. Troponin Elevation mild Trop elevation, unlikely [place] prob related to CPR in pt with ESRD Cardio consulted Stable from the cardiology 4.ESRD on HD nephrology consulted continue HD - TTS 5. Myoclonic Jerks/Seizures sign of poor prognosis Pt was on Versed drip initially now on Depakote, Keppra and Vimpat Neuro consulted EEG: epileptiform spikes noted 6. HTN uncontrolled Started Cardene drip initially and now off cont Coreg , Norvasc, labetaolol PRN increased Clonidine to 0.2 mg PO BID and added Hydralazine 7. DM type II on Insulin uncontrolled continue accuchecks and insulin coverage Nepro via OGT Increase Levemir 22 units q hs 8.Bilateral Pneumonia most likely aspiration Started on Vanco post HD and Zosyn renal dose Blood cultures : 1 out of 6 blood + for Staph coag neg Repeat CXR showed no infiltrate 9. Anemia most likely anemia of acute illness with some upper GI bleed patient had coffee ground that resolved discontinued anticoagulation Continue protonix 40 mg IV q12 10.DVT prophylaxis SCD
--- NOTE | 2017-04-27 18:07 | CP.CCUPN ---
CCU Subjective - Physician Review Subjective (Free Text): Has been hypotensive today but responded to fluid / colloid challenge without resorting to vasopressors. Remains comatose, day #11 on MV support. Underwent course of HD yesterday with 2.6 L removed. Other vitals and I/O's reviewed. ROS: Unobtainable due to coma on the vent. No other pertinent negs or positives on 10+ system review. PMSFH: All other Nursing and physician documentation reviewed to date; no new pertinent info noted relevant to current medical problems. CXR: tip of ETT above torsten, clear lung paulino (my interp). IMPRESSION / MAJOR PROBLEMS NOW: 1. Cardiac Arrest, on MV support; s/p Therapeutic Hypothermia 2. Post Arrest Anoxic Encephalopathy, with new onset Seizure Disorder 3. Uncontrolled / Accelerated Hypertension 4. ESRD on HD 5. ETOH Intoxication on Hospital Admission PLAN: 1. Continue with Vimpat, Depakote and Keppra. 2. All antihypertensives on hold today. 3. Repeat Blood Cultures negative. Continue Zosyn / Vanco. 4. No decision yet from family regarding need for early tracheostomy, now Day # 11 MV. No feasibility for weans with obtundation / coma, unless family decides for terminal withdrawal from ventilator. CCU Objective - Vital Signs / Intake & Output Vital Signs (Last 4 hours): Vital Signs Temp Pulse BP Pulse Ox 17 16:00 98.2 F 62 114/50 L 100 Intake and Output (Last 8hrs): Intake & Output 04/27/1717 04/27/17 06:59 14:59 22:59 Intake Total 550 815 90 Output Total 100 20 0 Balance 450 795 90 Intake: Intake, Piggyback 350 300 Tube Feeding 315 90 Free Water Flush 200 200 Output: Urine 20 0 Urethral (Mckee) 20 0 Stool 100 - Physical Exam Physical Exam Limitations: Positive for: Altered Mental Status Head: Positive for: Atraumatic, Normocephalic Pupils: Positive for: PERRL, Sluggish, Pinpoint Extroacular Muscles: Positive for: EOMI. Negative for: Gaze Palsy Conjunctiva: Positive for: Normal. Negative for: Icteric Mouth: Positive for: Moist Mucous Membranes Neck: Positive for: Normal Range of Motion. Negative for: JVD Respiratory/Chest: Positive for: Clear to Auscultation, Decreased Breath Sounds. Negative for: Accessory Muscle Use, Wheezes Cardiovascular: Positive for: Regular Rate and Rhythm, Tachycardic. Negative for: Murmurs, Rub Abdomen: Positive for: Normal Bowel Sounds. Negative for: Tenderness, Distention, Mass/Organomegaly Lower Extremity: Positive for: NORMAL PULSES. Negative for: CALF TENDERNESS, Cyanosis Neurological: Positive for: Other (GCS= 4T (E1V1M2)) Skin: Positive for: Warm, Dry. Negative for: Rashes Psychiatric: Positive for: Lethargic - Medications Active Medications: Active Medications Generic Name Dose Route Start Last Admin Trade Name Freq PRN Reason Stop Dose Admin Acetaminophen 650 mg 04/21/17 08:04 04/26/17 20:32 Tylenol 650mg/20.3ml Solution Ud PO 650 mg Q6 PRN Administration Temperature Amlodipine Besylate 10 mg 04/24/17 09:00 04/27/17 08:36 Norvasc PO 10 mg DAILY [facility] Administration Carvedilol 25 mg 04/18/17 09:00 04/27/17 08:34 Coreg PO 25 mg Q12 [facility] Administration Dextrose 0 ml 04/17/17 23:41 Dextrose 50% Inj IV STAT PRN Hypoglycemia Protocol Protocol Dextrose 0 gm 04/17/17 23:41 Glutose 15 PO ONCE PRN Hypoglycemia Protocol Protocol Folic Acid 1 mg 04/21/17 09:00 04/27/17 08:35 Folic Acid PO 1 mg DAILY [facility] Administration Glucagon 0 mg 04/17/17 23:41 Glucagen Diagnostic Kit IM STAT PRN Hypoglycemia Protocol Protocol Hydralazine HCl 25 mg 04/26/17 17:00 04/27/17 16:01 Apresoline NG Not Given TID [facility] Valproate Sodium 750 mg/ 57.5 mls @ 0 mls/hr 04/22/17 09:00 04/27/17 08:34 Sodium Chloride IVPB 50 mls/hr Q12 [facility] Administration As Directed Levetiracetam 500 mg/ Sodium 105 mls @ 210 mls/hr 04/23/17 21:00 04/27/17 08: 35 Chloride IVPB 210 mls/hr Q12 [facility] Administration Piperacillin Sod/Tazobactam 50 mls @ 50 mls/hr 04/24/17 17:00 04/27/17 16:01 Sod 2.25 gm/ Sodium Chloride IVPB 50 mls/hr Q8 [facility] Administration Protocol Lacosamide 100 mg/ Sodium 110 mls @ 110 mls/hr 04/26/17 17:00 04/27/17 16:29 Chloride IVPB 110 mls/hr BID [facility] Administration Vancomycin HCl 1 gm/ Dextrose 250 mls @ 125 mls/hr 04/28/17 09:00 IVPB TTS [facility] Protocol Insulin Detemir 22 units 04/27/17 09:04 Levemir SC HS [facility] Insulin Human Lispro 0 units 04/22/17 05:00 04/27/17 16:51 Humalog SC 4 units Q6H [facility] Administration Protocol Labetalol HCl 20 mg 04/22/17 13:45 04/26/17 06:30 Trandate IVP 20 mg Q6H PRN Administration for SBP > 180 Lorazepam 1 mg 04/27/17 07:31 Ativan IVP Q6 PRN Seizure activity Metoprolol Tartrate 5 mg 04/20/17 22:00 04/27/17 16:02 Lopressor IVP Not Given Q6 [facility] Pantoprazole Sodium 40 mg 04/20/17 21:00 04/27/17 08:36 Protonix Inj IVP 40 mg Q12 [facility] Administration Thiamine HCl 100 mg 04/21/17 09:00 04/27/17 08:36 Vitamin B1 Tab PO 100 mg DAILY [facility] Administration - Patient Studies Lab Studies: Lab Studies 04/27/17 04/27/17 04/27/17 Range/Units 16:37 11:16 08:32 WBC (4.8-10.8) K/uL RBC (4.40-5.90) Mil/uL Hgb (12.0-18.0) g/dL Hct (35.0-51.0) % MCV (80.0-94.0) fl MCH (27.0-31.0) pg MCHC (33.0-37.0) g/dL RDW (11.5-14.5) % Plt Count (130-400) K/uL pCO2 (35-45) mm/Hg pO2 (80-100) mm/Hg HCO3 (21-28) mmol/L ABG pH (7.35-7.45) ABG Total CO2 (22-28) mmol/L ABG O2 Saturation (95-98) % ABG O2 Content (15-23) ML/dL ABG Base Excess (-2.0-3.0) mmol/L ABG Hemoglobin (11.7-17.4) g/dL ABG Carboxyhemoglobin (0.5-1.5) % POC ABG HHb (Measured) (0.0-5.0) % ABG Methemoglobin (0.0-3.0) % ABG O2 Capacity (16-24) mL/dL Scott Test A-a O2 Difference mm/Hg Hgb O2 Saturation (95.0-98.0) % Vent Mode Mechanical Rate FiO2 % Tidal Volume PEEP Crit Value Called To Crit Value Called By Crit Value Read Back Blood Gas Notified Time Sodium (132-148) mmol/l Potassium (3.6-5.0) MMOL/L Chloride (98-107) mmol/L Carbon Dioxide (22-30) mmol/L Anion Gap (10-20) BUN (9-20) mg/dl Creatinine (0.8-1.5) mg/dl Est GFR ( Amer) Est GFR (Non-Af Amer) POC Glucose (mg/dL) 276 H 334 H (65-110) mg/dL Random Glucose (75-110) mg/dL Calcium (8.4-10.2) mg/dL Valproic Acid 27.6 L (50.0-100.0) ug/mL 04/27/17 04/27/17 04/27/17 Range/Units 05:57 05:40 05:40 WBC 19.3 H (4.8-10.8) K/uL RBC 3.78 L (4.40-5.90) Mil/uL Hgb 10.3 L (12.0-18.0) g/dL Hct 32.6 L (35.0-51.0) % MCV 86.2 (80.0-94.0) fl MCH 27.1 (27.0-31.0) pg MCHC 31.5 L (33.0-37.0) g/dL RDW 15.4 H (11.5-14.5) % Plt Count 328 (130-400) K/uL pCO2 (35-45) mm/Hg pO2 (80-100) mm/Hg HCO3 (21-28) mmol/L ABG pH (7.35-7.45) ABG Total CO2 (22-28) mmol/L ABG O2 Saturation (95-98) % ABG O2 Content (15-23) ML/dL ABG Base Excess (-2.0-3.0) mmol/L ABG Hemoglobin (11.7-17.4) g/dL ABG Carboxyhemoglobin (0.5-1.5) % POC ABG HHb (Measured) (0.0-5.0) % ABG Methemoglobin (0.0-3.0) % ABG O2 Capacity (16-24) mL/dL Scott Test A-a O2 Difference mm/Hg Hgb O2 Saturation (95.0-98.0) % Vent Mode Mechanical Rate FiO2 % Tidal Volume PEEP Crit Value Called To Crit Value Called By Crit Value Read Back Blood Gas Notified Time Sodium 139 (132-148) mmol/l Potassium 3.5 L (3.6-5.0) MMOL/L Chloride 97 L (98-107) mmol/L Carbon Dioxide 29 (22-30) mmol/L Anion Gap 17 (10-20) BUN 52 H (9-20) mg/dl Creatinine 5.5 H (0.8-1.5) mg/dl Est GFR ( Amer) 13 Est GFR (Non-Af Amer) 10 POC Glucose (mg/dL) 267 H (65-110) mg/dL Random Glucose 265 H (75-110) mg/dL Calcium 8.7 (8.4-10.2) mg/dL Valproic Acid (50.0-100.0) ug/mL 04/27/17 04/27/17 04/26/17 Range/Units 05:00 03:09 21:08 WBC (4.8-10.8) K/uL RBC (4.40-5.90) Mil/uL Hgb (12.0-18.0) g/dL Hct (35.0-51.0) % MCV (80.0-94.0) fl MCH (27.0-31.0) pg MCHC (33.0-37.0) g/dL RDW (11.5-14.5) % Plt Count (130-400) K/uL pCO2 23 L (35-45) mm/Hg pO2 138 H (80-100) mm/Hg HCO3 29.6 H (21-28) mmol/L ABG pH 7.66 H* (7.35-7.45) ABG Total CO2 26.6 (22-28) mmol/L ABG O2 Saturation 96.7 (95-98) % ABG O2 Content 14.9 L (15-23) ML/dL ABG Base Excess 6.0 H (-2.0-3.0) mmol/L ABG Hemoglobin 10.8 L (11.7-17.4) g/dL ABG Carboxyhemoglobin 0 L (0.5-1.5) % POC ABG HHb (Measured) 3.3 (0.0-5.0) % ABG Methemoglobin 0.3 (0.0-3.0) % ABG O2 Capacity 15.4 L (16-24) mL/dL Scott Test Yes A-a O2 Difference 118.0 mm/Hg Hgb O2 Saturation 96.4 (95.0-98.0) % Vent Mode A/c Mechanical Rate 16 FiO2 40.0 % Tidal Volume 500 PEEP 5 Crit Value Called To Katie wiley rn Crit Value Called By [id number] Crit Value Read Back Y Blood Gas Notified Time 504 Sodium (132-148) mmol/l Potassium (3.6-5.0) MMOL/L Chloride (98-107) mmol/L Carbon Dioxide (22-30) mmol/L Anion Gap (10-20) BUN (9-20) mg/dl Creatinine (0.8-1.5) mg/dl Est GFR ( Amer) Est GFR (Non-Af Amer) POC Glucose (mg/dL) 287 H 333 H (65-110) mg/dL Random Glucose (75-110) mg/dL Calcium (8.4-10.2) mg/dL Valproic Acid (50.0-100.0) ug/mL Laboratory Results - last 24 hr 04/26/17 04/27/17 04/27/17 21:08 03:09 05:00 WBC RBC Hgb Hct MCV MCH MCHC RDW Plt Count pCO2 23 L pO2 138 H HCO3 29.6 H ABG pH 7.66 H* ABG Total CO2 26.6 ABG O2 Saturation 96.7 ABG O2 Content 14.9 L ABG Base Excess 6.0 H ABG Hemoglobin 10.8 L ABG Carboxyhemoglobin 0 L POC ABG HHb (Measured) 3.3 ABG Methemoglobin 0.3 ABG O2 Capacity 15.4 L Scott Test Yes A-a O2 Difference 118.0 Hgb O2 Saturation 96.4 Vent Mode A/c Mechanical Rate 16 FiO2 40.0 Tidal Volume 500 PEEP 5 Crit Value Called To Katie wiley rn Crit Value Called By [id number] Crit Value Read Back Y Blood Gas Notified Time 504 Sodium Potassium Chloride Carbon Dioxide Anion Gap BUN Creatinine Est GFR ( Amer) Est GFR (Non-Af Amer) POC Glucose (mg/dL) 333 H 287 H Random Glucose Calcium Valproic Acid 04/27/17 04/27/17 04/27/17 05:40 05:40 05:57 WBC 19.3 H RBC 3.78 L Hgb 10.3 L Hct 32.6 L MCV 86.2 MCH 27.1 MCHC 31.5 L RDW 15.4 H Plt Count 328 pCO2 pO2 HCO3 ABG pH ABG Total CO2 ABG O2 Saturation ABG O2 Content ABG Base Excess ABG Hemoglobin ABG Carboxyhemoglobin POC ABG HHb (Measured) ABG Methemoglobin ABG O2 Capacity Scott Test A-a O2 Difference Hgb O2 Saturation Vent Mode Mechanical Rate FiO2 Tidal Volume PEEP Crit Value Called To Crit Value Called By Crit Value Read Back Blood Gas Notified Time Sodium 139 Potassium 3.5 L Chloride 97 L Carbon Dioxide 29 Anion Gap 17 BUN 52 H Creatinine 5.5 H Est GFR ( Amer) 13 Est GFR (Non-Af Amer) 10 POC Glucose (mg/dL) 267 H Random Glucose 265 H Calcium 8.7 Valproic Acid 04/27/17 04/27/17 04/27/17 08:32 11:16 16:37 WBC RBC Hgb Hct MCV MCH MCHC RDW Plt Count pCO2 pO2 HCO3 ABG pH ABG Total CO2 ABG O2 Saturation ABG O2 Content ABG Base Excess ABG Hemoglobin ABG Carboxyhemoglobin POC ABG HHb (Measured) ABG Methemoglobin ABG O2 Capacity Scott Test A-a O2 Difference Hgb O2 Saturation Vent Mode Mechanical Rate FiO2 Tidal Volume PEEP Crit Value Called To Crit Value Called By Crit Value Read Back Blood Gas Notified Time Sodium Potassium Chloride Carbon Dioxide Anion Gap BUN Creatinine Est GFR ( Amer) Est GFR (Non-Af Amer) POC Glucose (mg/dL) 334 H 276 H Random Glucose Calcium Valproic Acid 27.6 L Fingerstick Blood Sugar Results: 276 Review of Systems - Review of Systems Systems not reviewed;Unavailable: Altered Mental Status Critical Care Progress Note - Ventilator Checklist Head of Bed 30 Degrees: Yes Daily Sedation Vacation: No (on no sedatives) Daily Assessment of Readiness to Wean: No (not done due to coma) Daily Spontaneous Breathing Trial: No (not done due to coma) PUD Prophalyxis: Yes DVT Prophylaxis: Yes Oral Care with Chlorhexidine Gluconate {CHG}: Yes - Vent Settings MODE:: ASSIST CONTROL TIDAL VOLUME:: 5000 RESP RATE:: 12 FIO2:: 40 - Extremities/Vascular Does the Patient have a Central Venous Catheter?: Yes Does the Patient need a Central Venous Catheter?: Yes Does the Patient have a Mckee Catheter?: Yes Does the Patient need a Mckee Catheter?: Yes Catheter Insertion Criteria: Need for accurate measurement of output in critically ill patient - Prophylaxis GI Prophylaxis GI: PPI - Prophylaxis DVT Prophylaxis DVT: SCDs
[2017-04-28] MEDS: Labetalol 5mg/ml (4ml) IVP PRN ×2 (00:15→05:26)
[2017-04-28] MEDS: Piperacillin/Tazobact 2.25 GM in Sodium Chloride 0.9% 50 ML IVPB SCH ×3 (01:08→16:32)
[2017-04-28] MEDS: Metoprolol 1 mg/ml Inj IVP SCH ×3 (04:02→16:31)
[2017-04-28] MEDS: Insulin Lispro (humaLOG) 100 Units/ml Inj SC SCH ×3 (04:02→16:30)
[2017-04-28 05:10] LABS: ABG ALLEN TEST YES; ABG MECHANICAL RATE 12; ARTERIAL BLOOD GAS HCO3 26.5 mmol/L (21-28); ARTERIAL BLOOD GAS MODE A/C; ARTERIAL BLOOD GAS O2 CAPACITY 14.5 mL/dL (16-24); ARTERIAL BLOOD GAS PH 7.49 (7.35-7.45); ARTERIAL BLOOD GAS PO2 177 mm/Hg (80-100); ATERIAL BLOOD GAS PEEP 5; CARBOXYHEMOGLOBIN 0 % (0.5-1.5); HHB 3.4 % (0.0-5.0); METHEMOGLOBIN 0.6 % (0.0-3.0)
[2017-04-28 05:25] LABS: MEAN CELL VOLUME 87.6 fl (80.0-94.0); MEAN CORPUSCULAR HEMOGLOBIN 27.7 pg (27.0-31.0); MEAN CORPUSCULAR HGB CONC 31.6 g/dL (33.0-37.0); RED CELL DISTRIBUTION WIDTH 15.4 % (11.5-14.5); WHITE BLOOD COUNT 18.8 K/uL (4.8-10.8)
[2017-04-28 05:55] LABS: CALCIUM 8.3 mg/dL (8.4-10.2); POTASSIUM 3.5 MMOL/L (3.6-5.0)
[2017-04-28] MEDS: levETIRAcetam 500 MG in Sodium Chloride 0.9% 100 ML IVPB SCH (08:10)
[2017-04-28] MEDS: SODIUM CHLORIDE 0.9% IVPB SCH (08:11)
[2017-04-28] MEDS: VALPROATE IVPB SCH (08:11)
--- NOTE | 2017-04-28 08:22 | CP.PCM.PN ---
Subjective - Date & Time of Evaluation Date of Evaluation: 04/28/17 Time of Evaluation: 08:18 - Subjective Subjective: Mr. Aguilar was seen and examined at the bedside in ICU. He remains on mechanical ventilation and an OGT for feeding. He has GCS-3T. He remains unresponsive to pain stimuli and with pinpoint pupils. Family at bedside and updated them with his condition from neurology. The daughter is requesting a second opinion for him. The Search Planner and Hospitalist made aware. There was no untoward events overnight. Objective - Vital Signs/Intake and Output Vital Signs (last 24 hours): Temp Pulse Resp BP Pulse Ox 98.5 F 59 L 15 151/55 H 100 04/28/17 04:00 04/28/17 08:09 04/28/17 06:00 04/28/17 08:09 04/28/17 06:00 Intake and Output: 04/28/17 04/28/17 06:59 18:59 Intake Total 1100 90 Output Total 130 Balance 970 90 - Medications Medications: Current Medications Acetaminophen (Tylenol 650mg/20.3ml Solution Ud) 650 mg PO Q6 PRN PRN Reason: Temperature Last Admin: 04/26/17 20:32 Dose: 650 mg Amlodipine Besylate (Norvasc) 10 mg PO DAILY [facility] Last Admin: 04/28/17 08:09 Dose: 10 mg Carvedilol (Coreg) 25 mg PO Q12 [facility] Last Admin: 04/28/17 08:08 Dose: 25 mg Dextrose (Dextrose 50% Inj) 0 ml IV STAT PRN; Protocol PRN Reason: Hypoglycemia Protocol Dextrose (Glutose 15) 0 gm PO ONCE PRN; Protocol PRN Reason: Hypoglycemia Protocol Folic Acid (Folic Acid) 1 mg PO DAILY [facility] Last Admin: 04/28/17 08:08 Dose: 1 mg Glucagon (Glucagen Diagnostic Kit) 0 mg IM STAT PRN; Protocol PRN Reason: Hypoglycemia Protocol Hydralazine HCl (Apresoline) 25 mg NG TID [facility] Last Admin: 04/28/17 08:07 Dose: 25 mg Valproate Sodium 750 mg/ (Sodium Chloride) 57.5 mls @ 0 mls/hr IVPB Q12 [facility] PRN Reason: As Directed Last Admin: 04/28/17 08:11 Dose: 50 mls/hr Levetiracetam 500 mg/ Sodium (Chloride) 105 mls @ 210 mls/hr IVPB Q12 [facility] Last Admin: 04/28/17 08:10 Dose: 210 mls/hr Piperacillin Sod/Tazobactam (Sod 2.25 gm/ Sodium Chloride) 50 mls @ 50 mls/hr IVPB Q8 [facility] PRN Reason: Protocol Last Admin: 04/28/17 08:11 Dose: 50 mls/hr Lacosamide 100 mg/ Sodium (Chloride) 110 mls @ 110 mls/hr IVPB BID [facility] Last Admin: 04/27/17 16:29 Dose: 110 mls/hr Vancomycin HCl 1 gm/ Dextrose 250 mls @ 125 mls/hr IVPB TTS [facility] PRN Reason: Protocol Insulin Detemir (Levemir) 22 units SC HS [facility] Last Admin: 04/27/17 22:39 Dose: 22 units Insulin Human Lispro (Humalog) 0 units SC Q6H [facility] PRN Reason: Protocol Last Admin: 04/28/17 04:02 Dose: 6 units Labetalol HCl (Trandate) 20 mg IVP Q6H PRN PRN Reason: for SBP > 180 Last Admin: 04/28/17 05:26 Dose: 20 mg Lorazepam (Ativan) 1 mg IVP Q6 PRN PRN Reason: Seizure activity Last Admin: 04/28/17 05:09 Dose: 1 mg Metoprolol Tartrate (Lopressor) 5 mg IVP Q6 [facility] Last Admin: 04/28/17 04:02 Dose: 5 mg Thiamine HCl (Vitamin B1 Tab) 100 mg PO DAILY [facility] Last Admin: 04/28/17 08:09 Dose: 100 mg - Labs Labs: 04/28/17 04:20 04/28/17 04:20 PT 12.6 Seconds (9.8-13.1) 04/19/17 04:30 INR 1.1 (0.9-1.2) 04/19/17 04:30 APTT 29.2 Seconds (25.6-37.1) 04/18/17 23:07 - Constitutional Appears: No Acute Distress - Head Exam Head Exam: ATRAUMATIC - Eye Exam Pupil Exam: Miosis - Neurological Exam Neuro motor strength exam: Left Upper Extremity: 0, Right Upper Extremity: 0, Left Lower Extremity: 0, Right Lower Extremity: 0 Additional comments: GCS-3T Assessment and Plan (1) Hypoxic brain injury Assessment & Plan: Case dsicussed with Dr. Car, will monitor depakote level. Continue with current medical regimen. Status: Acute
--- NOTE | 2017-04-28 08:57 | CP.CCUPN ---
CCU Subjective - Physician Review Subjective (Free Text): Still exhibiting intermittent seizure activity despite triple AED therapy. Has been hypotensive yesterday, but responded to fluid / colloid challenge without resorting to vasopressors. BP levels now trending higher again. Remains comatose , day #12 on MV support. Other vitals and I/O's reviewed. ROS: Unobtainable due to coma on the vent. No other pertinent negs or positives on 10+ system review. PMSFH: All other Nursing and physician documentation reviewed to date; no new pertinent info noted relevant to current medical problems. CXR: ETT tip position OK above torsten, clear lung paulino bilaterally (my interp). IMPRESSION / MAJOR PROBLEMS NOW: 1. Cardiac Arrest, on MV support; s/p Therapeutic Hypothermia 2. Post Arrest Anoxic Encephalopathy, with new onset Seizure Disorder 3. Uncontrolled / Accelerated Hypertension 4. ESRD on HD 5. ETOH Intoxication on Hospital Admission PLAN: 1. Continue with Vimpat, Depakote and Keppra. Consider checking drug levels or as directed by Neuro. 2. Cautious resumption of antihypertensives, try to avoid excessive BP lowering. 3. Repeat Blood Cultures negative. Continue Zosyn / Vanco. 4. No decision yet from family regarding need for early tracheostomy, now Day # 11 MV. No feasibility for weans with obtundation / coma, unless family decides for terminal withdrawal from ventilator. Family has also mentioned a request for 2nd opinions from all consultants and requesting transfer to another hospital. will discuss with PMD. CCU Objective - Vital Signs / Intake & Output Vital Signs (Last 4 hours): Vital Signs Pulse Resp BP Pulse Ox 04/28/17 06:00 58 L 15 162/60 H 100 04/28/17 04:02 62 157/54 H Intake and Output (Last 8hrs): Intake & Output 04/27/17 04/28/17 04/28/17 22:59 06:59 14:59 Intake Total 680 850 Output Total 0 130 Balance 680 720 Intake: IV 100 Intake, Piggyback 300 50 Tube Feeding 180 500 Free Water Flush 200 200 Output: Urine 0 130 Urethral (Mckee) 0 130 - Physical Exam Physical Exam Limitations: Positive for: Altered Mental Status Head: Positive for: Atraumatic, Normocephalic Pupils: Positive for: PERRL, Sluggish, Pinpoint Extroacular Muscles: Positive for: EOMI. Negative for: Gaze Palsy Conjunctiva: Positive for: Normal. Negative for: Icteric Mouth: Positive for: Moist Mucous Membranes Neck: Positive for: Normal Range of Motion. Negative for: JVD Respiratory/Chest: Positive for: Clear to Auscultation, Decreased Breath Sounds. Negative for: Accessory Muscle Use, Wheezes Cardiovascular: Positive for: Regular Rate and Rhythm, Tachycardic. Negative for: Murmurs, Rub Abdomen: Positive for: Normal Bowel Sounds. Negative for: Tenderness, Distention, Mass/Organomegaly Lower Extremity: Positive for: NORMAL PULSES. Negative for: CALF TENDERNESS, Cyanosis Neurological: Positive for: Other (GCS= 4T (E1V1M2)) Skin: Positive for: Warm, Dry. Negative for: Rashes Psychiatric: Positive for: Lethargic - Medications Active Medications: Active Medications Generic Name Dose Route Start Last Admin Trade Name Freq PRN Reason Stop Dose Admin Acetaminophen 650 mg 04/21/17 08:04 04/26/17 20:32 Tylenol 650mg/20.3ml Solution Ud PO 650 mg Q6 PRN Administration Temperature Amlodipine Besylate 10 mg 04/24/17 09:00 04/27/17 08:36 Norvasc PO 10 mg DAILY [facility] Administration Carvedilol 25 mg 04/18/17 09:00 04/27/17 20:08 Coreg PO 25 mg Q12 [facility]NEY Administration Dextrose 0 ml 04/17/17 23:41 Dextrose 50% Inj IV STAT PRN Hypoglycemia Protocol Protocol Dextrose 0 gm 04/17/17 23:41 Glutose 15 PO ONCE PRN Hypoglycemia Protocol Protocol Folic Acid 1 mg 04/21/17 09:00 04/27/17 08:35 Folic Acid PO 1 mg DAILY [facility] Administration Glucagon 0 mg 04/17/17 23:41 Glucagen Diagnostic Kit IM STAT PRN Hypoglycemia Protocol Protocol Hydralazine HCl 25 mg 04/26/17 17:00 04/27/17 16:01 Apresoline NG Not Given TID BARNEY Valproate Sodium 750 mg/ 57.5 mls @ 0 mls/hr 04/22/17 09:00 04/27/17 20:10 Sodium Chloride IVPB 50 mls/hr Q12 [facility]NEY Administration As Directed Levetiracetam 500 mg/ Sodium 105 mls @ 210 mls/hr 04/23/17 21:00 04/27/17 20: 10 Chloride IVPB 210 mls/hr Q12 [facility] Administration Piperacillin Sod/Tazobactam 50 mls @ 50 mls/hr 04/24/17 17:00 04/28/17 01:08 Sod 2.25 gm/ Sodium Chloride IVPB 50 mls/hr Q8 [facility] Administration Protocol Lacosamide 100 mg/ Sodium 110 mls @ 110 mls/hr 04/26/17 17:00 04/27/17 16:29 Chloride IVPB 110 mls/hr BID [facility] Administration Vancomycin HCl 1 gm/ Dextrose 250 mls @ 125 mls/hr 04/28/17 09:00 IVPB TTS [facility] Protocol Insulin Detemir 22 units 04/27/17 09:04 04/27/17 22:39 Levemir SC 22 units HS [facility] Administration Insulin Human Lispro 0 units 04/22/17 05:00 04/28/17 04:02 Humalog SC 6 units Q6H [facility] Administration Protocol Labetalol HCl 20 mg 04/22/17 13:45 04/28/17 05:26 Trandate IVP 20 mg Q6H PRN Administration for SBP > 180 Lorazepam 1 mg 04/27/17 07:31 04/28/17 05:09 Ativan IVP 1 mg Q6 PRN Administration Seizure activity Metoprolol Tartrate 5 mg 04/20/17 22:00 04/28/17 04:02 Lopressor IVP 5 mg Q6 [facility] Administration Thiamine HCl 100 mg 04/21/17 09:00 04/27/17 08:36 Vitamin B1 Tab PO 100 mg DAILY [facility] Administration - Patient Studies Lab Studies: Lab Studies 04/28/17 04/28/17 04/28/17 Range/Units 05:08 04:20 04:20 WBC 18.8 H (4.8-10.8) K/uL RBC 2.97 L (4.40-5.90) Mil/uL Hgb 8.2 L D (12.0-18.0) g/dL Hct 26.0 L (35.0-51.0) % MCV 87.6 (80.0-94.0) fl MCH 27.7 (27.0-31.0) pg MCHC 31.6 L (33.0-37.0) g/dL RDW 15.4 H (11.5-14.5) % Plt Count 373 (130-400) K/uL pCO2 33 L (35-45) mm/Hg pO2 177 H (80-100) mm/Hg HCO3 26.5 (21-28) mmol/L ABG pH 7.49 H (7.35-7.45) ABG Total CO2 26.1 (22-28) mmol/L ABG O2 Saturation 96.6 (95-98) % ABG O2 Content 14.0 L (15-23) ML/dL ABG Base Excess 2.0 (-2.0-3.0) mmol/L ABG Hemoglobin 10.1 L (11.7-17.4) g/dL ABG Carboxyhemoglobin 0 L (0.5-1.5) % POC ABG HHb (Measured) 3.4 (0.0-5.0) % ABG Methemoglobin 0.6 (0.0-3.0) % ABG O2 Capacity 14.5 L (16-24) mL/dL Scott Test Yes A-a O2 Difference 67.0 mm/Hg Hgb O2 Saturation 96.0 (95.0-98.0) % Vent Mode A/c Mechanical Rate 12 FiO2 40.0 % Tidal Volume 500 PEEP 5 Sodium 139 (132-148) mmol/l Potassium 3.5 L (3.6-5.0) MMOL/L Chloride 97 L (98-107) mmol/L Carbon Dioxide 26 (22-30) mmol/L Anion Gap 20 (10-20) BUN 75 H (9-20) mg/dl Creatinine 7.2 H (0.8-1.5) mg/dl Est GFR ( Amer) 9 Est GFR (Non-Af Amer) 8 POC Glucose (mg/dL) (65-110) mg/dL Random Glucose 313 H (75-110) mg/dL Calcium 8.3 L (8.4-10.2) mg/dL Valproic Acid (50.0-100.0) ug/mL 04/28/17 04/27/17 04/27/17 Range/Units 03:58 21:27 16:37 WBC (4.8-10.8) K/uL RBC (4.40-5.90) Mil/uL Hgb (12.0-18.0) g/dL Hct (35.0-51.0) % MCV (80.0-94.0) fl MCH (27.0-31.0) pg MCHC (33.0-37.0) g/dL RDW (11.5-14.5) % Plt Count (130-400) K/uL pCO2 (35-45) mm/Hg pO2 (80-100) mm/Hg HCO3 (21-28) mmol/L ABG pH (7.35-7.45) ABG Total CO2 (22-28) mmol/L ABG O2 Saturation (95-98) % ABG O2 Content (15-23) ML/dL ABG Base Excess (-2.0-3.0) mmol/L ABG Hemoglobin (11.7-17.4) g/dL ABG Carboxyhemoglobin (0.5-1.5) % POC ABG HHb (Measured) (0.0-5.0) % ABG Methemoglobin (0.0-3.0) % ABG O2 Capacity (16-24) mL/dL Scott Test A-a O2 Difference mm/Hg Hgb O2 Saturation (95.0-98.0) % Vent Mode Mechanical Rate FiO2 % Tidal Volume PEEP Sodium (132-148) mmol/l Potassium (3.6-5.0) MMOL/L Chloride (98-107) mmol/L Carbon Dioxide (22-30) mmol/L Anion Gap (10-20) BUN (9-20) mg/dl Creatinine (0.8-1.5) mg/dl Est GFR ( Amer) Est GFR (Non-Af Amer) POC Glucose (mg/dL) 338 H 272 H 276 H (65-110) mg/dL Random Glucose (75-110) mg/dL Calcium (8.4-10.2) mg/dL Valproic Acid (50.0-100.0) ug/mL 04/27/17 04/27/17 Range/Units 11:16 08:32 WBC (4.8-10.8) K/uL RBC (4.40-5.90) Mil/uL Hgb (12.0-18.0) g/dL Hct (35.0-51.0) % MCV (80.0-94.0) fl MCH (27.0-31.0) pg MCHC (33.0-37.0) g/dL RDW (11.5-14.5) % Plt Count (130-400) K/uL pCO2 (35-45) mm/Hg pO2 (80-100) mm/Hg HCO3 (21-28) mmol/L ABG pH (7.35-7.45) ABG Total CO2 (22-28) mmol/L ABG O2 Saturation (95-98) % ABG O2 Content (15-23) ML/dL ABG Base Excess (-2.0-3.0) mmol/L ABG Hemoglobin (11.7-17.4) g/dL ABG Carboxyhemoglobin (0.5-1.5) % POC ABG HHb (Measured) (0.0-5.0) % ABG Methemoglobin (0.0-3.0) % ABG O2 Capacity (16-24) mL/dL Scott Test A-a O2 Difference mm/Hg Hgb O2 Saturation (95.0-98.0) % Vent Mode Mechanical Rate FiO2 % Tidal Volume PEEP Sodium (132-148) mmol/l Potassium (3.6-5.0) MMOL/L Chloride (98-107) mmol/L Carbon Dioxide (22-30) mmol/L Anion Gap (10-20) BUN (9-20) mg/dl Creatinine (0.8-1.5) mg/dl Est GFR ( Amer) Est GFR (Non-Af Amer) POC Glucose (mg/dL) 334 H (65-110) mg/dL Random Glucose (75-110) mg/dL Calcium (8.4-10.2) mg/dL Valproic Acid 27.6 L (50.0-100.0) ug/mL Laboratory Results - last 24 hr 04/27/17 04/27/17 04/27/17 08:32 11:16 16:37 WBC RBC Hgb Hct MCV MCH MCHC RDW Plt Count pCO2 pO2 HCO3 ABG pH ABG Total CO2 ABG O2 Saturation ABG O2 Content ABG Base Excess ABG Hemoglobin ABG Carboxyhemoglobin POC ABG HHb (Measured) ABG Methemoglobin ABG O2 Capacity Scott Test A-a O2 Difference Hgb O2 Saturation Vent Mode Mechanical Rate FiO2 Tidal Volume PEEP Sodium Potassium Chloride Carbon Dioxide Anion Gap BUN Creatinine Est GFR ( Amer) Est GFR (Non-Af Amer) POC Glucose (mg/dL) 334 H 276 H Random Glucose Calcium Valproic Acid 27.6 L 04/27/17 04/28/17 04/28/17 21:27 03:58 04:20 WBC 18.8 H RBC 2.97 L Hgb 8.2 L D Hct 26.0 L MCV 87.6 MCH 27.7 MCHC 31.6 L RDW 15.4 H Plt Count 373 pCO2 pO2 HCO3 ABG pH ABG Total CO2 ABG O2 Saturation ABG O2 Content ABG Base Excess ABG Hemoglobin ABG Carboxyhemoglobin POC ABG HHb (Measured) ABG Methemoglobin ABG O2 Capacity Scott Test A-a O2 Difference Hgb O2 Saturation Vent Mode Mechanical Rate FiO2 Tidal Volume PEEP Sodium Potassium Chloride Carbon Dioxide Anion Gap BUN Creatinine Est GFR ( Amer) Est GFR (Non-Af Amer) POC Glucose (mg/dL) 272 H 338 H Random Glucose Calcium Valproic Acid 04/28/17 04/28/17 04:20 05:08 WBC RBC Hgb Hct MCV MCH MCHC RDW Plt Count pCO2 33 L pO2 177 H HCO3 26.5 ABG pH 7.49 H ABG Total CO2 26.1 ABG O2 Saturation 96.6 ABG O2 Content 14.0 L ABG Base Excess 2.0 ABG Hemoglobin 10.1 L ABG Carboxyhemoglobin 0 L POC ABG HHb (Measured) 3.4 ABG Methemoglobin 0.6 ABG O2 Capacity 14.5 L Scott Test Yes A-a O2 Difference 67.0 Hgb O2 Saturation 96.0 Vent Mode A/c Mechanical Rate 12 FiO2 40.0 Tidal Volume 500 PEEP 5 Sodium 139 Potassium 3.5 L Chloride 97 L Carbon Dioxide 26 Anion Gap 20 BUN 75 H Creatinine 7.2 H Est GFR ( Amer) 9 Est GFR (Non-Af Amer) 8 POC Glucose (mg/dL) Random Glucose 313 H Calcium 8.3 L Valproic Acid Fingerstick Blood Sugar Results: 338 Review of Systems - Review of Systems Systems not reviewed;Unavailable: Intubated All systems: reviewed and no additional remarkable complaints except (as above) Critical Care Progress Note - Ventilator Checklist Head of Bed 30 Degrees: Yes Daily Sedation Vacation: No (on no sedatives) Daily Assessment of Readiness to Wean: No (comatose) Daily Spontaneous Breathing Trial: No (comatose) PUD Prophalyxis: Yes DVT Prophylaxis: Yes Oral Care with Chlorhexidine Gluconate {CHG}: Yes - Vent Settings MODE:: ASSIST CONTROL TIDAL VOLUME:: 500 RESP RATE:: 12 FIO2:: 40 - Extremities/Vascular Does the Patient have a Central Venous Catheter?: Yes Does the Patient need a Central Venous Catheter?: Yes Does the Patient have a Mckee Catheter?: Yes Does the Patient need a Mckee Catheter?: Yes Catheter Insertion Criteria: Need for accurate measurement of output in critically ill patient - Prophylaxis GI Prophylaxis GI: PPI - Prophylaxis DVT Prophylaxis DVT: SCDs
[2017-04-28] MEDS ORDERED: Vancomycin 1 GM in Dextrose 5% In Water 250 ML IVPB SCH (09:00)
[2017-04-28] MEDS: Lacosamide 200mg/20ml 100 MG in Sodium Chloride 0.9% 100 ML IVPB SCH ×2 (09:53→16:31)
--- NOTE | 2017-04-28 10:39 | CP.PCM.PN ---
Subjective - Date & Time of Evaluation Date of Evaluation: 04/28/17 Time of Evaluation: 10:37 - Subjective Subjective: Dialysis note He was seen on hemodialysis now. Patient is deeply comatose and unresponsive. On ventilator Daughter at the bedside. Blood pressure apparently went back up to require antihypertensive medication elevated this morning. Objective - Vital Signs/Intake and Output Vital Signs (last 24 hours): Temp Pulse Resp BP Pulse Ox 98.1 F 61 14 136/52 L 100 04/28/17 08:00 04/28/17 09:56 04/28/17 09:56 04/28/17 09:56 04/28/17 09:56 Intake and Output: 04/28/17 04/28/17 06:59 18:59 Intake Total 1100 530 Output Total 130 20 Balance 970 510 - Medications Medications: Current Medications Acetaminophen (Tylenol 650mg/20.3ml Solution Ud) 650 mg PO Q6 PRN PRN Reason: Temperature Last Admin: 04/26/17 20:32 Dose: 650 mg Amlodipine Besylate (Norvasc) 10 mg PO DAILY [facility] Last Admin: 04/28/17 08:09 Dose: 10 mg Carvedilol (Coreg) 25 mg PO Q12 [facility] Last Admin: 04/28/17 08:08 Dose: 25 mg Clonidine HCl (Catapres) 0.1 mg PO BID [facility] Dextrose (Dextrose 50% Inj) 0 ml IV STAT PRN; Protocol PRN Reason: Hypoglycemia Protocol Dextrose (Glutose 15) 0 gm PO ONCE PRN; Protocol PRN Reason: Hypoglycemia Protocol Folic Acid (Folic Acid) 1 mg PO DAILY [facility] Last Admin: 04/28/17 08:08 Dose: 1 mg Glucagon (Glucagen Diagnostic Kit) 0 mg IM STAT PRN; Protocol PRN Reason: Hypoglycemia Protocol Hydralazine HCl (Apresoline) 25 mg NG TID [facility] Last Admin: 04/28/17 08:07 Dose: 25 mg Valproate Sodium 750 mg/ (Sodium Chloride) 57.5 mls @ 0 mls/hr IVPB Q12 [facility] PRN Reason: As Directed Last Admin: 04/28/17 08:11 Dose: 50 mls/hr Levetiracetam 500 mg/ Sodium (Chloride) 105 mls @ 210 mls/hr IVPB Q12 [facility] Last Admin: 04/28/17 08:10 Dose: 210 mls/hr Piperacillin Sod/Tazobactam (Sod 2.25 gm/ Sodium Chloride) 50 mls @ 50 mls/hr IVPB Q8 [facility] PRN Reason: Protocol Last Admin: 04/28/17 08:11 Dose: 50 mls/hr Lacosamide 100 mg/ Sodium (Chloride) 110 mls @ 110 mls/hr IVPB BID [facility] Last Admin: 04/28/17 09:53 Dose: 110 mls/hr Vancomycin HCl 1 gm/ Dextrose 250 mls @ 125 mls/hr IVPB TTS [facility] PRN Reason: Protocol Insulin Detemir (Levemir) 22 units SC HS [facility] Last Admin: 04/27/17 22:39 Dose: 22 units Insulin Human Lispro (Humalog) 0 units SC Q6H [facility] PRN Reason: Protocol Last Admin: 04/28/17 04:02 Dose: 6 units Labetalol HCl (Trandate) 20 mg IVP Q6H PRN PRN Reason: for SBP > 180 Last Admin: 04/28/17 05:26 Dose: 20 mg Lorazepam (Ativan) 1 mg IVP Q6 PRN PRN Reason: Seizure activity Last Admin: 04/28/17 05:09 Dose: 1 mg Metoprolol Tartrate (Lopressor) 5 mg IVP Q6 [facility] Last Admin: 04/28/17 04:02 Dose: 5 mg Thiamine HCl (Vitamin B1 Tab) 100 mg PO DAILY [facility] Last Admin: 04/28/17 08:09 Dose: 100 mg - Labs Labs: 04/28/17 04:20 04/28/17 04:20 PT 12.6 Seconds (9.8-13.1) 04/19/17 04:30 INR 1.1 (0.9-1.2) 04/19/17 04:30 APTT 29.2 Seconds (25.6-37.1) 04/18/17 23:07 - Constitutional Appears: No Acute Distress - ENT Exam ENT Exam: Mucous Membranes Moist - Neck Exam Neck Exam: absent: Lymphadenopathy - Respiratory Exam Respiratory Exam: absent: Chest Wall Tenderness - Cardiovascular Exam Cardiovascular Exam: REGULAR RHYTHM. absent: JVD, Rubs - GI/Abdominal Exam GI & Abdominal Exam: Soft, Normal Bowel Sounds - Extremities Exam Extremities Exam: absent: Calf Tenderness - Back Exam Back Exam: absent: CVA tenderness (L), CVA tenderness (R) - Neurological Exam Neurological Exam: Altered - Psychiatric Exam Psychiatric exam: Flat Affect - Skin Skin Exam: absent: Cyanosis Assessment and Plan (1) Cardiac arrest Status: Acute (2) Flash pulmonary edema Status: Acute (3) ESRD (end stage renal disease) on dialysis Assessment & Plan: End stage renal disease. Patient receiving dialysis now older daughter has been discussed with the dialysis nurse at the bedside. His condition discussed with the daughter. Sodium bath 138 Potassium bath 2 mEq Bicarbonate bath 34 Ultrafiltration has been changed to about 2000 mL now because he appears to be not severely volume overloaded. Clonidine resume which has been stopped yesterday because of the hypotensive. The rest of the problem as noted #2 status post cardiac arrest. #3 respiratory failure on ventilator. #4 anoxic encephalopathy. #5 alcohol intoxication on admission #6 hypertension which has been controlled with difficulties. On multiple medication and dialysis. #7 hyperphosphatemia and secondary hyperparathyroidism. Patient receiving hypothermic therapeutic for cardiac arrest. And also as per the primary team management. Dialysis to continue. Prognosis very poor. #8 anemia . EPO 10,000 units IV to be given on each hemodialysis #9 leukocytosis patient receiving antibiotics. Status: Chronic Status: Chronic (4) Acute respiratory failure Status: Acute (5) CHF exacerbation Status: Acute
--- NOTE | 2017-04-28 11:27 | RAD ---
HISTORY: intubated COMPARISON: Portable chest 04/27/2017. FINDINGS: Endotracheal tube is unchanged in position, as well as nasogastric tube. LUNGS: No active pulmonary disease. PLEURA: No significant pleural effusion identified, no pneumothorax apparent. CARDIOVASCULAR: Normal. OSSEOUS STRUCTURES: No significant abnormalities. VISUALIZED UPPER ABDOMEN: Surgical clips are again noted in the right upper quadrant abdomen. OTHER FINDINGS: None. IMPRESSION: No acute infiltrate, pleural effusion or pneumothorax identified. Stable ET and nasogastric tube placements.
--- NOTE | 2017-04-28 13:45 | CP.PCM.PN ---
Subjective - Date & Time of Evaluation Date of Evaluation: 04/28/17 Time of Evaluation: 11:00 - Subjective Subjective: Patient was seen and examined at bedside. Daughter at bedside. Patient remains comatose and intubated No seizures overnight. Afebrile x 1 day Continues to tolerate tube feedings Objective - Vital Signs/Intake and Output Vital Signs (last 24 hours): Temp Pulse Resp BP Pulse Ox 97.5 F L 60 12 148/55 L 100 04/28/17 12:00 04/28/17 12:00 04/28/17 12:00 04/28/17 12:00 04/28/17 12:00 Intake and Output: 04/28/17 04/28/17 06:59 18:59 Intake Total 1100 620 Output Total 130 20 Balance 970 600 - Medications Medications: Current Medications Acetaminophen (Tylenol 650mg/20.3ml Solution Ud) 650 mg PO Q6 PRN PRN Reason: Temperature Last Admin: 04/26/17 20:32 Dose: 650 mg Amlodipine Besylate (Norvasc) 10 mg PO DAILY [facility] Last Admin: 04/28/17 08:09 Dose: 10 mg Carvedilol (Coreg) 25 mg PO Q12 [facility] Last Admin: 04/28/17 08:08 Dose: 25 mg Clonidine HCl (Catapres) 0.1 mg PO BID [facility] Dextrose (Dextrose 50% Inj) 0 ml IV STAT PRN; Protocol PRN Reason: Hypoglycemia Protocol Dextrose (Glutose 15) 0 gm PO ONCE PRN; Protocol PRN Reason: Hypoglycemia Protocol Folic Acid (Folic Acid) 1 mg PO DAILY [facility] Last Admin: 04/28/17 08:08 Dose: 1 mg Glucagon (Glucagen Diagnostic Kit) 0 mg IM STAT PRN; Protocol PRN Reason: Hypoglycemia Protocol Hydralazine HCl (Apresoline) 25 mg NG TID [facility] Last Admin: 04/28/17 08:07 Dose: 25 mg Valproate Sodium 750 mg/ (Sodium Chloride) 57.5 mls @ 0 mls/hr IVPB Q12 [facility] PRN Reason: As Directed Last Admin: 04/28/17 08:11 Dose: 50 mls/hr Levetiracetam 500 mg/ Sodium (Chloride) 105 mls @ 210 mls/hr IVPB Q12 [facility] Last Admin: 04/28/17 08:10 Dose: 210 mls/hr Piperacillin Sod/Tazobactam (Sod 2.25 gm/ Sodium Chloride) 50 mls @ 50 mls/hr IVPB Q8 [facility] PRN Reason: Protocol Last Admin: 04/28/17 08:11 Dose: 50 mls/hr Lacosamide 100 mg/ Sodium (Chloride) 110 mls @ 110 mls/hr IVPB BID [facility] Last Admin: 04/28/17 09:53 Dose: 110 mls/hr Vancomycin HCl 1 gm/ Dextrose 250 mls @ 125 mls/hr IVPB TTS [facility] PRN Reason: Protocol Insulin Detemir (Levemir) 22 units SC HS [facility] Last Admin: 04/27/17 22:39 Dose: 22 units Insulin Human Lispro (Humalog) 0 units SC Q6H [facility] PRN Reason: Protocol Last Admin: 04/28/17 11:31 Dose: Not Given Labetalol HCl (Trandate) 20 mg IVP Q6H PRN PRN Reason: for SBP > 180 Last Admin: 04/28/17 05:26 Dose: 20 mg Lorazepam (Ativan) 1 mg IVP Q6 PRN PRN Reason: Seizure activity Last Admin: 04/28/17 05:09 Dose: 1 mg Metoprolol Tartrate (Lopressor) 5 mg IVP Q6 [facility] Last Admin: 04/28/17 10:00 Dose: Not Given Thiamine HCl (Vitamin B1 Tab) 100 mg PO DAILY [facility] Last Admin: 04/28/17 08:09 Dose: 100 mg - Labs Labs: 04/28/17 04:20 04/28/17 04:20 PT 12.6 Seconds (9.8-13.1) 04/19/17 04:30 INR 1.1 (0.9-1.2) 04/19/17 04:30 APTT 29.2 Seconds (25.6-37.1) 04/18/17 23:07 - Additional Findings Additional findings: Physical exam: Constitutional- intubated and sedated. Unresponsive, comatose Head- NCAT, Eye- Miosis, not reactive to light ENT- normal exam, MMM. Neck- normal inspection, supple, no JVD Respiratory- Bilateral rhonchi and rales, no wheezing appreciated. Cardiovascular- RRR, +S1, +S2 no MRG GI/Abdominal- normal bowel sounds, soft, no mass, no hsm Skin- warm, dry, + Pedal edema Extremities Exam- normal capillary refill, normal inspection Neurological Exam- alert, stable gait Psych- normal mood, normal affect Assessment and Plan - Assessment and Plan (Free Text) Plan: Assessment: 66 y/o male with PMHx significant for DM2, HTN, ESRD on M/W/F ESRD, and PVD brought in by EMS with cardiac arrest. Patient was brought in with resuscitation in progress. Per report, patient had been watching TV with friend and c/o CP. They called 911, and when the ambulance arrived, patient attempted to walk to stretcher, but then became unresponsive and was found to be in cardiac arrest. CPR was initiated, patient received 3 epinephrines, 2 mg narcan. Supraglottic airway and IO line placed. In the ED, patient received Bicarb and another epi . EKG was reviewed by cardiology who indicated no code heart needed. L femoral central line placed. Patient was admitted to ICU and hypothermia protocol was initiated . At present off hypothermia protocol, intubated on MV PRVC / AC mode not sedated but unresponsive, with seizure episodes .Neurology on consult. Repeat EEG showed seizure activity .As per neuro patient has anoxic brain injury and poor prognosis 1. Cardiac arrest unclear etiology Patient was intubated , sedated and was placed on hypothermia protocol initially . Remains on the Vent, unresponsive, comatose, not on pressors, BP elevated .No seizure activity noted last night At present on depakote,Keppra and Vimpat Cardiology consult appreciated Neurology consulted: poor prognosis , CT showed watershed infarcts and EEG showed slowing and some epileptiform spikes noted increased Depakote to 750 mg po Q12 and , started on Keppra and Vimpat Family/Ethics meeting today to discuss poor prognosis 2. Anoxic Brain Injury poor prognosis Neurology consulted Continue Depakpote, Keppra , Vimpat and ativan PRN 3. Troponin Elevation mild Trop elevation, unlikely [place] prob related to CPR in pt with ESRD Cardio consulted Stable from cardiology 4.ESRD on HD nephrology consulted continue HD - TTS 5. Myoclonic Jerks/Seizures sign of poor prognosis Pt was on Versed drip initially now on Depakote, Keppra and Vimpat Neuro consulted EEG: epileptiform spikes noted 6. HTN uncontrolled Started Cardene drip initially and now off cont Coreg , Norvasc, labetaolol PRN increased Clonidine to 0.2 mg PO BID and added Hydralazine 7. DM type II on Insulin uncontrolled continue accuchecks and insulin coverage Nepro via OGT Increase Levemir 22 units q hs 8.Bilateral Pneumonia most likely aspiration Started on Vanco post HD and Zosyn renal dose Blood cultures : 1 out of 6 blood + for Staph coag neg Repeat CXR showed no infiltrate 9. Anemia most likely anemia of acute illness with some upper GI bleed patient had coffee ground that resolved discontinued anticoagulation Continue protonix 40 mg IV q12 10.DVT prophylaxis SCD
--- NOTE | 2017-04-28 16:56 | CP.PCM.DIS ---
Provider - Provider Date of Admission: 04/17/17 23:12 Attending physician: Isabella Vitale MD Primary care physician: Dr. Bernal Consults: Dr. Christian Vincent- cardiology Dr. Alex- Nephrology Dr. 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 Time Spent in preparation of Discharge (in minutes): 35 Hospital Course - Lab Results Lab Results: Micro Results 04/20/17 04:10 Blood-Venous Blood Culture - Final NO GROWTH AFTER 5 DAYS 04/20/17 04:10 Blood-Venous Gram Stain - Final TEST NOT PERFORMED 04/20/17 04:10 Blood-Venous Blood Culture - Final NO GROWTH AFTER 5 DAYS 04/20/17 04:10 Blood-Venous Gram Stain - Final TEST NOT PERFORMED 04/18/17 16:50 Blood Blood Culture - Final NO GROWTH AFTER 5 DAYS 04/18/17 16:50 Blood Gram Stain - Final TEST NOT PERFORMED 04/18/17 16:50 Blood Blood Culture - Final NO GROWTH AFTER 5 DAYS 04/18/17 16:50 Blood Gram Stain - Final TEST NOT PERFORMED 04/17/17 23:28 Blood Blood Culture - Final NO GROWTH AFTER 5 DAYS 04/17/17 23:28 Blood Gram Stain - Final TEST NOT PERFORMED 04/17/17 22:58 Blood S.aureus & Coag-Neg Staph PNA FISH - Final 04/17/17 22:58 Blood Blood Culture - Final Coagulase Neg Staphylococcus 04/17/17 22:58 Blood Gram Stain - Final 04/18/17 13:26 Naris MRSA Culture (Admit) - Final MRSA NOT DETECTED Most Recent Lab Values WBC 18.8 K/uL (4.8-10.8) H 04/28/17 04:20 RBC 2.97 Mil/uL (4.40-5.90) L 04/28/17 04:20 Hgb 8.2 g/dL (12.0-18.0) L D 04/28/17 04:20 Hct 26.0 % (35.0-51.0) L 04/28/17 04:20 MCV 87.6 fl (80.0-94.0) 04/28/17 04:20 MCH 27.7 pg (27.0-31.0) 04/28/17 04:20 MCHC 31.6 g/dL (33.0-37.0) L 04/28/17 04:20 RDW 15.4 % (11.5-14.5) H 04/28/17 04:20 Plt Count 373 K/uL (130-400) 04/28/17 04:20 MPV 10.3 fl (7.2-11.7) 04/26/17 04:20 Neut % (Auto) 85.3 % (50.0-75.0) H 04/26/17 04:20 Lymph % (Auto) 4.1 % (20.0-40.0) L 04/26/17 04:20 Perkins % (Auto) 9.3 % (0.0-10.0) 04/26/17 04:20 Eos % (Auto) 1.0 % (0.0-4.0) 04/26/17 04:20 Baso % (Auto) 0.3 % (0.0-2.0) 04/26/17 04:20 Neut # 14.2 K/uL (1.8-7.0) H 04/26/17 04:20 Lymph # 0.7 K/uL (1.0-4.3) L 04/26/17 04:20 Perkins # 1.5 K/uL (0.0-0.8) H 04/26/17 04:20 Eos # 0.2 K/uL (0.0-0.7) 04/26/17 04:20 Baso # 0.0 K/uL (0.0-0.2) 04/26/17 04:20 Neutrophils % (Manual) 81 % (42-75) H 04/26/17 04:20 Band Neutrophils % 2 % (0-2) 04/26/17 04:20 Lymphocytes % (Manual) 4 % (20-50) L 04/26/17 04:20 Monocytes % (Manual) 9 % (0-10) 04/26/17 04:20 Eosinophils % (Manual) 1 % (0-7) 04/26/17 04:20 Metamyelocytes % 1 % (0-0) H 04/26/17 04:20 Myelocytes % 2 % (0-0) H 04/26/17 04:20 Toxic Granulation Present 04/26/17 04:20 Platelet Estimate Normal (NORMAL) 04/26/17 04:20 Plt Clumps, EDTA Present 04/26/17 04:20 Large Platelets Present 04/26/17 04:20 Hypochromasia (manual) Slight 04/26/17 04:20 Anisocytosis (manual) Slight 04/26/17 04:20 Ovalocytes Slight 04/26/17 04:20 Schistocytes Slight 04/26/17 04:20 PT 12.6 Seconds (9.8-13.1) 04/19/17 04:30 INR 1.1 (0.9-1.2) 04/19/17 04:30 APTT 29.2 Seconds (25.6-37.1) 04/18/17 23:07 pCO2 33 mm/Hg (35-45) L 04/28/17 05:08 pO2 177 mm/Hg (80-100) H 04/28/17 05:08 HCO3 26.5 mmol/L (21-28) 04/28/17 05:08 ABG pH 7.49 (7.35-7.45) H 04/28/17 05:08 ABG Total CO2 26.1 mmol/L (22-28) 04/28/17 05:08 ABG O2 Saturation 96.6 % (95-98) 04/28/17 05:08 ABG O2 Content 14.0 ML/dL (15-23) L 04/28/17 05:08 ABG Base Excess 2.0 mmol/L (-2.0-3.0) 04/28/17 05:08 ABG Hemoglobin 10.1 g/dL (11.7-17.4) L 04/28/17 05:08 ABG Carboxyhemoglobin 0 % (0.5-1.5) L 04/28/17 05:08 POC ABG HHb (Measured) 3.4 % (0.0-5.0) 04/28/17 05:08 ABG Methemoglobin 0.6 % (0.0-3.0) 04/28/17 05:08 ABG O2 Capacity 14.5 mL/dL (16-24) L 04/28/17 05:08 Scott Test Yes 04/28/17 05:08 ABG Potassium 4.2 mmol/L (3.6-5.2) 04/17/17 22:51 A-a O2 Difference 67.0 mm/Hg 04/28/17 05:08 Hgb O2 Saturation 96.0 % (95.0-98.0) 04/28/17 05:08 Sodium 142.0 mmol/L (132-148) 04/17/17 22:51 Chloride 92.0 mmol/L (98-107) L 04/17/17 22:51 Glucose 342 mg/dL (75-110) H 04/17/17 22:51 Lactate 12.0 mmol/L (0.7-2.1) H* 04/17/17 22:51 Vent Mode A/c 04/28/17 05:08 Mechanical Rate 12 04/28/17 05:08 FiO2 40.0 % 04/28/17 05:08 Tidal Volume 500 04/28/17 05:08 PEEP 5 04/28/17 05:08 Crit Value Called To Katie wiley rn 04/27/17 05:00 Crit Value Called By [email or web address] 04/27/17 05:00 Crit Value Read Back Y 04/27/17 05:00 Blood Gas Notified Time 504 04/27/17 05:00 Sodium 139 mmol/l (132-148) 04/28/17 04:20 Potassium 3.5 MMOL/L (3.6-5.0) L 04/28/17 04:20 Chloride 97 mmol/L (98-107) L 04/28/17 04:20 Carbon Dioxide 26 mmol/L (22-30) 04/28/17 04:20 Anion Gap 20 (10-20) 04/28/17 04:20 BUN 75 mg/dl (9-20) H 04/28/17 04:20 Creatinine 7.2 mg/dl (0.8-1.5) H 04/28/17 04:20 Est GFR ( Amer) 9 04/28/17 04:20 Est GFR (Non-Af Amer) 8 04/28/17 04:20 POC Glucose (mg/dL) 247 mg/dL (65-110) H 04/28/17 16:27 Random Glucose 313 mg/dL (75-110) H 04/28/17 04:20 Lactic Acid 2.7 MMOL/L (0.7-2.1) H 04/18/17 05:00 Calcium 8.3 mg/dL (8.4-10.2) L 04/28/17 04:20 Phosphorus 5.2 mg/dl (2.5-4.5) H 04/21/17 05:00 Magnesium 1.9 MG/DL (1.6-2.3) 04/18/17 23:07 Total Bilirubin 0.4 mg/dl (0.2-1.3) 04/26/17 04:20 AST 55 U/L (17-59) 04/26/17 04:20 ALT 47 U/L (21-72) 04/26/17 04:20 Alkaline Phosphatase 55 U/L (38-126) 04/26/17 04:20 Troponin I 0.5750 ng/mL (0.00-0.120) H* 04/18/17 23:07 Total Protein 6.7 G/DL (6.3-8.2) 04/26/17 04:20 Albumin 3.5 g/dL (3.5-5.0) 04/26/17 04:20 Globulin 3.3 gm/dL (2.2-3.9) 04/26/17 04:20 Albumin/Globulin Ratio 1.1 (1.0-2.1) 04/26/17 04:20 Arterial Blood Potassium 4.2 mmol/L (3.6-5.2) 04/17/17 22:51 Urine Color Yellow (YELLOW) 04/17/17 23:01 Urine Clarity Cloudy (Clear) 04/17/17 23:01 Urine pH 7.0 (5.0-8.0) 04/17/17 23:01 Ur Specific [place] 1.014 (1.003-1.030) 04/17/17 23:01 Urine Protein >=500 mg/dL (NEGATIVE) 04/17/17 23:01 Urine Glucose (UA) 50 mg/dL (Normal) 04/17/17 23:01 Urine Ketones Negative mg/dL (NEGATIVE) 04/17/17 23:01 Urine Blood Negative (NEGATIVE) 04/17/17 23:01 Urine Nitrate Negative (NEGATIVE) 04/17/17 23:01 Urine Bilirubin Negative (NEGATIVE) 04/17/17 23:01 Urine Urobilinogen 0.2-1.0 mg/dL (0.2-1.0) 04/17/17 23:01 Ur Leukocyte Esterase Neg Naveen/uL (Negative) 04/17/17 23:01 Urine RBC (Auto) 11 /hpf (0-3) H 04/17/17 23:01 Urine Microscopic WBC 12 /hpf (0-5) H 04/17/17 23:01 Ur Squamous Epith Cells 5 /hpf (0-5) 04/17/17 23:01 Urine Bacteria Many (<OCC) H 04/17/17 23:01 Hyaline Casts 6-10 /hpf (0-2) H 04/17/17 23:01 Urine Yeast (Budding) Rare /hpf (NEGATIVE) H 04/17/17 23:01 Urine Sperm (Auto) Occ /hpf (NONE) 04/17/17 23:01 Digoxin < 0.4 ng/mL (0.8-2.0) L 04/17/17 23:06 Urine Opiates Screen Negative (NEGATIVE) 04/17/17 23:01 Urine Methadone Screen Negative (NEGATIVE) 04/17/17 23:01 Ur Barbiturates Screen Negative (NEGATIVE) 04/17/17 23:01 Valproic Acid 41.6 ug/mL (50.0-100.0) L 04/28/17 10:00 Ur Phencyclidine Scrn Negative (NEGATIVE) 04/17/17 23:01 Ur Amphetamines Screen Negative (NEGATIVE) 04/17/17 23:01 U Benzodiazepines Scrn Negative (NEGATIVE) 04/17/17 23:01 U Oth Cocaine Metabols Negative (NEGATIVE) 04/17/17 23:01 U Cannabinoids Screen Negative (NEGATIVE) 04/17/17 23:01 Alcohol, Quantitative 12 mg/dl (0-10) H 04/17/17 23:06 Hep Bs Antigen Negative (NEGATIVE) 04/18/17 03:46 Hep Bs Antibody Positive (NEGATIVE) 04/18/17 03:11 Hepatitis C Antibody Negative (NEGATIVE) 04/18/17 03:11 - Hospital Course Hospital Course: Assessment: 66 y/o male with PMHx significant for DM2, HTN, ESRD on M/W/F ESRD, and PVD brought in by EMS with cardiac arrest. Patient was brought in with resuscitation in progress. Per report, patient had been watching TV with friend and c/o CP. They called 911, and when the ambulance arrived, patient attempted to walk to stretcher, but then became unresponsive and was found to be in cardiac arrest. CPR was initiated, patient received 3 epinephrines, 2 mg narcan. Supraglottic airway and IO line placed. In the ED, patient received Bicarb and another epi . EKG was reviewed by cardiology who indicated no code heart needed. L femoral central line placed. Patient was admitted to ICU and hypothermia protocol was initiated . At present off hypothermia protocol, intubated on MV PRVC / AC mode not sedated but unresponsive, with seizure episodes .Neurology on consult. Repeat EEG showed seizure activity .As per neuro patient has severe anoxic brain injury. Ethics and family meeting were had today- the family requests terminal extubation today which will be honored. Discharge Exam - Head Exam Head Exam: ATRAUMATIC - Additional Findings Additional findings: Physical exam: Constitutional- intubated and sedated. Unresponsive, comatose Head- NCAT, Eye- Miosis, not reactive to light ENT- normal exam, MMM. Neck- normal inspection, supple, no JVD Respiratory- Bilateral rhonchi and rales, no wheezing appreciated. Cardiovascular- RRR, +S1, +S2 no MRG GI/Abdominal- normal bowel sounds, soft, no mass, no hsm Skin- warm, dry, + Pedal edema Extremities Exam- normal capillary refill, normal inspection Neurological Exam- unable to be assessed. Patient comatose Discharge Plan - Follow Up Plan Condition: CRITICAL Disposition: WITH WITHOUT AUTOPSY
[2017-04-28] MEDS ORDERED: Morphine 100 MG in Sodium Chloride 0.9% 100 ML IVPB SCH (18:30)
--- NOTE | 2017-04-29 07:15 | CP.PCM.PN ---
Subjective - Date & Time of Evaluation Date of Evaluation: 04/29/17 Time of Evaluation: 07:13 - Subjective Subjective: Mr. Aguilar was seen and examined at the bedside. He is unresponsive , was terminally extubated yesterday. Patient is currently on Morphine drip at 3 mg/ hr.Family at bedside. Objective - Vital Signs/Intake and Output Vital Signs (last 24 hours): Temp Pulse Resp BP Pulse Ox 98.3 F 60 16 119/44 L 89 L 04/29/17 04:00 04/29/17 06:00 04/29/17 06:00 04/29/17 06:00 04/29/17 06:00 Intake and Output: 04/29/17 04/29/17 06:59 18:59 Intake Total 0 Output Total 25 Balance -25 - Medications Medications: Current Medications Acetaminophen (Tylenol 650mg/20.3ml Solution Ud) 650 mg PO Q6 PRN PRN Reason: Temperature Last Admin: 04/26/17 20:32 Dose: 650 mg Amlodipine Besylate (Norvasc) 10 mg PO DAILY [facility] Last Admin: 04/28/17 08:09 Dose: 10 mg Carvedilol (Coreg) 25 mg PO Q12 [facility] Last Admin: 04/28/17 08:08 Dose: 25 mg Clonidine HCl (Catapres) 0.1 mg PO BID [facility] Last Admin: 04/28/17 16:29 Dose: 0.1 mg Folic Acid (Folic Acid) 1 mg PO DAILY [facility] Last Admin: 04/28/17 08:08 Dose: 1 mg Hydralazine HCl (Apresoline) 25 mg NG TID [facility] Last Admin: 04/28/17 16:28 Dose: 25 mg Valproate Sodium 750 mg/ (Sodium Chloride) 57.5 mls @ 0 mls/hr IVPB Q12 [facility] PRN Reason: As Directed Last Admin: 04/28/17 08:11 Dose: 50 mls/hr Levetiracetam 500 mg/ Sodium (Chloride) 105 mls @ 210 mls/hr IVPB Q12 [facility] Last Admin: 04/28/17 08:10 Dose: 210 mls/hr Piperacillin Sod/Tazobactam (Sod 2.25 gm/ Sodium Chloride) 50 mls @ 50 mls/hr IVPB Q8 [facility] PRN Reason: Protocol Last Admin: 04/28/17 16:32 Dose: 50 mls/hr Lacosamide 100 mg/ Sodium (Chloride) 110 mls @ 110 mls/hr IVPB BID [facility] Last Admin: 04/28/17 16:31 Dose: 110 mls/hr Vancomycin HCl 1 gm/ Dextrose 250 mls @ 125 mls/hr IVPB TTS [facility] PRN Reason: Protocol Last Admin: 04/28/17 14:55 Dose: 125 mls/hr Morphine Sulfate 100 mg/ (Sodium Chloride) 104 mls @ 3.12 mls/hr IVPB .Q24H [facility] ; 3 MG/HR PRN Reason: Protocol Last Admin: 04/28/17 18:27 Dose: 3.12 mls/hr Insulin Detemir (Levemir) 22 units SC HS [facility] Last Admin: 04/27/17 22:39 Dose: 22 units Insulin Human Lispro (Humalog) 0 units SC Q6H [facility] PRN Reason: Protocol Last Admin: 04/28/17 16:30 Dose: 3 units Labetalol HCl (Trandate) 20 mg IVP Q6H PRN PRN Reason: for SBP > 180 Last Admin: 04/28/17 05:26 Dose: 20 mg Lorazepam (Ativan) 1 mg IVP Q6 PRN PRN Reason: Seizure activity Last Admin: 04/28/17 16:51 Dose: 1 mg Metoprolol Tartrate (Lopressor) 5 mg IVP Q6 [facility] Last Admin: 04/28/17 16:31 Dose: 5 mg Morphine Sulfate (Morphine) 2 mg IVP Q2 PRN PRN Reason: Agitation Last Admin: 04/28/17 18:04 Dose: 2 mg Thiamine HCl (Vitamin B1 Tab) 100 mg PO DAILY [facility] Last Admin: 04/28/17 08:09 Dose: 100 mg Vitamin A (Vitamin A & D Oint Ud Foilpak) 1 ea TOP BID [facility] - Labs Labs: 04/28/17 04:20 04/28/17 04:20 PT 12.6 Seconds (9.8-13.1) 04/19/17 04:30 INR 1.1 (0.9-1.2) 04/19/17 04:30 APTT 29.2 Seconds (25.6-37.1) 04/18/17 23:07 - Neurological Exam Additional comments: GCS-3 Assessment and Plan (1) Hypoxic brain injury Assessment & Plan: Case discussed with Dr. Car, continue all comfort measures. Neurology is officially signing off from this case. Status: Acute
[2017-04-29] MEDS ORDERED: Chlorhexidine Gluconate 1 APPL/PKT TP ONE (07:48)
[2017-04-29] MEDS ORDERED: Vitamins A & D Oint UD Foilpak TOP SCH (09:00)
--- NOTE | 2017-04-29 10:43 | CP.CCUPN ---
CCU Subjective - Physician Review Subjective (Free Text): Discharge Summary noted, appears to have been placed in error early, patient has not yet . He remains in deep coma, on Morphine drip and Scopolamine patch for comfort care. Terminal extubation performed approx 17 hours ago. SPO2 , BP and HR remain essentially stable. Other vitals and I/O's reviewed. ROS: Unobtainable due to coma. No other pertinent negs or positives on 10+ system review. PMSFH: All other Nursing and physician documentation reviewed to date; no new pertinent info noted relevant to current medical problems. IMPRESSION / MAJOR PROBLEMS NOW: 1. Cardiac Arrest, on MV support; s/p Therapeutic Hypothermia 2. Post Arrest Anoxic Encephalopathy, with new onset Seizure Disorder 3. Uncontrolled / Accelerated Hypertension 4. ESRD PLAN: 1. Comfort care post extubation. Hospice consideration. CCU Objective - Vital Signs / Intake & Output Vital Signs (Last 4 hours): Vital Signs Temp Pulse Resp BP Pulse Ox 04/29/17 09:59 60 16 122/44 L 98 04/29/17 08:00 98.2 F 59 L 18 118/44 L 97 Intake and Output (Last 8hrs): Intake & Output 04/28/17 04/29/17 04/29/17 22:59 06:59 14:59 Intake Total 430 6 Output Total 25 Balance 430 -25 6 Intake: IV 0 6 Intake, Piggyback 150 Oral 0 Tube Feeding 180 0 Free Water Flush 100 Output: Urine 25 Urethral (Mckee) 25 - Physical Exam Physical Exam Limitations: Positive for: Altered Mental Status Head: Positive for: Atraumatic, Normocephalic Pupils: Positive for: PERRL, Sluggish, Pinpoint Extroacular Muscles: Positive for: EOMI. Negative for: Gaze Palsy Conjunctiva: Positive for: Normal. Negative for: Icteric Mouth: Positive for: Moist Mucous Membranes Neck: Positive for: Normal Range of Motion. Negative for: JVD Respiratory/Chest: Positive for: Clear to Auscultation, Decreased Breath Sounds. Negative for: Accessory Muscle Use, Wheezes Cardiovascular: Positive for: Regular Rate and Rhythm, Tachycardic. Negative for: Murmurs, Rub Abdomen: Positive for: Normal Bowel Sounds. Negative for: Tenderness, Distention, Mass/Organomegaly Lower Extremity: Positive for: NORMAL PULSES. Negative for: CALF TENDERNESS, Cyanosis Neurological: Positive for: Other (GCS= 4T (E1V1M2)) Skin: Positive for: Warm, Dry. Negative for: Rashes Psychiatric: Positive for: Lethargic - Medications Active Medications: Active Medications Generic Name Dose Route Start Last Admin Trade Name Freq PRN Reason Stop Dose Admin Acetaminophen 650 mg 04/21/17 08:04 04/26/17 20:32 Tylenol 650mg/20.3ml Solution Ud PO 650 mg Q6 PRN Administration Temperature Amlodipine Besylate 10 mg 04/24/17 09:00 04/28/17 08:09 Norvasc PO 10 mg DAILY [facility] Administration Carvedilol 25 mg 04/18/17 09:00 04/28/17 08:08 Coreg PO 25 mg Q12 [facility] Administration Clonidine HCl 0.1 mg 04/28/17 17:00 04/28/17 16:29 Catapres PO 0.1 mg BID [facility] Administration Folic Acid 1 mg 04/21/17 09:00 04/28/17 08:08 Folic Acid PO 1 mg DAILY [facility] Administration Hydralazine HCl 25 mg 04/26/17 17:00 04/28/17 16:28 Apresoline NG 25 mg TID [facility] Administration Valproate Sodium 750 mg/ 57.5 mls @ 0 mls/hr 04/22/17 09:00 04/28/17 08:11 Sodium Chloride IVPB 50 mls/hr Q12 [facility] Administration As Directed Levetiracetam 500 mg/ Sodium 105 mls @ 210 mls/hr 04/23/17 21:00 04/28/17 08: 10 Chloride IVPB 210 mls/hr Q12 [facility] Administration Piperacillin Sod/Tazobactam 50 mls @ 50 mls/hr 04/24/17 17:00 04/28/17 16:32 Sod 2.25 gm/ Sodium Chloride IVPB 50 mls/hr Q8 [facility] Administration Protocol Lacosamide 100 mg/ Sodium 110 mls @ 110 mls/hr 04/26/17 17:00 04/28/17 16:31 Chloride IVPB 110 mls/hr BID [facility] Administration Vancomycin HCl 1 gm/ Dextrose 250 mls @ 125 mls/hr 04/28/17 09:00 04/28/17 14 :55 IVPB 125 mls/hr TTS [facility] Administration Protocol Morphine Sulfate 100 mg/ 104 mls @ 3.12 mls/hr 04/28/17 18:30 04/28/17 18:27 Sodium Chloride IVPB 3.12 mls/hr .Q24H [facility] Administration Protocol 3 MG/HR Insulin Detemir 22 units 04/27/17 09:04 04/27/17 22:39 Levemir SC 22 units HS [facility] Administration Insulin Human Lispro 0 units 04/22/17 05:00 04/28/17 16:30 Humalog SC 3 units Q6H [facility] Administration Protocol Labetalol HCl 20 mg 04/22/17 13:45 04/28/17 05:26 Trandate IVP 20 mg Q6H PRN Administration for SBP > 180 Lorazepam 1 mg 04/27/17 07:31 04/28/17 16:51 Ativan IVP 1 mg Q6 PRN Administration Seizure activity Metoprolol Tartrate 5 mg 04/20/17 22:00 04/28/17 16:31 Lopressor IVP 5 mg Q6 [facility] Administration Morphine Sulfate 2 mg 04/28/17 17:23 04/28/17 18:04 Morphine IVP 2 mg Q2 PRN Administration Agitation Thiamine HCl 100 mg 04/21/17 09:00 04/28/17 08:09 Vitamin B1 Tab PO 100 mg DAILY [facility] Administration Vitamin A 1 ea 04/29/17 09:00 Vitamin A & D Oint Ud Foilpak TOP BID [facility] - Patient Studies Lab Studies: Lab Studies 04/28/17 04/28/17 04/28/17 Range/Units 16:27 11:30 10:00 POC Glucose (mg/dL) 247 H 136 H (65-110) mg/dL Valproic Acid 41.6 L (50.0-100.0) ug/mL Laboratory Results - last 24 hr 04/28/17 04/28/17 04/28/17 10:00 11:30 16:27 POC Glucose (mg/dL) 136 H 247 H Valproic Acid 41.6 L Fingerstick Blood Sugar Results: 247 Review of Systems - Review of Systems Systems not reviewed;Unavailable: Altered Mental Status
[2017-04-29 12:54] VITALS: TEMP 98.5
--- NOTE | 2017-04-29 13:52 | CP.PCM.PN ---
Subjective - Date & Time of Evaluation Date of Evaluation: 04/29/17 Time of Evaluation: 08:00 - Subjective Subjective: Patient seen bedside. s/p Terminal extubation yesterday after family had meeting with all consultants and attending physician discussing patient's condition and prognosis. At present extubated , comatose BP 118/44 HR 59 afebrile O2Sat 97 % on 2 LO2 via NC. On morphine drip for comfort and scopalamine patch for respiratory secretions. daughter bedside. Emotional support provided and all questions answered . Hospice care consulted and patient to be transferred to inpatient Hospice. Objective - Vital Signs/Intake and Output Vital Signs (last 24 hours): Temp Pulse Resp BP Pulse Ox 98.5 F 61 20 102/46 L 97 04/29/17 12:00 04/29/17 12:00 04/29/17 12:00 04/29/17 12:00 04/29/17 12:00 Intake and Output: 04/29/17 04/29/17 06:59 18:59 Intake Total 0 6 Output Total 25 Balance -25 6 - Medications Medications: Current Medications Acetaminophen (Tylenol 650mg/20.3ml Solution Ud) 650 mg PO Q6 PRN PRN Reason: Temperature Last Admin: 04/26/17 20:32 Dose: 650 mg Amlodipine Besylate (Norvasc) 10 mg PO DAILY [facility] Last Admin: 04/28/17 08:09 Dose: 10 mg Carvedilol (Coreg) 25 mg PO Q12 [facility] Last Admin: 04/28/17 08:08 Dose: 25 mg Clonidine HCl (Catapres) 0.1 mg PO BID [facility] Last Admin: 04/28/17 16:29 Dose: 0.1 mg Folic Acid (Folic Acid) 1 mg PO DAILY [facility] Last Admin: 04/28/17 08:08 Dose: 1 mg Hydralazine HCl (Apresoline) 25 mg NG TID [facility] Last Admin: 04/28/17 16:28 Dose: 25 mg Valproate Sodium 750 mg/ (Sodium Chloride) 57.5 mls @ 0 mls/hr IVPB Q12 [facility] PRN Reason: As Directed Last Admin: 04/28/17 08:11 Dose: 50 mls/hr Levetiracetam 500 mg/ Sodium (Chloride) 105 mls @ 210 mls/hr IVPB Q12 [facility] Last Admin: 04/28/17 08:10 Dose: 210 mls/hr Piperacillin Sod/Tazobactam (Sod 2.25 gm/ Sodium Chloride) 50 mls @ 50 mls/hr IVPB Q8 [facility] PRN Reason: Protocol Last Admin: 04/28/17 16:32 Dose: 50 mls/hr Lacosamide 100 mg/ Sodium (Chloride) 110 mls @ 110 mls/hr IVPB BID [facility] Last Admin: 04/28/17 16:31 Dose: 110 mls/hr Vancomycin HCl 1 gm/ Dextrose 250 mls @ 125 mls/hr IVPB TTS [facility] PRN Reason: Protocol Last Admin: 04/28/17 14:55 Dose: 125 mls/hr Morphine Sulfate 100 mg/ (Sodium Chloride) 104 mls @ 3.12 mls/hr IVPB .Q24H [facility] ; 3 MG/HR PRN Reason: Protocol Last Admin: 04/28/17 18:27 Dose: 3.12 mls/hr Insulin Detemir (Levemir) 22 units SC HS [facility] Last Admin: 04/27/17 22:39 Dose: 22 units Insulin Human Lispro (Humalog) 0 units SC Q6H [facility] PRN Reason: Protocol Last Admin: 04/28/17 16:30 Dose: 3 units Labetalol HCl (Trandate) 20 mg IVP Q6H PRN PRN Reason: for SBP > 180 Last Admin: 04/28/17 05:26 Dose: 20 mg Lorazepam (Ativan) 1 mg IVP Q6 PRN PRN Reason: Seizure activity Last Admin: 04/28/17 16:51 Dose: 1 mg Metoprolol Tartrate (Lopressor) 5 mg IVP Q6 [facility] Last Admin: 04/28/17 16:31 Dose: 5 mg Morphine Sulfate (Morphine) 2 mg IVP Q2 PRN PRN Reason: Agitation Last Admin: 04/28/17 18:04 Dose: 2 mg Thiamine HCl (Vitamin B1 Tab) 100 mg PO DAILY [facility] Last Admin: 04/28/17 08:09 Dose: 100 mg Vitamin A (Vitamin A & D Oint Ud Foilpak) 1 ea TOP BID [facility] - Labs Labs: 04/28/17 04:20 04/28/17 04:20 PT 12.6 Seconds (9.8-13.1) 04/19/17 04:30 INR 1.1 (0.9-1.2) 04/19/17 04:30 APTT 29.2 Seconds (25.6-37.1) 04/18/17 23:07 - Constitutional Appears: No Acute Distress, Other (comatose ) - Head Exam Head Exam: ATRAUMATIC, NORMOCEPHALIC - Eye Exam Additional comments: pupils pinpoint sluggish reactive to light - ENT Exam ENT Exam: Mucous Membranes Dry - Neck Exam Neck Exam: Normal Inspection - Respiratory Exam Respiratory Exam: Rhonchi Additional comments: Coarse breath sounds bilaterally - Cardiovascular Exam Cardiovascular Exam: REGULAR RHYTHM. absent: JVD - GI/Abdominal Exam GI & Abdominal Exam: Soft. absent: Distended, Guarding, Rebound - Rectal Exam Rectal Exam: Deferred - Extremities Exam Extremities Exam: Normal Inspection - Neurological Exam Additional comments: comatose - Skin Skin Exam: Dry, Warm Assessment and Plan - Assessment and Plan (Free Text) Assessment: 66 y/o male with PMHx significant for DM2, HTN, ESRD on M/W/F ESRD, and PVD was brought in by EMS with cardiac arrest. Patient was brought in with resuscitation in progress. Per report, patient had been watching TV with friend and c/o CP. They called 911, and when the ambulance arrived, patient attempted to walk to [facility], but then became unresponsive and was found to be in cardiac arrest. CPR was initiated, patient received 3 epinephrines, 2 mg narcan. Supraglottic airway and IO line placed. In the ED, patient received Bicarb and another epi . EKG was reviewed by cardiology who indicated no code heart needed. L femoral central line placed. Patient was admitted to ICU and hypothermia protocol was initiated .After rewarming noted to have continuos seizure like activity. Neurology consulted and despite multiple antiepileptics, Depakote, Keppra, Vimpat and Ativan , EEG continuous to show seizure activity and abnormal brain function consistent with anoxic brain injury. on consult. As per neuro patient has anoxic brain injury and poor prognosis with no chance for recovery. He remains in comatose state. After discussion with family terminal extubation performed 04/28/17 .Patient to be transferred under hospice care today. 1. Cardiac arrest unclear etiology 2. Anoxic Brain Injury with continuos seizure like activity 3.ESRD - on HD -- hold HD
--- NOTE | 2017-04-29 14:07 | CP.PCM.PN ---
Subjective - Date & Time of Evaluation Date of Evaluation: 04/29/17 Time of Evaluation: 14:06 - Subjective Subjective: Patient became hospice. Has been discussed with the family with the ICU team. Terminate dialysis. Objective - Vital Signs/Intake and Output Vital Signs (last 24 hours): Temp Pulse Resp BP Pulse Ox 98.5 F 61 20 102/46 L 97 04/29/17 12:00 04/29/17 12:00 04/29/17 12:00 04/29/17 12:00 04/29/17 12:00 Intake and Output: 04/29/17 04/29/17 06:59 18:59 Intake Total 0 6 Output Total 25 Balance -25 6 - Medications Medications: Current Medications Acetaminophen (Tylenol 650mg/20.3ml Solution Ud) 650 mg PO Q6 PRN PRN Reason: Temperature Last Admin: 04/26/17 20:32 Dose: 650 mg Amlodipine Besylate (Norvasc) 10 mg PO DAILY [facility] Last Admin: 04/28/17 08:09 Dose: 10 mg Carvedilol (Coreg) 25 mg PO Q12 [facility] Last Admin: 04/28/17 08:08 Dose: 25 mg Clonidine HCl (Catapres) 0.1 mg PO BID [facility] Last Admin: 04/28/17 16:29 Dose: 0.1 mg Folic Acid (Folic Acid) 1 mg PO DAILY [facility] Last Admin: 04/28/17 08:08 Dose: 1 mg Hydralazine HCl (Apresoline) 25 mg NG TID [facility] Last Admin: 04/28/17 16:28 Dose: 25 mg Valproate Sodium 750 mg/ (Sodium Chloride) 57.5 mls @ 0 mls/hr IVPB Q12 [facility] PRN Reason: As Directed Last Admin: 04/28/17 08:11 Dose: 50 mls/hr Levetiracetam 500 mg/ Sodium (Chloride) 105 mls @ 210 mls/hr IVPB Q12 [facility] Last Admin: 04/28/17 08:10 Dose: 210 mls/hr Piperacillin Sod/Tazobactam (Sod 2.25 gm/ Sodium Chloride) 50 mls @ 50 mls/hr IVPB Q8 [facility] PRN Reason: Protocol Last Admin: 04/28/17 16:32 Dose: 50 mls/hr Lacosamide 100 mg/ Sodium (Chloride) 110 mls @ 110 mls/hr IVPB BID [facility] Last Admin: 04/28/17 16:31 Dose: 110 mls/hr Vancomycin HCl 1 gm/ Dextrose 250 mls @ 125 mls/hr IVPB TTS [facility] PRN Reason: Protocol Last Admin: 04/28/17 14:55 Dose: 125 mls/hr Morphine Sulfate 100 mg/ (Sodium Chloride) 104 mls @ 3.12 mls/hr IVPB .Q24H [facility] ; 3 MG/HR PRN Reason: Protocol Last Admin: 04/28/17 18:27 Dose: 3.12 mls/hr Insulin Detemir (Levemir) 22 units SC HS [facility] Last Admin: 04/27/17 22:39 Dose: 22 units Insulin Human Lispro (Humalog) 0 units SC Q6H [facility] PRN Reason: Protocol Last Admin: 04/28/17 16:30 Dose: 3 units Labetalol HCl (Trandate) 20 mg IVP Q6H PRN PRN Reason: for SBP > 180 Last Admin: 04/28/17 05:26 Dose: 20 mg Lorazepam (Ativan) 1 mg IVP Q6 PRN PRN Reason: Seizure activity Last Admin: 04/28/17 16:51 Dose: 1 mg Metoprolol Tartrate (Lopressor) 5 mg IVP Q6 [facility] Last Admin: 04/28/17 16:31 Dose: 5 mg Morphine Sulfate (Morphine) 2 mg IVP Q2 PRN PRN Reason: Agitation Last Admin: 04/28/17 18:04 Dose: 2 mg Thiamine HCl (Vitamin B1 Tab) 100 mg PO DAILY [facility] Last Admin: 04/28/17 08:09 Dose: 100 mg Vitamin A (Vitamin A & D Oint Ud Foilpak) 1 ea TOP BID [facility] - Labs Labs: 04/28/17 04:20 04/28/17 04:20 PT 12.6 Seconds (9.8-13.1) 04/19/17 04:30 INR 1.1 (0.9-1.2) 04/19/17 04:30 APTT 29.2 Seconds (25.6-37.1) 04/18/17 23:07 Assessment and Plan (1) Cardiac arrest Status: Acute (2) Flash pulmonary edema Status: Acute (3) ESRD (end stage renal disease) on dialysis Status: Chronic (4) Acute respiratory failure Status: Acute (5) CHF exacerbation Status: Acute
[2017-04-29 14:27] VITALS: BP 142/49; PULSE 68; RESP 14; O2SAT 98
--- NOTE | 2017-05-02 10:45 | PQF CHF ---
Dr. Vincent chf exacerbation is documented in medical record. Please clarify chf type and acuity below. This form is a permanent part of the medical record Clarification of your documentation is requested to better reflect the severity of illness and intensity of treatment of your patient. Indicators present [x] Diagnosis of CHF and/or history of CHF [] BNP > 200 [] Imaging Finding of Pulmonary Edema /Pleural Effusions [] Fluid/Volume Overload [] Pitting edema [] Ejection Fraction < 40% (Indicative of Systolic Heart Failure) [] Ejection Fraction > 40% (Indicative of Diastolic Heart Failure) [] Dyspnea / Orthopenea / Paroxysmal Nocturnal Dyspnea [] Other: Location in the medical record that reflects the above clinical findings: [] Treatment Provided: [] PHYSICIAN'S RESPONSE Pt did not have a history of CHF Echocardiogram showed preserved LV syst function Chest X-ray reported as pulm oedema on first day, was interpreted as showing "pulmonary infiltrtates" the following day. Based on these the patient was not treated for CHF Based on your medical judgment of the clinical indicators outlined above, are you treating this patient for a known or suspected: [] Acute CHF [] Systolic [] Diastolic [] Combined [] Chronic CHF [] Systolic [] Diastolic [] Combined [] Acute on Chronic CHF []Systolic [] Diastolic [] Combined [] CHF due hypertension [] Acute systolic []Chronic systolic [] Acute/ chronic systolic [] Other, please indicate: [] [] If Unable to Determine, please check the box, sign and date. Present On Admission (POA) Indicator: [] Present at the time of admission [X] Not present at the time of admission [] Clinically Undetermined In responding to this query, please exercise your independent professional judgment. The fact that a question is asked does not imply that any particular answer is desired or expected. Thank you for your clarification on this documentation. If you have any questions please call:[ ] * Thank you, [ ]Ashleigh Monahan student affairs vice president DARIAN
== END 2017-04-29 15:12 | disposition hospice, inpatient (51) | DRG 296 ==
LOC: H.ER 22:30 → H.ERHOLD 23:12 → H.ICU/CCU 04-18 01:20
PROVIDERS: ADMIT Internal Medicine; ATTEND Internal Medicine
PROC: 0BH17EZ Insertion of Endotracheal Airway into Trachea, Via Natural or Artificial Opening (ICD-10-PCS; principal; 2017-04-17)
PROC: 5A1955Z Respiratory Ventilation, Greater than 96 Consecutive Hours (ICD-10-PCS; 2017-04-17)
PROC: 06HN33Z Insertion of Infusion Device into Left Femoral Vein, Percutaneous Approach (ICD-10-PCS; 2017-04-17)
PROC: 5A1D70Z Performance of Urinary Filtration, Intermittent, Less than 6 Hours Per Day (ICD-10-PCS; 2017-04-18)
DX: I46.9 Cardiac arrest, cause unspecified (principal); R40.20 Unspecified coma; J96.00 Acute respiratory failure, unspecified whether with hypoxia or hypercapnia; J69.0 Pneumonitis due to inhalation of food and vomit; G93.1 Anoxic brain damage, not elsewhere classified; Z99.11 Dependence on respirator [ventilator] status; E87.2 Acidosis; K56.7 Ileus, unspecified; N18.6 End stage renal disease; N25.81 Secondary hyperparathyroidism of renal origin; K92.2 Gastrointestinal hemorrhage, unspecified; I12.0 Hypertensive chronic kidney disease with stage 5 chronic kidney disease or end stage renal disease; E11.22 Type 2 diabetes mellitus with diabetic chronic kidney disease; E11.51 Type 2 diabetes mellitus with diabetic peripheral angiopathy without gangrene; E78.00 Pure hypercholesterolemia, unspecified; E87.5 Hyperkalemia; Z99.2 Dependence on renal dialysis; E11.65 Type 2 diabetes mellitus with hyperglycemia; F10.129 Alcohol abuse with intoxication, unspecified; Y90.0 Blood alcohol level of less than 20 mg/100 ml; E83.39 Other disorders of phosphorus metabolism; D63.1 Anemia in chronic kidney disease; D50.0 Iron deficiency anemia secondary to blood loss (chronic); Z51.5 Encounter for palliative care; G40.909 Epilepsy, unspecified, not intractable, without status epilepticus

== ENCOUNTER 2017-04-29 14:08 | Inpatient (IN) | payer MEDICAID, MEDICARE, OTHER ==
[2017-04-29 14:58] VITALS: BMI 24.8
[2017-04-29] MEDS: Morphine 100 MG in Sodium Chloride 0.9% 100 ML IVPB SCH (18:28)
[2017-04-30] MEDS: Morphine 100 MG in Sodium Chloride 0.9% 100 ML IVPB SCH (01:51)
[2017-04-30 07:54] VITALS: BP 146/56; PULSE 80; RESP 24; TEMP 100.3; O2SAT 86
--- NOTE | 2017-04-30 08:34 | CP.PCM.HP ---
History of Present Illness - History of Present Illness History of Present Illness: CC: Hospice admission s/p cardiac arrest 66 y/o male with PMHx significant for DM2, HTN, ESRD on M/W/F ESRD, and PVD was brought in by EMS with cardiac arrest. Patient was brought in with resuscitation in progress. Per report, patient had been watching TV with friend and c/o CP. They called 911, and when the ambulance arrived, patient attempted to walk to stretcher, but then became unresponsive and was found to be in cardiac arrest. CPR was initiated, patient received 3 epinephrines, 2 mg narcan. Supraglottic airway and IO line placed. In the ED, patient received Bicarb and another epi . EKG was reviewed by cardiology who indicated no code heart needed. L femoral central line placed. Patient was admitted to ICU and hypothermia protocol was initiated .After rewarming noted to have continuos seizure like activity. Neurology consulted and despite multiple antiepileptics, Depakote, Keppra, Vimpat and Ativan , EEG continuous to show seizure activity and abnormal brain function consistent with anoxic brain injury. on consult. As per neuro patient has anoxic brain injury and poor prognosis with no chance for recovery. He remains in comatose state. After discussion with family terminal extubation performed 04/28/17 . Patient was then transferred to inpatient hospice on 04/29/2017. This morning the patient was seen and examined at bedside. He has periods of apnea. Patient is comatose. On morphine drip for comfort and scopolamine patch for respiratory secretions. ROS: Cannot obtain, cardiac arrest MHx: DM2, HTN, ESRD on HD, PVD SHx: R foot small toe amputation, R CEA?, cholecystectomy Allergies: NKDA Medications: As per med rec Family Hx: Cannot obtain Social Hx: Current living situation unknown no tobacco, no EtOH Surrogate: Daughters -- Magali [phone], Lisa [phone] Present on Admission - Present on Admission Any Indicators Present on Admission: No Review of Systems - Review of Systems Systems not reviewed;Unavailable: Other (Comatose) Past Patient History - Past Medical History & Family History Past Medical History?: Yes - Past Social History Smoking Status: Never Smoked - CARDIAC Hx Congestive Heart Failure: Yes Hx Hypercholesterolemia: Yes Hx Hypertension: Yes - PULMONARY Hx Chronic Obstructive Pulmonary Disease (COPD): No Hx Pneumonia: Yes - NEUROLOGICAL Hx Neurological Disorder: No - HEENT Hx HEENT Problems: Yes Hx Cataracts: Yes - RENAL Hx Chronic Kidney Disease: Yes (M/W/F dialysis) - ENDOCRINE/METABOLIC Hx Hypothyroidism: No - HEMATOLOGICAL/ONCOLOGICAL Hx Anemia: Yes - INTEGUMENTARY Hx Dermatological Problems: Yes - MUSCULOSKELETAL/RHEUMATOLOGICAL Hx Arthritis: No Hx Rheumatoid Arthritis: No - GASTROINTESTINAL Hx Gastrointestinal Disorders: No - GENITOURINARY/GYNECOLOGICAL Hx Genitourinary Disorders: Yes - PSYCHIATRIC Hx Substance Use: No - SURGICAL HISTORY Hx Appendectomy: No - ANESTHESIA Hx Anesthesia: Yes Hx Anesthesia Reactions: No Hx Malignant Hyperthermia: No Meds Allergies/Adverse Reactions: Allergies Allergy/AdvReac Type Severity Reaction Status Date / Time No Known Allergies Allergy Verified 04/17/17 22:33 Physical Exam - Additional Findings Additional findings: Physical exam: Constitutional- comatose, Head- NCAT Eye- Pupils pinpoint and are sluggishly reactive to light ENT- normal exam, mucus membranes dry Neck- normal inspection, supple, no JVD Respiratory- CTAB, + Jose Luis grant breathing. Coarse breath sounds bilaterally Cardiovascular- RRR, +S1, +S2 no MRG GI/Abdominal- normal bowel sounds, soft, no mass, no hsm Skin- warm, dry Extremities Exam- normal capillary refill, normal inspection Neurological Exam- comatose Results - Vital Signs Recent Vital Signs: Last Vital Signs Temp 100.3 F H 04/30/17 07:54 Pulse 80 04/30/17 07:54 Resp 24 04/30/17 07:54 BP 146/56 L 04/30/17 07:54 Pulse Ox 86 L 04/30/17 07:54 Assessment & Plan - Assessment and Plan (Free Text) Plan: Assessment: 66 y/o male with PMHx significant for DM2, HTN, ESRD on M/W/F ESRD, and PVD was brought in by EMS with cardiac arrest. Patient was brought in with resuscitation in progress. Per report, patient had been watching TV with friend and c/o CP. They called 911, and when the ambulance arrived, patient attempted to walk to stretcher, but then became unresponsive and was found to be in cardiac arrest. CPR was initiated, patient received 3 epinephrines, 2 mg narcan. Supraglottic airway and IO line placed. In the ED, patient received Bicarb and another epi . EKG was reviewed by cardiology who indicated no code heart needed. L femoral central line placed. Patient was admitted to ICU and hypothermia protocol was initiated .After rewarming noted to have continuos seizure like activity. Neurology consulted and despite multiple antiepileptics, Depakote, Keppra, Vimpat and Ativan , EEG continuous to show seizure activity and abnormal brain function consistent with anoxic brain injury. on consult. As per neuro patient has anoxic brain injury and poor prognosis with no chance for recovery. He remains in comatose state. After discussion with family terminal extubation performed 04/28/17 . Patient was transferred to inpatient hospice on 04/29/2017 1. Cardiac arrest unclear etiology 2. Anoxic Brain Injury with continuos seizure like activity 3.ESRD - no HD as patient is in hospice - NPO status - Ativan 1 mg IVP q6h PRN for anxiety - Morphine drip for comfort - Scopolamine patch for secretions
--- NOTE | 2017-04-30 13:43 | CP.PCM.PRO ---
Pronouncement of Note - Clinical Findings Physical Exam: No Response Verbal/Painful Stimuli, Absent Peripheral Pulses{ Carotid & Femoral}, Absent Heart & Breath Sounds, No Pupillary Light Reflex, No Corneal Reflex, Pupils Fixed & Dilated, Absence of Vital Signs - Pronouncement Time Time of Pronouncement of : 13:15 - Notifications Pronouncement Notifications: Family Notified, Atending Notified Site Safety Representative Notified: No - Autopsy Autopsy Requested: No - [place] [id number]
--- NOTE | 2017-04-30 13:48 | CP.PCM.DIS ---
Provider - Provider Date of Admission: 04/29/17 14:58 Attending physician: Lenin Carrasco MD Primary care physician: Dr. Bernal Time Spent in preparation of Discharge (in minutes): 25 Hospital Course - Hospital Course Hospital Course: 66 y/o male with PMHx significant for DM2, HTN, ESRD on M/W/F ESRD, and PVD was brought in by EMS with cardiac arrest. Patient was brought in with resuscitation in progress. Per report, patient had been watching TV with friend and c/o CP. They called 911, and when the ambulance arrived, patient attempted to walk to stretcher, but then became unresponsive and was found to be in cardiac arrest. CPR was initiated, patient received 3 epinephrines, 2 mg narcan. Supraglottic airway and IO line placed. In the ED, patient received Bicarb and another epi . EKG was reviewed by cardiology who indicated no code heart needed. L femoral central line placed. Patient was admitted to ICU and hypothermia protocol was initiated .After rewarming noted to have continuos seizure like activity. Neurology consulted and despite multiple antiepileptics, Depakote, Keppra, Vimpat and Ativan , EEG continuous to show seizure activity and abnormal brain function consistent with anoxic brain injury. on consult. As per neuro patient has anoxic brain injury and poor prognosis with no chance for recovery. He remains in comatose state. After discussion with family terminal extubation performed 04/28/17 . Patient was then transferred to inpatient hospice on 04/29/2017. He then on 04/30/2017 at 1:15 PM [facility] Discharge Exam - Additional Findings Additional findings: Physical exam: Pupils fixed and dilated Resp: No respirations CV: No pulse Discharge Plan - Follow Up Plan Condition: Disposition: WITH WITHOUT AUTOPSY
== END 2017-04-30 14:55 | DRG 91 ==
LOC: H.ICU/CCU 14:58 → H.MEDSURG1 16:49
PROVIDERS: ADMIT Hospitalist; ATTEND Hospitalist
DX: G93.1 Anoxic brain damage, not elsewhere classified (principal); N18.6 End stage renal disease; R40.20 Unspecified coma; I12.0 Hypertensive chronic kidney disease with stage 5 chronic kidney disease or end stage renal disease; E11.51 Type 2 diabetes mellitus with diabetic peripheral angiopathy without gangrene; Z51.5 Encounter for palliative care; E11.22 Type 2 diabetes mellitus with diabetic chronic kidney disease